=== PATIENT | female | born 2000 | race Caucasian/White ===

== ENCOUNTER → 2025-03-02 | Outpatient (CLI) | payer OTHER, SELFPAY ==
[2025-03-02 12:16] LABS: Absolute Lymphocyte Count 1.59 X10^3/uL (0.83-4.51); Basophil# 0.04 X10^3/uL; Basophil% 0.6 % (0-1); Eosinophil# 0.12 X10^3/uL; Eosinophils% 1.9 % (0-5); Hematocrit 36.2 % (37-47); Lymphocyte # 1.59 X10^3/ul (0.83-4.51); Lymphocyte % 25.6 % (19-41); Mean Corp Hgb Conc 33.1 g/dL (32-36); Mean Corpuscular Volume 90.5 fL (81-99); Monocyte# 0.44 X10^3/uL; Monocyte% 7.1 % (0-10); NRBC Flagged by Analyzer 0 % (0-5); Neutrophil % 64.3 % (47-70); Platelet Count 171 K/mm3 (150-450); RBC Distribution Width CV 13.2 % (11.6-14.6); RBC Distribution Width SD 43.7 fl (35.1-43.9); White Blood Count 6.2 K/mm3 (4.4-11.0)
[2025-03-02 13:20] LABS: HIV Nonreactive (Nonreactive); Hepatitis B Surface Antigen Nonreactive (Nonreactive); Hepatitis C Antibody Nonreactive (Nonreactive); Rubella IgG Nonreactive (Nonreactive); Syphilis Antibodies Nonreactive (Nonreactive); Thyroid Stim Hormone (TSH) 0.738 uIU/mL (0.300-4.200)
[2025-03-04 04:07] LABS: Chlamydia By Nucleic Acid AMP Negative (Negative); Gonococcus By Nucleic Acid AMP Negative (Negative)
== END | disposition home or self-care (01) ==
PROVIDERS: PCP Nurse Practitioner Family; Referring Provider Advanced Practice Midwife; Visit Provider Advanced Practice Midwife
DX: O09.90 Supervision of high risk pregnancy, unspecified, unspecified trimester (principal); Z3A.00 Weeks of gestation of pregnancy not specified
CPT/HCPCS: 36415; 84439; 84443; 85025; 86703; 86762; 86780; 86803; 86850; 86900; 86901; 87086; 87088; 87340; 87491; 87591

== ENCOUNTER → 2025-05-18 | Outpatient (CLI) | payer SELFPAY, OTHER ==
--- NOTE | 2025-05-18 15:43 | US_ITS ---
PROCEDURE: OB ANATOMY W/ TRANSVAGINAL 05/18/2025 REASON FOR EXAM: ANATOMY SCAN TECHNIQUE: OB ANATOMY W/ TRANSVAGINAL COMPARISON: None FINDINGS LMP: December 29, 2024 Number: 1 Position: Breech Placental Position: Posterior and not low-lying Placental Abnormalities: No evidence of previa. DIMENSIONS: Biparietal Diameter: 4.64 cm: 20 weeks and 0 days: 50 percentile/ Head Circumference: 16.94 cm: 19 weeks and 4 days: 23rd percentile/ Abdominal Circumference: 15.5 cm: 20 weeks and 5 days: 68 percentile/ Femur Length: 3.26 cm: 20 weeks and 1 day: 49 percentile/ ESTIMATED WEIGHT: 352 g plus/-52 g ESTIMATED WEIGHT PERCENTILE (24+ weeks): 69 percentile ESTIMATED GESTATIONAL AGE: Baseline: 20 weeks and 2 days By Ultrasound: 20 weeks and 0 days ESTIMATED DATE OF DELIVERY: Baseline: October 05, 2025 By Ultrasound: October 07, 2025 BIOPHYSICAL ASSESSMENT: Amniotic Fluid Volume: 3.6 cm Amniotic Fluid Index: Within normal limits (8-24 cm normal range) Cardiac Motion: 140 (average) Trunk and Limb Motion: Present. MATERNAL ANATOMY: Adnexa: Both maternal ovaries are visualized and unremarkable. Cervical Length (if measured): 3.6 cm ANATOMY: Spine: Unremarkable Cranium: Unremarkable Cerebellum: Unremarkable Cisterna Magna: Unremarkable Cavum Septum Pellucidi: Unremarkable Lateral Ventricles: Unremarkable Choroid Plexus: Unremarkable Midline Falx: Unremarkable Nuchal Fold: Unremarkable Upper Lip: Unremarkable Heart: Unremarkable Stomach: Unremarkable Kidneys: Unremarkable Bladder: Unremarkable Umbilical Cord: Normal insertion. Extremities: Unremarkable US/OB Anatomy w/ Transvaginal IMPRESSION: Single live intrauterine gestation with a mean gestational age of 20 weeks and 0 days. Reading Location: [facility]
== END | disposition home or self-care (01) ==
PROVIDERS: Referring Provider Obstetrics & Gynecology; Visit Provider Obstetrics & Gynecology
DX: O09.90 Supervision of high risk pregnancy, unspecified, unspecified trimester (principal); Z3A.00 Weeks of gestation of pregnancy not specified
CPT/HCPCS: 76805; 76817

== ENCOUNTER → 2025-07-10 | Outpatient (CLI) | payer OTHER, SELFPAY ==
[2025-07-10 10:10] LABS: Hematocrit 32.5 % (37-47); Hemoglobin 10.9 g/dL (12.0-15.0); Immature Granulocytes Count 0.110 X10^3/uL (0.0-0.0); Mean Corp Hgb Conc 33.5 g/dL (32-36); Mean Corpuscular Volume 92.6 fL (81-99); Mean Platelet Vol. 9.4 fl (6.2-12.0); NRBC Flagged by Analyzer 0 % (0-5); Platelet Count 168 K/mm3 (150-450); RBC Distribution Width CV 12.9 % (11.6-14.6); RBC Distribution Width SD 43.5 fl (35.1-43.9); Red Blood Count 3.51 M/mm3 (4.2-5.4); White Blood Count 8.8 K/mm3 (4.4-11.0)
[2025-07-10 11:28] LABS: Glucose Challenge Gest 1H 50g 68 mg/dL (70-140); HIV Nonreactive (Nonreactive); Syphilis Antibodies Nonreactive (Nonreactive)
== END | disposition home or self-care (01) ==
LOC: LAB 09:54
PROVIDERS: Referring Provider Obstetrics & Gynecology; Visit Provider Obstetrics & Gynecology
DX: O09.92 Supervision of high risk pregnancy, unspecified, second trimester (principal); Z3A.00 Weeks of gestation of pregnancy not specified
CPT/HCPCS: 36415; 82950; 85025; 86703; 86780

== ENCOUNTER → 2025-08-31 | Outpatient (CLI) | payer OTHER, SELFPAY ==
[2025-08-31 12:26] LABS: Hematocrit 30.5 % (37-47); Hemoglobin 10.1 g/dL (12.0-15.0); Mean Corp Hgb Conc 33.1 g/dL (32-36); Mean Corpuscular Volume 91.9 fL (81-99); Mean Platelet Vol. 10.6 fl (6.2-12.0); Platelet Count 150 K/mm3 (150-450); RBC Distribution Width CV 13.3 % (11.6-14.6); RBC Distribution Width SD 44.2 fl (35.1-43.9); Red Blood Count 3.32 M/mm3 (4.2-5.4); White Blood Count 9.1 K/mm3 (4.4-11.0)
--- OUTSIDE RECORDS SUMMARY | 2025-08-31 14:51 | XMS RPT_ITS | CCD ---
Author Organization [facility] Care Team Providers Care Nurse Infection Control Name Role Phone CINTIA REILLY, YOHANA Will Unavailable BERLIN Unavailable Unavailable CINTIA REILLY, IRASEMA Guerrier Unavailable GASTROENTEROLOGY, GENERAL Unavailable Emilee Yang RN, June Unavailable Unavailable ABHIJIT REILLY, SHREYAS Stark Unavailable CHERYL RN, KAYLEIGH Unavailable Unavailable KRISTA ANDRESP-CCHANDA Unavailable Tanesha HARDWICK MD Unavailable KARTHIK REILLY, YAHAIRA Brunson Unavailable [phone] Alex RN, Tamar Unavailable Unavaila arsalan Rdz RN, Kelli Unavailable Unavailable Unavailable Unavailable Ricardo MARTINSN, Snow Unavailable Unavailable KRISTA LEYVA-CCHANDA Unavailable Unav ailable MALCOLM YANG MD Referring Unavailable MALCOLM YANG MD Consulting Unavailable WILFREDO CHAMBERLAIN Attending Unavailable WILFREDO CHAMBERLAIN Primary Care Unavailable WILFREDO CHAMBERLAIN Admitting Unavailable PROVIDER, UNKNOWN Consulting Unavailable PROVIDER, UNKNOWN Consulting Unavailable SONA LEYVA-CYULIYA Unavailable Chanda Addison Primary Care Provider Dr. Sirena Padilla MD Attending Provider Dr. Sirena Padilla MD Referring Provider Chanda Addison Referring Provider Sophia Cho CNM Attending Provider Sophia Cho CNM Referring Provider [phone] Lora Lopez Attending Provider [phone] [place] Doctor, Out of Primary Care Provider Unavai lable Krista DANCE PROFESSOR-C, Chanda Primary Care Provider Krista DANCE PROFESSOR-C, Chanda Referring Provider Valerie REILLY, Dr. Pack Attending Provider [phone] Dr. Sirena Padilla MD Referring Provider [phone] Dr. Lizbeth Cruz DO Attending Provider Krista DANCE PROFESSOR-C, Chanda Primary Care Physician Krista DANCE PROFESSOR-C, Chanda Referring Provider Valerie REILLY, Dr. Pack Attending Physician Dennis DANCE PROFESSOR-C, Lora Attending Physician [phone] [facility] Doctor, Out of Primary Care Physician Unava ilable Dr. Lizbeth Cruz DO Attending Physician Care Physician, No Primary Primary Care Physicia n Unavailable Dr. Lizbeth Cruz DO Referring Provider [facility] Doctor, Out of Referring Provider Unavailab le Care Physician, No Primary Primary Care Unava ilable Dennis DANCE PROFESSOR, Lora Attending Unavailable [facility] Doctor, Out of Referring Unavailable Care Physician, No Primary Primary Care Unava ilable Krista DANCE PROFESSOR, Chanda Referring Unavailab le Sirena Padilla Attending Unavailable Krista DANCE PROFESSOR, Chanda Referring Unavailab le [facility] Doctor, Out of Primary Care Unavailable Lizbeth Cruz Attending Unavailabl e MarcanthSirena sanchez Referring Unavailable [facility] Doctor, Out of Primary Care Unavailable Sirena Padilla Attending Unavailable Lizbeth Cruz Attending Unavailabl e Care Physician, No Primary Primary Care Unava ilable Lizbeth Cruz Referring Unavailabl e Javier DANCE PROFESSOR, [place] Primary [facility] Unavailab Sophia Dhillon Referring Unavailable Sophia Cho Attending Unavailable Krista DANCE PROFESSOR, [place] [facility] Unavailab le MarcanthonySirena Referring Unavailable MarcanthSirena sanchez Attending Unavailable Losttsylvester DANCE PROFESSOR, [place] [facility] Unavailab le Marcanthony, Sirena Referring Unavailable MarcanthonySirena Attending Unavailable Krista DANCE PROFESSOR, Chanda Referring Unavailab vitor Collins DANCE PROFESSOR, Lora Attending Unavailable [facility] Doctor, Out of Primary Care Unavailable Krista DANCE PROFESSOR, Chanda Primary Care Unavailab le Krista DANCE PROFESSOR, Chanda Referring Unavailab vitor Collins DANCE PROFESSOR, Lora Attending Unavailable Krista DANCE PROFESSOR, Chanda Primary Care Unavailab le Krista DANCE PROFESSOR, Chanda Referring Unavailab Sirena Landin Attending Unavailable Krista DANCE PROFESSOR, Chanda Primary Care Unavailab le Krista DANCE PROFESSOR, Chanda Referring Unavailab Sophia Dhillon Attending Unavailable Krista DANCE PROFESSOR, Chanda Primary Care Unavailab le Krista DANCE PROFESSOR, Chanda Referring Unavailab Sirena Landin Attending Unavailable Care Physician, No Primary Primary Care Unava ilable [facility] Doctor, Out of Referring Unavailable Sophia Cho Attending Unavailable Allergies Allergy Classification Reported Allergen(s) Allergy Type Date of Onset Reaction(s) Facility (1 source) Lactose; Translations: [LACTOSE] Drug Allergy [facility] Repository Medications Current Medications Medication Drug Class(es) Dates Sig (Normalized) Sig (Original) Fish,Bora,Flax Oils-Om3,6,9no1 ([place] 3-6-9) 1,200 mg capsule (9 sources) Start: 02-16-2025 take 1 capsule by mouth once daily Fish,Bora,Flax Oils-Om3,6,9no1 ([place] 3-6-9) 1,200 mg capsule Active 0 PO DAILY February 16, 2025 12:00am 1 orally daily; Complies with drug therapy Start: 02-16-2025 take 1 capsule by mo [facility] once daily Fish,Bora,Flax Oils-Om3,6,9no1 ([place] 3-6-9) 1,200 mg capsule Active 0 PO DAILY February 16, 2025 12:00am 1 orally daily; Magnesium (9 sources) Start: 02-16-2025 take 1 tablet by clarice th once daily Magnesium 250 mg tablet Active 250 mg PO daily February 16, 2025 12:00am Complies with drug therapy Start: 02-16-2025 take 1 tablet by clarice th once daily Magnesium 250 mg tablet Active 250 mg PO daily February 16, 2025 12:00am Mv-Mins 49-Cpjq-Oeggf No.1-D christiansen (Pnv-[place]) 28-1-300 mg capsule (9 sources) Start: 02-16-2025 Mv-Mins 71-Iro n-Folic No.1-Dha (Pnv-[place]) 28-1-300 mg capsule Active NMA PO February 16, 2025 12:00am Complies with drug therapy Start: 02-16-2025 Mv-Mins 71-Iro n-Folic No.1-Dha (Pnv-[place]) 28-1-300 mg capsule Active NMA PO February 16, 2025 12:00am sertraline 25 mg oral tablet (20 sources) Serotonin Reuptake Inhibitor Start: 03-10-2024 take 1 tablet by mouth once daily Sertraline 25 mg tablet Active 25 mg PO DAILY March 10, 2024 12:00am Complies with drug therapy Start: 02-26-2024 Zoloft 25 mg t ablet ; 1 (one) Tablet daily for 90 days Quantity: 90 {Tablet} Refills: 2 Ordered: 26-Feb-2024 GUADALUPE VELASCO Start: 26-Feb-2024 Start: 10-09-2023 Zoloft 25 mg t ablet ; 1 (one) Tablet daily for 90 days Quantity: 90 {Tablet} Refills: 2 Ordered: 09-Oct-2023 GUADALUPE VELASCO Start: 09-Oct-2023 Completed/Discontinued Medications Medication Drug Class(es) Dates Sig (Normalized) Sig (Original) PARoxetine hydrochloride 10 mg oral tablet (11 sources) Serotonin Reuptake Inhibitor Start: 07-19-2014 End: 05-31-2021 take 0.5 tablet by mouth once daily PARoxetine HCl 10 MG Oral Tablet ; 1/2 (one half) Tablet daily for 60 days Quantity: 30 {Tablet} Refills: 2 Ordered: 31-May-2021 MESHA Johnson Start: 19-Jul-2014 End: 31-May-2021 Status: Inactive Comments: Flo Strong Comment on above: Fol Strong Problems Active Problems Problem Classification Problem Date Documented Da te Episodic/Chronic Administrative/social admission (20 sources) Patient encounter status; Translations: [Counseling, unspecified] 10-09-2023 Episodic Anxiety disorders (20 sources) Anxiety; Translations: [Anxiety disorder, unspecified] Onset: 5 10-09-2023 Chronic Comment on above: 12/21/24: PHQ9: 3; SUHAIL 7: 8 sertraline Cardiac dysrhythmias (15 sources) Palpitations; Translations: [Palpitations] Onset: 5 05-24-2025 Episodic Comment on above: after eating. No SOB , chest pain. Declines further evaluation Mood disorders (20 sources) Depressive disorder; Translations: [Depressive disorder, not elsewhere classified] 07-04-2014 Chronic Noninfectious gastroenteritis (11 sources) Other and unspecified noninfectious gastroenteritis and colitis 07-30-2010 Episodic Other complications of (20 sources) Varicose veins of lower extremity in , unspecified trimester; Translations: [Varicose veins during ] Onset: 5 02-16-2025 Episodic Comment on above: behind knees, inner thigh, vaginal behind knees, inner thigh, vaginal left leg. Enc stockings etc Other complications of (20 sources) H/O: miscarriage; Translations: [Supervision of with other poor reproductive or obstetric history, unspecified trimester] 02-07-2025 Episodic Other complications of (20 sources) High risk ; Translations: [Supervision of high risk , unspecified, unspecified trimester] 02-16-2025 Episodic Comment on above: , WILBER 10/05/25, PC Kady, Gopal PRR, , WILBER 10/05, PC Kady, Gopal Other complications of (19 sources) Varicella non-immune; Translations: [Supervision of other high risk pregnancies, unspecified trimester] 02-16-2025 Episodic Comment on above: recommend varicella vaccine post delivery Other complications of (3 sources) Rubella non-immune; Translations: [Supervision of other high risk pregnancies, unspecified trimester] 03-02-2025 Episodic Comment on above: offer MMR PP Other complications of (1 source) Supervision of other high risk pregnancies, unspecified trimester; Translations: [Supervision of other high risk pregnancies, unspecified trimester] Onset: 5 Episodic Other complications of (1 source) Supervision of with other poor reproductive or obstetric history, unspecified trimester; Translations: [Supervision of with other poor reproductive or obstetric history, unspecified trimester] Onset: 5 Episodic Other complications of (1 source) Supervision of high risk , unspecified, third trimester; Translations: [Supervision of high risk , unspecified, third trimester] Onset: 5 Episodic Other complications of (1 source) Supervision of high risk , unspecified, second trimester; Translations: [Supervision of high risk , unspecified, second trimester] Onset: 5 Episodic Other complications of (1 source) Supervision of high risk , unspecified, unspecified trimester; Translations: [Supervision of high risk , unspecified, unspecified trimester] Onset: 5 Episodic Other gastrointestinal disorders (20 sources) Irritable bowel syndrome with diarrhea; Translations: [Irritable bowel syndrome with diarrhea] 10-09-2023 Chronic Other gastrointestinal disorders (11 sources) Diarrhea 07-30-2010 Episodic Previous (20 sources) Maternal request for obstetric intervention; Translations: [Maternal care for unspecified type scar from previous delivery] Onset: 5 02-16-2025 Episodic Comment on above: chance of success is 77%. baby was breech. consent given. 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 Residual codes; unclassified (1 source) Family history of other specified conditions; Translations: [Family history of other specified conditions] Onset: 5 Episodic Residual codes; unclassified (1 source) History of uterine scar from previous surgery; Translations: [History of uterine scar from previous surgery] Onset: 5 Episodic Residual codes; unclassified (1 source) 31 weeks gestation of ; Translations: [31 weeks gestation of ] Onset: 5 Episodic Residual codes; unclassified (1 source) 27 weeks gestation of ; Translations: [27 weeks gestation of ] Onset: 5 Episodic Unclassified (11 sources) LAB DRAW - The labs drawn today include: other: HCG. The lab was drawn from the right antecubital vein. The lab was ordered by Chanda BUTCHER. 03-14-2022 Unclassified (1 source) Other underimmunization status; Translations: [Other underimmunization status] Onset: 5 Past or Other Problems Problem Classification Problem Date Documented Date Episodic/Chronic Hemorrhage during ; abruptio placenta; placenta previa (20 sources) Hemorrhage in early , unspecified; Translations: [Unspecified hemorrhage in early , antepartum condition or complication] Onset: 04-05-2025 10-09-2023 Episodic Comment on above: early IUP seen measu ring appropriately FHT seen visibly Mood disorders (20 sources) Mood disorders 03-04-2013 Other and delivery including normal (20 sources) Early stage of ; Translations: [Encounter for supervision of normal , unspecified, unspecified trimester] Onset: 04-05-2025 02-07-2025 Episodic Comment on above: declined NIPT, Geraldine er testing in past- neg. offer MMR PP Residual codes; unclassified (1 source) 13 weeks gestation of ; Translations: [13 weeks gestation of ] Onset: 04-05-2025 Episodic Residual codes; unclassified (1 source) 9 weeks gestation of ; Translations: [9 weeks gestation of ] Onset: 03-02-2025 Episodic Unclassified (11 sources) Anxiety Disorders - The last clinic visit was 13 month(s) ago. Note for Anxiety disorders: has not taken zoloft regularly but wants to take med, 10-09-2023 Unclassified (11 sources) Anxiety - Note for Anxiety: Pt feels good on current medication and dose. 08-20-2022 Unclassified (11 sources) !Patient notification of lab results - GUADALUPE Lucio. The test(s) that you had done were/was an ultrasound exam. The results of your testing were normal . You should call our office if you have any questions. Note for !Patient notification of lab results : Congratulations! Your ultrasound was normal! It looks like you are nearly 8 weeks . Continue the pelvic rest and schedule an OB appointment in about 4-6 weeks. Thanks! 03-24-2022 Unclassified (11 sources) !Patient notification of lab results - GUADALUPE Lucio. The test(s) that you had done were/was blood work. The results of your testing were normal . Note for !Patient notification of lab results : Your hormone levels look good, they went up from 36,000 to 60,000- so nearly doubling. You are definitely still ! Keep following the precautions I gave you as far as not lifting anything heavy and avoiding anything in the vagina. Let us know if you have any bleeding or cramping. We can order an ultrasound in the next few weeks to confirm. Thanks! 03-19-2022 Unclassified (11 sources) !Patient notification of lab results - GUADALUPE Lucio. The test(s) that you had done were/was blood work. Note for !Patient notification of lab results : Your blood type is O+. We'll let you know after your next set of hormones. Thanks! 03-13-2022 Unclassified (11 sources) Vaginal bleeding - Note for Vaginal bleeding: LMP 01/31/22. Pt had a positive test about 2 weeks ago. She has some light pink spotting for a short time earlier this week that did not last long. She was at a wedding yesterday and had more bright red bleeding that lasted into the night. This morning it is a brown color. Never had abd cramping, but did notice some back pain. Pt is unsure of her blood type. 03-12-2022 Unclassified (11 sources) Anxiety - Note for Anxiety: Pt states symptoms have lessened w/ medication. Sleeping well at night. 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 Feels nervous shakey. Can sleep at night. Had trouble with anxiety since childhood and had been taking Paxil at one time but went to natural med that is not working. 01-09-2022 Unclassified (11 sources) Diarrhea - The onset of the diarrhea has been acute and has been occurring in an intermittent pattern for 3 months. The symptoms have been associated with abdominal pain (with diarrhea) and anxiety ( April 2021), while the symptoms have not been associated with vomiting. Note for Diarrhea: Pt started with stomachache and diarrhea at times in March 2021. HX of anxiety. Got April 2021. symptoms continue at times. Has tried to decrease dairy in her diet without any change. Diarrhea and stomachache is not a daily thing. 05-31-2021 Unclassified (11 sources) Panic Attacks.. - Symptoms include panic attacks. Onset was 3 year(s) ago. 07-19-2014 Unclassified (6 sources) Fever - The fever has been occurring for 4 days. 07-30-2010 Unclassified (11 sources) [ADDITIONAL REASON] Abdominal pain - The pain has been occurring for 4 days. 07-30-2010 Unclassified (5 sources) [ADDITIONAL REASON] Fever - The fever has been occurring for 4 days. 07-30-2010 Unclassified (7 sources) Anxiety Disorders - The last clinic visit was 15 month(s) ago. Symptoms do not include chest discomfort, trouble breathing, trembling or paresthesias. Note for Anxiety disorders: Had a Miscarriage recently. Medication is helping. No thoughts of hurting self 12-21-2024 Results Test Name Value Interpretation Reference Range Facility Costumer Office Visit Reporton 08-14-2025 Costumer Office Visit Report [facility] [address], [address] [place] [address] OFFICE VISIT Date of Service: 08/14/25 MR#: [id number] Acct: [id number] Name: GAURAV FORTE Rep #: [id number] : 2000 Provider: NOELLE Fan ams Age/Sex: 25/F Location: [facility] [place] Status: Signed Intake Vital Signs 06/21/25 09:27 07/25/25 13:42 08/14/25 09:37 Height 5 ft 6 in 5 ft 6 in 5 ft 6 in Weight: 154 lb 9 oz BMI 24.9 BP 137/80 H Intake Visit Reasons: 33 wk ob *pt on vacation* Chief Complaint: 33wk OB Rehab Therapist Required: No Is patient in pain?: No Allergies No Known Allergies Allergy (Verified 08/14/25 09:36) Medications ???Medication ???Instructions ???Recorded ???Confirmed ???Type sertraline 25 mg tablet 25 mg PO DAILY 03/10/24 08/14/25 H istory fish, borage, flaxseed oils-omega See Rx Instructions PO DAILY 11/1208/14/25 History 3,6,9 comb no.1 1,200 mg capsule ([place] 3-6-9) magnesium 250 mg tablet 250 mg PO QDAY 02/16/25 08/14/25 H istory multivit-min no.71-iron fum 28 cap PO 02/16/25 08/14/25 History mg-folate no.1 1 mg-dha 300 mg capsule (PNV-[place]) Last Menstrual Period: 12/29/24 PFSH PFSH Surgical History Previous section Family History Aunt Cancer, Onset Age: 25 Paternal Brain tumor Social History adopted: No household members: spouse and children housing: house number of children: 1 current occupational status: unemployed current occupation: [employer] current occupational exposures/hazards: No pets and animals: Yes (outside) pets and animals: dog(s) and horse(s) history of recent travel: No sexually active: Yes Smoking Status: Never smoker second hand exposure: No alcohol intake: current alcohol intake frequency: holidays/special occasions only details: Not while substance use type: does not use diet: lactose free well-balanced diet: daily or most days caffeine: No eating out: rarely or never during the past year weight has: remained stable what type of physical activity do you participate in: none cindy/christianity: Yazidi seatbelt use: always do you feel safe at home: Yes additional social history: - [employer] work History 3 Elective abortions Hx Para 1 Spontaneous abortions 1 Hx # Term Pregnancies Ectopic pregnancies Hx # Pregnancies Multiple births # of living children 1 Past Pregnancies Del. Date Name GA/Weeks Outcome Route Bth Weight Infant Gen Labor Lgth Anesthesia Del Locatn Provider FOB Unknown Oct 2024 spontaneous 11/03/22 Kady 39 live - full term 7# Female spinal Pomeren e Gopal Delivery Date: 11/03/22 Last Updated by: Sirena Padilla MD breech HPI 33 wk ob *pt on vacation* Details: GAURAV FORTE is a 25 year old who presents for routine OB visit. OB Visit WILBER Calculator Estimated Delivery Date Method Current WG Current Estimate 10/05/25 LMP (Certain) 32w 4d Other Estimates 10/04/25 Ultrasound #1 32w 5d Expected Delivery Route/Plan TOLAC previous for breech- plan on not scheduling anything until end of , consider IOL at 40-41 if favorable. patient counseled regarding risks/benefits of trial of labor versus repeat . ACOG/uptodate education given to patient. 77% likelihood of success per calculator TOLAC consent form signed: 06/21/25 Specific Issue/Plans Covid status: [] Flu vaccine: declines Tdap vaccine: declines Rhogam: NA LARC form signed: yes Problem list reviewed and updated with the most current plan of care details and appropriate orders placed. Relevant counseling for the gestational age provided. Continue routine care and follow up unless otherwise noted in visit notes/problem list details Initial Weight: 133 lb Date -???-???-???-???-???- ???-???-???-???-???-? ??-???- EGA Weight BP Urine Prot -???-???-???-???-???- ???-???-???-???-???-? ??-???- Glucose FHR FuHt Pres Dilation -???-???-???-???-???- ???-???-???-???-???-? ??-???- Effaced St Visit Note 03/02/25 -???-???-???-???-???- ???-???-???-???-???-? ??-???- 9w 0d 133 lb 4 oz (+4 oz) 116/78 -???-???-???-???-???- ???-???-???-???-???-? ??-???- 182 -???-???-???-???-???- ???-???-???-???-???-? ??-???- KW- CRL cons with dates. declines NIPT 04/05/25 -???-???-???-???-???- ???-???-???-???-???-? ??-???- 13w 6d 134 lb 6 oz (+1 lb 6 oz) 116/76 Negative -???-???-???-???-???- ???-???-???-???-???-? ??-???- Negative 160 -???-???-???-???-???- ???-???-???-???-???-? ??-???- SM- no vb cr maping 04/25/25 -???-???-???-???-???- ???-???-???-???-?? (more content not included)... [facility] Costumer Office Visit Reporton 07-25-2025 Costumer Office Visit Report [facility] [address], [address] [place] [address] OFFICE VISIT Date of Service: 07/25/25 MR#: [id number] Acct: [id number] Name: GAURAV FORTE Rep #: [id number] : 2000 Provider: KRISTIE parnell Age/Sex: 24/F Location: [facility] [place] Status: Signed Intake Vital Signs 06/21/25 09:27 07/10/25 10:06 07/25/25 13:42 Height 5 ft 6 in 5 ft 6 in 5 ft 6 in Weight: 153 lb 7 oz BMI 24.7 BP 113/72 Intake Visit Reasons: 30 wk ob Chief Complaint: 30 Week OB Rehab Therapist Required: No Is patient in pain?: No Allergies No Known Allergies Allergy (Verified 07/25/25 13:42) Medications ???Medication ???Instructions ???Recorded ???Confirmed ???Type sertraline 25 mg tablet 25 mg PO DAILY 03/10/24 07/25/25 H istory fish, borage, flaxseed oils-omega See Rx Instructions PO DAILY 11/1207/25/25 History 3,6,9 comb no.1 1,200 mg capsule ([place] 3-6-9) magnesium 250 mg tablet 250 mg PO QDAY 02/16/25 07/25/25 H istory multivit-min no.71-iron fum 28 cap PO 02/16/25 07/25/25 History mg-folate no.1 1 mg-dha 300 mg capsule (PNV-[place]) Last Menstrual Period: 12/29/24 Zika: Zika virus screening: Negative : Yes PFSH PFSH Surgical History Previous section Family History Aunt Cancer, Onset Age: 25 Paternal Brain tumor Social History adopted: No household members: spouse and children housing: house number of children: 1 current occupational status: unemployed current occupation: [employer] current occupational exposures/hazards: No pets and animals: Yes (outside) pets and animals: dog(s) and horse(s) history of recent travel: No sexually active: Yes Smoking Status: Never smoker second hand exposure: No alcohol intake: current alcohol intake frequency: holidays/special occasions only details: Not while substance use type: does not use diet: lactose free well-balanced diet: daily or most days caffeine: No eating out: rarely or never during the past year weight has: remained stable what type of physical activity do you participate in: none cindy/christianity: Yazidi seatbelt use: always do you feel safe at home: Yes additional social history: - [employer] work History 3 Elective abortions Hx Para 1 Spontaneous abortions 1 Hx # Term Pregnancies Ectopic pregnancies Hx # Pregnancies Multiple births # of living children 1 Past Pregnancies Del. Date Name GA/Weeks Outcome Route Bth Weight Gen Labor Lgth Anesthesia Del Locatn Provider FOB Unknown Oct 2024 spontaneous 11/03/22 Kady 39 live - full term 7# Female spinal Chanel Herron Delivery Date: 11/03/22 Last Updated by: Sirena Padilla MD breech HPI 30 wk ob Details: GAURAV FORTE is a 24 year old who presents for routine OB visit. OB Visit WILBER Calculator Estimated Delivery Date Method Current WG Current Estimate 10/05/25 LMP (Certain) 29w 5d Other Estimates 10/04/25 Ultrasound #1 29w 6d Expected Delivery Route/Plan TOLAC previous for breech- plan on not scheduling anything until end of , consider IOL at 40-41 if favorable. patient counseled regarding risks/benefits of trial of labor versus repeat . ACOG/uptodate education given to patient. 77% likelihood of success per calculator TOLAC consent form signed: 06/21/25 Specific Issue/Plans Covid status: [] Flu vaccine: declines Tdap vaccine: declines Rhogam: NA LARC form signed: yes Problem list reviewed and updated with the most current plan of care details and appropriate orders placed. Relevant counseling for the gestational age provided. Continue routine care and follow up unless otherwise noted in visit notes/problem list details Initial Weight: 133 lb Date -???-???-???-???-???- ???-???-???-???-???-? ??-???- EGA Weight BP Urine Prot -???-???-???-???-???- ???-???-???-???-???-? ??-???- Glucose FHR FuHt Pres Dilation -???-???-???-???-???- ???-???-???-???-???-? ??-???- Effaced St Visit Note 03/02/25 -???-???-???-???-???- ???-???-???-???-???-? ??-???- 9w 0d 133 lb 4 oz (+4 oz) 116/78 -???-???-???-???-???- ???-???-???-???-???-? ??-???- 182 -???-???-???-???-???- ???-???-???-???-???-? ??-???- KW- CRL cons with dates. declines NIPT 04/05/25 -???-???-???-???-???- ???-???-???-???-???-? ??-???- 13w 6d 134 lb 6 oz (+1 lb 6 oz) 116/76 Negative -???-???-???-???-???- ???-???-???-???-???-? ??-???- Negative 160 -???-???-???-???-???- ???-???-???-???-???-? ??-???- SM- no vb cr maping (more content not included)... Normal [facility] Absolute lymphocyte countOrd ered By: Lizbeth Chrissy on 07-10-2025 Lymphocytes Auto (Unsp spec) [#/Vol] 1.51 10*3/uL 0.83-4.51 [facility] Absolute neutrophil countOrd ered By: Lizbeth Chrissy on 07-10-2025 Neutrophils (Bld) [#/Vol] 6.4 10*3/uL 2.0-7.7 [facility] Automated lymphocyte count a s percentage of total leukocytesOrdered By: Lizbeth Chrissy on 07-10-2025 Lymphocytes/100 WBC Auto (Unsp spec) 17.2 % Low 19-41 [facility] Basophil percentageOrdered B y: Lizbeth Chrissy on 07-10-2025 Basophils/100 WBC (Bld) 0.3 % 0-1 [facility] CBC W/Diff, Automatedon 09-2 2-2024 Absolute Lymph 1.51 X10 3/uL Normal 0.83-4.51 [facility] Comment on above: Performed By: #### L 100.0100, L501.0250, L509.8002, L3890.6006 #### [facility] [address] [place], [address] Absolute Neut 6.4 X10 3/uL Normal 2.0-7.7 [facility] Comment on above: Performed By: #### L 100.0100, L501.0250, L509.8002, L3890.6006 #### [facility] [address] [place], [address] Basophils/100 WBC (Bld) 0.3 % Normal 0-1 [facility] Comment on above: Performed By: #### L 100.0100, L501.0250, L509.8002, L3890.6006 #### [facility] [address] [place], [address] Eosinophils/100 WBC (Bld) 1.4 % Normal 0-5 [facility] Comment on above: Performed By: #### L 100.0100, L501.0250, L509.8002, L3890.6006 #### [facility] [address] [place], [address] Erythrocyte distribution width (RBC) [Ratio] 12.9 % Normal 11.6-14.6 [facility] Comment on above: Performed By: #### L 100.0100, L501.0250, L509.8002, L3890.6006 #### [facility] [address] [place], [address] Hematocrit (Bld) [Volume fraction] 32.5 % Low 37-47 [facility] Comment on above: Performed By: #### L 100.0100, L501.0250, L509.8002, L3890.6006 #### [facility] [address] [place], [address] Hemoglobin (Bld) [Mass/Vol] 10.9 g/dL Low 12.0-15.0 [facility] Comment on above: Performed By: #### L 100.0100, L501.0250, L509.8002, L3890.6006 #### [facility] [address] [place], [address] IG% 1.300 High 0.0-0.9 [facility] Comment on above: Result Comment: IG% - Immature Granulocytes (promyelocytes, myelocytes and metamyelocytes) > 1% indicates that a LEFT SHIFT is Present. Performed By: #### L 100.0100, L501.0250, L509.8002, L3890.6006 #### [facility] [address] [place], [address] Lymphocytes/100 WBC (Bld) 17.2 % Low 19-41 [facility] Comment on above: Performed By: #### L 100.0100, L501.0250, L509.8002, L3890.6006 #### [facility] [address] [place], [address] MCH (RBC) [Entitic mass] 31.1 pg Normal 27.0-32.0 [facility] Comment on above: Performed By: #### L 100.0100, L501.0250, L509.8002, L3890.6006 #### [facility] [address] [place], [address] MCHC (RBC) [Mass/Vol] 33.5 g/dL Normal 32-36 [facility] Comment on above: Performed By: #### L 100.0100, L501.0250, L509.8002, L3890.6006 #### [facility] [address] [place], [address] MCV (RBC) [Entitic vol] 92.6 fL Normal 81-99 [facility] Comment on above: Performed By: #### L 100.0100, L501.0250, L509.8002, L3890.6006 #### [facility] [address] [place], [address] Monocytes/100 WBC (Bld) 7.2 % Normal 0-10 [facility] Comment on above: Performed By: #### L 100.0100, L501.0250, L509.8002, L3890.6006 #### [facility] [address] [place], [address] Neutrophils/100 WBC (Bld) 72.6 % High 47-70 [facility] Comment on above: Performed By: #### L 100.0100, L501.0250, L509.8002, L3890.6006 #### [facility] [address] [place], [address] Nucleated RBC (Bld) [#/Vol] 0 10*3/uL Normal 0-5 [facility] Comment on above: Performed By: #### L 100.0100, L501.0250, L509.8002, L3890.6006 #### [facility] [address] [place], [address] Platelet mean volume (Bld) [Entitic vol] 9.4 fL Normal 6.2-12.0 [facility] Comment on above: Performed By: #### L 100.0100, L501.0250, L509.8002, L3890.6006 #### [facility] [address] [place], [address] Platelets (Bld) [#/Vol] 168 10*3/uL Normal 150-450 [facility] Comment on above: Performed By: #### L 100.0100, L501.0250, L509.8002, L3890.6006 #### [facility] [address] [place], [address] RBC (Bld) [#/Vol] 3.51 10*6/uL Low 4.2-5.4 [facility] Comment on above: Performed By: #### L 100.0100, L501.0250, L509.8002, L3890.6006 #### [facility] [address] [place], [address] RDW SD 43.5 fl Normal 35.1-43.9 [facility] Comment on above: Performed By: #### L 100.0100, L501.0250, L509.8002, L3890.6006 #### [facility] [address] [place], [address] WBC (Bld) [#/Vol] 8.8 10*3/uL Normal 4.4-11.0 [facility] Comment on above: Performed By: #### L 100.0100, L501.0250, L509.8002, L3890.6006 #### [facility] [address] [place], [address] Eosinophil percentageOrdered By: Lizbeth Lowe on 07-10-2025 Eosinophils/100 WBC (Bld) 1.4 % 0-5 [facility] Erythrocyte distribution wid th ratioOrdered By: Lizbeth Lowe on 07-10-2025 Erythrocyte distribution width (RBC) [Ratio] 12.9 % 11.6-14.6 [facility] Erythrocyte distribution wid th standard deviationOrdered By: Lizbeth Lowe on 07-10-2025 Erythrocyte distribution width (RBC) [Ratio] 43.5 fl 35.1-43.9 [facility] Glucose Challenge Gest 1H 50 samuel 07-10-2025 GLU GEST 50g 1H 68 mg/dL Low 70-140 [facility] Comment on above: Order Comment: PT WA S LATE FOR THEIR 1 HR GLUCOSE DRAW. PT DIDNT CHECK IN UNTIL 954 Performed By: #### L 100.0100, L501.0250, L509.8002, L3890.6006 #### [facility] [address] [place], [address] Glucose measurement at 2 peng rs post-dose gestational glucose tolerance testOrdered By: Lizbeth Lowe on 07-10-2025 Glucose [Mass/Vol] 68 mg/dL Low 70-140 [facility] HIVon 07-10-2025 HIV Non-Reactive Normal Nonreactive [facility] Comment on above: Order Comment: PT WA S LATE FOR THEIR 1 HR GLUCOSE DRAW. PT DIDNT CHECK IN UNTIL 954 Result Comment: Non- Reactive Reactive Repeatedly reactive samples must be confirmed according to CDC recommended confirmatory algorithms. The subresults for either HIVAG or AHIV can be used as an aid in the selection of the confirmation algorithm for reactive samples. Send out specimens with Reactive results to [facility] for confirmation. Order the HIV antibody detection and differentiation: lc#[id number] Performed By: #### L 100.0100, L501.0250, L509.8002, L3890.6006 #### [facility] [address] [place], [place], [address] Hematocrit Auto (Bld) [Volum e fraction]Ordered By: Lizbeth Lowe on 07-10-2025 Hematocrit (Bld) [Volume fraction] 32.5 % Low 37-47 [facility] Hemoglobin measurementOrdere d By: Lizbeth Lowe on 07-10-2025 Hemoglobin (Bld) [Mass/Vol] 10.9 g/dL Low 12.0-15.0 [facility] Immature granulocytes/100 WB C Auto (Bld)Ordered By: Lizbeth Lowe on 07-10-2025 Immature granulocytes/100 WBC (Bld) 1.300 % High 0.0-0.9 [facility] Comment on above: IG% - Immature Granu locytes (promyelocytes, myelocytes and metamyelocytes) > 1% indicates that a LEFT SHIFT is Present. Laboratory - Chemistry and C hemistry - challengeOrdered By: Sirena Padilla on 07-10-2025 Glucose Ql (U) Negative [facility] - UrinalysisOrder ed By: Sirena Padilla on 07-10-2025 Protein Ql (U) Negative [facility] MCV (mean corpuscular volume ) determinationOrdered By: Lizbeth Lowe on 07-10-2025 MCV (RBC) [Entitic vol] 92.6 fL 81-99 [facility] Mean corpuscular hemoglobin (MCH) determinationOrdered By: Lizbeth Lowe on 07-10-2025 MCH (RBC) [Entitic mass] 31.1 pg 27.0-32.0 [facility] Mean corpuscular hemoglobin concentration (MCHC) determinationOrdered By: Lizbeth Lowe on 07-10-2025 MCHC (RBC) [Mass/Vol] 33.5 g/dL 32-36 [facility] Mean platelet volume determi nationOrdered By: Lizbeth Lowe on 07-10-2025 Platelet mean volume (Bld) [Entitic vol] 9.4 fL 6.2-12.0 [facility] Monocyte percentageOrdered B y: Lizbeth Lowe on 07-10-2025 Monocytes/100 WBC (Bld) 7.2 % 0-10 [facility] Neutrophil percentageOrdered By: Lizbeth Lowe on 07-10-2025 Neutrophils/100 WBC (Bld) 72.6 % High 47-70 [facility] No Panel InformationOrdered By: Lizbeth Loew on 07-10-2025 HIV (1&2) Antibody Non-Reactive Nonreactive [facility] Comment on above: Non-ReactiveReactive Repeatedly reactive samples must be confirmed according to CDC recommended confirmatory algorithms. The subresults for either HIVAG or AHIV can be used as an aid in the selection of the confirmation algorithm for reactive samples.Send out specimens with Reactive results to [facility] for confirmation.Order the HIV antibody detection and differentiation: #[id number] Nucleated red blood cell per centageOrdered By: Lizbeth Lowe on 07-10-2025 Nucleated RBC/100 WBC (Bld) [Ratio] 0 % 0-5 [facility] Costumer Office Visit Reporton 07-10-2025 Costumer Office Visit Report [facility] [address] [place] [address], [address] [place] [address] OFFICE VISIT Date of Service: 07/10/25 MR#: [id number] Acct: [id number] Name: GAURAV FORTE Rep #: [id number] : 2000 Provider: Dr. Sirena jimenes MD Age/Sex: 24/F Location: [facility] [place] Status: Signed Intake Vital Signs 04/25/25 08:20 06/21/25 09:27 07/10/25 10:06 Height 5 ft 6 in 5 ft 6 in 5 ft 6 in Weight: 149 lb 7 oz BMI 24.1 BP 112/75 Intake Visit Reasons: 28 wk ob/glucose Rehab Therapist Required: No Is patient in pain?: No Allergies No Known Allergies Allergy (Verified 07/10/25 10:07) Medications ???Medication ???Instructions ???Recorded ???Confirmed ???Type sertraline 25 mg tablet 25 mg PO DAILY 03/10/24 07/10/25 H istory fish, borage, flaxseed oils-omega See Rx Instructions PO DAILY 11/1207/10/25 History 3,6,9 comb no.1 1,200 mg capsule ([place] 3-6-9) magnesium 250 mg tablet 250 mg PO QDAY 02/16/25 07/10/25 H istory multivit-min no.71-iron fum 28 cap PO 02/16/25 07/10/25 History mg-folate no.1 1 mg-dha 300 mg capsule (PNV-[place]) Last Menstrual Period: 12/29/24 Zika: Zika virus screening: Negative : No PFSH PFSH Surgical History Previous section Family History Aunt Cancer, Onset Age: 25 Paternal Brain tumor Social History adopted: No household members: spouse and children housing: house number of children: 1 current occupational status: unemployed current occupation: [employer] current occupational exposures/hazards: No pets and animals: Yes (outside) pets and animals: dog(s) and horse(s) history of recent travel: No sexually active: Yes Smoking Status: Never smoker second hand exposure: No alcohol intake: current alcohol intake frequency: holidays/special occasions only details: Not while substance use type: does not use diet: lactose free well-balanced diet: daily or most days caffeine: No eating out: rarely or never during the past year weight has: remained stable what type of physical activity do you participate in: none cindy/christianity: Yazidi seatbelt use: always do you feel safe at home: Yes additional social history: - [employer] work History 3 Elective abortions Hx Para 1 Spontaneous abortions 1 Hx # Term Pregnancies Ectopic pregnancies Hx # Pregnancies Multiple births # of living children 1 Past Pregnancies Del. Date Name GA/Weeks Outcome Route Bth Weight Gen Labor Lgth Anesthesia Del Locatn Provider FOB Unknown Oct 2024 spontaneous 11/03/22 Kady 39 live - full term 7# Female spinal Pomeren e [employer] Delivery Date: 11/03/22 Last Updated by: Sirena Padilla MD breech HPI 28 wk ob/glucose Details: GAURAV FORTE is a 24 year old who presents for routine OB visit. OB Visit [facility]ILBER Calculator Estimated Delivery Date Method Current WG Current Estimate 10/05/25 LMP (Certain) 27w 4d Other Estimates 10/04/25 Ultrasound #1 27w 5d Expected Delivery Route/Plan TOLAC previous for breech- plan on not scheduling anything until end of , consider IOL at 40-41 if favorable. patient counseled regarding risks/benefits of trial of labor versus repeat . ACOG/uptodate education given to patient. 77% likelihood of success per calculator TOLAC consent form signed: 06/21/25 Specific Issue/Plans Covid status: [] Flu vaccine: [] Tdap vaccine: [] Rhogam: [] LARC form signed: [] Problem list reviewed and updated with the most current plan of care details and appropriate orders placed. Relevant counseling for the gestational age provided. Continue routine care and follow up unless otherwise noted in visit notes/problem list details Initial Weight: 133 lb Date -???-???-???-???-???- ???-???-???-???-???-? ??-???- EGA Weight BP Urine Prot -???-???-???-???-???- ???-???-???-???-???-? ??-???- Glucose FHR FuHt Pres Dilation -???-???-???-???-???- ???-???-???-???-???-? ??-???- Effaced St Visit Note 03/02/25 -???-???-???-???-???- ???-???-???-???-???-? ??-???- 9w 0d 133 lb 4 oz (+4 oz) 116/78 -???-???-???-???-???- ???-???-???-???-???-? ??-???- 182 -???-???-???-???-???- ???-???-???-???-???-? ??-???- KW- CRL cons with dates. declines NIPT 04/05/25 -???-???-???-???-???- ???-???-???-???-???-? ??-???- 13w 6d 134 lb 6 oz (+1 lb 6 oz) 116/76 Negative -???-???-???-???-???- ???-???-???-???-???-? ??-???- Negative 160 -???-???-???-???-???- ???-???-???-???-???-? ??-???- SM- no vb cr maping 04/25/25 -???-???-???-???-???- ?? (more content not included)... Normal [facility] Platelet countOrdered By: Austin Lowe on 07-10-2025 Platelets (Bld) [#/Vol] 168 10*3/uL 150-450 [facility] RBC Auto (Bld) [#/Vol]Ordere d By: Lizbeth Lowe on 07-10-2025 RBC (Bld) [#/Vol] 3.51 10*6/uL Low 4.2-5.4 [facility] Syphilis Antibodieson 2024 Syphilis Abs Non-Reactive Normal Nonreactive [facility] Comment on above: Order Comment: PT WA S LATE FOR THEIR 1 HR GLUCOSE DRAW. PT DIDNT CHECK IN UNTIL 954 Performed By: #### L 100.0100, L501.0250, L509.8002, L3890.6006 #### [facility] [address] [place], [address] White blood cell (WBC) count Ordered By: Lizbeth Lowe on 07-10-2025 WBC (Bld) [#/Vol] 8.8 10*3/uL 4.4-11.0 [facility] - Chemistry and C hemistry - challengeOrdered By: Lizbeth Lowe on 06-21-2025 Glucose Ql (U) Negative [facility] - UrinalysisOrder ed By: Lizbeth Lowe on 06-21-2025 Protein Ql (U) Negative [facility] Costumer Office Visit Reporton 06-21-2025 Costumer Office Visit Report [facility], [address] [place] [address] OFFICE VISIT Date of Service: 06/21/25 MR#: [id number] Acct: [id number] Name: GAURAV FORTE Rep #: [id number] : 2000 Provider: Dr. Lizbeth Rangel DO Age/Sex: 24/F Location: [facility] [place] Status: Signed Intake Vital Signs 04/25/25 08:20 05/24/25 10:33 06/21/25 09:25 06/21/25 09:27 Height 5 ft 6 in 5 ft 6 in 5 ft 6 in 5 ft 6 in Weight: 145 lb 2 oz BMI 23.4 BP 111/76 Intake Visit Reasons: 25 wk ob Rehab Therapist Required: No Is patient in pain?: No Allergies No Known Allergies Allergy (Verified 06/21/25 09:25) Medications ???Medication ???Instructions ???Recorded ???Confirmed ???Type sertraline 25 mg tablet 25 mg PO DAILY 03/10/24 06/21/25 H istory fish, borage, flaxseed oils-omega See Rx Instructions PO DAILY 11/1206/21/25 History 3,6,9 comb no.1 1,200 mg capsule ([place] 3-6-9) magnesium 250 mg tablet 250 mg PO QDAY 02/16/25 06/21/25 H istory multivit-min no.71-iron fum 28 cap PO 02/16/25 06/21/25 History mg-folate no.1 1 mg-dha 300 mg capsule (PNV-[place]) Last Menstrual Period: 12/29/24 Zika: Zika virus screening: Negative : No PFSH PFSH Surgical History Previous section Family History Aunt Cancer, Onset Age: 25 Paternal Brain tumor Social History adopted: No household members: spouse and children housing: house number of children: 1 current occupational status: unemployed current occupation: [employer] current occupational exposures/hazards: No pets and animals: Yes (outside) pets and animals: dog(s) and horse(s) history of recent travel: No sexually active: Yes Smoking Status: Never smoker second hand exposure: No alcohol intake: current alcohol intake frequency: holidays/special occasions only details: Not while substance use type: does not use diet: lactose free well-balanced diet: daily or most days caffeine: No eating out: rarely or never during the past year weight has: remained stable what type of physical activity do you participate in: none cindy/christianity: Yazidi seatbelt use: always do you feel safe at home: Yes additional social history: - [employer] work History 3 Elective abortions Hx Para 1 Spontaneous abortions 1 Hx # Term Pregnancies Ectopic pregnancies Hx # Pregnancies Multiple births # of living children 1 Past Pregnancies Del. Date Name GA/Weeks Outcome Route Bth Weight Infant Gen Labor Lgth Anesthesia Del Locatn Provider FOB Unknown Oct 2024 spontaneous 11/03/22 Kady 39 live - full term 7# Female spinal Pomeren e [facility] Delivery Date: 11/03/22 Last Updated by: Sirena Padilla MD breech HPI 25 wk ob Details: GAURAV FORTE is a 24 year old who presents for routine OB visit. OB Visit [facility] Calculator Estimated Delivery Date Method Current WG Current Estimate 10/05/25 LMP (Certain) 24w 6d Other Estimates 10/04/25 Ultrasound #1 25w 0d Expected Delivery Route/Plan TOLAC previous for breech patient counseled regarding risks/benefits of trial of labor versus repeat . ACOG/uptodate education given to patient. 77% likelihood of success per calculator TOLAC consent form signed: 06/21/25 Specific Issue/Plans Covid status: [] Flu vaccine: [] Tdap vaccine: [] Rhogam: [] LARC form signed: [] Problem list reviewed and updated with the most current plan of care details and appropriate orders placed. Relevant counseling for the gestational age provided. Continue routine care and follow up unless otherwise noted in visit notes/problem list details Initial Weight: 133 lb Date -???-???-???-???-???- ???-???-???-???-???-? ??-???- EGA Weight BP Urine Prot -???-???-???-???-???- ???-???-???-???-???-? ??-???- Glucose FHR FuHt Pres Dilation -???-???-???-???-???- ???-???-???-???-???-? ??-???- Effaced St Visit Note 03/02/25 -???-???-???-???-???- ???-???-???-???-???-? ??-???- 9w 0d 133 lb 4 oz (+4 oz) 116/78 -???-???-???-???-???- ???-???-???-???-???-? ??-???- 182 -???-???-???-???-???- ???-???-???-???-???-? ??-???- KW- CRL cons with dates. declines NIPT 04/05/25 -???-???-???-???-???- ???-???-???-???-???-? ??-???- 13w 6d 134 lb 6 oz (+1 lb 6 oz) 116/76 Negative -???-???-???-???-???- ???-???-???-???-???-? ??-???- Negative 160 -???-???-???-???-???- ???-???-???-???-???-? ??-???- SM- no vb cr maping 04/25/25 -???-???-???-???-???- ???-???-???-???-???-? ??-???- 16w 5d 136 lb 4 oz (+3 lb 4 oz) 120/76 Negati (more content not included)... Normal [facility] - Chemistry and C hemistry - challengeOrdered By: Lora Collins on 05-24-2025 Glucose Ql (U) Negative [facility] - UrinalysisOrder ed By: Lora Collins on 05-24-2025 Protein Ql (U) Negative [facility] Costumer Office Visit Reporton 05-24-2025 Costumer Office Visit Report [facility] [address], [address] [place] [address] OFFICE VISIT Date of Service: 05/24/25 MR#: [id number] Acct: [id number] Name: GAURAV FORTE Rep #: [id number] : 2000 Provider: KRISTIE parnell Age/Sex: 24/F Location: [facility] [place] Status: Signed Intake Vital Signs 04/25/25 08:20 05/24/25 10:33 Height 5 ft 6 in 5 ft 6 in Weight: 139 lb 3 oz BMI 22.4 BP 106/68 Intake Visit Reasons: 21 wk ob Chief Complaint: 21 Week OB Rehab Therapist Required: No Is patient in pain?: No Allergies No Known Allergies Allergy (Unverified 05/24/25 10:34) Medications ???Medication ???Instructions ???Recorded ???Confirmed ???Type sertraline 25 mg tablet 25 mg PO DAILY 03/10/24 05/24/25 H istory fish, borage, flaxseed oils-omega See Rx Instructions PO DAILY 11/1205/24/25 History 3,6,9 comb no.1 1,200 mg capsule ([place] 3-6-9) magnesium 250 mg tablet 250 mg PO QDAY 02/16/25 05/24/25 H istory multivit-min no.71-iron fum 28 cap PO 02/16/25 05/24/25 History mg-folate no.1 1 mg-dha 300 mg capsule (PNV-[place]) Last Menstrual Period: 12/29/24 Zika: Zika virus screening: Negative : No PFSH PFSH Surgical History Previous section Family History Aunt Cancer, Onset Age: 25 Paternal Brain tumor Social History adopted: No household members: spouse and children housing: house number of children: 1 current occupational status: unemployed current occupation: [employer] current occupational exposures/hazards: No pets and animals: Yes (outside) pets and animals: dog(s) and horse(s) history of recent travel: No sexually active: Yes Smoking Status: Never smoker second hand exposure: No alcohol intake: current alcohol intake frequency: holidays/special occasions only details: Not while substance use type: does not use diet: lactose free well-balanced diet: daily or most days caffeine: No eating out: rarely or never during the past year weight has: remained stable what type of physical activity do you participate in: none cindy/christianity: Yazidi seatbelt use: always do you feel safe at home: Yes additional social history: - [employer] work History 3 Elective abortions Hx Para 1 Spontaneous abortions 1 Hx # Term Pregnancies Ectopic pregnancies Hx # Pregnancies Multiple births # of living children 1 Past Pregnancies Del. Date Name GA/Weeks Outcome Route Bth Weight Infant Gen Labor Lgth Anesthesia Del Locatn Provider FOB Unknown Oct 2024 spontaneous 11/03/22 Kady 39 live - full term 7# Female spinal Pomeren e [facility] Delivery Date: 11/03/22 Last Updated by: Sirena Padilla MD breech HPI 21 wk ob Details: GAURAV FORTE is a 24 year old who presents for routine OB visit. OB Visit WILBER Calculator Estimated Delivery Date Method Current WG Current Estimate 10/05/25 LMP (Certain) 20w 6d Other Estimates 10/04/25 Ultrasound #1 21w 0d Expected Delivery Route/Plan TOLAC previous for breech patient counseled regarding risks/benefits of trial of labor versus repeat . ACOG/uptodate education given to patient. [] % likelihood of success per calculator TOLAC consent form signed: [] Specific Issue/Plans Covid status: [] Flu vaccine: [] Tdap vaccine: [] Rhogam: [] LARC form signed: [] Problem list reviewed and updated with the most current plan of care details and appropriate orders placed. Relevant counseling for the gestational age provided. Continue routine care and follow up unless otherwise noted in visit notes/problem list details Initial Weight: 133 lb Date -???-???-???-???-???- ???-???-???-???-???-? ??-???- EGA Weight BP Urine Prot -???-???-???-???-???- ???-???-???-???-???-? ??-???- Glucose FHR FuHt Pres Dilation -???-???-???-???-???- ???-???-???-???-???-? ??-???- Effaced St Visit Note 03/02/25 -???-???-???-???-???- ???-???-???-???-???-? ??-???- 9w 0d 133 lb 4 oz (+4 oz) 116/78 -???-???-???-???-???- ???-???-???-???-???-? ??-???- 182 -???-???-???-???-???- ???-???-???-???-???-? ??-???- KW- CRL cons with dates. declines NIPT 04/05/25 -???-???-???-???-???- ???-???-???-???-???-? ??-???- 13w 6d 134 lb 6 oz (+1 lb 6 oz) 116/76 Negative -???-???-???-???-???- ???-???-???-???-???-? ??-???- Negative 160 -???-???-???-???-???- ???-???-???-???-???-? ??-???- SM- no vb cr maping 04/25/25 -???-???-???-???-???- ???-???-???-???-???-? ??-???- 16w 5d 136 lb 4 oz (+3 lb 4 oz) 120/76 Negative -???-???-???-???-???- ???-? (more content not included)... Normal [facility] OB Anatomy w/ Transvaginalon 05-18-2025 OB Anatomy w/ Transvaginal [facility] [address] [place], [place] [address] OB Anatomy w/ Transvaginal MR#: [id number] Acct: [id number] Name: GAURAV FORTE Rep #: [id number] : 2000 F 24 From: Antonio heaton MD PCP: OUT OF [facility] DOCTOR Status: [facility] CL Study: OB Anatomy w/ Transvaginal Date of Exam: 05/18 Exam# [id number] Ordering Dr: Sirena Padilla PROCEDURE: OB ANATOMY W/ TRANSVAGINAL 05/18/2025 REASON FOR EXAM: ANATOMY SCAN TECHNIQUE: OB ANATOMY W/ TRANSVAGINAL COMPARISON: None FINDINGS LMP: December 29, 2024 Number: 1 Position: Breech Placental Position: Posterior and not low-lying Placental Abnormalities: No evidence of previa. DIMENSIONS: Biparietal Diameter: 4.64 cm: 20 weeks and 0 days: 50 percentile/ Head Circumference: 16.94 cm: 19 weeks and 4 days: 23rd percentile/ Abdominal Circumference: 15.5 cm: 20 weeks and 5 days: 68 percentile/ Femur Length: 3.26 cm: 20 weeks and 1 day: 49 percentile/ ESTIMATED WEIGHT: 352 g plus/-52 g ESTIMATED WEIGHT PERCENTILE (24+ weeks): 69 percentile ESTIMATED GESTATIONAL AGE: Baseline: 20 weeks and 2 days By Ultrasound: 20 weeks and 0 days ESTIMATED DATE OF DELIVERY: Baseline: October 05, 2025 By Ultrasound: October 07, 2025 BIOPHYSICAL ASSESSMENT: Amniotic Fluid Volume: 3.6 cm Amniotic Fluid Index: Within normal limits (8-24 cm normal range) Cardiac Motion: 140 (average) Trunk and Limb Motion: Present. MATERNAL ANATOMY: Adnexa: Both maternal ovaries are visualized and unremarkable. Cervical Length (if measured): 3.6 cm ANATOMY: Spine: Unremarkable Cranium: Unremarkable Cerebellum: Unremarkable Cisterna Magna: Unremarkable Cavum Septum Pellucidi: Unremarkable Lateral Ventricles: Unremarkable Choroid Plexus: Unremarkable Midline Falx: Unremarkable Nuchal Fold: Unremarkable Upper Lip: Unremarkable Heart: Unremarkable Stomach: Unremarkable Kidneys: Unremarkable Bladder: Unremarkable Umbilical Cord: Normal insertion. Extremities: Unremarkable US/OB Anatomy w/ Transvaginal IMPRESSION: Single live intrauterine gestation with a mean gestational age of 20 weeks and 0 days. Reading Location: [facility] CC: Dr. 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 Normal [facility] - Chemistry and C hemistry - challengeOrdered By: Lora Collins on 04-25-2025 Glucose Ql (U) Negative [facility] - UrinalysisOrder ed By: Lora Collins on 04-25-2025 Protein Ql (U) Negative [facility] Costumer Office Visit Reporton 04-25-2025 Costumer Office Visit Report [facility]'s [address], [address] [place] [address] OFFICE VISIT Date of Service: 04/25/25 MR#: [id number] Acct: [id number] Name: GAURAV FORTE Rep #: [id number] : 2000 Provider: KRISTIE parnell Age/Sex: 24/F Location: [facility] Status: Signed Intake Vital Signs 03/02/25 09:11 04/05/25 14:41 04/25/25 08:20 Height 5 ft 6 in 5 ft 6 in 5 ft 6 in Weight: 136 lb 4 oz BMI 21.9 BP 120/76 Intake Visit Reasons: 17 wk ob Chief Complaint: 17 Week OB Rehab Therapist Required: No Is patient in pain?: No Allergies No Known Allergies Allergy (Unverified 04/25/25 08:20) Medications ???Medication ???Instructions ???Recorded ???Confirmed ???Type sertraline 25 mg tablet 25 mg PO DAILY 03/10/24 04/25/25 H istory fish, borage, flaxseed oils-omega See Rx Instructions PO DAILY 11/1204/25/25 History 3,6,9 comb no.1 1,200 mg capsule ([place] 3-6-9) magnesium 250 mg tablet 250 mg PO QDAY 02/16/25 04/25/25 H istory multivit-min no.71-iron fum 28 cap PO 02/16/25 04/25/25 History mg-folate no.1 1 mg-dha 300 mg capsule (PNV-[place]) Last Menstrual Period: 12/29/24 Zika: Zika virus screening: Negative : No PFSH PFSH Medical History Women's annual routine gynecological examination Surgical History Previous section Family History Aunt Cancer, Onset Age: 25 Paternal Brain tumor Social History adopted: No household members: spouse and children housing: house number of children: 1 current occupational status: unemployed current occupation: [employer] current occupational exposures/hazards: No pets and animals: Yes (outside) pets and animals: dog(s) and horse(s) history of recent travel: No sexually active: Yes Smoking Status: Never smoker second hand exposure: No alcohol intake: current alcohol intake frequency: holidays/special occasions only details: Not while substance use type: does not use diet: lactose free well-balanced diet: daily or most days caffeine: No eating out: rarely or never during the past year weight has: remained stable what type of physical activity do you participate in: none cindy/christianity: Yazidi seatbelt use: always do you feel safe at home: Yes additional social history: - [employer] [place] work History 3 Elective abortions Hx Para 1 Spontaneous abortions 1 Hx # Term Pregnancies Ectopic pregnancies Hx # Pregnancies Multiple births # of living children 1 Past Pregnancies Del. Date Name GA/Weeks Outcome Route Bth Weight Gen Labor Lgth Anesthesia Del Locatn Provider FOB Unknown Oct 2024 spontaneous 11/03/22 Kady 39 live - full term 7# Female spinal Chanel Herron Delivery Date: 11/03/22 Last Updated by: Sirena Padilla MD breech HPI 17 wk ob Details: GAURAV FORTE is a 24 year old who presents for routine OB visit. OB Visit WILBER Calculator Estimated Delivery Date Method Current WG Current Estimate 10/05/25 LMP (Certain) 16w 5d Other Estimates 10/04/25 Ultrasound #1 16w 6d Expected Delivery Route/Plan TOLAC previous for breech patient counseled regarding risks/benefits of trial of labor versus repeat . ACOG/uptodate education given to patient. [] % likelihood of success per calculator TOLAC consent form signed: [] Specific Issue/Plans Covid status: [] Flu vaccine: [] Tdap vaccine: [] Rhogam: [] LARC form signed: [] Problem list reviewed and updated with the most current plan of care details and appropriate orders placed. Relevant counseling for the gestational age provided. Continue routine care and follow up unless otherwise noted in visit notes/problem list details Initial Weight: 133 lb Date -???-???-???-???-???- ???-???-???-???-???-? ??-???- EGA Weight BP Urine Prot -???-???-???-???-???- ???-???-???-???-???-? ??-???- Glucose FHR FuHt Pres Dilation -???-???-???-???-???- ???-???-???-???-???-? ??-???- Effaced St Visit Note 03/02/25 -???-???-???-???-???- ???-???-???-???-???-? ??-???- 9w 0d 133 lb 4 oz (+4 oz) 116/78 -???-???-???-???-???- ???-???-???-???-???-? ??-???- 182 -???-???-???-???-???- ???-???-???-???-???-? ??-???- KW- CRL cons with dates. declines NIPT 04/05/25 -???-???-???-???-???- ???-???-???-???-???-? ??-???- 13w 6d 134 lb 6 oz (+1 lb 6 oz) 116/76 Negative -???-???-???-???-???- ???-???-???-???-???-? ??-???- Negative 160 -???-???-???-???-???- ???-???-???-???-???-? ??-???- SM- no vb cr map (more content not included)... Normal [facility] - Chemistry and C hemistry - challengeOrdered By: Sirena Padlila on 04-05-2025 Glucose Ql (U) Negative [facility] - UrinalysisOrder ed By: Sirena Padilla on 04-05-2025 Protein Ql (U) Negative [facility] Costumer Office Visit Reporton 04-05-2025 Costumer Office Visit Report [facility], [address] [place] [address] OFFICE VISIT Date of Service: 04/05/25 MR#: [id number] Acct: [id number] Name: GAURAV FORTE Rep #: [id number] : 2000 Provider: Dr. Sirena jimenes MD Age/Sex: 24/F Location: [facility] Status: Signed Intake Vital Signs 02/07/25 16:03 03/02/25 09:11 04/05/25 14:41 Height 5 ft 6 in 5 ft 6 in 5 ft 6 in Weight: 134 lb 6 oz BMI 21.7 BP 116/76 Intake Visit Reasons: 13wk OB Rehab Therapist Required: No Is patient in pain?: No Allergies No Known Allergies Allergy (Unverified 04/05/25 14:48) Medications ???Medication ???Instructions ???Recorded ???Confirmed ???Type sertraline 25 mg tablet 25 mg PO DAILY 03/10/24 04/05/25 H istory fish, borage, flaxseed oils-omega See Rx Instructions PO DAILY 11/1204/05/25 History 3,6,9 comb no.1 1,200 mg capsule ([place] 3-6-9) magnesium 250 mg tablet 250 mg PO QDAY 02/16/25 04/05/25 H istory multivit-min no.71-iron fum 28 cap PO 02/16/25 04/05/25 History mg-folate no.1 1 mg-dha 300 mg capsule (PNV-[place]) Last Menstrual Period: 12/29/24 Zika: Zika virus screening: Negative : No PFSH PFSH Medical History Women's annual routine gynecological examination Surgical History Previous section Family History Aunt Cancer, Onset Age: 25 Paternal Brain tumor Social History adopted: No household members: spouse and children housing: house number of children: 1 current occupational status: unemployed current occupation: [employer] current occupational exposures/hazards: No pets and animals: Yes (outside) pets and animals: dog(s) and horse(s) history of recent travel: No sexually active: Yes Smoking Status: Never smoker second hand exposure: No alcohol intake: current alcohol intake frequency: holidays/special occasions only details: Not while substance use type: does not use diet: lactose free well-balanced diet: daily or most days caffeine: No eating out: rarely or never during the past year weight has: remained stable what type of physical activity do you participate in: none cindy/christianity: Yazidi seatbelt use: always do you feel safe at home: Yes additional social history: - [employer] work History 3 Elective abortions Hx Para 1 Spontaneous abortions 1 Hx # Term Pregnancies Ectopic pregnancies Hx # Pregnancies Multiple births # of living children 1 Past Pregnancies Del. Date Name GA/Weeks Outcome Route Bth Weight Gen Labor Lgth Anesthesia Del Locatn Provider FOB Unknown Oct 2024 spontaneous 11/03/22 Kady 39 live - full term 7# Female spinal Pomeren e Gopal Delivery Date: 11/03/22 Last Updated by: Sirena Padilla MD breech HPI 13wk OB Details: GAURAV FORTE is a 24 year old who presents for routine OB visit. OB Visit WILBER Calculator Estimated Delivery Date Method Current WG Current Estimate 10/05/25 LMP (Certain) 13w 6d Other Estimates 10/04/25 Ultrasound #1 14w 0d Expected Delivery Route/Plan TOLAC previous for breech patient counseled regarding risks/benefits of trial of labor versus repeat . ACOG/uptodate education given to patient. [] % likelihood of success per calculator TOLAC consent form signed: [] Specific Issue/Plans Covid status: [] Flu vaccine: [] Tdap vaccine: [] Rhogam: [] LARC form signed: [] Problem list reviewed and updated with the most current plan of care details and appropriate orders placed. Relevant counseling for the gestational age provided. Continue routine care and follow up unless otherwise noted in visit notes/problem list details Initial Weight: 133 lb Date -???-???-???-???-???- ???-???-???-???-???-? ??-???- EGA Weight BP Urine Prot -???-???-???-???-???- ???-???-???-???-???-? ??-???- Glucose FHR FuHt Pres Dilation -???-???-???-???-???- ???-???-???-???-???-? ??-???- Effaced St Visit Note 03/02/25 -???-???-???-???-???- ???-???-???-???-???-? ??-???- 9w 0d 133 lb 4 oz (+4 oz) 116/78 -???-???-???-???-???- ???-???-???-???-???-? ??-???- 182 -???-???-???-???-???- ???-???-???-???-???-? ??-???- KW- CRL cons with dates. declines NIPT 04/05/25 -???-???-???-???-???- ???-???-???-???-???-? ??-???- 13w 6d 134 lb 6 oz (+1 lb 6 oz) 116/76 Negative -???-???-???-???-???- ???-???-???-???-???-? ??-???- Negative 160 -???-???-???-???-???- ???-???-???-???-???-? ??-???- SM- no vb cr maping ACOG First Trimester (more content not included)... Normal [facility] Chlamydia/GC JERRY aptimaon CHLAMY,NUC ACID Negative Normal Negative [facility] Comment on above: Performed By: #### L 7000.1800, M100.2200 #### [facility] [address] [place], [address] GC BY NUC ACID Negative Normal Negative [facility] Comment on above: Result Comment: Perf ormed at: =G - [facility] [address] [place] [id number] [employer]: Jennifer Mendez MD, Phone: [phone] Performed By: #### L 7000.1800, M100.2200 #### [facility] [address] [place], [place], [id number] Urine Cultureon 03-03-2025 URC #1, 2 Below infectio n level. GNR lactose phone banker [place] Count <1000 Mixed Gram Positive Organisms Mixed Gram Positive Organisms MIXC Mixed contaminants. Submit a new specimen if indicated. Normal [facility] Comment on above: Performed By: #### L 7000.1800, M100.2200 #### [facility] [address] [place], [place], [id number] Absolute lymphocyte countOrd ered By: Sophia Cho on 03-02-2025 Lymphocytes Auto (Unsp spec) [#/Vol] 1.59 10*3/uL 0.83-4.51 [facility] Absolute neutrophil countOrd ered By: Sophia Cho on 03-02-2025 Neutrophils (Bld) [#/Vol] 4.0 10*3/uL 2.0-7.7 [facility] Automated lymphocyte count a s percentage of total leukocytesOrdered By: Sophia Cho on 03-02-2025 Lymphocytes/100 WBC Auto (Unsp spec) 25.6 % 19-41 [facility] Basophil percentageOrdered B y: Sophia Cho on 03-02-2025 Basophils/100 WBC (Bld) 0.6 % 0-1 [facility] CBC W/Diff, Automatedon 02-16 Absolute Lymph 1.59 X10 3/uL Normal 0.83-4.51 [facility] Comment on above: Performed By: #### L 509.8002, L3890.6006, L3890.6102, L3890.6301, BTS, L100.0100, L501.9520, L506.0400, L509.4006 #### [facility] [address] [place], [address] Absolute Neut 4.0 X10 3/uL Normal 2.0-7.7 [facility] Comment on above: Performed By: #### L 509.8002, L3890.6006, L3890.6102, L3890.6301, BTS, L100.0100, L501.9520, L506.0400, L509.4006 #### [facility] [address] [place], [address] Basophils/100 WBC (Bld) 0.6 % Normal 0-1 [facility] Comment on above: Performed By: #### L 509.8002, L3890.6006, L3890.6102, L3890.6301, BTS, L100.0100, L501.9520, L506.0400, L509.4006 #### [facility] [address] [place], [address] Eosinophils/100 WBC (Bld) 1.9 % Normal 0-5 [facility] Comment on above: Performed By: #### L 509.8002, L3890.6006, L3890.6102, L3890.6301, BTS, L100.0100, L501.9520, L506.0400, L509.4006 #### [facility] [address] [place], [address] Erythrocyte distribution width (RBC) [Ratio] 13.2 % Normal 11.6-14.6 [facility] Comment on above: Performed By: #### L 509.8002, L3890.6006, L3890.6102, L3890.6301, BTS, L100.0100, L501.9520, L506.0400, L509.4006 #### [facility] [address] [place], [address] Hematocrit (Bld) [Volume fraction] 36.2 % Low 37-47 [facility] Comment on above: Performed By: #### L 509.8002, L3890.6006, L3890.6102, L3890.6301, BTS, L100.0100, L501.9520, L506.0400, L509.4006 #### [facility] [address] [place], [address] Hemoglobin (Bld) [Mass/Vol] 12.0 g/dL Normal 12.0-15.0 [facility] Comment on above: Performed By: #### L 509.8002, L3890.6006, L3890.6102, L3890.6301, BTS, L100.0100, L501.9520, L506.0400, L509.4006 #### [facility] [address] [place], [address] (947) IG% 0.500 Normal 0.0-0.9 [facility] Comment on above: Result Comment: IG% - Immature Granulocytes (promyelocytes, myelocytes and metamyelocytes) > 1% indicates that a LEFT SHIFT is Present. Performed By: #### L 509.8002, L3890.6006, L3890.6102, L3890.6301, BTS, L100.0100, L501.9520, L506.0400, L509.4006 #### [facility] [address] [place], [address] Lymphocytes/100 WBC (Bld) 25.6 % Normal 19-41 [facility] Comment on above: Performed By: #### L 509.8002, L3890.6006, L3890.6102, L3890.6301, BTS, L100.0100, L501.9520, L506.0400, L509.4006 #### [facility] [address] [place], [address] MCH (RBC) [Entitic mass] 30.0 pg Normal 27.0-32.0 [facility] Comment on above: Performed By: #### L 509.8002, L3890.6006, L3890.6102, L3890.6301, BTS, L100.0100, L501.9520, L506.0400, L509.4006 #### [facility] [address] [place], [address] MCHC (RBC) [Mass/Vol] 33.1 g/dL Normal 32-36 [facility] Comment on above: Performed By: #### L 509.8002, L3890.6006, L3890.6102, L3890.6301, BTS, L100.0100, L501.9520, L506.0400, L509.4006 #### [facility] [address] [place], [address] MCV (RBC) [Entitic vol] 90.5 fL Normal 81-99 [facility] Comment on above: Performed By: #### L 509.8002, L3890.6006, L3890.6102, L3890.6301, BTS, L100.0100, L501.9520, L506.0400, L509.4006 #### [facility] [address] [facility] [place], [address] Monocytes/100 WBC (Bld) 7.1 % Normal 0-10 [facility] Comment on above: Performed By: #### L 509.8002, L3890.6006, L3890.6102, L3890.6301, BTS, L100.0100, L501.9520, L506.0400, L509.4006 #### [facility] [address] [place], [address] Neutrophils/100 WBC (Bld) 64.3 % Normal 47-70 [facility] Comment on above: Performed By: #### L 509.8002, L3890.6006, L3890.6102, L3890.6301, BTS, L100.0100, L501.9520, L506.0400, L509.4006 #### [facility] [address] [place], [address] Nucleated RBC (Bld) [#/Vol] 0 10*3/uL Normal 0-5 [facility] Comment on above: Performed By: #### L 509.8002, L3890.6006, L3890.6102, L3890.6301, BTS, L100.0100, L501.9520, L506.0400, L509.4006 #### [facility] [address] [place], [address] Platelet mean volume (Bld) [Entitic vol] 11.0 fL Normal 6.2-12.0 [facility] Comment on above: Performed By: #### L 509.8002, L3890.6006, L3890.6102, L3890.6301, BTS, L100.0100, L501.9520, L506.0400, L509.4006 #### [facility] [address] [place], [address] Platelets (Bld) [#/Vol] 171 10*3/uL Normal 150-450 [facility] Comment on above: Performed By: #### L 509.8002, L3890.6006, L3890.6102, L3890.6301, BTS, L100.0100, L501.9520, L506.0400, L509.4006 #### [facility] [address] [place], [address] RBC (Bld) [#/Vol] 4.00 10*6/uL Low 4.2-5.4 [facility] Comment on above: Performed By: #### L 509.8002, L3890.6006, L3890.6102, L3890.6301, BTS, L100.0100, L501.9520, L506.0400, L509.4006 #### [facility] [address] [place], [address] RDW SD 43.7 fl Normal 35.1-43.9 [facility] Comment on above: Performed By: #### L 509.8002, L3890.6006, L3890.6102, L3890.6301, BTS, L100.0100, L501.9520, L506.0400, L509.4006 #### [facility] [address] [facility] [address] [place], [place], [id number] WBC (Bld) [#/Vol] 6.2 10*3/uL Normal 4.4-11.0 [facility] Comment on above: Performed By: #### L 509.8002, L3890.6006, L3890.6102, L3890.6301, BTS, L100.0100, L501.9520, L506.0400, L509.4006 #### [facility] [address] [facility] [place], [place], [id number] Chlamydia trachomatis rRNA d etection by probe and target amplification methodOrdered By: Sophia Cho on 03-02-2025 C. trachomatis rRNA JERRY+probe Ql (Unsp spec) Negative Negative [facility] Eosinophil percentageOrdered By: Sophia Cho on 03-02-2025 Eosinophils/100 WBC (Bld) 1.9 % 0-5 [facility] Erythrocyte distribution wid th ratioOrdered By: Sophia Cho on 03-02-2025 Erythrocyte distribution width (RBC) [Ratio] 13.2 % 11.6-14.6 [facility] Erythrocyte distribution wid th standard deviationOrdered By: Sophia Cho on 03-02-2025 Erythrocyte distribution width (RBC) [Ratio] 43.7 fl 35.1-43.9 [facility] HIVon 03-02-2025 HIV Non-Reactive Normal Nonreactive [facility] Comment on above: Result Comment: Non- Reactive Reactive Repeatedly reactive samples must be confirmed according to CDC recommended confirmatory algorithms. The subresults for either HIVAG or AHIV can be used as an aid in the selection of the confirmation algorithm for reactive samples. Send out specimens with Reactive results to [facility] for confirmation. Order the HIV antibody detection and differentiation: lc#[id number] Performed By: #### L 100.0100, L501.0250, L509.8002, L3890.6006 #### [facility] [address] [place], [place], [id number] Hematocrit Auto (Bld) [Volum e fraction]Ordered By: Sophia Cho on 03-02-2025 Hematocrit (Bld) [Volume fraction] 36.2 % Low 37-47 [facility] Hemoglobin measurementOrdere d By: Sophia Cho on 03-02-2025 Hemoglobin (Bld) [Mass/Vol] 12.0 g/dL 12.0-15.0 [facility] Hepatitis C Antibodyon 03-02 Hepatitis C Ab Non-Reactive Normal Nonreactive [facility] Comment on above: Result Comment: Reac tive: Presumptive evidence of antibodies to HCV. Follow CDC recommendations for supplemental testing. Non-Reactive: Antibodies to HCV were not detected; does not exclude the possibility of exposure to HCV Reactive Results are presumptive evidence of antibodies to HCV. Follow CDC recommendations for supplemental testing. Order confirmation testing: HCV Quant by PCR testing - HCVPCR #[id number] Non Reactive: < 0.8 Equivocal: >/= 0.8 to < 1.0 Reactive: >/= 1.0 The CDC requires that a reactive/equivocal HCV antibody result be sent out for confirmation. HCV Quant by PCR testing. Performed By: #### L 100.0100, L501.0250, L509.8002, L3890.6006 #### [facility] [address] [place], [place], [id number] Immature granulocytes/100 WB C Auto (Bld)Ordered By: Sophia Cho on 03-02-2025 Immature granulocytes/100 WBC (Bld) 0.500 % 0.0-0.9 [facility] Comment on above: IG% - Immature Granu locytes (promyelocytes, myelocytes and metamyelocytes) > 1% indicates that a LEFT SHIFT is Present. L3890.6102on 03-02-2025 HEP B Surf Ag Non-Reactive Normal Nonreactive [facility] Comment on above: Result Comment: Reac tive: Presumptive evidence of HBV. Repeatedly reactive samples must be confirmed using a neutralization test ([employer] HBsAg Confirmatory Test) Non-Reactive: HBsAg not detected; does not exclude the possibility of exposure to HBV Performed By: #### L 100.0100, L501.0250, L509.8002, L3890.6006 #### [facility] [address] [facility] [place], [place], [address] L509.4006on 03-02-2025 Rubella IgG Non-Reactive Normal Nonreactive [facility] Comment on above: Result Comment: Anti body Result: Interpretation Non-Reactive: Non-Immune Reactive: Immune The following results were obtained with the [employer] Rubella IgG assay. Results from assays of other manufacturers cannot be used interchangeably. Performed By: #### L 100.0100, L501.0250, L509.8002, L3890.6006 #### [facility] [address] [facility] [place], [place], [id number] Laboratory - Microbiology an d Antimicrobial susceptibilityOrdered By: Sophia Cho on 03-02-2025 HBV surface Ag Ql (S) Non-Reactive Nonreactive [facility] Comment on above: Reactive: Presumptiv e evidence of HBV. Repeatedly reactive samples must be confirmed using a neutralization test ([employer] HBsAg Confirmatory Test)Non-Reactive: HBsAg not detected; does not exclude the possibility of exposure to HBV MCV (mean corpuscular volume ) determinationOrdered By: Sophia Cho on 03-02-2025 MCV (RBC) [Entitic vol] 90.5 fL 81-99 [facility] Mean corpuscular hemoglobin (MCH) determinationOrdered By: Sophia Cho on 03-02-2025 MCH (RBC) [Entitic mass] 30.0 pg 27.0-32.0 [facility] Mean corpuscular hemoglobin concentration (MCHC) determinationOrdered By: Sophia Cho on 03-02-2025 MCHC (RBC) [Mass/Vol] 33.1 g/dL 32-36 [facility] Mean platelet volume determi nationOrdered By: Sophia Cho on 03-02-2025 Platelet mean volume (Bld) [Entitic vol] 11.0 fL 6.2-12.0 [facility] Monocyte percentageOrdered B y: Sophia Cho on 03-02-2025 Monocytes/100 WBC (Bld) 7.1 % 0-10 [facility] Neisseria gonorrhoeae nuclei c acid detection by amplified probe techniqueOrdered By: Sophia Cho on 03-02-2025 N. gonorrhoeae DNA JERRY+probe Ql (Unsp spec) Negative Negative [facility] Comment on above: Performed at: =[address] [id number] Director: Jennifer Mendez MD, Phone: [phone] Neutrophil percentageOrdered By: Sophia Cho on 03-02-2025 Neutrophils/100 WBC (Bld) 64.3 % 47-70 [facility] No Panel InformationOrdered By: Sophia Cho on 03-02-2025 HIV (1&2) Antibody Non-Reactive Nonreactive [facility] Comment on above: Non-ReactiveReactive Repeatedly reactive samples must be confirmed according to CDC recommended confirmatory algorithms. The subresults for either HIVAG or AHIV can be used as an aid in the selection of the confirmation algorithm for reactive samples.Send out specimens with Reactive results to [facility] for confirmation.Order the HIV antibody detection and differentiation: #[id number] Nucleated red blood cell per centageOrdered By: Sophia Cho on 03-02-2025 Nucleated RBC/100 WBC (Bld) [Ratio] 0 % 0-5 [facility] Costumer Office Visit Reporton 03-02-2025 Costumer Office Visit Report [facility] [address], [address] [place] [address] OFFICE VISIT Date of Service: 03/02/25 MR#: [id number] Acct: [id number] Name: GAURAV FORTE Rep #: [id number] : 2000 Provider: NOELLE Fan ams Age/Sex: 24/F Location: [facility] Status: Signed Intake Vital Signs 03/10/24 13:00 02/07/25 16:03 03/02/25 09:11 Height 5 ft 6 in 5 ft 6 in 5 ft 6 in Weight: 133 lb 4 oz BMI 21.4 BP 116/78 Intake Visit Reasons: NOB: LMP 12/29, WILBER 10/05 Chief Complaint: New OB Rehab Therapist Required: No Is patient in pain?: No Allergies No Known Allergies Allergy (Unverified 03/02/25 09:15) Medications ???Medication ???Instructions ???Recorded ???Confirmed ???Type sertraline 25 mg tablet 25 mg PO DAILY 03/10/24 03/02/25 H istory fish, borage, flaxseed oils-omega See Rx Instructions PO DAILY 11/1203/02/25 History 3,6,9 comb no.1 1,200 mg capsule ([place] 3-6-9) magnesium 250 mg tablet 250 mg PO QDAY 02/16/25 03/02/25 H istory multivit-min no.71-iron fum 28 cap PO 02/16/25 03/02/25 History mg-folate no.1 1 mg-dha 300 mg capsule (PNV-[place]) Last Menstrual Period: 12/29/24 [facility] Medical History Women's annual routine gynecological examination Surgical History Previous section Family History Aunt Cancer, Onset Age: 25 Paternal Brain tumor Social History adopted: No household members: spouse and children housing: house number of children: 1 current occupational status: unemployed current occupation: [employer] current occupational exposures/hazards: No pets and animals: Yes (outside) pets and animals: dog(s) and horse(s) history of recent travel: No sexually active: Yes Smoking Status: Never smoker second hand exposure: No alcohol intake: current alcohol intake frequency: holidays/special occasions only details: Not while substance use type: does not use diet: lactose free well-balanced diet: daily or most days caffeine: No eating out: rarely or never during the past year weight has: remained stable what type of physical activity do you participate in: none cindy/christianity: Yazidi seatbelt use: always do you feel safe at home: Yes additional social history: - [employer] [place] work History 3 Elective abortions Hx Para 1 Spontaneous abortions 1 Hx # Term Pregnancies Ectopic pregnancies Hx # Pregnancies Multiple births # of living children 1 Past Pregnancies Del. Date Name GA/Weeks Outcome Route Bth Weight Gen Labor Lgth Anesthesia Del Locatn Provider FOB Unknown Oct 2024 spontaneous 11/03/22 Kady 39 live - full term 7# Female spinal Pomeren e Gopal Delivery Date: 11/03/22 Last Updated by: Sirena Padilla MD breech HPI NOB: LMP 12/29, WILBER 10/05 Details: GAURAV FORTE is a 24 year old who presents for New OB visit. OB Visit WILBER Calculator Estimated Delivery Date Method Current WG Current Estimate 10/05/25 LMP (Certain) 9w 0d Other Estimates 10/04/25 Ultrasound #1 9w 1d Comments: HIV: Urine Culture: Sequential Screen: NIPT Screen: Estimated Due Date: 10/05/25 Expected Delivery Route/Plan patient counseled regarding risks/benefits of trial of labor versus repeat . ACOG/uptodate education given to patient. [] % likelihood of success per calculator TOLAC consent form signed: [] Specific Issue/Plans Covid status: [] Flu vaccine: [] Tdap vaccine: [] Rhogam: [] LARC form signed: [] Problem list reviewed and updated with the most current plan of care details and appropriate orders placed. Relevant counseling for the gestational age provided. Continue routine care and follow up unless otherwise noted in visit notes/problem list details Initial Weight: 133 lb Date -???-???-???-???-???- ???-???-???-???-???-? ??-???- EGA Weight BP Urine Prot -???-???-???-???-???- ???-???-???-???-???-? ??-???- Glucose FHR FuHt Pres Dilation -???-???-???-???-???- ???-???-???-???-???-? ??-???- Effaced St Visit Note 03/02/25 -???-???-???-???-???- ???-???-???-???-???-? ??-???- 9w 0d 133 lb 4 oz (+4 oz) 116/78 -???-???-???-???-???- ???-???-???-???-???-? ??-???- 182 -???-???-???-???-???- ???-???-???-???-???-? ??-???- KW- CRL cons with dates. declines NIPT Menstrual History Last Menstrual Period: 12/29/24 Reported LMP: definite Normal amount/duration: Yes Frequency in days: 28 On hormonal BC at conception: No hCG+: 01/24/25 Antepartum Record Genetic Screening: Congenital (more content not included)... Normal [facility] Platelet countOrdered By: Indra Cho on 03-02-2025 Platelets (Bld) [#/Vol] 171 10*3/uL 150-450 [facility] RBC Auto (Bld) [#/Vol]Ordere d By: Sophia Cho on 03-02-2025 RBC (Bld) [#/Vol] 4.00 10*6/uL Low 4.2-5.4 [facility] Syphilis Antibodieson 2024 Syphilis Abs Non-Reactive Normal Nonreactive [facility] Comment on above: Performed By: #### L 100.0100, L501.0250, L509.8002, L3890.6006 #### [facility] [address] [place], [address] T4 Free Directon 03-02-2025 T4 FREE DIRECT 1.10 ng/dL Normal 0.76-1.46 [facility] Comment on above: Performed By: #### L 100.0100, L501.0250, L509.8002, L3890.6006 #### [facility] [address] [place], [place], [id number] T4 freeOrdered By: Sophia longoria on 03-02-2025 Free T4 [Mass/Vol] 1.10 ng/dL 0.76-1.46 [facility] TSH DL <= 0.005 mIU/L QnOrde red By: Sophia Cho on 03-02-2025 TSH Qn 0.738 uIU/mL 0.300-4.200 [facility] Thyroid Stim Hormone (TSH)on 03-02-2025 TSH 0.738 uIU/mL Normal 0.300-4.200 [facility] Comment on above: Performed By: #### L 100.0100, L501.0250, L509.8002, L3890.6006 #### [facility] [address] [place], [address] Type AND Screenon 03-02-2025 Ab SCREEN GEL Negative Normal [facility] Comment on above: Order Comment: PT WA S LATE FOR THEIR 1 HR GLUCOSE DRAW. PT DIDNT CHECK IN UNTIL 954 Performed By: #### L 100.0100, L501.0250, L509.8002, L3890.6006 #### [facility] [address] [place], [place], [id number] Urine cultureOrdered By: David Cho on 03-02-2025 Bacteria identified Cx Nom (U) GNR lactose phone banker Abnormal [facility] Bacteria identified Cx Nom (U) Positive Abnormal [facility] White blood cell (WBC) count Ordered By: Sophia Cho on 03-02-2025 WBC (Bld) [#/Vol] 6.2 10*3/uL 4.4-11.0 [facility] Costumer Office Visit Reporton 02-07-2025 Costumer Office Visit Report [facility]'[address], [address] [place] [address] OFFICE VISIT Date of Service: 02/07/25 MR#: [id number] Acct: [id number] Name: GAURAV FORTE Rep #: [id number] : 2000 Provider: Dr. Sirena jimenes MD Age/Sex: 24/F Location: [facility] Status: Signed Intake Vital Signs 03/10/24 13:00 02/07/25 16:03 Height 5 ft 6 in 5 ft 6 in Weight: 127 lb BMI 20.5 BP 124/84 H Intake Visit Reasons: 5w5d spotting Rehab Therapist Required: No Is patient in pain?: No Allergies No Known Allergies Allergy (Unverified 02/07/25 16:06) Medications ???Medication ???Instructions ???Recorded ???Confirmed ???Type sertraline 25 mg tablet 25 mg PO DAILY 03/10/24 02/07/25 H istory Post menopausal: No Patient : Yes : No [facility] Medical History (Updated 02/07/25 @ 16:[address] Sirena Padilla MD) Women's annual routine gynecological examination Surgical History (Updated 02/07/25 @ 16:12 by Lora Stover) Previous section Social History (Updated 02/07/25 @ 16:09 by Lora Stover) household members: spouse and children housing: house number of children: 1 current occupational status: unemployed current occupational exposures/hazards: No pets and animals: Yes history of recent travel: No sexually active: Yes Smoking Status: Never smoker second hand exposure: No alcohol intake: never diet: lactose free well-balanced diet: daily or most days caffeine: No eating out: rarely or never during the past year weight has: remained stable what type of physical activity do you participate in: walking frequency: 3-4 times per week cindy/christianity: Yazidi seatbelt use: always do you feel safe at home: Yes additional social history: - [employer] HPI 5w5d spotting Details: GAURAV FORTE is a 24 year old who presents for early bleeding 5w5d. she had some spotting now more on the right than left, first positive test was 2 weeks ago. she has some cramping no clots. she co nausea. History 3 Elective abortions Hx Para 1 Spontaneous abortions 1 Hx # Term Pregnancies Ectopic pregnancies Hx # Pregnancies Multiple births # of living children 1 Past Pregnancies Del. Date Name GA/Weeks Outcome Route Bth Weight Gen Labor Lgth Anesthesia Del Locatn Provider FOB Unknown Oct 2024 spontaneous 11/03/22 Kady Delivery Date: 11/03/22 Last Updated by: Sirena Padilla MD breech ROS Const Constitutional: Denies fatigue, fever(s), headache(s), increased appetite, poor appetite, weight gain or weight loss Cardio Card: Denies chest pain Resp Resp: Denies cough or dyspnea GI GI: Reports as per HPI; Denies abdominal pain, constipation, nausea or vomiting : Reports as per HPI; Denies difficulty voiding, dysuria, nipple discharge, urinary frequency, urinary incontinence, urinary hesitancy, urinary urgency, vaginal discharge, vaginal dryness, vaginal odor or vaginal pruritus Skin Skin/Breast: Denies change in hair, breast mass, breast pain, breast skin changes or nipple discharge Exam Const General: cooperative, healthy appearing, comfortable, no acute distress and well developed Nutritional Appearance: average body habitus Orientation: alert HENCO Head: normal to inspection and normocephalic Neck Neck: normal visual inspection and trachea midline Thyroid: thyroid normal Resp Effort Inspection: normal respiratory effort GI Inspection: normal to inspection and non-distended Palpation: soft and no hepatosplenomegaly General: bladder normal to palpation External Female Exam: normal external appearance and normal appearance of the urethra Urethra: normal appearance of the urethra, normal palpation and no discharge Speculum Exam - Vagina: normal appearance of the vagina and normal vaginal discharge Speculum Exam - Cervix: normal appearance of the cervix and nontender Bimanual Exam- Vagina Uterus: normal bimanual exam, uterine size normal, bladder normal to palpation, uterine shape normal, No tender, uterine mobility normal, consistency normal, normal palpation and non-tender Bimanual Exam- Adnexa, other: normal adnexae, adnexae mobile, no masses and normal Pelvic Support: normal Skin General: no rashes or lesions noted Coding Level of Care Code Off vis,est,level 3 Diagnoses Vaginal bleeding during O46.90 Assessment and Plan Assessment and Plan (1) Vaginal bleeding during : Status: Acute Comment: early IUP seen measuring appropriately FHT seen visibly Plan fu for new ob visit 02/07/25 1388 Date Sirena Padilla MD (more content not included)... Normal [facility] No Panel Informationon 02-02 [facility] Serum human chorionic gonado tropin detection for pregnancyOrdered By: Sirena Padilla on 02-01-2025 HCG ( test) Ql 5046 mIU/mL High <9 [facility] Comment on above: Gestational Age0.2-1 Week: 5-50 mIU/mL1-2 Weeks: 50-500 mIU/mL2-3 Weeks: 100-5000 mIU/mL3-4 Weeks: 500-10,000 mIU/mL4-5 Weeks:1000-50,000 mIU/mL5-6 Weeks: 10,000-100,000 mIU/mL6-8 Weeks: 15,000-200,000 mIU/mL2-3 Months:10,000-100,000 mIU/mL hCG Titer Quant., Serumon HCG QUANT. 5046 mIU/mL High <9 non-preg [facility] Comment on above: Result Comment: Gest ational Age 0.2-1 Week: 5-50 mIU/mL 1-2 Weeks: 50-500 mIU/mL 2-3 Weeks: 100-5000 mIU/mL 3-4 Weeks: 500-10,000 mIU/mL 4-5 Weeks:1000-50,000 mIU/mL 5-6 Weeks: 10,000-100,000 mIU/mL 6-8 Weeks: 15,000-200,000 mIU/mL 2-3 Months:10,000-100,000 mIU/mL Performed By: #### L 700.8000 #### [facility] [address] [place], [address] No Panel Informationon 01-31 [facility]. PROGESTERONE 4317on 02-01-20 25 PROGESTERONE 26.8 ng/mL Normal . [facility] Comment on above: Order Comment: N Result Comment: Foll icular phase 0.1 - 0.9 Luteal phase 1.8 - 23.9 Ovulation phase 0.1 - 12.0 First trimester 11.0 - 44.3 Second trimester 25.4 - 83.3 Third trimester 58.7 - 214.0 Postmenopausal 0.0 - 0.1 Performed at: [facility] [id number] [employer]: Cody Bell PhD, Phone: [phone] Performed By: #### L 924.7864, L013.9499 #### [facility] [address] [place], [address] No Panel Informationon 01-30 [facility]. [facility] Serum human chorionic gonado tropin detection for pregnancyOrdered By: Sirena Padilla on 01-30-2025 HCG ( test) Ql 2103 mIU/mL High <9 [facility] Comment on above: Gestational Age0.2-1 Week: 5-50 mIU/mL1-2 Weeks: 50-500 mIU/mL2-3 Weeks: 100-5000 mIU/mL3-4 Weeks: 500-10,000 mIU/mL4-5 Weeks:1000-50,000 mIU/mL5-6 Weeks: 10,000-100,000 mIU/mL6-8 Weeks: 15,000-200,000 mIU/mL2-3 Months:10,000-100,000 mIU/mL hCG Titer Quant., Serumon HCG QUANT. 2103 mIU/mL High <9 non-preg [facility] Comment on above: Result Comment: Gest ational Age 0.2-1 Week: 5-50 mIU/mL 1-2 Weeks: 50-500 mIU/mL 2-3 Weeks: 100-5000 mIU/mL 3-4 Weeks: 500-10,000 mIU/mL 4-5 Weeks:1000-50,000 mIU/mL 5-6 Weeks: 10,000-100,000 mIU/mL 6-8 Weeks: 15,000-200,000 mIU/mL 2-3 Months:10,000-100,000 mIU/mL Performed By: #### L 700.8000, L801.2600 #### [facility] [address] [place], [address] No Panel Informationon 12-22 [facility]. [facility]. No Panel Informationon 12-21 [facility]. ED MED ADMINISTRATION DETAIL on 11-10-2024 ED MED ADMINISTRATION DETAIL Book Retailer Medication Administration Record [address] [place] [address] [id number] 10/30/2024 Patient: GAURAV FORTE Sex: Female : 2000 Age: 24y MEASUREMENTS: Wt: 56.7 kg ALLERGIES: No known drug allergies Medication Ordered Medication Administration Date/Time IV NS 0.9 % 1000 18:11 10/30 IV NS 0.9 % 1000 mL started in bag#1 1000 mL at Started mL at 250 mL/hr 250 mL/hr over 4 hour(s) via Site# 1. Allergies verified and 18:11 10/30/2024 (NOW x1) confirmed 5 rights. IV patency established. IV site checked: no pain, Bean Maulik, redness, or swelling. IV flushed thoroughly pre-medication E.M.T.-P. administration. Information reviewed with patient. Verbalizes Stopped understanding. Vitals: 18:11 10/30/2024 BP: 123/81 MAP: 93 19:42 10/30/2024 mmHg. HR: 103 bpm. Completed per protocol. - 18:13 Jody Zamorano, E.M.T.-P. Scanned 19:42 10/30 Medication Discontinued: bag #1 infused upon discharge. Total amount infused: 1000 mL. IV patency established. IV site checked: no pain, redness, or swelling. IV flushed thoroughly post-medication administration. - 20:27 Memo Cabrera R.N. 1 of 1 Normal [facility] ED NURSES CLINICAL NOTEon ED NURSES CLINICAL NOTE Nurse Narrative Nurse Clinical Narrative [facility] [address] [place] [address] [phone] 10/30/2024 Patient: GAURAV FORTE Sex: Female : 2000 Age: 24y Disposition: Discharge to Home Disposition Decision Time: 19:22 10/30/2024 Departure Time: 19:58 10/30/2024 TRIAGE Arrived by private vehicle. Historian: patient. Accompanied by family. Triage time: 15:52 10/30/2024. Acuity: LEVEL 3. SEPSIS SCREEN: NEGATIVE. SIRS criteria negative. No possible sources of infection. -- 15:55 10/30/24 NICOLE Antonio R.N. Chief Complaint: VAGINAL BLEED. 15:55 10/30/24. -- 15:55 10/30/24 NICOLE Antonio R.N. 15:55 10/30/24. BP: 144/88 MAP: 107. HR: 92. RR: 18. O2 saturation: 94% Temperature: 98.4 F. Pain level now 2/10. -- 15:55 10/30/24 NICOLE Antonio R.N. Measurements: 15:54 10/30/24 Wt: 56.7 kg -- 15:54 10/30/24 NICOLE Antonio R.N. Medications: sertraline 25 mg tablet -- 15:56 10/30/24 NICOLE Antonio R.N. Allergies: no known drug allergies -- 15:52 10/30/24 NICOLE Antonio R.N. 1 of 3 Nurse Narrative Problems: Anxiety disorder -- 15:52 10/30/24 NICOLE Antonio R.N. ADDITIONAL SURGERIES: -- 15:53 10/30/24 NICOLE Antonio R.N. History 15:52 10/30/24. SOCIAL HX: Never smoker. No alcohol use or drug use. The patient has not traveled outside the [place] Infectious disease exposure: No infectious disease exposure. SELF HARM ASSESSMENT: Self harm assessment was performed. The patient answered no to the question(s) Have you recently felt down, depressed, or hopeless? and Do you have thoughts of harming or killing yourself?. FALL RISK ASSESSMENT: Fall risk assessment completed. No risk factors identified. -- 15:55 10/30/24 NICOLE Antonio R.N. 15:55 10/30/24. ABUSE ASSESSMENT: The patient answered yes to the question(s) Do you feel safe in your home? and no to the question(s) Are you afraid to go home?. -- 15:55 10/30/24 NICOLE Antonio R.N. Interventions 15:52 10/30/24. Advanced care plan discussed with patient. Patient does not have advanced directive. -- 15:55 10/30/24 NICOLE Antonio R.N. PHYSICAL ASSESSMENT 17:20 10/30/24. GENERAL / NEURO / PSYCH: Alert. RESPIRATORY: Respirations not labored. Breath sounds within normal limits. GI / : Abdomen soft. Bowel sounds within normal limits. Vaginal bleeding present (spottin). -- 18:49 10/30/24 NICOLE Ramires R.N. 2 of 3 Nurse Narrative NURSING PROGRESS NOTES 17:17 10/30/24. Reassurance given (family at bedside). Patient identifiers checked. Call light placed in reach. Side rails up. Bed placed in lowest position. Brakes of bed on. -- 17:17 10/30/24 NICOLE Ramires R.N. 18:03 10/30/24. Site #1 started via IV in the right antecubital space with an 18g angiocath with aseptic technique and good blood return; 1 attempt. Blood drawn: rainbow set tube(s). Labeled in the presence of the patient and sent to the lab. Saline lock flushed with 5 mL saline. -- 18:08 10/30/24 NICOLE Willingham E.M.T.-P. 18:11 10/30/24. IV NS 0.9 % 1000 mL started in bag#1 1000 mL at 250 mL/hr over 4 hour(s) via Site# 1. Allergies verified and confirmed 5 rights. IV patency established. IV site checked: no pain, redness, or swelling. IV flushed thoroughly pre-medication administration. Information reviewed with patient. Verbalizes understanding. Vitals: 18:11 10/30/2024 BP: 123/81 MAP: 93 mmHg. HR: 103 bpm. Completed per protocol. -- 18:13 10/30/24 EST Bean Willingham E.M.T.-P. 18:52 10/30/24. Patient transported to [place] by stretcher. Patient identifiers checked. Call light placed in reach. Side rails up. Bed placed in lowest position. -- 18:52 10/30/24 NICOLE Ramires R.N. DISPOSITION / DISCHARGE 19:28 10/30/24. BP: 117/82 MAP: 91 mmHg. HR: 86 bpm. -- 20:26 10/30/24 NICOLE Cabrera R.N. 19:42 10/30/24. IV NS 0.9 %: Medication Discontinued. bag #1 infused upon discharge. Total amount infused: 1000 mL. IV patency established. IV site checked: no pain, redness, or swelling. IV flushed thoroughly post-medication administration. -- 20:27 10/30/24 NICOLE Cabrera R.N. 19:55 10/30/24. HR: 85 bpm. O2 saturation: 100%. -- 20:26 10/30/24 NICOLE Cabrera R.N. 19:58 10/30/24. Condition at departure: improved. Discharge instructions provided and reviewed. Verbalized understanding. Written instructions provided. The patient was discharged home and accompanied by spouse. The patient left ambulatory and via private vehicle. 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 -- 20:10/30/24 NICOLE Cabrera R.N. Departure time: 19:58 10/30/2024. -- 20:10/30/24 NICOLE Cabrera R.N. 19:58 10/30/24. BP: 116 HR: 80. RR: 16. O2 saturation: 100% Pain level now 0/10. -- 20:29 10/30/24 NICOLE Cabrera R.N. 19:58 10/30/24. Site #1 removed upon discha (more content not included)... Normal [facility] ED ORDER SHEET (CPOE ONLY)on 11-10-2024 ED ORDER SHEET (CPOE ONLY) Order Sheet Order Sheet [facility] [address] [place] [address] [id number] 10/30/2024 Patient: GAURAV FORTE Sex: Female : 2000 Age: 24y MEASUREMENTS: Wt: 56.7 kg ALLERGIES: No known drug allergies MEDICATION/IV/DRIP/FL UID ORDERS Order Description Priority Entered Acknowledged Completed IV NS 0.9 %1000 mL at 250 17:27 10/30/2024 17:47 18:13 mL/hr (NOW x1) Wilfredo Chamberlain M.D. 10/30/2024 10/30/2024 Jody Barroso E.M.T.-PTerence LAB ORDERS Order Description Priority Entered Acknowledged Collected Completed CBC w Diff Stat Stat 17:27 10/30/2024 17:47 10/30/2024 18:08 10/30/2024 Mehdi Huntley R.N. Bryan Parker, E.MTerenceT.-P. CMP Stat Stat 17:27 10/30/2024 17:47 10/30/2024 18:09 10/30/2024 Mehdi Huntley R.N. Bryan Parker, E.MTerenceT.-P. Urinalysis Stat Stat 17:27 10/30/2024 17:47 10/30/2024 20:27 10/30/2024 Mehdi Huntley R.N. Charles Wilbur, R.N. 1 of 2 Order Sheet Beta-HCG, Quant Stat 17:27 10/30/2024 17:46 10/30/2024 18:08 10/30/2024 Serum Stat Mehdi Huntley R.N. Bryan Parker, E.MTerenceT.-PTerence DIAGNOSTIC STUDY ORDERS Order Description Priority Entered Acknowledged Completed US Pelvic Stat Stat 18:26 10/30/2024 20:27 20:27 Wilfredo Chamberlain M.D. 10/30/2024 10/30/2024 Memo Ferraro R.N. R.N. Order Comments: 18:26 10/30/2024: Status: . Wilfredo Chamberlain M.D. Reason for Study: Abnormal Bleeding STAFF ORDERS Order Description Priority Entered Acknowledged Collected Completed [Electronically signed by Wilfredo Chamberlain M.D. (11/10/2024 07:02 EST)] 2 of 2 Normal [facility] ED PHYSICIAN CLINICAL REPORT on 11-10-2024 ED PHYSICIAN CLINICAL REPORT Narrative Physician Clinical Narrative [facility] [address] [facility] [place] [address] [phone] 10/30/2024 Patient: GAURAV FORTE Sex: Female : 2000 Age: 24y Disposition: Discharge to Home Disposition Decision Time: 19:22 10/30/2024 Departure Time: 19:58 10/30/2024 Measurements Wt: 56.7 kg Initial Vital Sign Measured Time BP MAP HR RR O2Sat ETCO2 Temp Pain GCS RTS 15:55 10/30/2024 144/88 107 92 18 94% 98.4 F 2 Time Seen: 17:14 10/30/2024. Historian- patient. Independent historian- family. HISTORY OF PRESENT ILLNESS Chief Complaint: VAGINAL BLEEDING. Gestational age is 5 weeks. This started today. The patient has had mild vaginal bleeding. Is still present. The patient complains of weak contractions. Similar symptoms previously. Patient has had similar symptoms once. REVIEW OF SYSTEMS RESPIRATORY: No cough. CONSTITUTIONAL: No fever. GI: No nausea, vomiting, diarrhea, black stools or bloody stools. All other systems reviewed and are negative. Status: . 1 of 11 Narrative PAST HISTORY See nurses notes. Anxiety disorder Surgeries: Medications: sertraline 25 mg tablet Allergies: no known drug allergies SOCIAL HISTORY Does not use tobacco. No alcohol use. ADDITIONAL NOTES The nursing notes have been reviewed. PHYSICAL EXAM Vital Signs: Have been reviewed. Appearance: Alert. Oriented X3. Patient in mild distress. HEENT: Normal external inspection. ENT: Pharynx normal. Neck: Neck supple. Respiratory: No respiratory distress. Breath sounds normal. Chest nontender. Abdomen: Soft. Mild tenderness in the right lower quadrant, suprapubic area, left lower quadrant and lower abdomen. No guarding or rebound tenderness. LABS, X-RAYS, AND EKG Laboratory Tests: 2 of 11 Narrative CBC + DIFF Final JOSE ALBERTO: 10/30/2024 18:03:00 EST MsgRcvd: 10/30/2024 18:35 EST Lab Test Result Reference Status Received Comments 10/30/2024 18:35 CBC-COMPLETE CBC + DIFF Final EST BLOOD COUNT 10/30/2024 18:35 WBC 7.3 x 10/UL 4.5 - 10.8 Final EST 10/30/2024 18:35 RBC 4.42 x 10/UL 4.10 - 5.30 Final EST 10/30/2024 18:35 HEMOGLOBIN 13.2 g/dl 12.0 - 16.0 Final EST 10/30/2024 18:35 HEMATOCRIT 39.4 % 34.0 - 46.0 Final EST 10/30/2024 18:35 MCV 89 fl 80 - 99 Final EST 10/30/2024 18:35 MCH 30 pg 27 - 33 Final EST 10/30/2024 18:35 MCHC 34 X10 3 32 - 36 Final EST 10/30/2024 18:35 RDW/CV 14.5 % 12.0 - 15.6 Final EST 149 x10/UL 10/30/2024 18:35 PLATELET 150 - 450 Final Below low normal EST 10/30/2024 18:35 AUTOMATED MPV 8.4 fl 6.6 - 10.5 Final EST DIFFERENTIAL 10/30/2024 18:35 NEUT % 75.3 % 46.0 - 76.0 Final EST 3 of 11 Narrative 18.1 % 10/30/2024 18:35 LYMPH % 20.0 - 45.0 Final Below low normal EST 10/30/2024 18:35 MONOS % 5.7 % 0.0 - 10.0 Final EST 10/30/2024 18:35 EO % 0.8 % 0.0 - 7.0 Final EST 10/30/2024 18:35 BASO % 0.2 % 0.0 - 2.0 Final EST 10/30/2024 18:35 Lymph # 1.32 x10/UL 0.80 - 2.80 Final EST 10/30/2024 18:35 Neut # 5.48 x10/UL 1.50 - 7.10 Final EST 10/30/2024 18:35 [place] # 0.41 x10/UL 0.20 - 1.00 Final EST 10/30/2024 18:35 EO # 0.06 x10/UL 0.00 - 0.50 Final EST 10/30/2024 18:35 Baso # 0.01 x10/UL 0.00 - 0.10 Final EST 10/30/2024 18:35 MANUAL DIFF N/A New Order EST 10/30/2024 18:35 MORPHOLOGY N/A New Order EST CMP with eGFR Final JOSE ALBERTO: 10/30/2024 18:03:00 EST MsgRcvd: 10/30/2024 18:54 EST Lab Test Result Reference Status Received Comments of Narrative COMPREHENSIVE 10/30/2024 CMP with eGFR Final METABOLIC 18:54 EST PANEL 10/30/2024 SODIUM 139 mmol/l 136 - 145 Final 18:54 EST 10/30/2024 POTASSIUM 3.8 mmol/L 3.5 - 5.1 Final 18:54 EST 10/30/2024 CHLORIDE 101 mmol/L 98 - 107 Final 18:54 EST 10/30/2024 CO2 27.2 mmol/L 21.0 - 32.0 Final 18:54 EST 10/30/2024 GLUCOSE 95 mg/dl 74 - 106 Final 18:54 EST 10/30/2024 BUN 9 mg/dl 7 - 18 Final 18:54 EST 10/30/2024 CREATININE 0.72 mg/dl 0.55 - 1.02 Final 18:54 EST 10/30/2024 AST/SGOT 14 U/L 13 - 39 Final 18:54 EST 10/30/2024 ALK PHOS 48 U/L 46 - 116 Final 18:54 EST 10/30/2024 CALCIUM 9.0 mg/dl 8.5 - 10.1 Final 18:54 EST TOTAL 10/30/2024 7.8 g/dl 6.4 - 8.2 Final PROTEIN 18:54 EST 10/30/2024 ALBUMIN 4.1 g/dL 3.4 - 5.0 Final 18:54 EST 5 of Narrative 10/30/2024 GLOBULIN 3.7 G/DL 1.5 - 3.8 Final 18:54 EST 10/30/2024 A/G RATIO 1.1 0.9 - 1.6 Final 18:54 EST 10/30/2024 TOTAL BILI 0.5 mg/dl 0.2 - 1.0 Final 18:54 EST 10/30/2024 B/C RATIO 13 ratio 0 - 30 Final 18:54 EST 10/30/2024 ALT/SGPT 26 U/L 16 - 63 Final 18:54 EST 10/30/2024 ANION GAP 15 mmol/L 10 - 20 (more content not included)... Normal [facility] ED SUPER BILLon 11-10-2024 ED SUPER BILL [facility] [address] [place] [address] [phone] 10/30/2024 Patient: GAURAV FORTE Sex: Female : 2000 Age: 24y Facility Professional Category Item Description Code Code Quantity Fee Total Nurse/E/M EMERGENCY 767945 1 $0.00 $0.00 DEPT VISIT HIGH SEVERITYFUNCJ (32821-82) Nurse/IV/IM/Infusions Hydration 961517 1 $0.00 $0.00 additional hour (15239) Nurse/IV/IM/Infusions Hydration initial 419472 1 $0.00 $0.00 (99151) Grand $0.00 Total Providers Wilfredo Chamberlain M.D. Chief Complaint VAGINAL BLEEDING. 1 of 2 Superbill Principal Diagnosis Moderate vaginal bleeding. Probable complete spontaneous (miscarriage).No complications. ICD-10 Codes N93.9: Abnormal uterine and vaginal bleeding, unspecified 2 of 2 Normal [facility] ED VISIT SUMMARYon ED VISIT SUMMARY Visit Overview Visit Overview [facility] [address] [place] [address] [phone] 10/30/2024 Patient: GAURAV FORTE Sex: Female : 2000 Age: 24y 11/10/2024 07:03 AM EST ED Arrival:15:43 10/30/2024 EST Status: Recent Travel:no Language:eng Adv Directive:No Isolation Status: Ethnicity:N Fall Risk:no risk Infectious Disease Exposure:no Measurements:125.0 lb / 56.7 kg Self-Harm Status:no risk Sepsis Screen:negative Chief Complaint:VAGINAL BLEED ALLERGIES No Known Drug Allergies HOME MEDICATIONS sertraline 25 mg tablet PAST MEDICAL HISTORY / PROBLEMS Anxiety disorder See nurses notes PAST SURGICAL HISTORY 1 of 3 Visit Overview SOCIAL HISTORY Smoking status: No Alcohol use: No Drug use: No ED COURSE MEDICATIONS GIVEN IN EMERGENCY DEPARTMENT 18:11 10/30/24 IV NS 0.9 % 1000 mL 250 mL/hr over 4 hour(s) IV SITE INFORMATION INTAKE OUTPUT REASSESMENT (most recent) 17:20 10/30/24. GENERAL / NEURO / PSYCH: Alert. RESPIRATORY: Respirations not labored. Breath sounds within normal limits. GI / : Abdomen soft. Bowel sounds within normal limits. Vaginal bleeding present (spottin). VITAL SIGNS First Vitals Last Vitals Temp 15:55 10/30/24 98.4 F Temp 19:58 10/30/24 BP 15:55 10/30/24 144/88 BP 19:58 10/30/24 116/ HR 15:55 10/30/24 92 HR 19:58 10/30/24 80 RR 15:55 10/30/24 18 RR 19:58 10/30/24 16 O2 Sat 15:55 10/30/24 94% O2 Sat 19:58 10/30/24 100% Pain 15:55 10/30/24 2 Pain 19:58 10/30/24 0 ETCO2 15:55 10/30/24 ETCO2 19:58 10/30/24 GCS 15:55 10/30/24 GCS 19:58 10/30/24 RTS 15:55 10/30/24 RTS 19:58 10/30/24 PROCEDURES NURSING INTERVENTIONS 2 of 3 Visit Overview LABS / STUDIES LABS / STUDIES ORDERED Beta-HCG, Quant Serum CBC w Diff CMP Urinalysis US Pelvic LABS / STUDIES PENDING IMPORT US OB ENDO VAGINAL US OB INITIAL< 14 WEEKS; 1st GESTATION US PELVIC CLINICAL IMPRESSION MODERATE VAGINAL BLEEDING PROBABLE COMPLETE SPONTANEOUS (MISCARRIAGE).NO COMPLICATIONS 3 of 3 Normal [facility] ED VITALS FLOW SHEETon 11-10 ED VITALS FLOW SHEET Vitals Vital Sign Flow Sheet [place] [address] [place] [address] [phone] 10/30/2024 Patient: GAURAV FORTE Sex: Female : 2000 Age: 24y Measurements Wt: 56.7 kg Measured Time BP MAP HR RR O2Sat ETCO2 Temp Pain GCS RTS 19:58 10/30/2024 116/ 80 16 100% 0 19:55 10/30/2024 85 100% 19:50 10/30/2024 83 100% 19:45 10/30/2024 90 100% 19:40 10/30/2024 86 100% 19:35 10/30/2024 88 100% 19:30 10/30/2024 84 100% 19:28 10/30/2024 117/82 91 86 19:25 10/30/2024 93 100% 19:20 10/30/2024 91 100% 19:15 10/30/2024 97 100% 19:10 10/30/2024 92 100% 19:05 10/30/2024 100 100% 19:00 10/30/2024 95 100% 18:58 10/30/2024 125/83 91 94 1 of 2 Vitals Measured Time BP MAP HR RR O2Sat ETCO2 Temp Pain GCS RTS 18:25 10/30/2024 118/69 86 84 18:25 10/30/2024 86 100% 18:20 10/30/2024 101 100% 18:15 10/30/2024 93 100% 18:11 10/30/2024 123/81 93 103 18:10 10/30/2024 105 100% 15:55 10/30/2024 144/88 107 92 18 94% 98.4 F 2 2 of 2 Normal [facility] No Panel Informationon 10-31 [facility], [facility].; [facility], [facility]. CBC + DIFFon 10-30-2024 Baso # 0.01 x10EE3/UL Normal 0.00 - 0.10 [facility] Comment on above: Performed By: #### 2 [id number] #### [facility],[address] [place] [address] Basophils/100 WBC (Bld) 0.2 % Normal 0.0 - 2.0 % [facility], [facility] [place] - [facility] [facility] [employer] Work Phone: Comment on above: Performed By: #### 2 01811 #### [facility],[address] [place] [address] CBC + DIFF Normal [facility] Comment on above: Result Comment: CBC- COMPLETE BLOOD COUNT Performed By: #### 2 16285 #### [facility],[address] [place], [place] [phone] EO # 0.06 x10EE3/UL Normal 0.00 - 0.50 [facility] Comment on above: Performed By: #### 2 96298 #### [facility],[address] [place], [place] [phone] Eosinophils/100 WBC (Bld) 0.8 % Normal 0.0 - 7.0 % [facility] [place] - [facility] [facility] [employer] Work Phone: Comment on above: Performed By: #### 2 71335 #### [facility],[address] [place], [place] [phone] Erythrocyte distribution width (RBC) [Ratio] 14.5 % Normal 12.0 - 15.6 % [facility] [place] [facility] [employer] [facility] Work Phone: Comment on above: Performed By: #### 2 45475 #### [facility],[address] [place], [place] [phone] Hematocrit (Bld) [Volume fraction] 39.4 % Normal 34.0 - 46.0 % [facility] [place] [facility] [employer] [facility] [employer] Work Phone: Comment on above: Performed By: #### 2 12571 #### [facility],[address] [place] [address] Hemoglobin (Bld) [Mass/Vol] 13.2 g/dL Normal 12.0 - 16.0 g/dL [facility], [employer]. Work Phone: Comment on above: Performed By: #### 2 64618 #### [facility],[address] [place] [address] Lymph # 1.32 x10EE3/UL Normal 0.80 - 2.80 [facility] Comment on above: Performed By: #### 2 48430 #### [address] [address] Lymphocytes/100 WBC (Bld) 18.1 % Abnormal 20.0 - 45.0 % [facility], [facility].; [facility], [employer] Work Phone: Comment on above: Performed By: #### 2 09862 #### [facility],[address] [place] [address] MANUAL DIFF N/A Normal [facility].; [facility], [facility] Work Phone: Comment on above: Performed By: #### 2 28910 #### [facility],[address] [place] [address] 40721 MCH (RBC) [Entitic mass] 30 pg Normal 27 - 33 pg [facility], [facility].; [facility], [employer] Work Phone: Comment on above: Performed By: #### 2 65105 #### [facility],[address] [place] [address]2770 MCHC 34 X10 3 Normal 32 - 36 [facility] Comment on above: Performed By: #### 2 99413 #### [facility],[address] [place] [address] 38111 MCV (RBC) [Entitic vol] 89 fL Normal 80 - 99 fL E [facility], [employer].; [facility], [facility]. Work Phone: Comment on above: Performed By: #### 2 93284 #### [facility],[address] [place] [address] [place] # 0.41 x10EE3/UL Normal 0.20 - 1.00 [facility] Comment on above: Performed By: #### 2 33639 #### [facility],[address] [place] [address] MONOS % 5.7 % Normal 0.0 - 10.0 [facility] Comment on above: Performed By: #### 2 79940 #### [facility],[address] [place] [address] Morphology Mehul (Bld) [Interp] N/A Normal [facility].; [facility], [employer]. Work Phone: Comment on above: Performed By: #### 2 47289 #### [facility],[address] [place] [address] Neut # 5.48 x10EE3/UL Normal 1.50 - 7.10 [facility] Comment on above: Performed By: #### 2 41434 #### [facility],[address] [place] [address] 92679 Neutrophils/100 WBC (Bld) 75.3 % Normal 46.0 - 76.0 % [facility].; [facility]. Work Phone: Comment on above: Performed By: #### 2 29418 #### [facility],[address] [place] [address]26 PLATELET 149 x10EE3/UL Low 150 - 450 [facility] Comment on above: Performed By: #### 2 79119 #### [facility],[address] [place] [address] 10461 Platelet mean volume (Bld) [Entitic vol] 8.4 fL Normal 6.6 - 10.5 fL [facility].; [facility], [facility]. Work Phone: Comment on above: Result Comment: AUTO MATED DIFFERENTIAL Performed By: #### 2 64717 #### [facility],[address] [place] [address]3854 RBC 4.42 x 10EE6/UL Normal 4.10 - 5.30 [facility] Comment on above: Performed By: #### 2 84083 #### [facility],[address] [place] [address] 27817 WBC 7.3 x 10EE3/UL Normal 4.5 - 10.8 [facility] Comment on above: Performed By: #### 2 31354 #### [facility],[address] [place], [place] [phone] CMP with eGFRon 10-30-2024 AGE 24 years Normal [facility] Comment on above: Performed By: #### 2 69017 ####[facility],[address] [place], [place] [phone] Albumin [Mass/Vol] 4.1 g/dL Normal 3.4 - 5.0 g/dL [facility].; [facility], [facility] Work Phone: Comment on above: Performed By: #### 2 59033 ####[address] [address] Albumin/Globulin [Mass ratio] 1.1 {ratio} Normal 0.9 - 1.6 [facility] Comment on above: Performed By: #### 2 33284 ####[facility],[address] [place] [address] 35716 ALK PHOS 48 U/L Normal 46 - 116 U/L [facility].; [facility], [facility] Work Phone: Comment on above: Performed By: #### 2 38785 ####[facility],[address] [place] [address] 98280 ALT [Catalytic activity/Vol] 26 U/L Normal 16 - 63 U/L [facility], [facility].; [facility], [facility] Work Phone: Comment on above: Performed By: #### 2 86864 ####[facility],[address] [place] [address] 36477 Anion gap [Moles/Vol] 15 mmol/L Normal 10 - 20 mmol/L [facility], [facility].; [place] - [facility], [facility] Work Phone: Comment on above: Performed By: #### 2 39929 ####[facility],[address] [place], [place] [phone] AST [Catalytic activity/Vol] 14 U/L Normal 13 - 39 U/L [facility], [facility].; [facility], [facility] Work Phone: Comment on above: Performed By: #### 2 06765 ####[facility],[address] [place] [address] B/C RATIO 13 ratio Normal 0 - 30 [facility] Comment on above: Performed By: #### 2 89866 ####[address] [address] Bilirubin [Mass/Vol] 0.5 mg/dL Normal 0.2 - 1 .0 mg/dL [facility], [facility].; [facility], [facility] Work Phone: Comment on above: Performed By: #### 2 13515 ####[facility],[address] [place] [address] 29227 Calcium [Mass/Vol] 9.0 mg/dL Normal 8.5 - 10. 1 mg/dL [facility], [facility].; [facility], [facility] Work Phone: Comment on above: Performed By: #### 2 39547 ####[place] [address],[place] [address] Chloride [Moles/Vol] 101 mmol/L Normal 98 - 10 7 mmol/L [facility].; [facility]. Work Phone: Comment on above: Performed By: #### 2 54018 ####[facility],[address] [place] [address]882 CMP with eGFR Normal [facility] Comment on above: Result Comment: COMP REHENSIVE METABOLIC PANEL Performed By: #### 2 75321 ####[address] [address] CO2 [Moles/Vol] 27.2 mmol/L Normal 21.0 - 32.0 mmol/L [facility].; [facility] [employer] [facility] [employer]. Work Phone: Comment on above: Performed By: #### 2 53390 ####[facility],[address] [place] [address] Creatinine [Mass/Vol] 0.72 mg/dL Normal 0.55 - 1.02 mg/dL [facility].; [facility], [employer]. Work Phone: Comment on above: Performed By: #### 2 59667 ####[address] [address] GFR/1.73 sq M.predicted among non-blacks MDRD (S/P/Bld) [Vol rate/Area] mL/min/{1.73_m2} Normal 60 - 999 [facility] Comment on above: Performed By: #### 2 20839 ####[facility],[address] [place] [address] Result Comment: ACCO RDING TO THE NATIONAL KIDNEY DISEASE EDUCATION PROGRAM(NKDE), A NORMAL eGFR IS A VALUE GREATER THAN OR EQUAL TO 60 ML/MIN/1.73 SQ METERS. CHRONIC KIDNEY DISEASE: <60mL/MIN/1.73 SQ METERS KIDNEY FAILURE: <15mL/MIN/1.73 SQ METERS THIS TEST SHOULD ONLY BE USED FOR PATIENTS 18 YEARS OF AGE AND OLDER. Globulin (S) [Mass/Vol] 3.7 g/dL Normal 1.5 - 3.8 g/ dL [facility].; [facility], [facility]. Work Phone: Comment on above: Performed By: #### 2 74607 ####[address] [address] Glucose [Mass/Vol] 95 mg/dL Normal 74 - 106 mg/dL [facility].; [facility], [facility]. Work Phone: Comment on above: Performed By: #### 2 48540 ####[address] [address] Potassium [Moles/Vol] 3.8 mmol/L Normal 3.5 - 5.1 mmol/L [facility].; [facility], Inc[facility] Work Phone: Comment on above: Performed By: #### 2 93869 ####[address] [address] Protein [Mass/Vol] 7.8 g/dL Normal 6.4 - 8.2 g/dL [facility].; [facility], [facility]. Work Phone: Comment on above: Performed By: #### 2 49404 ####[address] [address] Sodium [Moles/Vol] 139 mmol/L Normal 136 - 145 mmol/L [facility].; [facility], [facility] Work Phone: Comment on above: Performed By: #### 2 32558 ####[address] [address] Urea nitrogen [Mass/Vol] 9 mg/dL Normal 7 - 18 mg/d L [facility] [facility].; [employer] [facility], [employer]. Work Phone: Comment on above: Performed By: #### 2 74718 ####Gag[facility]ep [facility],[address] [place] [address] Laboratory - Chemistry and C hemistry - challengeon 10-30-2024 Albumin [Mass/Vol] 1.1 g/dL Normal 0.9 - 1.6 [facility].; [employer] [facility], [employer] Work Phone: Bilirubin [Mass/Vol] Negative Normal [facility] [facility] [employer]; [facility] [employer] [facility], [employer]. Work Phone: GFR/1.73 sq M.predicted among blacks MDRD (S/P/Bld) [Vol rate/Area] mL/min/{1.73_m2} Normal 60 - 999 {ML/MINUTE} [facility] [facility].; [place] [employer] [facility], [employer] Work Phone: GFR/1.73 sq M.predicted MDRD (S/P/Bld) [Vol rate/Area] mL/min/{1.73_m2} Normal 60 - 999 {ML/MINUTE} [facility] [facility], [employer].; [facility] [employer] [facility] [facility], [employer] Work Phone: Glucose [Mass/Vol] NORM Normal [facility] [employer] [facility].; [employer] [facility] [facility], [employer] Work Phone: HCG.beta subunit Qn 16 m[IU]/mL Abnormal 0 - 6 m[iU]/mL [facility] [employer] [facility].; [place] [employer] [facility], [employer] Work Phone: pH (Bld) 7 [pH] Normal [facility] [facility].; [employer] [facility], [employer] Work Phone: Protein [Mass/Vol] Negative Normal [facility]; [facility] Work Phone: Urea nitrogen/Creatinine [Mass ratio] 13 {ratio} Normal 0 - 30 {ratio} [facility]; [facility] Work Phone: Laboratory - Hematology and Cell countson 10-30-2024 Basophils (Bld) [#/Vol] 0.01 {x10EE3/UL} Normal 0.00 - 0.10 {x10EE3/UL} [facility]; [facility] Work Phone: Eosinophils (Bld) [#/Vol] 0.06 {x10EE3/UL} Normal 0.00 - 0.50 {x10EE3/UL} [facility].; [facility] Work Phone: Lymphocytes (Bld) [#/Vol] 1.32 {x10EE3/UL} Normal 0.80 - 2.80 {x10EE3/UL} [facility].; [facility], [facility]. Work Phone: MCHC (RBC) [Mass/Vol] 34 {X10_3} Normal 32 - 3 6 {X10_3} [facility].; [facility]. Work Phone: Monocytes (Bld) [#/Vol] 0.41 {x10EE3/UL} Normal 0.20 - 1.00 {x10EE3/UL} [facility].; [facility] Work Phone: Monocytes/100 WBC (Bld) 5.7 % Normal 0.0 - 10.0 % [facility]; [facility] Work Phone: Neutrophils (Bld) [#/Vol] 5.48 {x10EE3/UL} Normal 1.50 - 7.10 {x10EE3/UL} [facility].; [facility], [facility]. Work Phone: Platelets (Bld) [#/Vol] 149 {x10EE3/UL} Abnormal 1 50 - 450 {x10EE3/UL} [facility].; [facility], [facility]. Work Phone: RBC (Bld) [#/Vol] 4.42 {x_10EE6/UL} Normal 4.10 - 5.30 {x_10EE6/UL} [facility].; [facility], [facility]. Work Phone: WBC (Bld) [#/Vol] Negative Normal [facility]. Work Phone: WBC (Bld) [#/Vol] 7.3 {x_10EE3/UL} Normal 4.5 - 10.8 {x_10EE3/UL} [facility].; [facility], [facility]. Work Phone: Laboratory - Microbiology an d Antimicrobial susceptibilityon 10-30-2024 Bacteria identified Cx Nom (Unsp spec) 2+ Normal [facility]; [facility] Work Phone: Laboratory - Specimen inform ationon 10-30-2024 Specimen type Nom (Spec) R Normal [facility].; [facility]. Work Phone: Laboratory - Urinalysison Yeast LM Ql (Urine sed) NONE Normal [facility].; [facility], [facility] Work Phone: No Panel Informationon 10-30 AGE 24 {years} Normal [facility].; [facility] Work Phone: Blood 150 Abnormal [facility].; [employer] [facility] Work Phone: CBC + DIFF Normal [facility].; [employer] - [facility] [facility], [employer]. Work Phone: CMP with eGFR Normal [facility].; [employer] [facility] [facility], [employer]. Work Phone: Microscopic SEE BELOW Normal [facility] [employer] [facility].; [employer] [facility], [employer]. Work Phone: PREG SERUM QUANTon 5 HCG QUANTITATIVE 16 mIU/mL High 0 - 6 [facility] Comment on above: Result Comment: Refe rence Range: Male: <5 Female: Non: <5 1 - 7 days : 5 - 50 1 - 2 weeks: 50 - 500 2 - 3 weeks: 100 - 5000 3 - 4 weeks: 500 - 10,000 4 - 5 weeks: 1000 - 50,000 5 - 6 weeks: 10,000 - 100,000 6 - 8 weeks: 15,000 - 200,000 2 - 3 months: 10,000 - 100,000 2ND TRIMESTER 3000-50,000 3RD TRIMESTER 1000-50,000 Performed By: #### 2 [id number] ####[facility],[address] [place] [address] URINALYSISon 10-30-2024 Amorphous 3+ Normal [facility] [facility].; [employer] [facility], [employer]. Work Phone: Comment on above: Performed By: #### 2 [id number] #### [facility],[address] [place] [address] Bacteria 2+ Normal [facility] Comment on above: Performed By: #### 2 [id number] #### [facility],[address] [place] [address] Bilirubin Ql (U) Negative Normal NORMAL: NEGATIVE [facility] Comment on above: Performed By: #### 2 [id number] #### [facility],[address] [place] [address] Casts NONE Normal [facility] [employer] [facility] [facility] [employer] [facility] Work Phone: Comment on above: Performed By: #### 2 [id number] #### [facility],[address] [place] [address] Clarity (U) very cloudy Normal [facility] [employer] [facility] [employer] [facility] [employer] [facility] [employer] Work Phone: Comment on above: Performed By: #### 2 [id number] #### [facility],[address] [place] [address] Color (U) yellow Normal [facility] [employer] [facility] [employer] [facility] [employer] [facility] [employer] Work Phone: Comment on above: Performed By: #### 2 [id number] #### [facility],[address] [place] [address] Crystals LM Nom (Urine sed) NONE Normal [facility] [employer] [facility] - [facility] [employer] [facility] [employer] Work Phone: Comment on above: Performed By: #### 2 [id number] #### [facility],[address] [place] [address] Epi Cells FEW Normal [facility] [employer] [facility] [employer] [facility] [employer] [facility] [employer] Work Phone: Comment on above: Performed By: #### 2 [id number] #### [facility],[address] [place], [place] [id number] Glucose Ql (U) NORM Normal NORMAL: NORMAL [facility] Comment on above: Performed By: #### 2 [id number] #### [facility],[address] [place], [place] [id number] Hemoglobin Ql (U) 150 Abnormal NORMAL: NEGATIVE [facility] Comment on above: Performed By: #### 2 [id number] #### [facility],[address] [place] [address] Ketone 15 Abnormal [facility] Work Phone: Comment on above: Performed By: #### 2 [id number] #### [facility],[address] [place] [address] Leukocytes Negative Normal NORMAL: NEGATIVE [facility] Comment on above: Performed By: #### 2 [id number] #### [facility],[address] [place] [address] Mucous NONE Normal [facility].; [facility], [facility] Work Phone: Comment on above: Performed By: #### 2 [id number] #### [facility],[address] [place] [address] Nitrite Ql (U) Negative Normal [facility].; [facility], [facility] Work Phone: Comment on above: Performed By: #### 2 [id number] #### [facility],[address] [place] [address]39 pH (U) 7 [pH] Normal NORMAL: 5.0-8.0 [facility] Comment on above: Performed By: #### 2 [id number] #### [facility],[address] [place] [address] Protein Ql (U) Negative Normal NORMAL: NEGATIVE [facility] Comment on above: Performed By: #### 2 [id number] #### [facility],[address] [place] [address]95 Rbc 5-10 Normal 0 - 3 [facility].; [facility], [facility] Work Phone: Comment on above: Performed By: #### 2 23926 #### [facility],[address] [place] [address] Sp [place] 1.015 Normal [facility].; [facility], [employer]. Work Phone: Comment on above: Performed By: #### 2 [id number] #### [facility],[address] [place] [address] Specimen Type R Normal [facility] Comment on above: Performed By: #### 2 [id number] #### [facility],[address] [place] [address]12 Urinalysis dipstick W Reflex Microscopic panel (U) SEE BELOW Normal [facility] Comment on above: Result Comment: MICR OSCOPIC Performed By: #### 2 [id number] #### [facility],[address] [place] [address]40 Urobilinog NORM Normal [facility], [facility]. Work Phone: Comment on above: Performed By: #### 2 [id number] #### [facility],[address] [place] [address]26 Wbc NONE Normal 0 - 5 [facility].; [facility], [facility]. Work Phone: Comment on above: Performed By: #### 2 17102 #### [facility],[address] [place] [address]85 Yeast NONE Normal [facility] Comment on above: Performed By: #### 2 45677 #### [facility],[address] [place], [place] [id number] OB ENDO VAGINALon 025 OB ENDO VAGINAL [place] [address] Patient: GAURAV FORTE Phone#: : [phone] Age: 24 Gender: F Pt. Type: ER Account: [id number] Location: [facility] Ordering: WILFREDO CHAMBERLAIN Exam Date: 10/30/2024/18:27 Family Phys: MALCOLM YANG Charge Code: 999793 Physician: [place] Order #: [id number] Dose#: PROCEDURE: OB INITIAL <14 WEEKS ULTRASOUND, TRANSABDOMINAL ENDOVAGINAL COMPARISON: [facility], OB INITIAL <14 WEEKS, 03/21/2022, 14:49. INDICATIONS: Vaginal bleeding. TECHNIQUE: Transabdominal and endovaginal pelvic ultrasound examinations were performed. FINDINGS: GESTATIONAL SAC: Not present POLE: Not present YOLK SAC: Not present CARDIAC ACTIVITY: Not present UTERUS: Normal. The uterus is 7.8 x 4.2 x 5.1 centimeters. The endometrium is 7.4 millimeters in thickness. ADNEXAE/OVARIES: Normal. CUL-DE-SAC: Small amount of free fluid is present in the cul-de-sac. CERVICAL LENGTH: Not applicable CLINICAL AGE: 4 weeks 6 days SONOGRAPHIC AGE: Not applicable PLACENTA: Unable to visualize due to age. AMNIOTIC FLUID VOLUME: Not applicable OTHER: Negative. CONCLUSION: 1. There is no evidence of intrauterine gestation. Possibility of very early gestation is raised versus missed . Follow-up evaluation with beta HCG levels and/or ultrasound. Dictated by: Sydni Michael MD on 10/31/2024 at 8:44 Approved by: Sydni Michael MD on 10/31/2024 at 8:52 Normal [facility] US OB INITIAL< 14 WEEKS; 1st GESTATIONon 10-30-2024 US OB INITIAL< 14 WEEKS; 1st GESTATION [place] [id number] Patient: GAURAV FORTE Phone#: : [phone] Age: 24 Gender: F Pt. Type: ER Account: [id number] Location: 052 Ordering: WILFREDO CHAMBERLAIN Exam Date: 10/30/2024/18:27 Family Phys: MALCOLM YANG Charge Code: [id number] Physician: [place] Order #: [id number] Dose#: PROCEDURE: OB INITIAL <14 WEEKS ULTRASOUND, TRANSABDOMINAL ENDOVAGINAL COMPARISON: [facility], OB INITIAL <14 WEEKS, 03/21/2022, 14:49. INDICATIONS: Vaginal bleeding. TECHNIQUE: Transabdominal and endovaginal pelvic ultrasound examinations were performed. FINDINGS: GESTATIONAL SAC: Not present POLE: Not present YOLK SAC: Not present CARDIAC ACTIVITY: Not present UTERUS: Normal. The uterus is 7.8 x 4.2 x 5.1 centimeters. The endometrium is 7.4 millimeters in thickness. ADNEXAE/OVARIES: Normal. CUL-DE-SAC: Small amount of free fluid is present in the cul-de-sac. CERVICAL LENGTH: Not applicable CLINICAL AGE: 4 weeks 6 days SONOGRAPHIC AGE: Not applicable PLACENTA: Unable to visualize due to age. AMNIOTIC FLUID VOLUME: Not applicable OTHER: Negative. CONCLUSION: 1. There is no evidence of intrauterine gestation. Possibility of very early gestation is raised versus missed . Follow-up evaluation with beta HCG levels and/or ultrasound. Dictated by: Sydni Michael MD on 10/31/2024 at 8:44 Approved by: Sydni Michael MD on 10/31/2024 at 8:52 [facility] No Panel Informationon 08-11 [employer], [employer]. No Panel Informationon 03-10 ADEQ Comment [facility].; [employer] Work Phone: COMM . Normal [employer] Work Phone: COMMENT Comment [facility].; [employer] Work Phone: DIAG Comment [employer] Work Phone: GS See Note Normal [employer] Work Phone: HPV RFLX Comment [employer] Work Phone: PAPSMR Comment [facility].; [employer] Work Phone: PERFORM Comment Normal [facility].; [facility]. Work Phone: VAC See Note Normal [facility].; [facility], [facility]. Work Phone: No Panel Informationon 02-25 [facility].; [facility], [facility]. No Panel Informationon 10-21 [facility].; [facility], [facility]. Laboratory - Hematology and Cell countson 11-04-2022 Basophils (Bld) [#/Vol] 0.10 {x10EE3/UL} Normal 0.00 - 0.10 {x10EE3/UL} [facility].; [facility], [facility] Work Phone: Basophils/100 WBC (Bld) 0.4 % Normal 0.0 - 2.0 % [facility].; [facility]. Work Phone: Eosinophils (Bld) [#/Vol] 0.00 {x10EE3/UL} Normal 0.00 - 0.50 {x10EE3/UL} [facility].; [facility], [facility] Work Phone: Eosinophils/100 WBC (Bld) 0.3 % Normal 0.0 - 7.0 % [facility].; [facility]. Work Phone: Erythrocyte distribution width (RBC) [Ratio] 13.8 % Normal 12.0 - 15.6 % [facility].; [facility] Work Phone: Hematocrit (Bld) [Volume fraction] 32.4 % Abnormal 34.0 - 46.0 % [facility].; [facility], [facility] Work Phone: Hemoglobin (Bld) [Mass/Vol] 10.8 g/dL Abnormal 12.0 - 16.0 g/dL [facility]; [facility]. Work Phone: Lymphocytes (Bld) [#/Vol] 1.80 {x10EE3/UL} Normal 0.80 - 2.80 {x10EE3/UL} [facility].; [facility], [facility]. Work Phone: Lymphocytes/100 WBC (Bld) 13.1 % Abnormal 20.0 - 45.0 % [facility]; [facility]. Work Phone: MCH (RBC) [Entitic mass] 31 pg Normal 27 - 33 pg [facility]; [facility], [facility] Work Phone: MCHC (RBC) [Mass/Vol] 33 {X10_3} Normal 32 - 3 6 {X10_3} [facility].; [facility], [facility]. Work Phone: MCV (RBC) [Entitic vol] 92 fL Normal 80 - 99 fL [facility]; [facility], [facility]. Work Phone: Monocytes (Bld) [#/Vol] 1.00 {x10EE3/UL} Normal 0.20 - 1.00 {x10EE3/UL} [facility]; [facility]. Work Phone: Monocytes/100 WBC (Bld) 7.4 % Normal 0.0 - 10.0 % [facility]; [facility]. Work Phone: Morphology Mehul (Bld) [Interp] N/A Normal [facility]; [facility]. Work Phone: Neutrophils (Bld) [#/Vol] 10.90 {x10EE3/UL} Abnormal 1.50 - 7.10 {x10EE3/UL} [facility].; [facility]. Work Phone: Neutrophils/100 WBC (Bld) 78.8 % Abnormal 46.0 - 76.0 % [facility].; [facility]. Work Phone: Platelet mean volume (Bld) [Entitic vol] 8.7 fL Normal 6.6 - 10.5 fL [facility].; [facility]. Work Phone: Platelets (Bld) [#/Vol] 200 {x10EE3/UL} Normal 1 50 - 450 {x10EE3/UL} [facility].; [facility], [facility]. Work Phone: RBC (Bld) [#/Vol] 3.53 {x_10EE6/UL} Abnormal 4.10 - 5.30 {x_10EE6/UL} [facility].; [facility], [facility]. Work Phone: WBC (Bld) [#/Vol] 13.9 {x_10EE3/UL} Abnormal 4.5 - 10.8 {x_10EE3/UL} [facility].; [facility]. Work Phone: No Panel Informationon 11-04 CBC + DIFF Normal [facility].; [facility]. Work Phone: MANUAL DIFF N/A Normal [facility].; [facility], [facility]. Work Phone: Laboratory - Blood bankon ABO group Nom (Bld) O Normal [facility].; [facility], [facility]. Work Phone: Blood group antibody screen Ql Negative Normal [facility]; [facility] Work Phone: Rh Nom (Bld) Positive Normal [facility]; [facility] Work Phone: Laboratory - Coagulationon 0 11-03-2022 aPTT Coag (Bld) [Time] 23.3 s Abnormal 25.4 - 38.4 {sec} [facility].; [facility]. Work Phone: INR Coag (PPP) [Relative time] 0.9 {INR} Normal 0.8 - 1.2 [facility]; [facility]. Work Phone: PT Coag (Bld) [Time] 10.4 s Normal 9.3 - 1 4.1 {sec} [facility].; [facility]. Work Phone: Laboratory - Hematology and Cell countson 11-03-2022 Basophils (Bld) [#/Vol] 0.00 {x10EE3/UL} Normal 0.00 - 0.10 {x10EE3/UL} [facility].; [facility]. Work Phone: Basophils/100 WBC (Bld) 0.5 % Normal 0.0 - 2.0 % [facility]; [facility]. Work Phone: Eosinophils (Bld) [#/Vol] 0.10 {x10EE3/UL} Normal 0.00 - 0.50 {x10EE3/UL} [facility].; [facility]. Work Phone: Eosinophils/100 WBC (Bld) 1.3 % Normal 0.0 - 7.0 % [facility]; [facility]. Work Phone: Erythrocyte distribution width (RBC) [Ratio] 13.6 % Normal 12.0 - 15.6 % [facility]; [facility] Work Phone: Hematocrit (Bld) [Volume fraction] 34.6 % Normal 34.0 - 46.0 % [facility]; [facility] Work Phone: Hemoglobin (Bld) [Mass/Vol] 11.7 g/dL Abnormal 12.0 - 16.0 g/dL [facility]; [facility]. Work Phone: Lymphocytes (Bld) [#/Vol] 1.20 {x10EE3/UL} Normal 0.80 - 2.80 {x10EE3/UL} [facility]; [facility]. Work Phone: Lymphocytes/100 WBC (Bld) 14.2 % Abnormal 20.0 - 45.0 % [facility]; [facility]. Work Phone: MCH (RBC) [Entitic mass] 31 pg Normal 27 - 33 pg [facility]; [facility]. Work Phone: MCHC (RBC) [Mass/Vol] 34 {X10_3} Normal 32 - 3 6 {X10_3} [facility]; [facility]. Work Phone: MCV (RBC) [Entitic vol] 92 fL Normal 80 - 99 fL [facility]; [facility], [facility] Work Phone: Monocytes (Bld) [#/Vol] 0.60 {x10EE3/UL} Normal 0.20 - 1.00 {x10EE3/UL} [facility]; [facility]. Work Phone: Monocytes/100 WBC (Bld) 6.9 % Normal 0.0 - 10.0 % [facility].; [facility]. Work Phone: Morphology Mehul (Bld) [Interp] N/A Normal [facility].; [facility]. Work Phone: Neutrophils (Bld) [#/Vol] 6.70 {x10EE3/UL} Normal 1.50 - 7.10 {x10EE3/UL} [facility].; [facility]. Work Phone: Neutrophils/100 WBC (Bld) 77.1 % Abnormal 46.0 - 76.0 % [facility].; [facility]. Work Phone: Platelet mean volume (Bld) [Entitic vol] 8.9 fL Normal 6.6 - 10.5 fL [facility].; [facility]. Work Phone: Platelets (Bld) [#/Vol] 206 {x10EE3/UL} Normal 1 50 - 450 {x10EE3/UL} [facility].; [facility]. Work Phone: RBC (Bld) [#/Vol] 3.77 {x_10EE6/UL} Abnormal 4.10 - 5.30 {x_10EE6/UL} [facility].; [facility], [facility]. Work Phone: WBC (Bld) [#/Vol] 8.7 {x_10EE3/UL} Normal 4.5 - 10.8 {x_10EE3/UL} [facility].; [facility], [employer]. Work Phone: No Panel Informationon 11-03 BB TYPE Normal [facility]; [facility] Work Phone: CBC + DIFF Normal [facility]; [facility] Work Phone: MANUAL DIFF N/A Normal [facility]; [facility] Work Phone: PROTHROMBIN TIME AND INR Normal [facility]; [facility]. Work Phone: Laboratory - Chemistry and C hemistry - challengeon 08-25-2022 Glucose [Mass/Vol] 81 mg/dL Normal 70 - 140 mg/dL [facility]; [facility] Work Phone: Laboratory - Hematology and Cell countson 08-25-2022 Basophils (Bld) [#/Vol] 0.00 {x10EE3/UL} Normal 0.00 - 0.10 {x10EE3/UL} [facility]; [facility], [facility] Work Phone: Basophils/100 WBC (Bld) 0.4 % Normal 0.0 - 2.0 % [facility]; [facility] Work Phone: Eosinophils (Bld) [#/Vol] 0.20 {x10EE3/UL} Normal 0.00 - 0.50 {x10EE3/UL} [facility].; [facility]. Work Phone: Eosinophils/100 WBC (Bld) 1.9 % Normal 0.0 - 7.0 % [facility]; [facility], [facility] Work Phone: Erythrocyte distribution width (RBC) [Ratio] 13.5 % Normal 12.0 - 15.6 % [facility]; [facility] Work Phone: Hematocrit (Bld) [Volume fraction] 32.2 % Abnormal 34.0 - 46.0 % [facility]; [facility] Work Phone: Hemoglobin (Bld) [Mass/Vol] 10.8 g/dL Abnormal 12.0 - 16.0 g/dL [facility]; [facility]. Work Phone: Lymphocytes (Bld) [#/Vol] 1.60 {x10EE3/UL} Normal 0.80 - 2.80 {x10EE3/UL} [facility]; [facility], [facility] Work Phone: Lymphocytes/100 WBC (Bld) 17.0 % Abnormal 20.0 - 45.0 % [facility]; [facility]. Work Phone: MCH (RBC) [Entitic mass] 32 pg Normal 27 - 33 pg [facility]; [facility] Work Phone: MCHC (RBC) [Mass/Vol] 34 {X10_3} Normal 32 - 3 6 {X10_3} [facility]; [facility]. Work Phone: MCV (RBC) [Entitic vol] 94 fL Normal 80 - 99 fL [facility]; [facility], [facility] Work Phone: Monocytes (Bld) [#/Vol] 0.60 {x10EE3/UL} Normal 0.20 - 1.00 {x10EE3/UL} [facility]; [facility]. Work Phone: Monocytes/100 WBC (Bld) 6.0 % Normal 0.0 - 10.0 % [facility]; [facility]. Work Phone: Morphology Mehul (Bld) [Interp] N/A Normal [facility]; [facility]. Work Phone: Neutrophils (Bld) [#/Vol] 6.80 {x10EE3/UL} Normal 1.50 - 7.10 {x10EE3/UL} [facility].; [facility]. Work Phone: Neutrophils/100 WBC (Bld) 74.7 % Normal 46.0 - 76.0 % [facility]; [facility]. Work Phone: Platelet mean volume (Bld) [Entitic vol] 8.7 fL Normal 6.6 - 10.5 f[address] [facility]; [facility]. Work Phone: Platelets (Bld) [#/Vol] 263 {x10EE3/UL} Normal 1 50 - 450 {x10EE3/UL} [facility].; [facility]. Work Phone: RBC (Bld) [#/Vol] 3.43 {x_10EE6/UL} Abnormal 4.10 - 5.30 {x_10EE6/UL} [facility].; [facility]. Work Phone: WBC (Bld) [#/Vol] 9.1 {x_10EE3/UL} Normal 4.5 - 10.8 {x_10EE3/UL} [facility].; [facility]. Work Phone: No Panel Informationon 08-25 CBC + DIFF Normal [facility]; [facility] [employer] [facility] [employer]. Work Phone: GLUCOSE CHALLENGE 50GM 1 HOUR Normal [facility].; [facility]. Work Phone: MANUAL DIFF N/A Normal [facility].; [facility] Work Phone: Laboratory - Chemistry and C hemistry - challengeon 03-14-2022 [place] [address].8 m[IU]/mL Normal [facility].; [facility]. No Panel Informationon 03-14 Date of LMP Normal [facility].; [facility]. Laboratory - Blood bankon ABO and Rh group Nom (Bld) Blood group O Rh(D) positive Abnormal [facility].; [facility] Laboratory - Chemistry and C hemistry - challengeon 03-12-2022 [place] [address].2 m[IU]/mL Normal [facility].; [facility]. No Panel Informationon 03-12 Date of LMP unknown Normal [facility].; [facility]. Laboratory - Chemistry and C hemistry - challengeon 07-30-2010 Bilirubin Ql (U) Negative Normal [facility].; [facility], [facility]. pH (U) 5.0 [pH] Normal [facility].; [facility], [facility]. Specific gravity (U) [Rel density] 1.030 Abnormal [facility].; [facility], [facility]. Laboratory - Hematology and Cell countson 07-30-2010 Hemoglobin Ql (U) Negative Normal [facility]. Laboratory - Specimen inform ationon 07-30-2010 Appearance (U) CLEAR Normal [facility].; [facility], [facility]. Color (U) YELLOW Normal [facility].; [facility], [facility]. Laboratory - Urinalysison Glucose Test strip (U) [Mass/Vol] Negative Normal [facility].; [facility]. Leukocyte esterase Test strip Ql (U) Negative Normal [facility].; [facility]. Nitrite Ql (U) Negative Normal [facility].; [facility] [employer] Protein Ql (U) TRACE Normal [facility].; [facility], [facility]. No Panel Informationon 07-30 UA - ODOR Negative Normal [facility].; [facility]. UA - UROBILIGEN 0.2 Normal [facility].; [facility]. Vital Signs Date Time Vital Sign Value Performing Clinician Faci lity 07-25-2025 13:42-0400 Body height 167.64 cm Chanda [employer] DANCE PROFESSOR[employer]C Work Phone: [place] [facility] 07-25-2025 13:42-0400 Body mass index (BMI) [Ratio] 24.7 kg/m2 [employer] DANCE PROFESSOR-C Work Phone: [facility] 07-25-2025 13:42-0400 Body weight 69.59 kg Chanda [employer] DANCE PROFESSOR-C Work Phone: [facility] 07-25-2025 13:42-0400 Diastolic blood pressure 72 mm[Hg] Chanda [employer] DANCE PROFESSOR-C Work Phone: [facility] 07-25-2025 13:42-0400 Systolic blood pressure 113 mm[Hg] Chanda [employer] DANCE PROFESSOR-C Work Phone: [facility] 07-10-2025 10:06-0400 Body height 167.64 cm Chanda [employer] DANCE PROFESSOR-C Work Phone: [facility] 07-10-2025 10:06-0400 Body mass index (BMI) [Ratio] 24.1 kg/m2 [employer] DANCE PROFESSOR-C Work Phone: [facility] 07-10-2025 10:06-0400 Body weight 67.78 kg Chanda Huizartetter DANCE PROFESSOR-C Work Phone: [facility] 07-10-2025 10:06-0400 Diastolic blood pressure 75 mm[Hg] Chanda Hofstetter DANCE PROFESSOR-C Work Phone: [facility] 07-10-2025 10:06-0400 Systolic blood pressure 112 mm[Hg] Chanda Hofstetter DANCE PROFESSOR-C Work Phone: [facility] 06-21-2025 09:27-0400 Body height 167.64 cm Chanda Garciafstetter DANCE PROFESSOR-C Work Phone: [facility] 06-21-2025 09:25-0400 Body mass index (BMI) [Ratio] 23.4 kg/m2 Chanda Josefstetter DANCE PROFESSOR-C Work Phone: [facility] 06-21-2025 09:25-0400 Body weight 65.82 kg Chanda Garciafstetter DANCE PROFESSOR-C Work Phone: [facility] 06-21-2025 09:25-0400 Diastolic blood pressure 76 mm[Hg] Chanda Hofstetter DANCE PROFESSOR-C Work Phone: [facility] 06-21-2025 09:25-0400 Systolic blood pressure 111 mm[Hg] Chanda Garciafstetter DANCE PROFESSOR-C Work Phone: [facility] 05-24-2025 10:33-0400 Body height 167.64 cm Chanda Madisontter DANCE PROFESSOR-C Work Phone: [facility] 05-24-2025 10:33-0400 Body mass index (BMI) [Ratio] 22.4 kg/m2 Chanda Hofstetter DANCE PROFESSOR-C Work Phone: [facility] 05-24-2025 10:33-0400 Body weight 63.13 kg Chanda Garciafstetter DANCE PROFESSOR-C Work Phone: [facility] 05-24-2025 10:33-0400 Diastolic blood pressure 68 mm[Hg] Chanda Hofstetter DANCE PROFESSOR-C Work Phone: [facility] 05-24-2025 10:33-0400 Systolic blood pressure 106 mm[Hg] Chanda Hofstetter DANCE PROFESSOR-C Work Phone: [facility] 04-25-2025 08:20-0400 Body height 167.64 cm Chanda Hofstetter DANCE PROFESSOR-C Work Phone: [facility] 04-25-2025 08:20-0400 Body mass index (BMI) [Ratio] 21.9 kg/m2 Chanda Hofstetter DANCE PROFESSOR-C Work Phone: [facility] 04-25-2025 08:20-0400 Body weight 61.8 kg Chanda Hofstetter DANCE PROFESSOR-C Work Phone: [facility] 04-25-2025 08:20-0400 Diastolic blood pressure 76 mm[Hg] Chanda Hofstetter DANCE PROFESSOR-C Work Phone: [facility] 04-25-2025 08:20-0400 Systolic blood pressure 120 mm[Hg] Chanda Hofstetter DANCE PROFESSOR-C Work Phone: [facility] 04-05-2025 14:41-0400 Body height 167.64 cm Chanda Josefstetter DANCE PROFESSOR-C Work Phone: [facility] 04-05-2025 14:41-0400 Body mass index (BMI) [Ratio] 21.7 kg/m2 Chanda Hofstetter DANCE PROFESSOR-C Work Phone: [facility] 04-05-2025 14:41-0400 Body weight 60.95 kg Chanda Hofstetter DANCE PROFESSOR-C Work Phone: [facility] 04-05-2025 14:41-0400 Diastolic blood pressure 76 mm[Hg] Chanda Hofstetter DANCE PROFESSOR-C Work Phone: [facility] 04-05-2025 14:41-0400 Systolic blood pressure 116 mm[Hg] Chanda Hofstetter DANCE PROFESSOR-C Work Phone: [facility] 03-02-2025 09:11-0400 Body height 167.64 cm Chanda Hofstetter DANCE PROFESSOR-C Work Phone: [facility] 03-02-2025 09:11-0400 Body mass index (BMI) [Ratio] 21.4 kg/m2 Chanda Hofstetter DANCE PROFESSOR-C Work Phone: [facility] 03-02-2025 09:11-0400 Body weight 60.44 kg Chanda Hofstetter DANCE PROFESSOR-C Work Phone: [facility] 03-02-2025 09:11-0400 Diastolic blood pressure 78 mm[Hg] Chanda Hofstetter DANCE PROFESSOR-C Work Phone: [facility] 03-02-2025 09:11-0400 Systolic blood pressure 116 mm[Hg] Chanda Hofstetter DANCE PROFESSOR-C Work Phone: [facility] 02-07-2025 16:03-0400 Body mass index (BMI) [Ratio] 20.5 kg/m2 Chanda Hofstetter DANCE PROFESSOR-C Work Phone: [facility] 02-07-2025 16:03-0400 Body weight 57.6 kg Chanda Josefstetter DANCE PROFESSOR-C Work Phone: [facility] 02-07-2025 16:03-0400 Diastolic blood pressure 84 mm[Hg] Chanda Hofstetter DANCE PROFESSOR-C Work Phone: [facility] 02-07-2025 16:03-0400 Systolic blood pressure 124 mm[Hg] Chanda Hofstetter DANCE PROFESSOR-C Work Phone: [facility] 12-21-2024 11:06-0500 Body height 165.1 cm June Yang RN [facility]; [facility] 12-21-2024 11:06-0500 Body mass index (BMI) [Ratio] 20.38 kg/m2 June Yang RN [facility], [facility] 12-21-2024 11:06-0500 Body surface area Derived from formula 1.61 m2 June Yang RN [facility] 12-21-2024 11:06-0500 Body temperature 98.4 [degF] June Yang RN [facility], [facility] [employer] [facility] Comment on above: Method: Oral 12-21-2024 11:06-0500 Body weight 55.57 kg June Yang RN [facility], [facility].; [employer] [facility] 12-21-2024 11:06-0500 Diastolic blood pressure 78 mm[Hg] June Yang RN [facility] [employer] [facility] [employer] [facility] [employer] [facility] Comment on above: Patient Position: Sitting; Cuff Location : Left Arm; Cuff Size: Standard 12-21-2024 11:06-0500 Heart rate 96 /min June Yang RN [facility], [employer] [facility] [employer] [facility], [employer] Comment on above: Pattern: Regular 12-21-2024 11:06-0500 Inhaled oxygen concentration 21 % June Yang RN [facility] [employer] [facility], [facility] [employer] [facility] Comment on above: Room air 12-21-2024 11:06-0500 SaO2% (BldA) [Mass fraction] 98 % June Yang RN [facility] [employer] [facility], [facility] [employer] [facility] 12-21-2024 11:06-0500 Systolic blood pressure 122 mm[Hg] June Yang RN [facility] [employer] [facility] [employer] [facility] [employer] [facility], [employer] Comment on above: Patient Position: Sitting; Cuff Location : Left Arm; Cuff Size: Standard 10-09-2023 13:46-0500 Body height 165.1 cm Tamar Johnson RN [facility], [facility] 10-09-2023 13:46-0500 Body mass index (BMI) [Ratio] 21.13 kg/m2 Tamar Johnson RN [facility] 10-09-2023 13:46-0500 Body surface area Derived from formula 1.63 m2 Tamar Johnson RN [facility], [facility] 10-09-2023 13:46-0500 Body weight 57.61 kg Tamar Johnson RN [facility], [facility] 10-09-2023 13:46-0500 Diastolic blood pressure 83 mm[Hg] Tamar Johnson RN [facility], [facility] [employer] [facility] Comment on above: Patient Position: Sitting; Cuff Location : Left Arm; Cuff Size: Large 10-09-2023 13:46-0500 Heart rate 109 /min Tamar Johnson RN [facility], [facility] [employer] [facility] Comment on above: Pattern: Regular 10-09-2023 13:46-0500 Systolic blood pressure 118 mm[Hg] Tamar Johnson RN [facility], [employer].; [facility] Comment on above: Patient Position: Sitting; Cuff Location : Left Arm; Cuff Size: Large 08-20-2022 10:37-0400 Body height 165.1 cm Kelli Rdz RN [facility], [facility].; [facility] 08-20-2022 10:37-0400 Body mass index (BMI) [Ratio] 24.38 kg/m2 Kelli Rdz RN [facility], [facility] 08-20-2022 10:37-0400 Body surface area Derived from formula 1.73 m2 Kelli Rdz RN [facility], [facility] 08-20-2022 10:37-0400 Body weight 66.45 kg Kelli Rdz RN [facility], [employer].; [employer] [facility] [employer] [facility] 08-20-2022 10:37-0400 Diastolic blood pressure 77 mm[Hg] [facility] [employer] [facility] [employer] [facility], [employer] Comment on above: Patient Position: Sitting; Cuff Location : Left Arm; Cuff Size: Large 08-20-2022 10:37-0400 Heart rate 94 /min Kelli Rdz RN [facility] [employer] [facility] [employer]. Comment on above: Pattern: Regular 08-20-2022 10:37-0400 Systolic blood pressure 115 mm[Hg] [facility] [employer] [facility] [employer] [facility], [employer] Comment on above: Patient Position: Sitting; Cuff Location : Left Arm; Cuff Size: Large 03-12-2022 10:44-0400 Body height 165.1 cm Kelli Rdz RN [facility], [employer].; [facility] 03-12-2022 10:44-0400 Body mass index (BMI) [Ratio] 20.67 kg/m2 Kelli Rdz RN [facility], [facility].; [facility] 03-12-2022 10:44-0400 Body surface area Derived from formula 1.62 m2 Kelli Rdz RN [facility], [facility].; [employer] [facility] [employer] [facility] [employer] 03-12-2022 10:44-0400 Body temperature 97.8 [degF] Kelli Rdz RN [facility], [employer].; [employer] [facility] [employer] [facility], [employer] Comment on above: Method: Oral 03-12-2022 10:44-0400 Body weight 56.34 kg Kelli Rdz RN [facility], [employer].; [employer] [facility] [employer] [facility] [employer] 03-12-2022 10:44-0400 Diastolic blood pressure 79 mm[Hg] Kelli Rdz RN [facility] [employer] [facility] Comment on above: Patient Position: Sitting; Cuff Location : Left Arm; Cuff Size: Large 03-12-2022 10:44-0400 Heart rate 116 /min Kelli Rdz RN [facility], [employer]. Comment on above: Pattern: Regular 03-12-2022 10:44-0400 Inhaled oxygen concentration 21 % Kelli Rdz RN [facility], [facility] Comment on above: Room air 03-12-2022 10:44-0400 SaO2% (BldA) [Mass fraction] 100 % Kelli Rdz RN [facility], [facility] 03-12-2022 10:44-0400 Systolic blood pressure 122 mm[Hg] Kelli Rdz RN [facility], [employer].; [facility], [employer] Comment on above: Patient Position: Sitting; Cuff Location : Left Arm; Cuff Size: Large 02-12-2022 09:52-0400 Body height 165.1 cm KAYLEIGH LUNA RN [facility], [facility] 02-12-2022 09:52-0400 Body mass index (BMI) [Ratio] 20.67 kg/m2 KAYLEIGH LUNA RN [facility], [facility] 02-12-2022 09:52-0400 Body surface area Derived from formula 1.62 m2 KAYLEIGH LUNA RN [facility], [facility] [employer] [facility] 02-12-2022 09:52-0400 Body weight 56.34 kg KAYLEIGH GRATE MESHA [facility] [employer] [facility] [employer] [facility] [employer] 02-12-2022 09:52-0400 Diastolic blood pressure 89 mm[Hg] KAYLEIGH GRATE MESHA [facility] [employer] [facility] [employer] [facility] [employer] Comment on above: Patient Position: Sitting; Cuff Location : Left Arm; Cuff Size: Standard 02-12-2022 09:52-0400 Heart rate 108 /min KAYLEIGH LUNA RN [facility], [facility] [employer] [facility] [employer] [facility] [employer] Comment on above: Pattern: Regular 02-12-2022 09:52-0400 Systolic blood pressure 133 mm[Hg] KAYLEIGH LUNA RN [facility], [facility] Comment on above: Patient Position: Sitting; Cuff Location : Left Arm; Cuff Size: Standard 01-09-2022 14:47-0400 Body height 165.1 cm Tamar Johnson RN [facility], [facility] 01-09-2022 14:47-0400 Body mass index (BMI) [Ratio] 20.8 kg/m2 Tamar Johnson RN [facility], [facility] 01-09-2022 14:47-0400 Body surface area Derived from formula 1.62 m2 Tamar Johnson RN [facility], [facility].; [facility] 01-09-2022 14:47-0400 Body weight 56.7 kg Tamar Johnson RN [facility] 01-09-2022 14:47-0400 Diastolic blood pressure 91 mm[Hg] Tamar Johnson RN [facility] Comment on above: Patient Position: Sitting; Cuff Location : Left Arm; Cuff Size: Large 01-09-2022 14:47-0400 Heart rate 125 /min Tamar Johnson RN [facility], [facility] [employer] [facility] Comment on above: Pattern: Regular 01-09-2022 14:47-0400 Systolic blood pressure 150 mm[Hg] Tamar Johnson RN [facility], [facility] Comment on above: Patient Position: Sitting; Cuff Location : Left Arm; Cuff Size: Large 05-31-2021 10:16-0400 Body height 165.1 cm Tamar Johnson RN [facility], [facility] 05-31-2021 10:16-0400 Body mass index (BMI) [Ratio] 20.34 kg/m2 Tamar Johnson RN [facility], [facility], [facility]. 05-31-2021 10:16-0400 Body surface area Derived from formula 1.6 m2 Tamar Johnson RN [facility], [facility].; [facility] 05-31-2021 10:16-0400 Body weight 55.45 kg Tamar Johnson RN [facility], [facility] 05-31-2021 10:16-0400 Diastolic blood pressure 80 mm[Hg] Tamar Johnson RN [facility] Comment on above: Patient Position: Sitting; Cuff Location : Left Arm; Cuff Size: Large 05-31-2021 10:16-0400 Heart rate 102 /min Tamar Johnson RN [facility], [employer] [facility] [employer] [facility], [employer]. Comment on above: Pattern: Regular 05-31-2021 10:16-0400 Systolic blood pressure 130 mm[Hg] Tamar Johnson RN [facility], [facility].; [facility], [employer]. Comment on above: Patient Position: Sitting; Cuff Location : Left Arm; Cuff Size: Large 07-19-2014 14:29-0400 Body height 165.1 cm Tamar Johnson RN [facility], [facility].; [facility] 07-19-2014 14:29-0400 Body mass index (BMI) [Percentile] Per age and sex 58 % Tamar Johnson RN [facility], [facility].; [facility], [employer] 07-19-2014 14:29-0400 Body mass index (BMI) [Ratio] 19.89 kg/m2 Tamar Johnson RN [facility], [employer].; [facility] 07-19-2014 14:29-0400 Body surface area Derived from formula 1.59 m2 Tamar Johnson RN [facility], [facility] 07-19-2014 14:29-0400 Body weight 54.21 kg Tamar Johnson RN [facility] [employer] [facility].; [employer] [facility]. 07-19-2014 14:29-0400 Diastolic blood pressure 60 mm[Hg] Tamar Johnson RN [facility] [employer] [facility].; [employer] [facility] [employer], [employer]. Comment on above: Patient Position: Sitting; Cuff Location : Left Arm; Cuff Size: Large 07-19-2014 14:29-0400 Heart rate 85 /min [facility].; [employer], [employer]. Comment on above: Pattern: Regular 07-19-2014 14:29-0400 Systolic blood pressure 97 mm[Hg] Tamar [facility].; [facility] [place] [facility]. Comment on above: Patient Position: Sitting; Cuff Location : Left Arm; Cuff Size: Large 03-04-2013 16:26-0400 Body height 153.67 cm Kelli Rdz RN [facility] [employer] [facility].; [employer] [facility] [employer] [facility] [employer] 03-04-2013 16:26-0400 Body mass index (BMI) [Percentile] Per age and sex 65 % Kelli Rdz RN [facility] [employer] [facility].; [employer] [facility] [employer] [facility] [employer] 03-04-2013 16:26-0400 Body mass index (BMI) [Ratio] 19.59 kg/m2 Kelli Rdz RN [facility] [employer] [facility], [facility] [employer] [facility] [employer]. 03-04-2013 16:26-0400 Body surface area Derived from formula 1.41 m2 Kelli Rdz RN [facility] [employer] [facility], [employer].; [employer] [facility] [employer] [facility] [employer] 03-04-2013 16:26-0400 Body weight 46.27 kg Kelli Rdz RN [facility] [employer] [facility], [employer].; [employer] [facility] [employer], [employer] 03-04-2013 16:26-0400 Diastolic blood pressure 71 mm[Hg] Kelli Rdz RN [facility] [employer] [facility], [facility] [employer], [employer]. Comment on above: Patient Position: Sitting; Cuff Location : Left Arm; Cuff Size: Large 03-04-2013 16:26-0400 Heart rate 82 /min Kelli Rdz RN [facility] [employer] [facility], [employer].; [facility] [employer] [facility] [employer] Comment on above: Pattern: Regular 03-04-2013 16:26-0400 Systolic blood pressure 106 mm[Hg] Kelli Rdz RN [facility] [employer] [facility], [facility] [employer] [facility] [employer] Comment on above: Patient Position: Sitting; Cuff Location : Left Arm; Cuff Size: Large 12-26-2011 15:17-0500 Body height 146.05 cm June Yang RN [facility] [employer] [facility], [employer].; [employer] [facility] [employer] [facility] [employer] 12-26-2011 15:17-0500 Body mass index (BMI) [Percentile] Per age and sex 32 % June Yang RN [facility], [facility] [employer] [facility] [employer] 12-26-2011 15:17-0500 Body mass index (BMI) [Ratio] 16.59 kg/m2 June Yang RN [facility] [employer] [facility], [facility] [employer] [facility] [employer] [facility] [employer] 12-26-2011 15:17-0500 Body surface area Derived from formula 1.21 m2 June Yang RN [facility] [employer] [facility], [facility] [employer] [facility] [employer] [facility] [employer] 12-26-2011 15:17-0500 Body temperature 98 [degF] June Yang RN [facility] [employer] [facility], [facility] [employer] [facility] [employer] [facility] [employer] Comment on above: Method: Oral 12-26-2011 15:17-0500 Body weight 35.38 kg June Yang RN [facility] [employer] [facility], [facility] [employer] [facility] [employer] [facility] [employer] 12-26-2011 15:17-0500 Diastolic blood pressure 74 mm[Hg] uJne Yang RN [facility] [employer] [facility], [facility] [employer] [facility] [employer] [facility] Comment on above: Patient Position: Sitting; Cuff Location : Left Arm; Cuff Size: Standard 12-26-2011 15:17-0500 Heart rate 91 /min June Yang RN [facility] [employer] [facility], [facility] [employer] [facility] [employer] [facility], [employer]. Comment on above: Pattern: Regular 12-26-2011 15:17-0500 Systolic blood pressure 110 mm[Hg] June [facility]. Comment on above: Patient Position: Sitting; Cuff Location : Left Arm; Cuff Size: Standard 07-30-2010 13:0400 Body temperature 98.9 [degF] [facility] Comment on above: Method: Oral 07-30-2010 13:040 Body weight 30.39 kg [facility]ar [facility]. Encounters Encounter Date Encounter Type Care Provider Facility Start: 08-14-2025 End: 08-14-2025 ambulatory No Primary Care Physician Facility[facility] Start: 07-25-2025 End: 07-25-2025 Patient encounter procedure Lora FLOWERS -[facility] Work Phone: Start: 07-25-2025 End: 07-25-2025 ambulatory Chanda Velasco DANCE PROFESSOR-C Work Phone: [facility] Start: 07-10-2025 End: 07-10-2025 ambulatory Chanda Velasco DANCE PROFESSOR-C Work Phone: -[facility] Start: 07-10-2025 End: 07-10-[address] Sirena Padilla MD -[facility] Work Phone: Start: 07-10-2025 End: 07-10-2025 ambulatory Lizbeth Cruz Facility:[facility] Start: 06-21-2025 End: 06-21-[address] Lizbeth Cruz DO -[facility] Work Phone: Start: 06-21-2025 End: 06-21-2025 ambulatory Chanda Velasco DANCE PROFESSOR-C Work Phone: -[facility] Start: 05-24-2025 End: 05-24-2025 Patient encounter procedure Lora FLOWERS -[facility] Work Phone: Start: 05-24-2025 End: 05-24-2025 ambulatory Chanda Velasco DANCE PROFESSOR-C Work Phone: -[facility] Start: 05-18-2025 End: 05-18-2025 ambulatory Chanda Bhupendratetter DANCE PROFESSOR-C Work Phone: -[facility] Start: 05-18-2025 End: 05-18-[address] Sirena Padilla MD -[facility] Work Phone: Start: 05-18-2025 End: 05-18-2025 ambulatory Sirena Padilla Facility:[facility] Start: 04-25-2025 End: 04-25-2025 Patient encounter procedure Lora Collins NP-C -[facility] Work Phone: Start: 04-25-2025 End: 04-25-2025 ambulatory Chanda Velasco DANCE PROFESSOR-C Work Phone: -[facility] Start: 04-05-2025 End: 04-05-[address] Sirena Padilla MD -[facility] Work Phone: Start: 04-05-2025 End: 04-05-2025 ambulatory Chanda Velasco DANCE PROFESSOR-C Work Phone: [facility] Work Phone: Start: 03-02-2025 End: 03-02-2025 Patient encounter procedure Sophia Cho CNM -[facility] Work Phone: Start: 03-02-2025 End: 03-02-2025 ambulatory Chanda Velasco DANCE PROFESSOR-C Work Phone: [facility] Work Phone: Start: 03-02-2025 End: 03-02-2025 ambulatory Chanda Velasco DANCE PROFESSOR Facility:[facility] Start: 02-07-2025 End: 02-07-[address] Sirena Padilla MD -[facility] Work Phone: Start: 02-07-2025 End: 02-07-2025 ambulatory Chanda Velasco DANCE PROFESSOR Facility:[facility] Start: 02-01-2025 End: 02-01-[address] Sirena Padilla MD -Lab [facility] Start: 02-01-2025 End: 02-01-2025 ambulatory Chanda Velasco DANCE PROFESSOR Facility:[facility] Start: 01-30-2025 End: 01-30-[address] Sirena Padilla MD -Lab [facility] Start: 01-30-2025 End: 01-30-2025 ambulatory Chanda Velasco DANCE PROFESSOR Facility:[facility] Start: 12-21-2024 End: 12-21-2024 Office outpatient visit 10 minutes YOHANA CHAMBERLAIN MD Work Phone: [employer] Start: 10-30-2024 End: 10-30-2024 Emergency department patient visit MALCOLM REILLY [facility] Start: 2024 End: 08-11-2024 Medication Refill/Order YOHANA CHAMBERLAIN MD Work Phone: [employer] Start: 03-10-2024 Patient encounter procedure Chanda Velasco DANCE PROFESSOR-C Work Phone: [facility] Start: 10-09-2023 End: 10-09-2023 Office outpatient visit 10 minutes YOHANA CHAMBERLAIN MD Work Phone: [employer] Start: 11-05-2022 End: 11-05-2022 Medication Refill/Order YOHANA CHAMBERLAIN MD Work Phone: [employer] Start: 08-20-2022 End: 08-20-2022 Office outpatient visit 10 minutes YOHANA CHAMBERLAIN MD Work Phone: [employer] Start: 03-24-2022 End: 03-24-2022 Patient encounter procedure YOHANA CHAMBERLAIN MD Work Phone: [facility] Start: 03-19-2022 End: 03-19-2022 Procedure Order YOHANA CHAMBERLAIN MD Work Phone: [facility] Start: 03-19-2022 End: 03-19-2022 Results Review YOHANA CHAMBERLAIN MD Work Phone: [facility] Start: 03-14-2022 End: 03-14-2022 Lab Only YOHANA CHAMBERLAIN MD Work Phone: [facility] Start: 03-13-2022 End: 03-13-2022 Results Review YOHANA CHAMBERLAIN MD Work Phone: [facility] Start: 03-12-2022 End: 03-12-2022 Office outpatient visit 10 minutes YOHANA CHAMBERLAIN MD Work Phone: [facility] Start: 02-12-2022 End: 02-12-2022 Patient encounter procedure YOHANA CHAMBERLAIN MD Work Phone: [facility] Start: 01-09-2022 End: 01-09-2022 Office outpatient visit 10 minutes YOHANA CHAMBERLAIN MD Work Phone: [facility] Start: 05-31-2021 End: 05-31-2021 Office outpatient visit 15 minutes YOHANA CHAMBERLAIN MD Work Phone: [facility] [employer] Start: 07-19-2014 End: 07-19-2014 Office outpatient visit 15 minutes YOHANA CHAMBERLAIN MD Work Phone: [facility] [employer] Start: 07-04-2014 End: 07-04-2014 Medication Refill/Order YOHANA CHAMBERLAIN MD Work Phone: [facility] Start: 03-04-2013 End: 03-04-2013 Patient encounter procedure YOHANA CHAMBERLAIN MD Work Phone: [facility] Start: 12-26-2011 End: 12-26-2011 Patient encounter procedure YOHANA CHAMBERLAIN MD Work Phone: [facility] Start: 12-26-2011 End: 12-26-2011 Historical Summary YOHANA CHAMBERLAIN MD Work Phone: [facility] Start: 07-30-2010 End: 07-30-2010 Patient encounter procedure YOHANA CHAMBERLAIN MD Work Phone: [employer] [facility] Procedures Date Procedure Procedure Detail Performing Clinician Start: 07-10-2025 Serologic test for syphilis Chanda Velasco DANCE PROFESSOR-C Work Phone: Start: 05-18-2025 Ultrasonography in f irst trimester Chanda Velasco DANCE PROFESSOR-C Work Phone: Start: 03-02-2025 Urine culture Chanda Pretty azeb DANCE PROFESSOR-C Work Phone: Start: 03-02-2025 Hepatitis C antibody [facility] Work Phone: Comment on above: Reactive: Presumptiv e evidence of antibodies to HCV. Follow CDC recommendations for supplemental testing.Non-Reactive: Antibodies to HCV were not detected; does not exclude the possibility of exposure to HCVReactive Results are presumptive evidence of antibodies to HCV. Follow CDC recommendations for supplemental testing.Order confirmation testing: HCV Quant by PCR testing - HCVPCR #[id number] Non Reactive: < 0.8 Equivocal: >/= 0.8 to < 1.0 Reactive: >/= 1.0The CDC requires that a reactive/equivocal HCV antibody result be sent out for confirmation. HCV Quant by PCR testing. Start: 03-02-2025 Rubella IgG measurement Chanda Velasco DANCE PROFESSOR-C Work Phone: Comment on above: Antibody Result: Int erpretationNon-Reactive: Non- ImmuneReactive: ImmuneThe following results were obtained with the [employer] Rubella IgG assay. Results from assays of other manufacturers cannot be used interchangeably. Start: 03-02-2025 Serologic test for syphilis Chanda Velasco DANCE PROFESSOR-C Work Phone: Start: 01-30-2025 Serum progesterone measurement Chanda Velasco DANCE PROFESSOR-C Work Phone: Comment on above: Follicular phase 0.1 - 0.9 Luteal phase 1.8 - 23.9 Ovulation phase 0.1 - 12.0 First trimester 11.0 - 44.3 Second trimester 25.4 - 83.3 Third trimester 58.7 - 214.0 Postmenopausal 0.0 - 0.1Performed at: [address] [id number] Director: Cody Bell PhD, Phone: [phone] Start: 12-21-2024 End: 12-21-2024 Dischrg meds reconciled w/current med list YULIYA MAGALLANES PRE FABRICATOR-C Work Phone: Start: 10-30-2024 End: 10-30-2024 Urinalysis YOHANA CHAMBERLAIN MD Work Phone: Comment on above: Result Comment: URIN ALYSIS Performed By: #### 2 [id number] #### [facility],[address] [place] [id number] Start: 08-20-2022 End: 08-20-2022 Dischrg meds reconciled w/current med list CHANDA VELASCO PRE FABRICATOR-C Work Phone: Start: 03-12-2022 End: 03-12-2022 Dischrg meds reconciled w/current med list CHANDA VELASCO PRE FABRICATOR-C Work Phone: Start: 05-31-2021 End: 05-31-2021 Urinary Incontinence CHANDA Addison PRE FABRICATOR-C Work Phone: Comment on above: Negative. H/O: section Previous c esarean section Chanda Velasco DANCE PROFESSOR-C Work Phone: Comment on above: breech H/O: section Previous c esarean section Sophia Cho CNM H/O: section Previous c esarean section Dr. Sirena Padilla MD H/O: section Previous c esarean section Lora Collins DANCE PROFESSOR-C H/O: section Previous c esarean section Lora Collins DANCE PROFESSOR-C H/O: section Previous c esarean section Dr. Lizbeth Cruz DO H/O: section Previous c esarean section Dr. Sirena Padilla MD H/O: section Previous c esarean section Lora Collins DANCE PROFESSOR-C TDAP - Adacel/Boostrix Kristal Yang RN Comment on above: Discussed. 12/21/2024 Plan of Treatment Date Care Activity Detail Author Start: 03-02-2025 CBC W Auto Differential panel - Blood [facility] Start: 03-02-2025 Hepatitis C antibody measurement [facility] Start: 03-02-2025 Rubella IgG measurement [facility] Start: 03-02-2025 Serologic test for syphilis [facility] Start: 03-02-2025 T4 free measurement [facility] Start: 03-02-2025 Thyroid stimulating hormone measurement [facility] Start: 03-02-2025 [facility] Start: 09-23-2024 [facility] visit, [facility]; ESTABLISHED PATIENT ROUTINE VISIT - [facility] [employer] Start: 23-Sep-2024 14:00-05:00 MD MALCOLM YANG Appointment Request [facility] [employer] [facility] Start: 03-19-2022 Us uterus 14 wk transabdl 10/19 gestat OB US < 14 WKS, SINGLE FETUS ([id number]) Start: 19-Mar-2022 [facility]; [facility] [employer] [facility] [employer] Start: 05-31-2021 Patient Education IRRITABLE BOWEL Indication: Irritable bowel syndrome with diarrhea Start: 31-May-2021 Instruction Type: Patient Education [facility] Work Phone: CBC W Auto Different ial panel - Blood [facility] Chlamydia deoxyribon ucleic acid detection [facility] Erythrocyte mean corpuscular volume determination [facility] Hematocrit [Volume Fraction] of Blood [facility] Hemoglobin [Mass/vol ume] in Blood [facility] Hepatitis B virus sen rface Ag [Presence] in Serum [facility] Leukocytes [#/volume ] in Blood [facility] Mean corpuscular hem oglobin concentration determination [facility] Mean corpuscular hem oglobin determination [facility] Measurement of gluco se 2 hours after glucose challenge for glucose tolerance test [facility] Neutrophil count [facility] Neutrophil percent differential count [facility] Platelets [#/volume] in Blood [facility] Procedure [facility] Red blood cell count [facility] Red cell distributio n width determination [facility] Serologic test for syphilis [facility] Ultrasonography in f irst trimester [facility] Immunizations Immunization Date Immunization Notes Care Provider Fa [facility] influenza virus vaccine, unspecified formulation YOHANA CHAMBERLAIN MD Work Phone: [facility] Comment on above: Refused. 08/20/2022 influenza virus vaccine, unspecified formulation YOHANA CHAMBERLAIN MD Work Phone: [facility] Comment on above: Refused. 12/21/2024 Payers Date Payer Category Payer Unknown [id number] 2025 Self-pay 0 2025 Self-pay 2025 Unknown [id number] a 2000 Unknown [id number] Unknown [id number] Unknown [facility] Unknown [id number] Unknown [id number] Unknown [id number] Unknown [id number] [id number] Unknown [id number] [id number] Unknown [id number] [id number] Unknown [id number] [id number] Unknown [id number] [id number] Unknown [id number] [id number] Unknown [id number] [id number] Unknown [id number] [id number] Unknown [id number] [id number] Unknown [id number] [id number] Unknown [id number] [id number] Social History Date Type Detail Facility Alcohol Use: Alcohol Use: ; N o Alcohol Use. [facility] [employer] [facility] Tobacco use: Tobacco use: ; N ever smoker. [facility] [employer] [facility]. Start: 2000 [facility] Start: 02-16-2025 Never smoked tobacco [facility] Current Work/Study Status Current Work/Study Status [facility].; [facility] Sex Female [facility] Clinical Notes 11-10-2024 to 07-10-2025 Note Date & Type Note Facility 07-10-2025 Progress note [facility] 06-21-2025 Progress note [facility] 05-19-2025 Radiology Diagnostic study note [facility] Imaging Services [address] [address] OB Anatomy w/ Transvaginal MR#: [id number] Acct: [id number] Name: GAURAV FORTE Rep #: [id number] : 2000 F 24 From: Alexy Reagan MD PCP: OUT OF TOWN DOCTOR Status: REG CLI Study:OB Anatomy w/ Transvaginal Date of Exam : 05/18/25 Exam# [id number] Ordering Dr: Sirnea Rudolph MD PROCEDURE: OB ANATOMY W/ TRANSVAGINAL 05/18/2025 REASON FOR EXAM: ANATOMY SCAN TECHNIQUE: OB ANATOMY W/ TRANSVAGINAL COMPARISON: None FINDINGS LMP: December 29, 2024 Number: 1 Position: Breech Placental Position: Posterior and not low-lying Placental Abnormalities: No evidence of previa. DIMENSIONS: Biparietal Diameter: 4.64 cm: 20 weeks and 0 days: 50 percentile/ Head Circumference: 16.94 cm: 19 weeks and 4 days: 23rd percentile/ Abdominal Circumference: 15.5 cm: 20 weeks and 5 days: 68 percentile/ Femur Length: 3.26 cm: 20 weeks and 1 day: 49 percentile/ ESTIMATED WEIGHT: 352 g plus/-52 g ESTIMATED WEIGHT PERCENTILE (24+ weeks): 69 percentile ESTIMATED GESTATIONAL AGE: Baseline: 20 weeks and 2 days By Ultrasound: 20 weeks and 0 days ESTIMATED DATE OF DELIVERY: Baseline: October 05, 2025 By Ultrasound: October 07, 2025 BIOPHYSICAL ASSESSMENT: Amniotic Fluid Volume: 3.6 cm Amniotic Fluid Index: Within normal limits (8-24 cm normal range) Cardiac Motion: 140 (average) Trunk and Limb Motion: Present. MATERNAL ANATOMY: Adnexa: Both maternal ovaries are visualized and unremarkable. Cervical Length (if measured): 3.6 cm ANATOMY: Spine: Unremarkable Cranium: Unremarkable Cerebellum: Unremarkable Cisterna Magna: Unremarkable Cavum Septum Pellucidi: Unremarkable Lateral Ventricles: Unremarkable Choroid Plexus: Unremarkable Midline Falx: Unremarkable Nuchal Fold: Unremarkable Upper Lip: Unremarkable Heart: Unremarkable Stomach: Unremarkable Kidneys: Unremarkable Bladder: Unremarkable Umbilical Cord: Normal insertion. Extremities: Unremarkable US/OB Anatomy w/ Transvaginal IMPRESSION: Single live intrauterine gestation with a mean gestational age of 20 weeks and 0days. Reading Location: [id number] CC: Dr. Sirena Padilla MD ~ Asphalt Spreader: Signed [facility] 04-05-2025 Evaluation note Diagnosis Onset Date Resolution Anxiety acute April 05 2:28pm Desires (vaginal after ) trial acute April 05, 2025 2:28pm FH: genetic disorder acute April 05, 2025 2:28pm History of miscarriage, currently acute April 05 2:28pm acute April 05 2:28pm Previous section acute April 05, 2025 2:28pm Rubella non-immune status, antepartum acute April 05 2:28pm Supervision of high-risk acute April 05, 2:28pm Varicose veins during acute April 05, 2025 2:28pm Vaginal bleeding during resolved April 05, 2025 2:28pm Maternal varicella, non-immune deleted April 05, 2025 2:28pm at early stage deleted April 05, 2025 2:28pm Anxiety acute April 25, 2025 8:17am Desires (vaginal after ) trial acute April 25, 2025 8 :17am FH: genetic disorder acute April 25, 2025 8:17am History of miscarriage, currently acute April 25 8:17am acute April 25, 2025 8:17am Previous section acute April 25, 2025 8 :17am Rubella non-immune status, antepartum acute April 25 8:17am Supervision of high-risk acute April 25 8:17am Varicose veins during acute April 25, 2025 8 :17am Anxiety acute May 24 10:28am Desires (vaginal after ) trial acute May 24, 2025 10:28am FH: genetic disorder acute Aug2024 10:28am History of miscarriage, currently acute May 24 10:28am Palpitation acute May 24 10:28am acute May 24 10:28am Previous section acute May 24, 2025 10:28am Rubella non-immune status, antepartum acute May 24 10:28am Supervision of high-risk acute May 24, 2025 10:28am Varicose veins during acute May 24, 2025 10:28am Anxiety acute June 21, 2025 9:24am Desires (vaginal after ) trial acute June 21 9:24am FH: genetic disorder acute Jun 9:24am History of miscarriage, currently acute June 9:24am Palpitation acute June 9:24am acute June 21, 2025 9:24am Previous section acute June 21 9:24am Rubella non-immune status, antepartum acute June 9:24am Supervision of high-risk acute June 9:24am Varicose veins during acute June 21 9:24am Anxiety acute June 10:00am Desires (vaginal after ) trial acute July 10, 2025 10:00am FH: genetic disorder acute Jun 10:00am History of miscarriage, currently acute June 10:00am Palpitation acute June 10:00am acute June 10:00am Previous section acute July 10, 2025 10:00am Rubella non-immune status, antepartum acute June 10:00am Supervision of high-risk acute July 102024 10:00am Varicose veins during acute July 10, 2025 10:00am [facility] Work Phone: 1(956) 700-952906-18-2025 Evaluation note* Diagnosis Onset Date Resolution Status Admit Date Anxiety acute April 05 2:28pm Desires (vaginal after ) trial acute April 05, 2025 2:28pm FH: genetic disorder acute April 05, 2025 2:28pm History of miscarriage, currently acute April 05 2:28pm acute April 05 2:28pm Previous section acute April 05, 2025 2:28pm Rubella non-immune status, antepartum acute April 05, 2025 2:28pm Supervision of high-risk acute April 05, 2025 2:28pm Varicose veins during acute April 05, 2025 2:28pm Vaginal bleeding during resolved April 05, 2025 2:28pm Maternal varicella, non-immune deleted April 05, 2025 2:28pm at early stage deleted April 05, 2025 2:28pm Anxiety acute April 25, 2025 8:17am Desires (vaginal after ) trial acute April 25, 2025 8:17am FH: genetic disorder acute April 25, 2025 8:17am History of miscarriage, currently acute April 25 8:17am acute April 25, 2025 8:17am Previous section acute April 25, 2025 8:17am Rubella non-immune status, antepartum acute April 25, 2025 8 :17am Supervision of high-risk acute April 25, 2025 8 :17am Varicose veins during acute April 25, 2025 8 :17am Anxiety acute May 24 10:28am Desires (vaginal after ) trial acute May 10:28am FH: genetic disorder acute 2024 10:28am History of miscarriage, currently acute May 24, 10:28am Palpitation acute May 24 10:28am acute May 24 10:28am Previous section acute May 24, 2025 10:28am Rubella non-immune status, antepartum acute May 24, 2025 10:28am Supervision of high-risk acute May 24, 2025 10:28am Varicose veins during acute May 24, 2025 10:28am Anxiety acute June 21, 2025 9:24am Desires (vaginal after ) trial acute June 21, 2025 9:24am FH: genetic disorder acute Jun 9:24am History of miscarriage, currently acute June 9:24am Palpitation acute June 9:24am acute June 21, 2025 9:24am Previous section acute June 21, 2025 9:24am Rubella non-immune status, antepartum acute June 21 9:24am Supervision of high-risk acute June 21 9:24am Varicose veins during acute June 21 9:24am Anxiety acute June 10:00am Desires (vaginal after ) trial acute July 10, 2025 10:00am FH: genetic disorder acute Jun 10:00am History of miscarriage, currently acute June 10:00am Palpitation acute June 10:00am acute June 10:00am Previous section acute July 10, 2025 10:00am Rubella non-immune status, antepartum acute July 10, 2025 10:00am Supervision of high-risk acute July 10, 2025 10:00am Varicose veins during acute July 10, 2025 10:00am Anxiety acute July 25 1:40pm Desires (vaginal after ) trial acute July 1:40pm FH: genetic disorder acute 2024 1:40pm History of miscarriage, currently acute July 25, 2025 1:40pm Palpitation acute July 25, 2025 1:40pm acute July 25 1:40pm Previous section acute July 25, 2025 1:40pm Rubella non-immune status, antepartum acute July 25 1:40pm Supervision of high-risk acute July 25 1:40pm Varicose veins during acute July 25 1:40pm [facility] Work Phone: 1(872) 606-191006-18-2025 [facility] [address] [place] [address], [address] [place], [place] [id number] OFFICE VISIT Date of Service: 04/05/25 MR#: [id number] Acct: [id number] Name: GAURAV FORTE Rep #: [id number] : 2000 Provider: Dr. Ammon Padilla MD Age/Sex: 24/F Location: [facility] Status: Signed Intake Vital Signs 02/07/25 16:03 03/02/25 09:11 04/05/25 14:41 Height 5 ft 6 in 5 ft 6 in 5 ft 6 in Weight: 134 lb 6 oz BMI 21.7 BP 116/76 Intake Visit Reasons: 13wk OB Rehab Therapist Required: No Is patient in pain?: No Allergies No Known Allergies Allergy (Unverified 04/05/25 14:48) Medications ?Medication ?Instructions ?Recorded ?Confirmed ?Type sertraline 25 mg tablet 25 mg PO DAILY 03/10/2403/19 History fish, borage, flaxseed oils-omega See Rx Instructions PO DAILY 02/16/25 04/05/25 History 3,6,9 comb no.1 1,200 mg capsule ([place] 3-6-9) magnesium 250 mg tablet 250 mg PO QDAY 02/16/2503/19 History multivit-min no.71-iron fum 28 cap PO 02/16/25 5 History mg-folate no.1 1 mg-dha 300 mg capsule (PNV-[place]) Last Menstrual Period: 12/29/24 Zika: Zika virus screening: Negative : No PFSH PFSH Medical History Women's annual routine gynecological examination Surgical History Previous section Family History Aunt Cancer, Onset Age: 25 Paternal Brain tumor Social History adopted: No household members: spouse and children housing: house number of children: 1 current occupational status: unemployed current occupation: [employer] current occupational exposures/hazards: No pets and animals: Yes (outside) pets and animals: dog(s) and horse(s) history of recent travel: No sexually active: Yes Smoking Status: Never smoker second hand exposure: No alcohol intake: current alcohol intake frequency: holidays/special occasions only details: Not while substance use type: does not use diet: lactose free well-balanced diet: daily or most days caffeine: No eating out: rarely or never during the past year weight has: remained stable what type of physical activity do you participate in: none cindy/christianity: Yazidi seatbelt use: always do you feel safe at home: Yes additional social history: - [employer] [place] work History 3 Elective abortions Hx Para 1 Spontaneous abortions 1 Hx # Term Pregnancies Ectopic pregnancies Hx # Pregnancies Multiple births # of living children 1 Past Pregnancies Del. Date Name GA/Weeks Outcome Route Bth Weight Gen Labor Lgth Anesthesia Del Locatn Provider FOB Unknown Oct 2024 spontaneous 11/03/22 Kady 39 live - full term 7# Female spinal Pomerene [employer] Delivery Date: 11/03/22 Last Updated by: Sirena Padilla MD breech HPI 13wk OB Details: GAURAV FORTE is a 24 year old who presents for routine OB visit. OB Visit WILBER Calculator Estimated Delivery Date Method Current WG Current Estimate 10/05/25 LMP (Certain) 13w 6d Other Estimates 10/04/25 Ultrasound #1 14w 0d Expected Delivery Route/Plan TOLAC previous for breech patient counseled regarding risks/benefits of trial of labor versus repeat . ACOG/uptodate education given to patient. [] % likelihood of success per calculator TOLAC consent form signed: [] Specific Issue/Plans Covid status: [] Flu vaccine: [] Tdap vaccine: [] Rhogam: [] LARC form signed: [] Problem list reviewed and updated with the most current plan of care details and appropriate ordersplaced. Relevant counseling for the gestational age provided. Continue routine care and follow up unless otherwise noted in visit notes/problem list details Initial Weight: 133 lb Date -?--?-?-?-?-?-?-?-?-?-?-?- EGA Weight BP Urine Prot -?-?-?-?-?-?-?-?-?-?-?-?- Glucose FHR FuHt Pres Dilation -?-?-?-?-?-?-?-?-?-?-?-?- Effaced St Visit Note 03/02/25 -?-?-?-?-?-?-?-?-?-?-?-?- 9w 0d 133 lb 4 oz (+4 oz) 116/78 -?-?-?-?-?-?-?-?-?-?-?-?- 182 -?-?-?-?-?-?-?-?-?-?-?-?- KW- CRL cons wit h dates. declines NIPT 04/05/25 -?-?-?-?-?-?-?-?-?-?-?-?- 13w 6d 134 lb 6 oz (+1 lb 6 oz) 116/76 Negative -?-?-?-?-?-?-?-?-?-?-?-?- Negative 160 -?-?-?-?-?-?-?-?-?-?-?-?- SM- no vb crmapi ng ACOG First Trimester First Trimester: Desire for , Alcohol, Tobacco Cessation, Illicit/Recreational Drug/Substance Use, Intimate Partner Violence, Barriers to care, Unstable Housing, Communication Barriers, Environmental/Work Hazards, Anticipated Course of Care, Toxoplasmosis Precations, Use of Any med ications, Sexual activity, Exercise, Dental Care, Sauna/Hot tub use, Seat Belt use, Childbirth classes/Hospital facilities, Travel, Indications for Ultrasound and Screening for Aneuploidy; Discussed Second Trimester Second Trimester: Signs and Symptoms of Labor, Selecting a care provider, Reproductive Life Planning & Contreception, Care Planning, Depression/Anxiety and Intimate Partner Violence; Discussed Tobacco Cessation Third Trimester Third Trimester: Pain Management Plans, Labor support person(s), Immediate Larc, Signs and Symptoms of Preeclampsia, Infant Feeding No , Education and Family Medical Leave or Disability Forms Results POC Urinalysis 2 Dip (Clinic) Office Urine Glucose Negative Last Edit by Lora Stover on 04/05/25 14:50 Office Urine Protein Negative Last Edit by Lora Stover on 04/05/25 14:50 Coding Level of Care Code OB Routine Diagnoses Rubella non-immune status, antepartum O09.899; Z28.39 Supervision of high-risk O09.90 13 weeks gestation of Z3A.13 Weeks of gestation: 13 weeks Maternal varicella, non-immune O09.899; Z28.39 FH: genetic disorder Z84.89 Desires (vaginal after ) trial O34.219 Previous section Z98.891 Varicose veins during O22.00 Anxiety F41.9 Vaginal bleeding during O46.90 History of miscarriage, currently O09.299 at early stage Z34.90 Assessment and Plan Assessment and Plan (1) Rubella non-immune status, antepartum: Status: Acute Comment: offer MMR PP (2) Supervision of high-risk : Status: Acute Comment: PRR, , WILBER 10/05/25, PC Kady, Gopal (3) : Status: Acute Qualifiers: Weeks of gestation: 13 weeks Qualified Code(s): Z3A.13 - 13 weeks gestation of Comment: declined NIPT, Carrier testing in past- neg. (4) Maternal varicella, non-immune: Status: Acute Comment: recommend varicella vaccine post delivery (5) FH: genetic disorder: Status: Acute Comment: Robison's dystonia, nephrocerebellar syndrome, Carrier testing done-Pt is not a carrier of this syndrom (6) Desires (vaginal after ) trial: Status: Acute (7) Previous section: Status: Acute Comment: breech (8) Varicose veins during : Status: Acute Comment: behind knees, inner thigh, vaginal (9) Anxiety: Status: Acute Comment: sertraline (10) Vaginal bleeding during : Status: Acute Comment: early IUP seen measuring appropriately FHT seen visibly (11) History of miscarriage, currently : Status: Acute (12) at early stage: Status: Acute Orders: Orders POC Urinalysis 2 Dip (Clinic) Today OB Anatomy w/ Transvaginal 05/18/25 O09.90 - Supervision of high risk , unspecified, unspecified trimester 04/05/25 1521 shlomo REILLY> Date _ Sirena Padilla MD Cosign Signature: Date (if applicable) CC: ~ [facility]06-18-2025 Progress note Author Sirena Padilla [facility] Services Note Date/Time April 05, 2025 3:21 pm [facility] ealt System [facility] [address], [address] [place] [address] OFFICE VISIT Date of Service: 04/05/25 MR#: [id number] Acct: [id number] Name: GAURAV FORTE Rep #: [id number] : 2000 Provider: Dr. Ammon Padilla MD Age/Sex: 24/F Location: [facility] [place] Status: Signed Intake Vital Signs 02/07/25 16:03 03/02/25 09:11 04/05/25 14:41 Height 5 ft 6 in 5 ft 6 in 5 ft 6 in Weight: 134 lb 6 oz BMI 21.7 BP 116/76 Intake Visit Reasons: 13wk OB Rehab Therapist Required: No Is patient in pain?: No Allergies No Known Allergies Allergy (Unverified 04/05/25 14:48) Medications ?Medication ?Instructions ?Recorded ?Confirmed ?Type sertraline 25 mg tablet 25 mg PO DAILY 03/10/2403/19 History fish, borage, flaxseed oils-omega See Rx Instructions PO DAILY 02/16/25 04/05/25 History 3,6,9 comb no.1 1,200 mg capsule ([place] 3-6-9) magnesium 250 mg tablet 250 mg PO QDAY 02/16/2503/19 History multivit-min no.71-iron fum 28 cap PO 02/16/25 5 History mg-folate no.1 1 mg-dha 300 mg capsule (PNV-[place]) Last Menstrual Period: 12/29/24 Zika: Zika virus screening: Negative : No PFSH PFSH Medical History Women's annual routine gynecological examination Surgical History Previous section Family History Aunt Cancer, Onset Age: 25 Paternal Brain tumor Social History adopted: No household members: spouse and children housing: house number of children: 1 current occupational status: unemployed current occupation: [employer] current occupational exposures/hazards: No pets and animals: Yes (outside) pets and animals: dog(s) and horse(s) history of recent travel: No sexually active: Yes Smoking Status: Never smoker second hand exposure: No alcohol intake: current alcohol intake frequency: holidays/special occasions only details: Not while substance use type: does not use diet: lactose free well-balanced diet: daily or most days caffeine: No eating out: rarely or never during the past year weight has: remained stable what type of physical activity do you participate in: none cindy/christianity: Yazidi seatbelt use: always do you feel safe at home: Yes additional social history: - [employer]- [place] work History 3 Elective abortions Hx Para 1 Spontaneous abortions 1 Hx # Term Pregnancies Ectopic pregnancies Hx # Pregnancies Multiple births # of living children 1 Past Pregnancies Del. Date Name GA/Weeks Outcome Route Bth Weight Infant Gen Labor Lgth Anesthesia Del Locatn Provider FOB Unknown Oct 2024 spontaneous 11/03/22 Kady 39 live - full term 7# Female spinal Pomerene Gopal Delivery Date: 11/03/22 Last Updated by: Sirena Padilla MD breech HPI 13wk OB Details: GAURAV FORTE is a 24 year old who presents for routine OB visit. OB Visit WILBER Calculator Estimated Delivery Date Method Current WG Current Estimate 10/05/25 LMP (Certain) 13w 6d Other Estimates 10/04/25 Ultrasound #1 14w 0d Expected Delivery Route/Plan TOLAC previous for breech patient counseled regarding risks/benefits of trial of labor versus repeat . ACOG/uptodate education given to patient. [] % likelihood of success per calculator TOLAC consent form signed: [] Specific Issue/Plans Covid status: [] Flu vaccine: [] Tdap vaccine: [] Rhogam: [] LARC form signed: [] Problem list reviewed and updated with the most current plan of care details and appropriate orders placed. Relevant counseling for the gestational age provided. Continue routine care and follow up unless otherwise noted in visit notes/problem list details Initial Weight: 133 lb Date -?--?-?-?-?-?-?-?-?-?-?-?- EGA Weight BP Urine Prot -?-?-?-?-?-?-?-?-?-?-?-?- Glucose FHR FuHt Pres Dilation -?-?-?-?-?-?-?-?-?-?-?-?- Effaced St Visit Note 03/02/25 -?-?-?-?-?-?-?-?-?-?-?-?- 9w 0d 133 lb 4 oz (+4 oz) 116/78 -?-?-?-?-?-?-?-?-?-?-?-?- 182 -?-?-?-?-?-?-?-?-?-?-?-?- KW- CRL cons wit h dates. declines NIPT 04/05/25 -?-?-?-?-?-?-?-?-?-?-?-?- 13w 6d 134 lb 6 oz (+1 lb 6 oz) 116/76 Negative -?-?-?-?-?-?-?-?-?-?-?-?- Negative 160 -?-?-?-?-?-?-?-?-?-?-?-?- SM- no vb crmapi ng ACOG First Trimester First Trimester: Desire for , Alcohol, Tobacco Cessation, Illicit/Recreational Drug/Substance Use, Intimate Partner Violence, Barriers to care, Unstable Housing, Communication Barriers, Environmental/Work Hazards, Anticipated Course of Care, Toxoplasmosis Precations, Use of Any medications, Sexual activity, Exercise, Dental Care, Sauna/Hot tub use, Seat Belt use, Childbirth classes/Hospital facilities, Travel, Indications for Ultrasound and Screening for Aneuploidy; Discussed Second Trimester Second Trimester: Signs and Symptoms of Labor, Selecting a care provider, Reproductive Life Planning & Contreception, Care Planning, Depression/Anxiety and Intimate Partner Violence; Discussed Tobacco Cessation Third Trimester Third Trimester: Pain Management Plans, Labor support person(s), Immediate Larc, Signs and Symptoms of Preeclampsia, Infant Feeding No , [place] Education and Family Medical Leave or Disability Forms Results POC Urinalysis 2 Dip (Clinic) Office Urine Glucose Negative Last Edit by Lora Stover on 04/05/25 14:50 Office Urine Protein Negative Last Edit by Lora Stover on 04/05/25 14:50 Coding Level of Care Code OB Routine Diagnoses Rubella non-immune status, antepartum O09.899; Z28.39 Supervision of high-risk O09.90 13 weeks gestation of Z3A.13 Weeks of gestation: 13 weeks Maternal varicella, non-immune O09.899; Z28.39 FH: genetic disorder Z84.89 Desires (vaginal after ) trial O34.219 Previous section Z98.891 Varicose veins during O22.00 Anxiety F41.9 Vaginal bleeding during O46.90 History of miscarriage, currently O09.299 at early stage Z34.90 Assessment and Plan Assessment and Plan (1) Rubella non-immune status, antepartum: Status: Acute Comment: offer MMR PP (2) Supervision of high-risk : Status: Acute Comment: PRR, , WILBER 10/05/25, DIVYA Hillman, Gopal (3) : Status: Acute Qualifiers: Weeks of gestation: 13 weeks Qualified Code(s): Z3A.13 - 13 weeks gestation of Comment: declined NIPT, Carrier testing in past- neg. (4) Maternal varicella, non-immune: Status: Acute Comment: recommend varicella vaccine post delivery (5) FH: genetic disorder: Status: Acute Comment: Robison's dystonia, nephrocerebellar syndrome, Carrier testing done-Pt is not a carrier of this syndrom (6) Desires (vaginal after ) trial: Status: Acute (7) Previous section: Status: Acute Comment: breech (8) Varicose veins during : Status: Acute Comment: behind knees, inner thigh, vaginal (9) Anxiety: Status: Acute Comment: sertraline (10) Vaginal bleeding during : Status: Acute Comment: early IUP seen measuring appropriately FHT seen visibly (11) History of miscarriage, currently : Status: Acute (12) at early stage: Status: Acute Orders: Orders POC Urinalysis 2 Dip (Clinic) Today OB Anatomy w/ Transvaginal 05/18/25 O09.90 - Supervision of high risk , unspecified, unspecified trimester 04/05/25 1521 <Electronically signed by Sirena keenan MD> Date _ Sirena Padilla MD Cosigner Signature: Date (if applicable) CC: ~ [facility] Work Phone: 1(872) 517-787705-15-2025 Evaluation note* Diagnosis Onset Date Resolution Status Admit Date Anxiety acute March 02, 2025 9:08am Desires (vaginal after ) trial acute March 02, 2025 9:08am FH: genetic disorder acute March 02, 2025 9:08am History of miscarriage, currently acute March 02 9:08am acute March 02, 2025 9:08am Previous section acute March 02, 2025 9:08am Supervision of high-risk acute March 02, 2025 9 :08am Varicose veins during acute March 02, 2025 9 :08am Vaginal bleeding during resolved March 02, 2025 9 :08am Maternal varicella, non-immune deleted March 02, 2025 9 :08am at early stage deleted March 02, 2025 9:08am Anxiety acute April 05 2:28pm Desires (vaginal after ) trial acute April 05, 2025 2:28pm FH: genetic disorder acute April 05, 2025 2:28pm History of miscarriage, currently acute April 05 2:28pm acute April 05 2:28pm Previous section acute April 05, 2025 2:28pm Rubella non-immune status, antepartum acute April 05, 2025 2:28pm Supervision of high-risk acute April 05, 2025 2:28pm Varicose veins during acute April 05, 2025 2:28pm Vaginal bleeding during resolved April 05, 2025 2:28pm Maternal varicella, non-immune deleted April 05, 2025 2:28pm at early stage deleted April 05, 2025 2:28pm Anxiety acute April 25, 2025 8:17am Desires (vaginal after ) trial acute April 25, 2025 8:17am FH: genetic disorder acute April 25, 2025 8:17am History of miscarriage, currently acute April 25 8:17am acute April 25, 2025 8:17am Previous section acute April 25, 2025 8:17am Rubella non-immune status, antepartum acute April 25, 2025 8 :17am Supervision of high-risk acute April 25, 2025 8 :17am Varicose veins during acute April 25, 2025 8 :17am Anxiety acute May 24 10:28am Desires (vaginal after ) trial acute May 10:28am FH: genetic disorder acute 2024 10:28am History of miscarriage, currently acute May 24 10:28am Palpitation acute May 24 10:28am acute May 24 10:28am Previous section acute May 24, 2025 10:28am Rubella non-immune status, antepartum acute May 24, 2025 10:28am Supervision of high-risk acute May 24, 2025 10:28am Varicose veins during acute May 24, 2025 10:28am Anxiety acute June 21, 2025 9:24am Desires (vaginal after ) trial acute June 21, 2025 9:24am FH: genetic disorder acute Jun 9:24am History of miscarriage, currently acute June 9:24am Palpitation acute June 9:24am acute June 21, 2025 9:24am Previous section acute June 21, 2025 9:24am Rubella non-immune status, antepartum acute June 21 025 9:24am Supervision of high-risk acute June 21 9:24am Varicose veins during acute June 21 9:24am [facility] Work Phone: 1(532) 481-716305-15-2025 [facility] [address], [address] [place] [address] OFFICE VISIT Date of Service: 03/02/25 MR#: [id number] Acct: [id number] Name: GAURAV FORTE Rep #: [id number] : 2000 Provider: NOELLE Cho Age/Sex: 24/F Location: [facility] [place] Status: Signed Intake Vital Signs 03/10/24 13:00 02/07/25 16:03 03/02/25 09:11 Height 5 ft 6 in 5 ft 6 in 5 ft 6 in Weight: 133 lb 4 oz BMI 21.4 BP 116/78 Intake Visit Reasons: NOB: LMP 12/29, WILBER 10/05 Chief Complaint: New OB Rehab Therapist Required: No Is patient in pain?: No Allergies No Known Allergies Allergy (Unverified 03/02/25 09:15) Medications ?Medication ?Instructions ?Recorded ?Confirmed ?Type sertraline 25 mg tablet 25 mg PO DAILY 03/10/2402/16 History fish, borage, flaxseed oils-omega See Rx Instructions PO DAILY 02/16/25 03/02/25 History 3,6,9 comb no.1 1,200 mg capsule ([place] 3-6-9) magnesium 250 mg tablet 250 mg PO QDAY 02/16/2502/16 History multivit-min no.71-iron fum 28 cap PO 02/16/25 5 History mg-folate no.1 1 mg-dha 300 mg capsule (PNV-[place]) Last Menstrual Period: 12/29/24 PFSH PFSH Medical History Women's annual routine gynecological examination Surgical History Previous section Family History Aunt Cancer, Onset Age: 25 Paternal Brain tumor Social History adopted: No household members: spouse and children housing: house number of children: 1 current occupational status: unemployed current occupation: [employer] current occupational exposures/hazards: No pets and animals: Yes (outside) pets and animals: dog(s) and horse(s) history of recent travel: No sexually active: Yes Smoking Status: Never smoker second hand exposure: No alcohol intake: current alcohol intake frequency: holidays/special occasions only details: Not while substance use type: does not use diet: lactose free well-balanced diet: daily or most days caffeine: No eating out: rarely or never during the past year weight has: remained stable what type of physical activity do you participate in: none cindy/christianity: Yazidi seatbelt use: always do you feel safe at home: Yes additional social history: - [employer] [place] work History 3 Elective abortions Hx Para 1 Spontaneous abortions 1 Hx # Term Pregnancies Ectopic pregnancies Hx # Pregnancies Multiple births # of living children 1 Past Pregnancies Del. Date Name GA/Weeks Outcome Route Bth Weight Gen Labor Lgth Anesthesia Del Locatn Provider FOB Unknown Oct 2024 spontaneous 11/03/22 Kady 39 live - full term 7# Female spinal Pomerene Gopal Delivery Date: 11/03/22 Last Updated by: Sirena Padilla MD breech HPI NOB: LMP 12/29, WILBER 10/05 Details: GAURAV FORTE is a 24 year old who presents for New OB visit. OB Visit WILBER Calculator Estimated Delivery Date Method Current WG Current Estimate 10/05/25 LMP (Certain) 9w 0d Other Estimates 10/04/25 Ultrasound #1 9w 1d Comments: HIV: Urine Culture: Sequential Screen: NIPT Screen: Estimated Due Date: 10/05/25 Expected Delivery Route/Plan patient counseled regarding risks/benefits of trial of labor versus repeat . ACOG/uptodate education given to patient. [] % likelihood of success per calculator TOLAC consent form signed: [] Specific Issue/Plans Covid status: [] Flu vaccine: [] Tdap vaccine: [] Rhogam: [] LARC form signed: [] Problem list reviewed and updated with the most current plan of care details and appropriate ordersplaced. Relevant counseling for the gestational age provided. Continue routine care and follow up unless otherwise noted in visit notes/problem list details Initial Weight: 133 lb Date -?-?-?-?-?-?-?-?-?-?-?-?- EGA Weight BP Urine Prot -?-?-?-?-?-?-?-?-?-?-?-?- Glucose FHR FuHt Pres Dilation -?-?-?-?-?-?-?-?-?-?-?-?- Effaced St Visit Note 03/02/25 -?-?-?-?-?-?-?-?-?-?-?-?- 9w 0d 133 lb 4 oz (+4 oz) 116/78 -?-?-?-?-?-?-?-?-?-?-?-?- 182 -?-?-?-?-?-?-?-?-?-?-?-?- KW- CRL cons wit h dates. declines NIPT Menstrual History Last Menstrual Period: 12/29/24 Reported LMP: definite Normal amount/duration: Yes Frequency in days: 28 On hormonal BC at conception: No hCG+: 01/24/25 Antepartum Record Genetic Screening: Congenital Heart Defect: Other, Neural Tube Defect: Other, Hemoglobinopathy Or Carrier: Other, Cystic Fibrosis: Other, Chromosome Abnormality: Other, Radu-Sachs: Other, Hemophilia: Other, Intellectual Disability/Autism: Other, Recurrent Loss/Stillbirth: Partner (Jblvdx-guwsqxyznm-fonrucuu brain), Other Structural Defect: Other, Other Genetic Disease: Patient (Sister-Robison's dystonia, nephro cerebellar syndrome) and Maternal Metabolic Disorder: Other Infection History: Live with someone with TB or Exposed to TB: No, Patient or Partner has history of Genital Herpes: No, Rash or Viral illness since last mentrual period: No, Prior GBS-Infected child: No, History of STD: No, HIV Infection: No, History of Hepatitis: No, Recent travel outside of [place]: No, Concern for hepatitis exposure: No, Varicella immune: Yes (non-immune) and Covid Vaccinated: No Medical History Medical History: Positive: Psychiatric (anxiety- sertraline), Varicosities/phlebitis (varicose- behind the knee, inner thigh vaginal -denies DVT's), [employer] surgery (c sectionx1) and Relevant family history (Paternal Aunt Brain tumor 25yo) and Negative: Diabetes, Hypertension, Heart disease, Auto-immune disorder, Kidney disease/UTI, Neurologic/epilepsy, Depression/ depression, Hepatitis/liver disease, Thyroid dysfunction (underactive per buildings and grounds supervisor not dx as hypo), Trauma/domestic violence, History of blood transfusions, D (Rh) Sensitized, Pulmonary (e.g.,TB,Asthma), Seasonal allergies, Drug/latex allergies/reactions, Breast, Operations/hospitalizations, Anesthetic complications, History of abnormal pap (last pap 02/2024 nl), Uterine anomaly/luciano, Infertility, Anti-retroviral treatment and Other ACOG First Trimester First Trimester: Nurtrition and weight gain Second Trimester Second Trimester: Signs and Symptoms of Labor, Selecting a care provider, Reproductive Life Planning & Contreception, Care Planning, Depression/Anxiety and Intimate Partner Violence; Discussed Tobacco Cessation Third Trimester Third Trimester: Pain Management Plans, Labor support person(s), Immediate Larc, Signs and Symptoms of Preeclampsia, Infant Feeding, [place] Education and Family Medical Leave or Disability Forms ROS Const Reports system reviewed and no additional complaints, except as documented, Denies fatigue, Denies headache(s) and Denies lethargy ENT Denies headache(s) Card Reports system reviewed and no additional complaints, except as documented Resp Reports system reviewed and no additional complaints, except as documented GI Reports system reviewed and no additional complaints, except as documented, Denies abdominal pain, Denies constipation, Denies cramping, Denies diarrhea and Denies dyspepsia Reports system reviewed and no additional complaints, except as documented, Denies abnormal vaginalbleeding, Denies difficulty voiding, Denies dyspareunia and Denies dysuria Musc Reports system reviewed and no additional complaints, except as documented Skin/Breast Reports system reviewed and no additional complaints, except as documented Neuro Yes system reviewed and no additional complaints, except as documented and No headache(s) Psych Reports system reviewed and no additional complaints, except as documented, Denies anhedonia and Denies anxiety Endo Reports system reviewed and no additional complaints, except as documented and Denies fatigue Exam Const General: cooperative, healthy appearing and comfortable Neck Neck: normal visual inspection and full ROM Chest Chest palpation & inspection: normal inspection of the chest Breast inspection: normal inspection of the breasts and normal inspection of the axillae Breast palpation: normal palpation of the breasts and normal palpation of the axillae Resp Effort & Inspection: normal respiratory effort and able to speak in complete sentences GI Inspection: normal to inspection Palpation: soft External Female Exam: normal external appearance and normal appearance of the urethra Urethra: normal appearance of the urethra Skin General: no rashes or lesions noted Neuro General: patient alert, patient awake and patient oriented x3 Extrem General: normal to inspection and full ROM Psych Appearance: grossly normal and well kempt Mental Status: mental status grossly normal Mood: congruent mood Affect: normal affect Speech and Movement: speech and movement normal Thought Process: normal Thought Content: normal Coding Level of Care Code OB Routine Diagnoses Supervision of high-risk O09.90 9 weeks gestation of Z3A.09 Weeks of gestation: 9 weeks Maternal varicella, non-immune O09.899; Z28.39 FH: genetic disorder Z84.89 Desires (vaginal after ) trial O34.219 Varicose veins during O22.00 Previous section Z98.891 Anxiety F41.9 Vaginal bleeding during O46.90 History of miscarriage, currently O09.299 at early stage Z34.90 Assessment and Plan Assessment and Plan (1) Supervision of high-risk : Status: Acute Comment: , WILBER 10/05/25, DIVYA Hillman, Gopal (2) : Status: Acute Qualifiers: Weeks of gestation: 9 weeks Qualified Code(s): Z3A.09 - 9 weeks gestation of Comment: declined NIPT, Carrier testing in past- neg. (3) Maternal varicella, non-immune: Status: Acute Comment: recommend varicella vaccine post delivery (4) FH: genetic disorder: Status: Acute Comment: Robison's dystonia, nephrocerebellar syndrome, Carrier testing done-Pt is not a carrier of this syndrom (5) Desires (vaginal after ) trial: Status: Acute (6) Varicose veins during : Status: Acute Comment: behind knees, inner thigh, vaginal (7) Previous section: Status: Acute Comment: breech (8) Anxiety: Status: Acute Comment: sertraline (9) Vaginal bleeding during : Status: Acute Comment: early IUP seen measuring appropriately FHT seen visibly (10) History of miscarriage, currently : Status: Acute (11) at early stage: Status: Acute Orders: Orders CBC W/Diff, Automated 02/16/25 O - Supervision of high risk , unspecified, unspecified trimester Type & Screen 02/16/25 - Supervision of high risk , unspecified, unspecified trimester Rubella IgG 02/16/25 - Supervision of high risk , unspecified, unspecified trimester Hepatitis C Antibody 02/16/25 O - Supervision of high risk , unspecified, unspecifiedtrimester Hepatitis B Surface Antigen 02/16/25 - Supervision of high risk , unspecified, unspecified trimester Culture, Urine 02/16/25 - Supervision of high risk , unspecified, unspecified trimester Syphilis Antibodies 02/16/25 - Supervision of high risk , unspecified, unspecified trimester Chlamydia/GC JERRY aptima 02/16/25 - Supervision of high risk , unspecified, unspecified trimester HIV 02/16/25 - Supervision of high risk , unspecified, unspecified trimester Thyroid Stim Hormone (TSH) 02/16/25 - Supervision of high risk , unspecified, unspecified trimester T4 Free Direct 02/16/25 - Supervision of high risk , unspecified, unspecified trimester [facility] Misc. 02/16/25 - Supervision of high risk , unspecified, unspecified trimester Comments Comments: Patient oriented to practice and discussed care expectations and screenings. ACOG book offered to patient. Discussed routine and specially indicated labs if needed- patient consents to testing. See problem list details for plan information. Optional screening including maternal carrier screenings, neural tube defect screening, genetic screening options including quad screen, nuchal translucency, sequential screening, and NIPT screening offered to patient and patient chose: declines 03/02/25 0939 elizabeth DRAKE> Date _ Sophia Cho CNM Cosigner Signature: Date (if applicable) CC: ~ [facility]04-22-2025 Evaluation note* Diagnosis Onset Date Resolution Status Admit Date Vaginal bleeding during acute February 07, 2025 3:59pm Anxiety acute March 02, 2025 9:08am Desires (vaginal after ) trial acute March 02, 2025 9:08am FH: genetic disorder acute March 02, 2025 9:08am History of miscarriage, currently acute March 02 9:08am Maternal varicella, non-immune acute March 02, 2025 9:08am acute March 02, 2025 9:08am at early stage acute March 02, 2025 9:08am Previous section acute March 02, 2025 9:08am Supervision of high-risk acute March 02, 2025 9 :08am Vaginal bleeding during acute March 02, 2025 9 :08am Varicose veins during acut e March 02, 2025 9:08am [facility] Work Phone: 1(331) 233-813704-22-2025 Evaluation note* Diagnosis Onset Date Resolution Status Admit Date Vaginal bleeding during acute February 07, 2025 3:59pm Anxiety acute March 02, 2025 9:08am Desires (vaginal after ) trial acute March 02, 2025 9:08am FH: genetic disorder acute March 02, 2025 9:08am History of miscarriage, currently acute March 02 9:08am Maternal varicella, non-immune acute March 02, 2025 9:08am acute March 02, 2025 9:08am at early stage acute March 02, 2025 9:08am Previous section acute March 02, 2025 9:08am Supervision of high-risk acute March 02, 2025 9 :08am Vaginal bleeding during acute March 02, 2025 9 :08am Varicose veins during acut e March 02, 2025 9:08am Anxiety acute April 05 2:28pm Desires (vaginal after ) trial acute April 05, 2025 2:28pm FH: genetic disorder acute April 05, 2025 2:28pm History of miscarriage, currently acute April 05 2:28pm Maternal varicella, non-immune acute April 05, 2025 2:28pm acute April 05 2:28pm at early stage acute April 05, 2025 2:28pm Previous section acute April 05, 2025 2:28pm Rubella non-immune status, antepartum acute April 05, 2025 2:28pm Supervision of high-risk acute April 05, 2025 2:28pm Vaginal bleeding during acute April 05, 2025 2:28pm Varicose veins during acut e April 05, 2025 2:28pm [facility] [employer] [facility] Work Phone: 1(912) 731-977204-22-2025 Evaluation note* Diagnosis Onset Date Resolution Status Admit Date Vaginal bleeding during acute February 07, 2025 3:59pm Anxiety acute March 02, 2025 9:08am Desires (vaginal after ) trial acute March 02, 2025 9:08am FH: genetic disorder acute March 02, 2025 9:08am History of miscarriage, currently acute March 02 9:08am Maternal varicella, non-immune acute March 02, 2025 9:08am acute March 02, 2025 9:08am Previous section acute March 02, 2025 9:08am Supervision of high-risk acute March 02, 2025 9 :08am Vaginal bleeding during acute March 02, 2025 9 :08am Varicose veins during acut e March 02, 2025 9:08am at early stage deleted March 02, 2025 9:08am Anxiety acute April 05 2:28pm Desires (vaginal after ) trial acute April 05, 2025 2:28pm FH: genetic disorder acute April 05, 2025 2:28pm History of miscarriage, currently acute April 05 2:28pm Maternal varicella, non-immune acute April 05, 2025 2:28pm acute April 05 2:28pm Previous section acute April 05, 2025 2:28pm Rubella non-immune status, antepartum acute April 05, 2025 2:28pm Supervision of high-risk acute April 05, 2025 2:28pm Vaginal bleeding during acute April 05, 2025 2:28pm Varicose veins during acut e April 05, 2025 2:28pm at early stage deleted April 05, 2025 2:28pm Anxiety acute April 25, 2025 8:17am Desires (vaginal after ) trial acute April 25, 2025 8:17am FH: genetic disorder acute April 25, 2025 8:17am History of miscarriage, currently acute April 25 8:17am Maternal varicella, non-immune acute April 25, 2025 8:17am acute April 25, 2025 8:17am Previous section acute April 25, 2025 8:17am Rubella non-immune status, antepartum acute April 25, 2025 8 :17am Supervision of high-risk acute April 25, 2025 8 :17am Vaginal bleeding during acute April 25, 2025 8 :17am Varicose veins during acut e April 25, 2025 8:17am [facility] [employer] [facility] Work Phone: 1(910) 276-143504-22-2025 Evaluation note* Diagnosis Onset Date Resolution Status Admit Date Vaginal bleeding during resolved February 07, 2025 3:59pm Anxiety acute March 02, 2025 9:08am Desires (vaginal after ) trial acute March 02, 2025 9:08am FH: genetic disorder acute March 02, 2025 9:08am History of miscarriage, currently acute March 02 9:08am acute March 02, 2025 9:08am Previous section acute March 02, 2025 9:08am Supervision of high-risk acute March 02, 2025 9 :08am Varicose veins during acute March 02, 2025 9 :08am Vaginal bleeding during resolved March 02, 2025 9 :08am Maternal varicella, non-immune delet ed March 02, 2025 9:08am at early stage deleted March 02, 2025 9:08am Anxiety acute April 05 2:28pm Desires (vaginal after ) trial acute April 05, 2025 2:28pm FH: genetic disorder acute April 05, 2025 2:28pm History of miscarriage, currently acute April 05 2:28pm acute April 05 2:28pm Previous section acute April 05, 2025 2:28pm Rubella non-immune status, antepartum acute April 05, 2025 2:28pm Supervision of high-risk acute April 05, 2025 2:28pm Varicose veins during acute April 05, 2025 2:28pm Vaginal bleeding during resolved April 05, 2025 2:28pm Maternal varicella, non-immune delet ed April 05, 2025 2:28pm at early stage deleted April 05, 2025 2:28pm Anxiety acute April 25, 2025 8:17am Desires (vaginal after ) trial acute April 25, 2025 8:17am FH: genetic disorder acute April 25, 2025 8:17am History of miscarriage, currently acute April 25 8:17am acute April 25, 2025 8:17am Previous section acute April 25, 2025 8:17am Rubella non-immune status, antepartum acute April 25, 2025 8 :17am Supervision of high-risk acute April 25, 2025 8 :17am Varicose veins during acute April 25, 2025 8 :17am Anxiety acute May 24 10:28am Desires (vaginal after ) trial acute May 10:28am FH: genetic disorder acute 2024 10:28am History of miscarriage, currently acute May 24, 2 025 10:28am acute May 24 10:28am Previous section acute May 24, 2025 10:28am Rubella non-immune status, antepartum acute May 24, 2025 10:28am Supervision of high-risk acute May 24, 2025 10:28am Varicose veins during acute May 24, 2025 10:28am [facility] Work Phone: 1(446) 801-127604-22-2025 Evaluation note* Diagnosis Onset Date Resolution Status Admit Date Vaginal bleeding during resolved February 07, 2025 3:59pm Anxiety acute March 02, 2025 9:08am Desires (vaginal after ) trial acute March 02, 2025 9:08am FH: genetic disorder acute March 02, 2025 9:08am History of miscarriage, currently acute March 02 9:08am acute March 02, 2025 9:08am Previous section acute March 02, 2025 9:08am Supervision of high-risk acute March 02, 2025 9 :08am Varicose veins during acute March 02, 2025 9 :08am Vaginal bleeding during resolved March 02, 2025 9 :08am Maternal varicella, non-immune delet ed March 02, 2025 9:08am at early stage deleted March 02, 2025 9:08am Anxiety acute April 05 2:28pm Desires (vaginal after ) trial acute April 05, 2025 2:28pm FH: genetic disorder acute April 05, 2025 2:28pm History of miscarriage, currently acute April 05 2:28pm acute April 05 2:28pm Previous section acute April 05, 2025 2:28pm Rubella non-immune status, antepartum acute April 05, 2025 2:28pm Supervision of high-risk acute April 05, 2025 2:28pm Varicose veins during acute April 05, 2025 2:28pm Vaginal bleeding during resolved April 05, 2025 2:28pm Maternal varicella, non-immune delet ed April 05, 2025 2:28pm at early stage deleted April 05, 2025 2:28pm Anxiety acute April 25, 2025 8:17am Desires (vaginal after ) trial acute April 25, 2025 8:17am FH: genetic disorder acute April 25, 2025 8:17am History of miscarriage, currently acute April 25 8:17am acute April 25, 2025 8:17am Previous section acute April 25, 2025 8:17am Rubella non-immune status, antepartum acute April 25, 2025 8 :17am Supervision of high-risk acute April 25, 2025 8 :17am Varicose veins during acute April 25, 2025 8 :17am Anxiety acute May 24 10:28am Desires (vaginal after ) trial acute May 10:28am FH: genetic disorder acute Augu 2024 10:28am History of miscarriage, currently acute May 24 10:28am Palpitation acute May 24 10:28am acute May 24 10:28am Previous section acute May 24, 2025 10:28am Rubella non-immune status, antepartum acute May 24, 2025 10:28am Supervision of high-risk acute May 24, 2025 10:28am Varicose veins during acute May 24, 2025 10:28am [facility] Work Phone: 1(928) 911-861701-23-2025 NoteDischarge Instructions Discharge Summary [address] [address] [id number] 10/30/2024 Patient: GAURAV FORTE Sex: Female : 2000 Age: 24y Thank you for visiting [facility]. You have been evaluated today by Wilfredo Chamberlain M.D. for the following condition(s): Principal Diagnosis Moderate vaginal bleeding. Probable complete spontaneous (miscarriage).No complications. INSTRUCTIONS Drink plenty of fluids. OTC Medications: Take ibuprofen (such as Advil, Motrin or Nuprin) according to label instructions. Available over the counter. Follow-up: Follow up with your healthcare provider in two days if not better. 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 You have been evaluated today by Wilfredo Chamberlain M.D. for the following condition(s): Principal Diagnosis Moderate vaginal bleeding. Probable complete spontaneous (miscarriage).No complications. INSTRUCTIONS Drink plenty of fluids. OTC Medications: Take ibuprofen (such as Advil, Motrin or Nuprin) according to label instructions. Available over the counter. Follow-up: Follow up with your healthcare provider in two days if not better. 2 of oeAdventHealth Altamonte SpringsProgress note Author Sophia Cho [facility] Note Date/Time March 02, 2025 9:39a m [facility] [address] [place] [address], [address] [place] [id number] OFFICE VISIT Date of Service: 03/02/25 MR#: [id number] Acct: [id number] Name: GAURAV FORTE Rep #: [id number] : 2000 Provider: NOELLE Cho Age/Sex: 24/F Location: [facility] Status: Signed Intake Vital Signs 03/10/24 13:00 02/07/25 16:03 03/02/25 09:11 Height 5 ft 6 in 5 ft 6 in 5 ft 6 in Weight: 133 lb 4 oz BMI 21.4 BP 116/78 Intake Visit Reasons: NOB: LMP 12/29, WILBER 10/05 Chief Complaint: New OB Rehab Therapist Required: No Is patient in pain?: No Allergies No Known Allergies Allergy (Unverified 03/02/25 09:15) Medications ?Medication ?Instructions ?Recorded ?Confirmed ?Type sertraline 25 mg tablet 25 mg PO DAILY 03/10/2402/16 History fish, borage, flaxseed oils-omega See Rx Instructions PO DAILY 02/16/25 03/02/25 History 3,6,9 comb no.1 1,200 mg capsule ([place] 3-6-9) magnesium 250 mg tablet 250 mg PO QDAY 02/16/2502/16 History multivit-min no.71-iron fum 28 cap PO 02/16/25 5 History mg-folate no.1 1 mg-dha 300 mg capsule (PNV-[place]) Last Menstrual Period: 12/29/24 PFSH PFSH Medical History Women's annual routine gynecological examination Surgical History Previous section Family History Aunt Cancer, Onset Age: 25 Paternal Brain tumor Social History adopted: No household members: spouse and children housing: house number of children: 1 current occupational status: unemployed current occupation: [employer] current occupational exposures/hazards: No pets and animals: Yes (outside) pets and animals: dog(s) and horse(s) history of recent travel: No sexually active: Yes Smoking Status: Never smoker second hand exposure: No alcohol intake: current alcohol intake frequency: holidays/special occasions only details: Not while substance use type: does not use diet: lactose free well-balanced diet: daily or most days caffeine: No eating out: rarely or never during the past year weight has: remained stable what type of physical activity do you participate in: none cindy/christianity: Yazidi seatbelt use: always do you feel safe at home: Yes additional social history: - [employer] work History 3 Elective abortions Hx Para 1 Spontaneous abortions 1 Hx # Term Pregnancies Ectopic pregnancies Hx # Pregnancies Multiple births # of living children 1 Past Pregnancies Del. Date Name GA/Weeks Outcome Route Bth Weight Gen Labor Lgth Anesthesia Del Locatn Provider FOB Unknown Oct 2024 spontaneous 11/03/22 Kady 39 live - full term 7# Female spinal Pomerene Gopal Delivery Date: 11/03/22 Last Updated by: Sirena Padilla MD breech HPI NOB: LMP 12/29, WILBER 10/05 Details: GAURAV FORTE is a 24 year old who presents for New OB visit. OB Visit WILBER Calculator Estimated Delivery Date Method Current WG Current Estimate 10/05/25 LMP (Certain) 9w 0d Other Estimates 10/04/25 Ultrasound #1 9w 1d Comments: HIV: Urine Culture: Sequential Screen: NIPT Screen: Estimated Due Date: 10/05/25 Expected Delivery Route/Plan patient counseled regarding risks/benefits of trial of labor versus repeat . ACOG/uptodate education given to patient. [] % likelihood of success per calculator TOLAC consent form signed: [] Specific Issue/Plans Covid status: [] Flu vaccine: [] Tdap vaccine: [] Rhogam: [] LARC form signed: [] Problem list reviewed and updated with the most current plan of care details and appropriate orders placed. Relevant counseling for the gestational age provided. Continue routine care and follow up unless otherwise noted in visit notes/problem list details Initial Weight: 133 lb Date -?-?-?-?-?-?-?-?-?-?-?-?- EGA Weight BP Urine Prot -?-?-?-?-?-?-?-?-?-?-?-?- Glucose FHR FuHt Pres Dilation -?-?-?-?-?-?-?-?-?-?-?-?- Effaced St Visit Note 03/02/25 -?-?-?-?-?-?-?-?-?-?-?-?- 9w 0d 133 lb 4 oz (+4 oz) 116/78 -?-?-?-?-?-?-?-?-?-?-?-?- 182 -?-?-?-?-?-?-?-?-?-?-?-?- KW- CRL cons wit h dates. declines NIPT Menstrual History Last Menstrual Period: 12/29/24 Reported LMP: definite Normal amount/duration: Yes Frequency in days: 28 On hormonal BC at conception: No hCG+: 01/24/25 Antepartum Record Genetic Screening: Congenital Heart Defect: Other, Neural Tube Defect: Other, Hemoglobinopathy Or Carrier: Other, Cystic Fibrosis: Other, Chromosome Abnormality: Other, Radu-Sachs: Other, Hemophilia: Other, Intellectual Disability/Autism: Other, Recurrent Loss/Stillbirth: Partner (Vvgrqa-uzmcmwoatb-wrrianvq brain), Other Structural Defect: Other, Other Genetic Disease: Patient (Sister- Robison's dystonia, nephro cerebellar syndrome) and Maternal Metabolic Disorder: Other Infection History: Live with someone with TB or Exposed to TB: No, Patient or Partner has history of Genital Herpes: No, Rash or Viral illness since last mentrual period: No, Prior GBS-Infected child: No, History of STD: No, HIV Infection: No, History of Hepatitis: No, Recent travel outside of [place]: No, Concern for hepatitis exposure: No, Varicella immune: Yes (non-immune) and Covid Vaccinated: No Medical History Medical History: Positive: Psychiatric (anxiety- sertraline), Varicosities/phlebitis (varicose- behind the knee, inner thigh vaginal -denies DVT's), [id number] surgery (c sectionx1) and Relevant family history (Paternal Aunt Brain tumor 25yo) and Negative: Diabetes, Hypertension, Heart disease, Auto-immune disorder, Kidney disease/UTI, Neurologic/epilepsy, Depression/ depression, Hepatitis/liver disease, Thyroid dysfunction (underactive per buildings and grounds supervisor not dx as hypo), Trauma/domestic violence, History of blood transfusions, D (Rh) Sensitized, Pulmonary (e.g.,TB,Asthma), Seasonal allergies, Drug/latex allergies/reactions, Breast, Operations/hospitalizations, Anesthetic complications, History of abnormal pap (last pap 02/2024 nl), Uterine anomaly/luciano, Infertility, Anti-retroviral treatment and Other ACOG First Trimester First Trimester: Nurtrition and weight gain Second Trimester Second Trimester: Signs and Symptoms of Labor, Selecting a care provider, Reproductive Life Planning & Contreception, Care Planning, Depression/Anxiety and Intimate Partner Violence; Discussed Tobacco Cessation Third Trimester Third Trimester: Pain Management Plans, Labor support person(s), Immediate Larc, Signs and Symptoms of Preeclampsia, Infant Feeding, [place] Education and Family Medical Leave or Disability Forms ROS Const Reports system reviewed and no additional complaints, except as documented, Denies fatigue, Denies headache(s) and Denies lethargy ENT Denies headache(s) Card Reports system reviewed and no additional complaints, except as documented Resp Reports system reviewed and no additional complaints, except as documented GI Reports system reviewed and no additional complaints, except as documented, Denies abdominal pain, Denies constipation, Denies cramping, Denies diarrhea and Denies dyspepsia Reports system reviewed and no additional complaints, except as documented, Denies abnormal vaginal bleeding, Denies difficulty voiding, Denies dyspareunia and Denies dysuria Musc Reports system reviewed and no additional complaints, except as documented Skin/Breast Reports system reviewed and no additional complaints, except as documented Neuro Yes system reviewed and no additional complaints, except as documented and No headache(s) Psych Reports system reviewed and no additional complaints, except as documented, Denies anhedonia and Denies anxiety Endo Reports system reviewed and no additional complaints, except as documented and Denies fatigue Exam Const General: cooperative, healthy appearing and comfortable Neck Neck: normal visual inspection and full ROM Chest Chest palpation & inspection: normal inspection of the chest Breast inspection: normal inspection of the breasts and normal inspection of the axillae Breast palpation: normal palpation of the breasts and normal palpation of the axillae Resp Effort & Inspection: normal respiratory effort and able to speak in complete sentences GI Inspection: normal to inspection Palpation: soft External Female Exam: normal external appearance and normal appearance of the urethra Urethra: normal appearance of the urethra Skin General: no rashes or lesions noted Neuro General: patient alert, patient awake and patient oriented x3 Extrem General: normal to inspection and full ROM Psych Appearance: grossly normal and well kempt Mental Status: mental status grossly normal Mood: congruent mood Affect: normal affect Speech and Movement: speech and movement normal Thought Process: normal Thought Content: normal Coding Level of Care Code OB Routine Diagnoses Supervision of high-risk O09.90 9 weeks gestation of Z3A.09 Weeks of gestation: 9 weeks Maternal varicella, non-immune O09.899; Z28.39 FH: genetic disorder Z84.89 Desires (vaginal after ) trial O34.219 Varicose veins during O22.00 Previous section Z98.891 Anxiety F41.9 Vaginal bleeding during O46.90 History of miscarriage, currently O09.299 at early stage Z34.90 Assessment and Plan Assessment and Plan (1) Supervision of high-risk : Status: Acute Comment: , WILBER 10/05/25, DIVYA Hillman, Gopal (2) : Status: Acute Qualifiers: Weeks of gestation: 9 weeks Qualified Code(s): Z3A.09 - 9 weeks gestation of Comment: declined NIPT, Carrier testing in past- neg. (3) Maternal varicella, non-immune: Status: Acute Comment: recommend varicella vaccine post delivery (4) FH: genetic disorder: Status: Acute Comment: Robison's dystonia, nephrocerebellar syndrome, Carrier testing done-Pt is not a carrier of this syndrom (5) Desires (vaginal after ) trial: Status: Acute (6) Varicose veins during : Status: Acute Comment: behind knees, inner thigh, vaginal (7) Previous section: Status: Acute Comment: breech (8) Anxiety: Status: Acute Comment: sertraline (9) Vaginal bleeding during : Status: Acute Comment: early IUP seen measuring appropriately FHT seen visibly (10) History of miscarriage, currently : Status: Acute (11) at early stage: Status: Acute Orders: Orders CBC W/Diff, Automated 02/16/25 O - Supervision of high risk , unspecified, unspecified trimester Type & Screen 02/16/25 - Supervision of high risk , unspecified, unspecified trimester Rubella IgG 02/16/25 - Supervision of high risk , unspecified, unspecified trimester Hepatitis C Antibody 02/16/25 O - Supervision of high risk , unspecified, unspecified trimester Hepatitis B Surface Antigen 02/16/25 - Supervision of high risk , unspecified, unspecified trimester Culture, Urine 02/16/25 - Supervision of high risk , unspecified, unspecified trimester Syphilis Antibodies 02/16/25 - Supervision of high risk , unspecified, unspecified trimester Chlamydia/GC JERRY aptima 02/16/25 - Supervision of high risk , unspecified, unspecified trimester HIV 02/16/25 O - Supervision of high risk , unspecified, unspecified trimester Thyroid Stim Hormone (TSH) 02/16/25 - Supervision of high risk , unspecified, unspecified trimester T4 Free Direct 02/16/25 - Supervision of high risk , unspecified, unspecified trimester [facility] Misc. 02/16/25 O - Supervision of high risk , unspecified, unspecified trimester Comments Comments: Patient oriented to practice and discussed care expectations and screenings. ACOG book offered to patient. Discussed routine and specially indicated labs if needed- patient consents to testing. See problem list details for plan information. Optional screening including maternal carrier screenings, neural tube defect screening, genetic screening options including quad screen, nuchal translucency, sequential screening, and NIPT screening offered to patient and patient chose: declines 03/02/25 0939 <Electronically signed by Sophia johnson CNM> Date _ Sophia Cho CNM Cosigner Signature: Date (if applicable) CC: ~ [facility] Work Phone: Progress note Author Lizbeth Lowe [facility] Note Date/Time June 21, 2025 9:55am [facility] [address] [place] [address], [address] [place] [address] OFFICE VISIT Date of Service: 06/21/25 MR#: [id number] Acct: [id number] Name: GAURAV FORTE Rep #: [id number] : 2000 Provider: Dr. Larisa Cruz DO Age/Sex: 24/F Location: [facility] Status: Signed Intake Vital Signs 04/25/25 08:20 05/24/25 10:33 06/21/25 09:25 06/21/25 09:27 Height 5 ft 6 in 5 ft 6 in 5 ft 6 in 5 ft 6 in Weight: 145 lb 2 oz BMI 23.4 BP 111/76 Intake Visit Reasons: 25 wk ob Rehab Therapist Required: No Is patient in pain?: No Allergies No Known Allergies Allergy (Verified 06/21/25 09:25) Medications ?Medication ?Instructions ?Recorded ?Confirmed ?Type sertraline 25 mg tablet 25 mg PO DAILY 03/10/2401/10 History fish, borage, flaxseed oils-omega See Rx Instructions PO DAILY 02/16/25 06/21/25 History 3,6,9 comb no.1 1,200 mg capsule ([place] 3-6-9) magnesium 250 mg tablet 250 mg PO QDAY 02/16/2501/10 History multivit-min no.71-iron fum 28 cap PO 02/16/25 5 History mg-folate no.1 1 mg-dha 300 mg capsule (PNV-[place]) Last Menstrual Period: 12/29/24 Zika: Zika virus screening: Negative : No PFSH PFSH Surgical History Previous section Family History Aunt Cancer, Onset Age: 25 Paternal Brain tumor Social History adopted: No household members: spouse and children housing: house number of children: 1 current occupational status: unemployed current occupation: [employer] current occupational exposures/hazards: No pets and animals: Yes (outside) pets and animals: dog(s) and horse(s) history of recent travel: No sexually active: Yes Smoking Status: Never smoker second hand exposure: No alcohol intake: current alcohol intake frequency: holidays/special occasions only details: Not while substance use type: does not use diet: lactose free well-balanced diet: daily or most days caffeine: No eating out: rarely or never during the past year weight has: remained stable what type of physical activity do you participate in: none cindy/christianity: Yazidi seatbelt use: always do you feel safe at home: Yes additional social history: - [employer] [place] work History 3 Elective abortions Hx Para 1 Spontaneous abortions 1 Hx # Term Pregnancies Ectopic pregnancies Hx # Pregnancies Multiple births # of living children 1 Past Pregnancies Del. Date Name GA/Weeks Outcome Route Bth Weight Gen Labor Lgth Anesthesia Del Locatn Provider FOB Unknown Oct 2024 spontaneous 11/03/22 Kady 39 live - full term 7# Female spinal Pomerene Gopal Delivery Date: 11/03/22 Last Updated by: Sirena Padilla MD breech HPI 25 wk ob Details: GAURAV FORTE is a 24 year old who presents for routine OB visit. OB Visit WILBER Calculator Estimated Delivery Date Method Current WG Current Estimate 10/05/25 LMP (Certain) 24w 6d Other Estimates 10/04/25 Ultrasound #1 25w 0d Expected Delivery Route/Plan TOLAC previous for breech patient counseled regarding risks/benefits of trial of labor versus repeat . ACOG/uptodate education given to patient. 77% likelihood of success per calculator TOLAC consent form signed: 06/21/25 Specific Issue/Plans Covid status: [] Flu vaccine: [] Tdap vaccine: [] Rhogam: [] LARC form signed: [] Problem list reviewed and updated with the most current plan of care details and appropriate orders placed. Relevant counseling for the gestational age provided. Continue routine care and follow up unless otherwise noted in visit notes/problem list details Initial Weight: 133 lb Date -?-?-?-?-?-?-?-?-?-?-?-?- EGA Weight BP Urine Prot -?-?-?-?-?-?-?-?-?-?-?-?- Glucose FHR FuHt Pres Dilation -?-?-?-?-?-?-?-?-?-?-?-?- Effaced St Visit Note 03/02/25 -?-?-?-?-?-?-?-?-?-?-?-?- 9w 0d 133 lb 4 oz (+4 oz) 116/78 -?-?-?-?-?-?-?-?-?-?-?-?- 182 -?-?-?-?-?-?-?-?-?-?-?-?- KW- CRL cons wit h dates. declines NIPT 04/05/25 -?-?-?-?-?-?-?-?-?-?-?-?- 13w 6d 134 lb 6 oz (+1 lb 6 oz) 116/76 Negative -?-?-?-?-?-?-?-?-?-?-?-?- Negative 160 -?-?-?-?-?-?-?-?-?-?-?-?- SM- no vb crmapi ng 04/25/25 -?-?-?-?-?-?-?-?-?-?-?-?- 16w 5d 136 lb 4 oz (+3 lb 4 oz) 120/76 Negative -?-?-?-?-?-?-?-?-?-?-?-?- Negative 154 -?-?-?-?-?-?-?-?-?-?-?-?- MH-No VB. Nausea resolved. Varicose veins left leg. 05/24/25 -?-?-?-?-?-?-?-?-?-?-?-?- 20w 6d 139 lb 3 oz (+6 lb 3 oz) 106/68 Negative -?-?-?-?-?-?-?-?-?-?-?-?- Negative 160 -?-?-?-?-?-?-?-?-?-?-?-?- MH-No VB. Ken maier fluttwilliam. Has noticed a couple times palpitations after eating. Offered EKG, further work up and declines 06/21/25 -?-?-?-?-?-?-?-?-?-?-?-?- 24w 6d 145 lb 2 oz (+12 lb 2 oz) 111/76 Negative -?-?-?-?-?-?-?-?-?-?-?-?- Negative 155 -?-?-?-?-?-?-?-?-?-?-?-?- JV- no lof, vagi nal bleeding, or dec fm. no complaints. long discussion about tolac today ACOG First Trimester First Trimester: Desire for , Alcohol, Tobacco Cessation, Illicit/Recreational Drug/Substance Use, Intimate Partner Violence, Barriers to care, Unstable Housing, Communication Barriers, Environmental/Work Hazards, Anticipated Course of Care, Toxoplasmosis Precations, Use of Any medications, Sexual activity, Exercise, Dental Care, Sauna/Hot tub use, Seat Belt use, Childbirth classes/Hospital facilities, Travel, Indications for Ultrasound and Screening for Aneuploidy; Discussed Second Trimester Second Trimester: Signs and Symptoms of Labor, Selecting a care provider, Reproductive Life Planning & Contreception, Care Planning, Depression/Anxiety and Intimate Partner Violence; Discussed Tobacco Cessation Third Trimester Third Trimester: Pain Management Plans, Labor support person(s), Immediate Larc, Signs and Symptoms of Preeclampsia, Infant Feeding No , Education and Family Medical Leave or Disability Forms Results POC Urinalysis 2 Dip (Clinic) Office Urine Glucose Negative Last Edit by Shayy Silva on 06/21/25 09: 41 Office Urine Protein Negative Last Edit by Shayy Silva on 06/21/25 09: 41 Coding Level of Care Code OB Routine Diagnoses Palpitation R00.2 Rubella non-immune status, antepartum O09.899; Z28.39 Supervision of high risk in second trimester O09.92 Trimester: second trimester 24 weeks gestation of Z3A.24 Weeks of gestation: 24 weeks FH: genetic disorder Z84.89 Desires (vaginal after ) trial O34.219 Previous section Z98.891 Varicose veins during O22.00 Anxiety F41.9 History of miscarriage, currently O09.299 Assessment and Plan Assessment and Plan (1) Palpitation: Status: Acute Comment: after eating. No SOB, chest pain. Declines further evaluation (2) Rubella non-immune status, antepartum: Status: Acute Comment: offer MMR PP (3) Supervision of high-risk : Status: Acute Qualifiers: Trimester: second trimester Qualified Code(s): O09.92 - Supervision of high risk , unspecified, second trimester Comment: PRR, , WILBER 10/05/25, PC Kady, Gopal (4) : Status: Acute Qualifiers: Weeks of gestation: 24 weeks Qualified Code(s): Z3A.24 - 24 weeks gestation of Comment: declined NIPT, Carrier testing in past- neg. (5) FH: genetic disorder: Status: Acute Comment: Robison's dystonia, nephrocerebellar syndrome, Carrier testing done-Pt is not a carrier of this syndrome (6) Desires (vaginal after ) trial: Status: Acute Comment: chance of success is 77%. baby was breech. consent given. (7) Previous section: Status: Acute Comment: breech (8) Varicose veins during : Status: Acute Comment: behind knees, inner thigh, vaginal left leg. Enc stockings etc (9) Anxiety: Status: Acute Comment: sertraline (10) History of miscarriage, currently : Status: Acute Orders: Orders POC Urinalysis 2 Dip (Clinic) Today CBC W/Diff, Automated Today O09.92 - Supervision of high risk , unspecified, second trimester Glucose Challenge Gest 1H 50g Today O09.92 - Supervision of high risk , unspecified, second trimester, Z13.1 - Encounter for screening for diabetes mellitus HIV Today O09.92 - Supervision of high risk , unspecified, second trimester Syphilis Antibodies Today O09.92 - Supervision of high risk , unspecified, second trimester 06/21/25 0956 <Electronically signed by Lizbeth Vasquez DO> Date _ Lizbeth Cardenas Chrissy Friedman Signature: Date (if applicable) CC: ~ [facility] Work Phone: Progress note Author Sirena Padilla [facility] Note Date/Time July 10, 2025 10:34am [facility] [address] [place] [address], [address] [place] [address] OFFICE VISIT Date of Service: 07/10/25 MR#: [id number] Acct: [id number] Name: GAUARV FORTE Rep #: [id number] : 2000 Provider: Dr. Ammon Padilla MD Age/Sex: 24/F Location: [facility] [place] Status: Signed Intake Vital Signs 04/25/25 08:20 06/21/25 09:27 07/10/25 10:06 Height 5 ft 6 in 5 ft 6 in 5 ft 6 in Weight: 149 lb 7 oz BMI 24.1 BP 112/75 Intake Visit Reasons: 28 wk ob/glucose Rehab Therapist Required: No Is patient in pain?: No Allergies No Known Allergies Allergy (Verified 07/10/25 10:07) Medications ?Medication ?Instructions ?Recorded ?Confirmed ?Type sertraline 25 mg tablet 25 mg PO DAILY 03/10/2406/20 History fish, borage, flaxseed oils-omega See Rx Instructions PO DAILY 02/16/25 07/10/25 History 3,6,9 comb no.1 1,200 mg capsule ([place] 3-6-9) magnesium 250 mg tablet 250 mg PO QDAY 02/16/2506/20 History multivit-min no.71-iron fum 28 cap PO 02/16/25 5 History mg-folate no.1 1 mg-dha 300 mg capsule (PNV-[place]) Last Menstrual Period: 12/29/24 Zika: Zika virus screening: Negative : No PFSH PFSH Surgical History Previous section Family History Aunt Cancer, Onset Age: 25 Paternal Brain tumor Social History adopted: No household members: spouse and children housing: house number of children: 1 current occupational status: unemployed current occupation: [employer] current occupational exposures/hazards: No pets and animals: Yes (outside) pets and animals: dog(s) and horse(s) history of recent travel: No sexually active: Yes Smoking Status: Never smoker second hand exposure: No alcohol intake: current alcohol intake frequency: holidays/special occasions only details: Not while substance use type: does not use diet: lactose free well-balanced diet: daily or most days caffeine: No eating out: rarely or never during the past year weight has: remained stable what type of physical activity do you participate in: none cindy/christianity: Yazidi seatbelt use: always do you feel safe at home: Yes additional social history: - Gopal- [place] work History 3 Elective abortions Hx Para 1 Spontaneous abortions 1 Hx # Term Pregnancies Ectopic pregnancies Hx # Pregnancies Multiple births # of living children 1 Past Pregnancies Del. Date Name GA/Weeks Outcome Route Bth Weight Gen Labor Lgth Anesthesia Del Locatn Provider FOB Unknown Oct 2024 spontaneous 11/03/22 Kady 39 live - full term 7# Female spinal Pomerene Gopal Delivery Date: 11/03/22 Last Updated by: Sirena Padilla MD breech HPI 28 wk ob/glucose Details: GAURAV FORTE is a 24 year old who presents for routine OB visit. OB Visit WILBER Calculator Estimated Delivery Date Method Current WG Current Estimate 10/05/25 LMP (Certain) 27w 4d Other Estimates 10/04/25 Ultrasound #1 27w 5d Expected Delivery Route/Plan TOLAC previous for breech- plan on not scheduling anything until end of , consider IOL at 40-41 if favorable. patient counseled regarding risks/benefits of trial of labor versus repeat . ACOG/uptodate education given to patient. 77% likelihood of success per calculator TOLAC consent form signed: 06/21/25 Specific Issue/Plans Covid status: [] Flu vaccine: [] Tdap vaccine: [] Rhogam: [] LARC form signed: [] Problem list reviewed and updated with the most current plan of care details and appropriate orders placed. Relevant counseling for the gestational age provided. Continue routine care and follow up unless otherwise noted in visit notes/problem list details Initial Weight: 133 lb Date -?-?-?-?-?-?-?-?-?-?-?-?- EGA Weight BP Urine Prot -?-?-?-?-?-?-?-?-?-?-?-?- Glucose FHR FuHt Pres Dilation -?-?-?-?-?-?-?-?-?-?-?-?- Effaced St Visit Note 03/02/25 -?-?-?-?-?-?-?-?-?-?-?-?- 9w 0d 133 lb 4 oz (+4 oz) 116/78 -?-?-?-?-?-?-?-?-?-?-?-?- 182 -?-?-?-?-?-?-?-?-?-?-?-?- KW- CRL cons wit h dates. declines NIPT 04/05/25 -?-?-?-?-?-?-?-?-?-?-?-?- 13w 6d 134 lb 6 oz (+1 lb 6 oz) 116/76 Negative -?-?-?-?-?-?-?-?-?-?-?-?- Negative 160 -?-?-?-?-?-?-?-?-?-?-?-?- SM- no vb crmapi ng 04/25/25 -?-?-?-?-?-?-?-?-?-?-?-?- 16w 5d 136 lb 4 oz (+3 lb 4 oz) 120/76 Negative -?-?-?-?-?-?-?-?-?-?-?-?- Negative 154 -?-?-?-?-?-?-?-?--?-?-?-?- MH-No VB. Nausea resolved. Varicose veins left leg. 05/24/25 -?-?-?-?-?-?-?-?-?-?-?-?- 20w 6d 139 lb 3 oz (+6 lb 3 oz) 106/68 Negative -?-?-?-?-?-?-?-?-?-?-?-?- Negative 160 -?-?-?-?-?-?-?-?-?-?-?-?- MH-No VB. Ken maier flutters. Has noticed a couple times palpitations after eating. Offered EKG, further work up and declines 06/21/25 -?-?-?-?-?-?-?-?-?-?-?-?- 24w 6d 145 lb 2 oz (+12 lb 2 oz) 111/76 Negative -?-?-?-?-?-?-?-?-?-?-?-?- Negative 155 -?-?-?-?-?-?-?-?-?-?-?-?- JV- no lof, vagi nal bleeding, or dec fm. no complaints. long discussion about tolac today 07/10/25 -?-?-?-?-?-?-?-?-?-?-?-?- 27w 4d 149 lb 7 oz (+16 lb 7 oz) 112/75 Negative -?-?-?-?-?-?-?-?-?-?-?-?- Negative 160 28 -?-?-?-?-?-?-?-?-?-?-?-?- SM- no vb lof go od fm no reuglar ctx cbc gct ACOG First Trimester First Trimester: Desire for , Alcohol, Tobacco Cessation, Illicit/Recreational Drug/Substance Use, Intimate Partner Violence, Barriers to care, Unstable Housing, Communication Barriers, Environmental/Work Hazards, Anticipated Course of Care, Toxoplasmosis Precations, Use of Any medications, Sexual activity, Exercise, Dental Care, Sauna/Hot tub use, Seat Belt use, Childbirth classes/Hospital facilities, Travel, Indications for Ultrasound and Screening for Aneuploidy; Discussed Second Trimester Second Trimester: Signs and Symptoms of Labor, Selecting a care provider, Reproductive Life Planning & Contreception, Care Planning, Depression/Anxiety and Intimate Partner Violence; Discussed Tobacco Cessation Third Trimester Third Trimester: Pain Management Plans, Labor support person(s), Immediate Larc, Signs and Symptoms of Preeclampsia, Feeding No , [place] Education and Family Medical Leave or Disability Forms Results POC Urinalysis 2 Dip (Clinic) Office Urine Glucose Negative Last Edit by Lora Stover on 07/10/25 10:10 Office Urine Protein Negative Last Edit by Lora Stover on 07/10/25 10:10 Coding Level of Care Code OB Routine Diagnoses Palpitation R00.2 Rubella non-immune status, antepartum O09.899; Z28.39 Supervision of high risk in second trimester O09.92 Trimester: second trimester 27 weeks gestation of Z3A.27 Weeks of gestation: 27 weeks FH: genetic disorder Z84.89 Desires (vaginal after ) trial O34.219 Previous section Z98.891 Varicose veins during O22.00 Anxiety F41.9 History of miscarriage, currently O09.299 Assessment and Plan Assessment and Plan (1) Palpitation: Status: Acute Comment: after eating. No SOB, chest pain. Declines further evaluation (2) Rubella non-immune status, antepartum: Status: Acute Comment: offer MMR PP (3) Supervision of high-risk : Status: Acute Qualifiers: Trimester: second trimester Qualified Code(s): O09.92 - Supervision of high risk , unspecified, second trimester Comment: PRR, , WILBER 10/05/25, DIVYA Hillman, Gopal (4) : Status: Acute Qualifiers: Weeks of gestation: 27 weeks Qualified Code(s): Z3A.27 - 27 weeks gestation of Comment: declined NIPT, Carrier testing in past- neg. (5) FH: genetic disorder: Status: Acute Comment: Robison's dystonia, nephrocerebellar syndrome, Carrier testing done-Pt is not a carrier of this syndrome (6) Desires (vaginal after ) trial: Status: Acute Comment: chance of success is 77%. baby was breech. consent given. (7) Previous section: Status: Acute Comment: breech (8) Varicose veins during : Status: Acute Comment: behind knees, inner thigh, vaginal left leg. Enc stockings etc (9) Anxiety: Status: Acute Comment: sertraline (10) History of miscarriage, currently : Status: Acute Orders: Orders POC Urinalysis 2 Dip (Clinic) Today 07/10/25 1034 <Electronically signed by Sirena keenan MD> Date _ Sirnea Padilla MD Cosigner Signature: Date (if applicable) CC: ~ [facility] Work Phone: Reason for referral (narrative)No reason for referral information availableWh[facility] Work Phone: Summary Purpose Family History No Family History Records Found Relationship Condition Age at Onset Recorded Date/T mary aunt Malignant neoplasm 25 Advance Directives No Advanced Directives Records FoundNo Advanced Directives Records Found Chief Complaint and Reason for Visit Chief Complaint Admit Date 5w5d spotting February 07, 2025 3:5 9pm NOB: LMP 12/29, WILBER 10/05March 02, 2025 9:08am Reason for Visit Admit Date Vaginal bleeding during February 07, 2025 3:59pm Anxiety March 02, 2025 9:08a m Desires (vaginal after troy an) trial March 02, 2025 9:08am FH: genetic disorder March 02, 2025 9:08 am History of miscarriage, currently pregna nt March 02, 2025 9:08am Maternal varicella, non-immune March 02, 2025 9:08am March 02, 2025 9:08a m at early stage March 02, 2025 9:08am Previous section March 02, 2025 9:08am Supervision of high-risk February 162024 9:08am Vaginal bleeding during March 022024 9:08am Varicose veins during February 9:08am Chief Complaint Admit Date 5w5d spotting February 07, 2025 3:5 9pm NOB: LMP 12/29, WILBER 10/05March 02, 2025 9:08am 13wk OB April 05, 2025 2:28 pm Reason for Visit Admit Date Vaginal bleeding during February 07, 2025 3:59pm Anxiety March 02, 2025 9:08a m Desires (vaginal after troy an) trial March 02, 2025 9:08am FH: genetic disorder March 02, 2025 9:08 am History of miscarriage, currently pregna nt March 02, 2025 9:08am Maternal varicella, non-immune March 02, 2025 9:08am March 02, 2025 9:08a m at early stage March 02, 2025 9:08am Previous section March 02, 2025 9:08am Supervision of high-risk February 162024 9:08am Vaginal bleeding during March 022024 9:08am Varicose veins during February 9:08am Anxiety April 05, 2025 2:28 pm Desires (vaginal after troy an) trial April 05, 2025 2:28pm FH: genetic disorder April 05, 2025 2:2 8pm History of miscarriage, currently pregna nt April 05, 2025 2:28pm Maternal varicella, non-immune March 2:28pm April 05, 2025 2:28 pm at early stage April 05, 2025 2:28pm Previous section April 05 2:28pm Rubella non-immune status, antepartum Ju 2024 2:28pm Supervision of high-risk April 05, 2025 2:28pm Vaginal bleeding during March 192024 2:28pm Varicose veins during March 2:28pm Chief Complaint Admit Date 5w5d spotting February 07, 2025 3:5 9pm NOB: LMP 12/29, WILEBR 10/05March 02, 2025 9:08am 13wk OB April 05, 2025 2:28 pm 17 wk ob April 25, 2025 8:17a m Reason for Visit Admit Date Vaginal bleeding during February 07, 2025 3:59pm Anxiety March 02, 2025 9:08a m Desires (vaginal after troy an) trial March 02, 2025 9:08am FH: genetic disorder March 02, 2025 9:08 am History of miscarriage, currently pregna nt March 02, 2025 9:08am Maternal varicella, non-immune March 02, 2025 9:08am March 02, 2025 9:08a m Previous section March 02, 2025 9:08am Supervision of high-risk February 162024 9:08am Vaginal bleeding during March 022024 9:08am Varicose veins during February 9:08am at early stage March 02, 2025 9:08am Anxiety April 05, 2025 2:28 pm Desires (vaginal after troy an) trial April 05, 2025 2:28pm FH: genetic disorder April 05, 2025 2:2 8pm History of miscarriage, currently pregna nt April 05, 2025 2:28pm Maternal varicella, non-immune March 2:28pm April 05, 2025 2:28 pm Previous section April 05 2:28pm Rubella non-immune status, antepartum Ju 2024 2:28pm Supervision of high-risk April 05, 2025 2:28pm Vaginal bleeding during March 192024 2:28pm Varicose veins during March 2:28pm at early stage April 05, 2025 2:28pm Anxiety April 25, 2025 8:17a m Desires (vaginal after troy an) trial April 25, 2025 8:17am FH: genetic disorder April 25, 2025 8:17 am History of miscarriage, currently pregna nt April 25, 2025 8:17am Maternal varicella, non-immune April 25, 2025 8:17am April 25, 2025 8:17a m Previous section April 25, 2025 8:17am Rubella non-immune status, antepartum Ju ly 2024 8:17am Supervision of high-risk April 25, 2025 8:17am Vaginal bleeding during April 252024 8:17am Varicose veins during April 8:17am Chief Complaint Admit Date 5w5d spotting February 07, 2025 3:5 9pm NOB: LMP 12/29, WILBER 10/05March 02, 2025 9:08am 13wk OB April 05, 2025 2:28 pm 17 wk ob April 25, 2025 8:17a m ANATOMY SCAN May 18, 2025 3:33 pm 21 wk ob May 24, 2025 10: 28am Reason for Visit Admit Date Vaginal bleeding during February 07, 2025 3:59pm Anxiety March 02, 2025 9:08a m Desires (vaginal after troy an) trial March 02, 2025 9:08am FH: genetic disorder March 02, 2025 9:08 am History of miscarriage, currently pregna nt March 02, 2025 9:08am March 02, 2025 9:08a m Previous section March 02, 2025 9:08am Supervision of high-risk February 162024 9:08am Varicose veins during February 9:08am Vaginal bleeding during March 022024 9:08am Maternal varicella, non-immune March 02, 2025 9:08am at early stage March 02, 2025 9:08am Anxiety April 05, 2025 2:28 pm Desires (vaginal after troy an) trial April 05, 2025 2:28pm FH: genetic disorder April 05, 2025 2:2 8pm History of miscarriage, currently pregna nt April 05, 2025 2:28pm April 05, 2025 2:28 pm Previous section April 05 2:28pm Rubella non-immune status, antepartum Ju ne 2024 2:28pm Supervision of high-risk April 05, 2025 2:28pm Varicose veins during March 2:28pm Vaginal bleeding during March 192024 2:28pm Maternal varicella, non-immune March 2:28pm at early stage April 05, 2025 2:28pm Anxiety April 25, 2025 8:17a m Desires (vaginal after troy an) trial April 25, 2025 8:17am FH: genetic disorder April 25, 2025 8:17 am History of miscarriage, currently pregna nt April 25, 2025 8:17am April 25, 2025 8:17a m Previous section April 25, 2025 8:17am Rubella non-immune status, antepartum Ju 2024 8:17am Supervision of high-risk April 25, 2025 8:17am Varicose veins during April 8:17am Anxiety May 24, 2025 10: 28am Desires (vaginal after troy an) trial May 24, 2025 10:28am FH: genetic disorder May 24, 2025 10 :28am History of miscarriage, currently pregna nt May 24, 2025 10:28am May 24, 2025 10: 28am Previous section May 24 10:28am Rubella non-immune status, antepartum Au 2024 10:28am Supervision of high-risk Augus t 2024 10:28am Varicose veins during May 242024 10:28am Reason for Visit Admit Date Vaginal bleeding during February 07, 2025 3:59pm Anxiety March 02, 2025 9:08a m Desires (vaginal after troy an) trial March 02, 2025 9:08am FH: genetic disorder March 02, 2025 9:08 am History of miscarriage, currently pregna nt March 02, 2025 9:08am March 02, 2025 9:08a m Previous section March 02, 2025 9:08am Supervision of high-risk February 162024 9:08am Varicose veins during February 9:08am Vaginal bleeding during March 022024 9:08am Maternal varicella, non-immune March 02, 2025 9:08am at early stage March 02, 2025 9:08am Anxiety April 05, 2025 2:28 pm Desires (vaginal after troy an) trial April 05, 2025 2:28pm FH: genetic disorder April 05, 2025 2:2 8pm History of miscarriage, currently pregna nt April 05, 2025 2:28pm April 05, 2025 2:28 pm Previous section April 05 2:28pm Rubella non-immune status, antepartum Ju ne 2024 2:28pm Supervision of high-risk April 05, 2025 2:28pm Varicose veins during March 2:28pm Vaginal bleeding during March 192024 2:28pm Maternal varicella, non-immune March 2:28pm at early stage April 05, 2025 2:28pm Anxiety April 25, 2025 8:17a m Desires (vaginal after troy an) trial April 25, 2025 8:17am FH: genetic disorder April 25, 2025 8:17 am History of miscarriage, currently pregna nt April 25, 2025 8:17am April 25, 2025 8:17a m Previous section April 25, 2025 8:17am Rubella non-immune status, antepartum Ju 2024 8:17am Supervision of high-risk April 25, 2025 8:17am Varicose veins during April 8:17am Anxiety May 24, 2025 10: 28am Desires (vaginal after troy an) trial May 24, 2025 10:28am FH: genetic disorder May 24, 2025 10 :28am History of miscarriage, currently pregna nt May 24, 2025 10:28am Palpitation May 24, 2025 10: 28am May 24, 2025 10: 28am Previous section May 24 10:28am Rubella non-immune status, antepartum Au 2024 10:28am Supervision of high-risk Augus 2024 10:28am Varicose veins during May 242024 10:28am Chief Complaint Admit Date NOB: LMP 3, WILBER 10/05March 02, 2025 9:08am 13wk OB April 05, 2025 2:28 pm 17 wk ob April 25, 2025 8:17a m ANATOMY SCAN May 18, 2025 3:33 pm 21 wk ob May 24, 2025 10: 28am 25 wk ob June 21, 2025 9:24am Reason for Visit Admit Date Anxiety March 02, 2025 9:08a m Desires (vaginal after troy an) trial March 02, 2025 9:08am FH: genetic disorder March 02, 2025 9:08 am History of miscarriage, currently pregna nt March 02, 2025 9:08am March 02, 2025 9:08a m Previous section March 02, 2025 9:08am Supervision of high-risk February 162024 9:08am Varicose veins during February 9:08am Vaginal bleeding during March 022024 9:08am Maternal varicella, non-immune March 02, 2025 9:08am at early stage March 02, 2025 9:08am Anxiety April 05, 2025 2:28 pm Desires (vaginal after troy an) trial April 05, 2025 2:28pm FH: genetic disorder April 05, 2025 2:2 8pm History of miscarriage, currently pregna nt April 05, 2025 2:28pm April 05, 2025 2:28 pm Previous section April 05 2:28pm Rubella non-immune status, antepartum Ju ne 2024 2:28pm Supervision of high-risk April 05, 2025 2:28pm Varicose veins during March 2:28pm Vaginal bleeding during March 192024 2:28pm Maternal varicella, non-immune March 2:28pm at early stage April 05, 2025 2:28pm Anxiety April 25, 2025 8:17a m Desires (vaginal after troy an) trial April 25, 2025 8:17am FH: genetic disorder April 25, 2025 8:17 am History of miscarriage, currently pregna nt April 25, 2025 8:17am April 25, 2025 8:17a m Previous section April 25, 2025 8:17am Rubella non-immune status, antepartum Ju 2024 8:17am Supervision of high-risk April 25, 2025 8:17am Varicose veins during April 8:17am Anxiety May 24, 2025 10: 28am Desires (vaginal after troy an) trial May 24, 2025 10:28am FH: genetic disorder May 24, 2025 10 :28am History of miscarriage, currently pregna nt May 24, 2025 10:28am Palpitation May 24, 2025 10: 28am May 24, 2025 10: 28am Previous section May 24 10:28am Rubella non-immune status, antepartum Au 2024 10:28am Supervision of high-risk Augus 2024 10:28am Varicose veins during May 242024 10:28am Anxiety June 21, 2025 9:24am Desires (vaginal after troy an) trial June 21, 2025 9:24am FH: genetic disorder June 21, 2025 9:24am History of miscarriage, currently pregna nt June 21, 2025 9:24am Palpitation June 21, 2025 9:24am June 21, 2025 9:24am Previous section June 21, 2025 9:24am Rubella non-immune status, antepartum Se pt2024 9:24am [facility] Varicose veins during Septembe r 2024 9:24am Chief Complaint Admit Date 13wk OB April 05, 2025 2:28 pm 17 wk ob April 25, 2025 8:17a m ANATOMY SCAN May 18, 2025 3:33 pm 21 wk ob May 24, 2025 10: 28am 25 wk ob June 21, 2025 9:24am ONE HOUR DRAW 9:50AM July 10 9:52am 28 wk ob/glucose July 10, 2025 10:00am Reason for Visit Admit Date Anxiety April 05, 2025 2:28 pm Desires (vaginal after troy an) trial April 05, 2025 2:28pm FH: genetic disorder April 05, 2025 2:2 8pm History of miscarriage, currently pregna nt April 05, 2025 2:28pm April 05, 2025 2:28 pm Previous section April 05 2:28pm Rubella non-immune status, antepartum Ju 2024 2:28pm Supervision of high-risk April 05, 2025 2:28pm Varicose veins during March 2:28pm Vaginal bleeding during March 192024 2:28pm Maternal varicella, non-immune March 2:28pm at early stage April 05, 2025 2:28pm Anxiety April 25, 2025 8:17a m Desires (vaginal after troy an) trial April 25, 2025 8:17am FH: genetic disorder April 25, 2025 8:17 am History of miscarriage, currently pregna nt April 25, 2025 8:17am April 25, 2025 8:17a m Previous section April 25, 2025 8:17am Rubella non-immune status, antepartum Ju 2024 8:17am Supervision of high-risk April 25, 2025 8:17am Varicose veins during April 8:17am Anxiety May 24, 2025 10: 28am Desires (vaginal after troy an) trial May 24, 2025 10:28am FH: genetic disorder May 24, 2025 10 :28am History of miscarriage, currently pregna nt May 24, 2025 10:28am Palpitation May 24, 2025 10: 28am May 24, 2025 10: 28am Previous section May 24 10:28am Rubella non-immune status, antepartum Au 2024 10:28am Supervision of high-risk Augus 2024 10:28am Varicose veins during May [id number] 10:28am Anxiety June 21, 2025 9:24am Desires (vaginal after troy an) trial June 21, 2025 9:24am FH: genetic disorder June 21, 2025 9:24am History of miscarriage, currently pregna nt June 21, 2025 9:24am Palpitation June 21, 2025 9:24am June 21, 2025 9:24am Previous section June 21, 2025 9:24am Rubella non-immune status, antepartum Se ptember 2024 9:24am [facility] 9:24am Varicose veins during Septgonzaloe r 2024 9:24am Anxiety July 10, 2025 10:00am Desires (vaginal after troy an) trial July 10, 2025 10:00am FH: genetic disorder July 10 10:00am History of miscarriage, currently pregna nt July 10, 2025 10:00am Palpitation July 10, 2025 10:00am July 10, 2025 10:00am Previous section June 10:00am Rubella non-immune status, antepartum Se ptember 2024 10:00am [facility] 2024 10:00am Varicose veins during Faye r 2024 10:00am Chief Complaint Admit Date 13wk OB April 05, 2025 2:28 pm 17 wk ob April 25, 2025 8:17a m ANATOMY SCAN May 18, 2025 3:33 pm 21 wk ob May 24, 2025 10: 28am 25 wk ob June 21, 2025 9:24am ONE HOUR DRAW 9:50AM July 10 9:52am 28 wk ob/glucose July 10, 2025 10:00am 30 wk ob July 25, 2025 1: 40pm Reason for Visit Admit Date Anxiety April 05, 2025 2:28 pm Desires (vaginal after troy an) trial April 05, 2025 2:28pm FH: genetic disorder April 05, 2025 2:2 8pm History of miscarriage, currently pregna nt April 05, 2025 2:28pm April 05, 2025 2:28 pm Previous section April 05 2:28pm Rubella non-immune status, antepartum Ju 2024 2:28pm Supervision of high-risk April 05, 2025 2:28pm Varicose veins during March 2:28pm Vaginal bleeding during March 192024 2:28pm Maternal varicella, non-immune March 2:28pm at early stage April 05, 2025 2:28pm Anxiety April 25, 2025 8:17a m Desires (vaginal after troy an) trial April 25, 2025 8:17am FH: genetic disorder April 25, 2025 8:17 am History of miscarriage, currently pregna nt April 25, 2025 8:17am April 25, 2025 8:17a m Previous section April 25, 2025 8:17am Rubella non-immune status, antepartum Ju 2024 8:17am Supervision of high-risk April 25, 2025 8:17am Varicose veins during April 8:17am Anxiety May 24, 2025 10: 28am Desires (vaginal after troy an) trial May 24, 2025 10:28am FH: genetic disorder May 24, 2025 10 :28am History of miscarriage, currently pregna nt May 24, 2025 10:28am Palpitation May 24, 2025 10: 28am May 24, 2025 10: 28am Previous section May 24 10:28am Rubella non-immune status, antepartum Au 2024 10:28am Supervision of high-risk Augus 2024 10:28am Varicose veins during May [id number] 10:28am Anxiety June 21, 2025 9:24am Desires (vaginal after troy an) trial June 21, 2025 9:24am FH: genetic disorder June 21, 2025 9:24am History of miscarriage, currently pregna nt June 21, 2025 9:24am Palpitation June 21, 2025 9:24am June 21, 2025 9:24am Previous section June 21, 2025 9:24am Rubella non-immune status, antepartum Se pt2024 9:24am Supervision of high-risk Septe mb2024 9:24am Varicose veins during Septembe r 2024 9:24am Anxiety July 10, 2025 10:00am Desires (vaginal after troy an) trial July 10, 2025 10:00am FH: genetic disorder July 10 10:00am History of miscarriage, currently pregna nt July 10, 2025 10:00am Palpitation July 10, 2025 10:00am July 10, 2025 10:00am Previous section June 10:00am Rubella non-immune status, antepartum Se ptember 2024 10:00am Supervision of high-risk Septe mber 2024 10:00am Varicose veins during Septembe r 2024 10:00am Anxiety July 25, 2025 1: 40pm Desires (vaginal after troy an) trial July 25, 2025 1:40pm FH: genetic disorder July 25, 2025 1 :40pm History of miscarriage, currently pregna nt July 25, 2025 1:40pm Palpitation July 25, 2025 1: 40pm July 25, 2025 1: 40pm Previous section July 25, 1:40pm Rubella non-immune status, antepartum Oc tob2024 1:40pm Supervision of high-risk Octob 2024 1:40pm Varicose veins during July 25, 2025 1:40pm Additional Source Comments INFORMATION SOURCE (unrecogn ized section and content) DATE CREATED AUTHOR 11/11/2024 [facility] DATE CREATED AUTHOR AUTHOR'S DRISS ATION 08/15/2025 [facility] Care Teams (unrecognized sec tion and content) Team Status: Active Member Role Status Dates KRISTIE Lucio NP Primary Care Provider Acti ve Team Status: Inactive Member Role Status Dates KRISTIE Lucio NP Primary Care Provider Acti ve Start: January 30, 2025 End: January 30, 2025 Dr. Sirena Padilla MD Attending Provider Active Start: January 30, 2025 End: January 30, 2025 Dr. Sirena Padilla MD Referring Provider Active Start: January 30, 2025 End: January 30, 2025 Team Status: Inactive Member Role Status Dates KRISTIE Lucio NP Primary Care Provider Acti ve Start: February 01, 2025 End: February 01, 2025 Dr. Sirena Padilla MD Attending Provider Active Start: February 01, 2025 End: February 01, 2025 Dr. Sirena Padilla MD Referring Provider Active Start: February 01, 2025 End: February 01, 2025 Team Status: Inactive Member Role Status Dates Chanda Velasco DANCE PROFESSOR, DANCE PROFESSOR-C Primary Care Provider Acti ve Start: February 07, 2025 End: February 07, 2025 Chanda Velasco DANCE PROFESSOR, DANCE PROFESSOR-C Referring Provider Active Start: February 07, 2025 End: February 07, 2025 Dr. Sirena Padilla MD Attending Provider Active Start: February 07, 2025 End: February 07, 2025 Team Status: Inactive Member Role Status Dates Chanda Velasco DANCE PROFESSOR, DANCE PROFESSOR-C Primary Care Provider Acti ve Start: March 02, 2025 End: March 02, 2025 Chanda Velasco DANCE PROFESSOR, DANCE PROFESSOR-C Referring Provider Active Start: March 02, 2025 End: March 02, 2025 Sophia Cho CNM Attending Provider Active S tart: March 02, 2025 End: March 02, 2025 Team Status: Active Member Role Status Dates Chanda Velasco DANCE PROFESSOR, DANCE PROFESSOR-C Primary Care Provider Acti ve Start: March 02, 2025 Sophia Cho CNM Attending Provider Active S tart: March 02, 2025 Sophia Cho CNM Referring Provider Active S tart: March 02, 2025 Team Status: Inactive Member Role Status Dates Chanda Velasco DANCE PROFESSOR, DANCE PROFESSOR-C Primary Care Provider Acti ve Start: March 02, 2025 End: March 02, 2025 Sophia Cho CNM Attending Provider Active S tart: March 02, 2025 End: March 02, 2025 Sophia Cho CNM Referring Provider Active S tart: March 02, 2025 End: March 02, 2025 Team Status: Inactive Member Role Status Dates Chanda Velasco DANCE PROFESSOR, DANCE PROFESSOR-C Primary Care Provider Acti ve Start: April 05, 2025 End: April 05, 2025 Chanda Velasco DANCE PROFESSOR, DANCE PROFESSOR-C Referring Provider Active Start: April 05, 2025 End: April 05, 2025 Dr. Sirena Padilla MD Attending Provider Active Start: April 05, 2025 End: April 05, 2025 Team Status: Active Member Role/Relationship Status Dates Chanda Velasco DANCE PROFESSOR, DANCE PROFESSOR-C Primary Care Provider Acti ve Team Status: Inactive Member Role/Relationship Status Dates Chanda Velasco DANCE PROFESSOR, DANCE PROFESSOR-C Primary Care Provider Acti ve Start: January 30, 2025 End: January 30, 2025 Dr. Sirena Padilla MD Attending Provider Active Start: January 30, 2025 End: January 30, 2025 Dr. Sirena Padilla MD Referring Provider Active Start: January 30, 2025 End: January 30, 2025 Team Status: Inactive Member Role/Relationship Status Dates Chanda Velasco DANCE PROFESSOR, DANCE PROFESSOR-C Primary Care Provider Acti ve Start: February 01, 2025 End: February 01, 2025 Dr. Sirena Padilla MD Attending Provider Active Start: February 01, 2025 End: February 01, 2025 Dr. Sirena Padilla MD Referring Provider Active Start: February 01, 2025 End: February 01, 2025 Team Status: Inactive Member Role/Relationship Status Dates Chanda Velasco DANCE PROFESSOR, DANCE PROFESSOR-C Primary Care Provider Acti ve Start: February 07, 2025 End: February 07, 2025 Chanda Velasco DANCE PROFESSOR, DANCE PROFESSOR-C Referring Provider Active Start: February 07, 2025 End: February 07, 2025 Dr. Sirena Padilla MD Attending Provider Active Start: February 07, 2025 End: February 07, 2025 Team Status: Inactive Member Role/Relationship Status Dates Chanda Velasco DANCE PROFESSOR, DANCE PROFESSOR-C Primary Care Provider Acti ve Start: March 02, 2025 End: March 02, 2025 Chanda Velasco DANCE PROFESSOR, DANCE PROFESSOR-C Referring Provider Active Start: March 02, 2025 End: March 02, 2025 Sophia Cho CNM Attending Provider Active S tart: March 02, 2025 End: March 02, 2025 Team Status: Inactive Member Role/Relationship Status Dates Chanda Velasco DANCE PROFESSOR, DANCE PROFESSOR-C Primary Care Provider Acti ve Start: March 02, 2025 End: March 02, 2025 Sophia Cho CNM Attending Provider Active S tart: March 02, 2025 End: March 02, 2025 Sophia Cho CNM Referring Provider Active S tart: March 02, 2025 End: March 02, 2025 Team Status: Inactive Member Role/Relationship Status Dates Chanda Velasco DANCE PROFESSOR, DANCE PROFESSOR-C Primary Care Provider Acti ve Start: April 05, 2025 End: April 05, 2025 Chanda Velasco DANCE PROFESSOR, DANCE PROFESSOR-C Referring Provider Active Start: April 05, 2025 End: April 05, 2025 Dr. Sirena Padilla MD Attending Provider Active Start: April 05, 2025 End: April 05, 2025 Team Status: Inactive Member Role/Relationship Status Dates Chanda Velasco DANCE PROFESSOR, DANCE PROFESSOR-C Primary Care Provider Acti ve Start: April 25, 2025 End: April 25, 2025 Chanda Velasco DANCE PROFESSOR, DANCE PROFESSOR-C Referring Provider Active Start: April 25, 2025 End: April 25, 2025 Lora Collins DANCE PROFESSOR, DANCE PROFESSOR-C Attending Provider Active Start: April 25, 2025 End: April 25, 2025 Team Status: Active Member Role/Relationship Status Dates Out [facility] Primary Care Provider Active Team Status: Active Member Role/Relationship Status Dates Dr. Sirena Padilla MD Attending Provider Active Start: May 18, 2025 Dr. Sirena Padilla MD Referring Provider Active Start: May 18, 2025 Out of [facility] Primary Care Provider Active Start: May 18, 2025 Team Status: Inactive Member Role/Relationship Status Dates Chanda Velasco DANCE PROFESSOR, DANCE PROFESSOR-C Referring Provider Active Start: May 24, 2025 End: May 24, 2025 Lora Collins DANCE PROFESSOR, DANCE PROFESSOR-C Attending Provider Active Start: May 24, 2025 End: May 24, 2025 Out of [facility] Primary Care Provider Active Start: May 24, 2025 End: May 24, 2025 Team Status: Inactive Member Role/Relationship Status Dates Dr. Sirena Padilla MD Attending Provider Active Start: May 18, 2025 End: May 18, 2025 Dr. Sirena Padilla MD Referring Provider Active Start: May 18, 2025 End: May 18, 2025 Out [facility] Primary Care Provider Active Start: May 18, 2025 End: May 18, 2025 Team Status: Inactive Member Role/Relationship Status Dates Chanda Velasco DANCE PROFESSOR, DANCE PROFESSOR-C Primary Care Provider Acti ve Start: March 02, 2025 End: March 02, 2025 Chanda Velasco NP, DANCE PROFESSOR-C Referring Provider Active Start: March 02, 2025 End: March 02, 2025 Sophia Cho CNM Attending Provider Active S tart: March 02, 2025 End: March 02, 2025 Team Status: Inactive Member Role/Relationship Status Dates Chanda Velasco NP, DANCE PROFESSOR-C Primary Care Provider Acti ve Start: March 02, 2025 End: March 02, 2025 Sophia Cho CNM Attending Provider Active S tart: March 02, 2025 End: March 02, 2025 Sophia Cho CNM Referring Provider Active S tart: March 02, 2025 End: March 02, 2025 Team Status: Inactive Member Role/Relationship Status Dates Chanda Velasco DANCE PROFESSOR, DANCE PROFESSOR-C Primary Care Provider Acti ve Start: April 05, 2025 End: April 05, 2025 Chanda Velasco DANCE PROFESSOR, DANCE PROFESSOR-C Referring Provider Active Start: April 05, 2025 End: April 05, 2025 Dr. Sirena Padilla MD Attending Provider Active Start: April 05, 2025 End: April 05, 2025 Team Status: Inactive Member Role/Relationship Status Dates Chanda Velasco DANCE PROFESSOR, DANCE PROFESSOR-C Primary Care Provider Acti ve Start: April 25, 2025 End: April 25, 2025 Chanda Velasco DANCE PROFESSOR, DANCE PROFESSOR-C Referring Provider Active Start: April 25, 2025 End: April 25, 2025 Lora Collins DANCE PROFESSOR, DANCE PROFESSOR-C Attending Provider Active Start: April 25, 2025 End: April 25, 2025 Team Status: Inactive Member Role/Relationship Status Dates Dr. Sirena Padilla MD Attending Provider Active Start: May 18, 2025 End: May 18, 2025 Dr. Sirena Padilla MD Referring Provider Active Start: May 18, 2025 End: May 18, 2025 [facility] Primary Care Provider Active Start: May 18, 2025 End: May 18, 2025 Team Status: Inactive Member Role/Relationship Status Dates Chanda Velasco NP, DANCE PROFESSOR-C Referring Provider Active Start: May 24, 2025 End: May 24, 2025 Lora Collins NP, DANCE PROFESSOR-C Attending Provider Active Start: May 24, 2025 End: May 24, 2025 Out of [facility] Doctor Primary Care Provider Active Start: May 24, 2025 End: May 24, 2025 Team Status: Inactive Member Role/Relationship Status Dates Chanda Velasco DANCE PROFESSOR, DANCE PROFESSOR-C Referring Provider Active Start: June 21, 2025 End: June 21, 2025 Dr. Lizbeth Cruz DO Attending Provider Activ e Start: June 21, 2025 End: June 21, 2025 Out of [facility] Doctor Primary Care Provider Active Start: June 21, 2025 End: June 21, 2025 Team Status: Active Member Role/Relationship Status Dates No Primary Care Physician Primary care physician Activ e Team Status: Inactive Member Role/Relationship Status Dates Chanda Velasco DANCE PROFESSOR, DANCE PROFESSOR-C Primary care physician Act jarod Start: April 05, 2025 End: April 05, 2025 Chanda Velasco DANCE PROFESSOR, DANCE PROFESSOR-C Referring Provider Active Start: April 05, 2025 End: April 05, 2025 Dr. Sirena Padilla MD Attending physician Active Start: April 05, 2025 End: April 05, 2025 Team Status: Inactive Member Role/Relationship Status Dates Chanda Velasco DANCE PROFESSOR, DANCE PROFESSOR-C Primary care physician Act jarod Start: April 25, 2025 End: April 25, 2025 Chanda Velasco NP, DANCE PROFESSOR-C Referring Provider Active Start: April 25, 2025 End: April 25, 2025 Lora Collins DANCE PROFESSOR, DANCE PROFESSOR-C Attending physician Active Start: April 25, 2025 End: April 25, 2025 Team Status: Inactive Member Role/Relationship Status Dates Dr. Sirena Padilla MD Attending physician Active Start: May 18, 2025 End: May 18, 2025 Dr. Sirena Padilla MD Referring Provider Active Start: May 18, 2025 End: May 18, 2025 Out [facility] Doctor Primary care physician Active Start: May 18, 2025 End: May 18, 2025 Team Status: Inactive Member Role/Relationship Status Dates Chanda Velasco NP, DANCE PROFESSOR-C Referring Provider Active Start: May 24, 2025 End: May 24, 2025 Lora Collins NP, DANCE PROFESSOR-C Attending physician Active Start: May 24, 2025 End: May 24, 2025 Out of [facility] Doctor Primary care physician Active Start: May 24, 2025 End: May 24, 2025 Team Status: Inactive Member Role/Relationship Status Dates Chanda Velasco NP, DANCE PROFESSOR-C Referring Provider Active Start: June 21, 2025 End: June 21, 2025 Dr. Lizbeth Cruz DO Attending physician Active Start: June End: June 21, 2025 Out of Town Doctor Primary care physician Active Start: June 21, 2025 End: June 21, 2025 Team Status: Active Member Role/Relationship Status Dates No Primary Care Physician Primary care physician Activ e Start: July 10, 2025 Dr. Lizbeth Cruz DO Attending physician Active Start: June Dr. Lizbeth Cruz DO Referring Provider Active Start: June Team Status: Inactive Member Role/Relationship Status Dates Chanda Velasco NP DANCE PROFESSOR-C Referring Provider Active Start: July 10, 2025 End: July 10, 2025 Dr. Sirena Padilla MD Attending physician Active Start: July 10, 2025 End: July 10, 2025 No Primary Care Physician Primary care physician Activ e Start: July 10, 2025 End: July 10, 2025 Team Status: Inactive Member Role/Relationship Status Dates Out of [facility] Doctor Referring Provider Active Sta rt: July 25, 2025 End: July 25, 2025 Lora Collins NP, DANCE PROFESSOR-C Attending physician Active Start: July 25, 2025 End: July 25, 2025 No Primary Care Physician Primary care physician Activ e Start: July 25, 2025 End: July 25, 2025 Goals (unrecognized section and content) Type Care Experience TOLAC previous for b reech- plan on not scheduling anything until end of , consider IOL at 40-41 if favorable. patient counseled regarding risks/benefits of trial of labor versus repeat . ACOG/uptodate education given to patient. 77% likelihood of success per calculatorTOLAC consent form signed: 06/21/25 FOR RECORDS PERTAINING TO PATIENTS WHO ARE OR HAVE BEEN ENROLLED IN A CHEMICAL DEPENDENCY/SUBSTANCEABUSE PROGRAM, SOME INFORMATION MAY BE OMITTED. This clinical summary was aggregated from multiple sources. Caution should be exercised in using it in the provision of clinical care. This summary normalizes information from multiple sources, and as a consequence, information in this document may materially change the coding, format and clinical context of patient data. In addition, data may be omitted in some cases. CLINICAL DECISIONS SHOULD BE BASED ON THE PRIMARY CLINICAL RECORDS. [employer] [facility]. provides no warranty or guarantee of the accuracy or completeness of information in this document.
== END | disposition home or self-care (01) ==
PROVIDERS: Visit Provider Obstetrics & Gynecology
DX: D64.9 Anemia, unspecified (principal)
CPT/HCPCS: 36415; 85027

== ENCOUNTER → 2025-09-15 | Outpatient (CLI) | payer OTHER, SELFPAY ==
--- OUTSIDE RECORDS SUMMARY | 2025-09-15 07:56 | XMS RPT_ITS | CCD ---
Author Organization [facility] Care Team Providers Care Greenhouse Florist Name Role Phone CINTIA REILLY, YOHANA Will Unavailable BERLIN Unavailable Unavailable CINTIA REILLY, IRASEMA Guerrier Unavailable GASTROENTEROLOGY, GENERAL Unavailable Emilee Yang RN, June Unavailable Unavailable ABHIJIT REILLY, SHREYAS Stark Unavailable CHERYL RN, KAYLEIGH Unavailable Unavailable KRISTA ANDRESP-CCHANDA Unavailable [phone] Tanesha HARDWICK MD Unavailable KARTHIK REILLY, YAHAIRA Brunson Unavailable Alex RN, Tamar Unavailable Unavaila arsalan Rdz RN, Kelli Unavailable Unavailable Unavailable Unavailable Ricardo MARTINSN, Snow Unavailable Unavailable KRISTA LEYVA-CCHANDA Unavailable Unav ailable MALCOLM YANG MD Referring Unavailable MALCOLM YANG MD Consulting Unavailable WILFREDO CHAMBERLAIN Attending Unavailable WILFREDO CHAMBERLAIN Primary Care Unavailable WILFREDO CHAMBERLAIN Admitting Unavailable PROVIDER, UNKNOWN Consulting Unavailable PROVIDER, UNKNOWN Consulting Unavailable SONA LEYVA-CYULIYA Unavailable [phone] Chanda Addison Primary Care Provider Dr. Sirena Padilla MD Attending Provider Dr. Sirena Padilla MD Referring Provider [phone] Chanda Addison Referring Provider Sophia Cho CNM Attending Provider Sophia Cho CNM Referring Provider [phone] Lora Lopez Attending Provider [phone] [facility], Out of Primary Care Provider Unavai lable Krista ADVISORY SOFTWARE ENGINEER-C, Chanda Primary Care Provider Krista ADVISORY SOFTWARE ENGINEER-C, Chanda Referring Provider Valerie REILLY, Dr. Pack Attending Provider Dr. Sirena Padilla MD Referring Provider Dr. Lizbeth Cruz DO Attending Provider Krista ADVISORY SOFTWARE ENGINEER-C, Chanda Primary Care Physician Krista ADVISORY SOFTWARE ENGINEER-C, Chanda Referring Provider Valerie REILLY, Dr. Pack Attending Physician Dennis ADVISORY SOFTWARE ENGINEER-C, Lora Attending Physician [phone] [facility] Doctor, Out of Primary Care Physician Unava ilable Dr. Lizbeth Cruz DO Attending Physician Care Physician, No Primary Primary Care Physicia n Unavailable Dr. Lizbeth Cruz DO Referring Provider [facility] Doctor, Out of Referring Provider Unavailab le Care Physician, No Primary Primary Care Unava ilable Dennis ADVISORY SOFTWARE ENGINEER, Lora Attending Unavailable [facility] Doctor, Out of Referring Unavailable Care Physician, No Primary Primary Care Unava ilable Krista ADVISORY SOFTWARE ENGINEER, Chanda Referring Unavailab le Sirena Padilla Attending Unavailable Krista ADVISORY SOFTWARE ENGINEER, Chanda Referring Unavailab le [facility] Doctor, Out of Primary Care Unavailable Lizbeth Cruz Attending Unavailabl e MarcanthSirena sanchez Referring Unavailable [facility] Doctor, Out of Primary Care Unavailable Sirena Padilla Attending Unavailable Lizbeth Cruz Attending Unavailabl e Care Physician, No Primary Primary Care Unava ilable Lizbeth Cruz Referring Unavailabl e Javier ADVISORY SOFTWARE ENGINEER, [place] Primary Care Unavailab Sophia Dhillon Referring Unavailable Sophia Cho Attending Unavailable Krista ADVISORY SOFTWARE ENGINEER, [place] Primary Care Unavailab le MarcanthonySirena Referring Unavailable MarcanthSirena sanchez Attending Unavailable Losttsylvester ADVISORY SOFTWARE ENGINEER, [place] Primary Care Unavailab le Marcanthony, Sirena Referring Unavailable MarcanthonySirena Attending Unavailable Krista ADVISORY SOFTWARE ENGINEER, Chanda Referring Unavailab vitor Collins ADVISORY SOFTWARE ENGINEER, Lora Attending Unavailable [facility] Doctor, Out of Primary Care Unavailable Krista ADVISORY SOFTWARE ENGINEER, Chanda Primary Care Unavailab le Krista ADVISORY SOFTWARE ENGINEER, Chanda Referring Unavailab vitor Collins ADVISORY SOFTWARE ENGINEER, Lora Attending Unavailable Krista ADVISORY SOFTWARE ENGINEER, Chanda Primary Care Unavailab le Krista ADVISORY SOFTWARE ENGINEER, Chanda Referring Unavailab Sirena Landin Attending Unavailable Krista ADVISORY SOFTWARE ENGINEER, Chanda Primary Care Unavailab le Krista ADVISORY SOFTWARE ENGINEER, Chanda Referring Unavailab Sophia Dhillon Attending Unavailable Krista ADVISORY SOFTWARE ENGINEER, Chanda Primary Care Unavailab le Krista ADVISORY SOFTWARE ENGINEER, Chanda Referring Unavailab Sirena Landin Attending Unavailable Care Physician, No Primary Primary Care Unava ilable [facility] Doctor, Out of Referring Unavailable Sophia Cho Attending Unavailable Allergies Allergy Classification Reported Allergen(s) Allergy Type Date of Onset Reaction(s) Facility (1 source) Lactose; Translations: [LACTOSE] Drug Allergy [facility] Repository Medications Current Medications Medication Drug Class(es) Dates Sig (Normalized) Sig (Original) Fish,Bora,Flax Oils-Om3,6,9no1 ([place] 3-6-9) 1,200 mg capsule (9 sources) Start: 02-16-2025 take 1 capsule by mouth once daily Fish,Bora,Flax Oils-Om3,6,9no1 ([place] 3-6-9) 1,200 mg capsule Active 0 PO DAILY February 16, 2025 12:00am 1 orally daily; Complies with drug therapy Start: 02-16-2025 take 1 capsule by mo [facility] once daily Fish,Bora,Flax Oils-Om3,6,9no1 ([place] 3-6-9) 1,200 mg capsule Active 0 PO [...] PO daily February 16, 2025 12:00am Mv-Mins 25-Pxur-Eaujs No.1-D christiansen (Pnv-[place]) 28-1-300 mg capsule (9 sources) Start: 02-16-2025 Mv-Mins 71-Iro n-Folic No.1-Dha (Pnv-[place]) 28-1-300 mg capsule Active NMA PO February 16, 2025 12:00am Complies with drug therapy Start: 02-16-2025 Mv-Mins 71-Iro n-Folic No.1-Dha ([place]) 28-1-300 mg capsule Active NMA PO February [...] Inactive Comments: Flo Strong Comment on above: Flo Strong Problems Active Problems Problem Classification Problem [...] Test Name Value Interpretation Reference Range Facility [employer] Office Visit Reporton 08-14-2025 [employer]dn[employer] Art[employer]er [employer]per Office Visit Report [facility] [address], [address] [place] [address] OFFICE VISIT Date of Service: 08/14/25 MR#: [id number] Acct: [id number] Name: GAURAV FORTE Rep #: [id number] : 2000 Provider: NOELLE Fan ams Age/Sex: 25/F [place] [facility] [place]: Signed Intake Vital Signs 06/21/25 09:27 07/25/25 13:42 08/14/25 09:37 Height 5 ft 6 in 5 ft 6 in 5 ft 6 in Weight: 154 lb 9 oz BMI 24.9 BP 137/80 H Intake Visit Reasons: 33 wk ob *pt on vacation* Chief Complaint: 33wk OB Tour Guide Required: No Is patient in pain?: No Allergies No Known Allergies Allergy (Verified 08/14/25 09:36) Medications ???Medication ???Instructions ???Recorded ???Confirmed ???Type sertraline 25 mg tablet 25 mg PO DAILY 03/10/24 08/14/25 H istory fish, borage, flaxseed oils-omega See Rx Instructions PO DAILY 11/1208/14/25 History 3,6,9 comb no.1 1,200 mg capsule ([place] 3-6-9) magnesium 250 mg tablet 250 mg PO QDAY 02/16/25 08/14/25 H istory multivit-min no.71-iron fum 28 cap PO 02/16/25 08/14/25 History mg-folate no.1 1 mg-dha 300 mg capsule (PNV-[place]) Last Menstrual Period: 12/29/24 PFSH PFSH Surgical History Previous section Family History Aunt Cancer, Onset Age: 25 Paternal Brain tumor Social History adopted: No household members: spouse and children housing: house number of children: 1 current occupational status: unemployed current occupation: [employer] current occupational exposures/hazards: No pets and [...] physical activity do you participate in: none cindy/mormon: Episcopalian seatbelt use: always do you feel safe at home: Yes additional social history: - [employer] work History 3 Elective abortions Hx Para [...] -???-???-???-???-???- ???-???-???-???-?? (more content not included)... Normal [facility] [employer]per Office Visit Reporton 07-25-2025 Ordnance Artificer Helper Office Visit Report [facility]'s [address], [address] [place] [address] OFFICE VISIT Date of Service: 07/25/25 MR#: [id number] Acct: [id number] Name: GAURAV FORTE Rep #: [id number] : 2000 Provider: KRISTIE parnell Age/Sex: 24/F Location[place] [facility] [place] Status: Signed Intake Vital Signs 06/21/25 09:27 07/10/25 10:06 07/25/25 13:42 Height 5 ft 6 in 5 ft 6 in 5 ft 6 in Weight: 153 lb 7 oz BMI 24.7 BP 113/72 Intake Visit Reasons: 30 wk ob Chief Complaint: 30 Week OB Tour Guide Required: No Is patient in pain?: No Allergies No Known Allergies Allergy (Verified 07/25/25 13:42) Medications ???Medication ???Instructions ???Recorded ???Confirmed ???Type sertraline 25 mg tablet 25 mg PO DAILY 03/10/24 07/25/25 H istory fish, borage, flaxseed oils-omega See Rx Instructions PO DAILY 11/1207/25/25 History 3,6,9 comb no.1 1,200 mg capsule ([place] 3-6-9) magnesium 250 mg tablet 250 mg PO QDAY 02/16/25 07/25/25 H istory multivit-min no.71-iron fum 28 cap PO 02/16/25 07/25/25 History mg-folate no.1 1 mg-dha 300 mg capsule (PNV-[place]) Last Menstrual Period: 12/29/24 Zika: Zika virus screening: Negative : Yes PFSH PFSH Surgical History Previous section Family History Aunt Cancer, Onset Age: 25 Paternal Brain tumor Social History adopted: No household members: spouse and children housing: house number of children: 1 current occupational status: unemployed current occupation: [employer] current occupational exposures/hazards: No pets and [...] physical activity do you participate in: none cindy/mormon: Episcopalian seatbelt use: always do you feel safe at home: Yes additional social history: - [employer] work History 3 Elective abortions Hx Para [...] cr maping (more content not included)... Normal [facility] Absolute lymphocyte countOrd ered By: Lizbeth Chrissy on 07-10-2025 Lymphocytes Auto (Unsp spec) [#/Vol] 1.51 10*3/uL 0.83-4.51 [facility] Absolute neutrophil countOrd ered By: Lizbeth Chrissy on 07-10-2025 Neutrophils (Bld) [#/Vol] 6.4 10*3/uL 2.0-7.7 [facility] Automated lymphocyte count a s percentage of total leukocytesOrdered By: Lizbeth Chrissy on 07-10-2025 Lymphocytes/100 WBC Auto (Unsp spec) 17.2 % Low 19-41 [facility] Basophil percentageOrdered B y: Lizbeth Chrissy on 07-10-2025 Basophils/100 WBC (Bld) 0.3 % 0-1 [facility] CBC W/Diff, Automatedon 09-2 2-2024 Absolute Lymph 1.51 X10 3/uL Normal 0.83-4.51 [facility] Comment on above: Performed By: #### L 100.0100, L501.0250, L509.8002, L3890.6006 #### [facility] [address] [place], [address] Absolute Neut 6.4 X10 3/uL Normal 2.0-7.7 [facility] Comment on above: Performed By: #### L 100.0100, L501.0250, L509.8002, L3890.6006 #### [facility] [address] [place], [address] Basophils/100 WBC (Bld) 0.3 % Normal 0-1 [facility] Comment on above: Performed By: #### L 100.0100, L501.0250, L509.8002, L3890.6006 #### [facility] [address] [place], [address] Eosinophils/100 WBC (Bld) 1.4 % Normal 0-5 [facility] Comment on above: Performed By: #### L 100.0100, L501.0250, L509.8002, L3890.6006 #### [facility] [address] [place], [address] Erythrocyte distribution width (RBC) [Ratio] 12.9 % Normal 11.6-14.6 [facility] Comment on above: Performed By: #### L 100.0100, L501.0250, L509.8002, L3890.6006 #### [facility] [address] [place], [address] Hematocrit (Bld) [Volume fraction] 32.5 % Low 37-47 [facility] Comment on above: Performed By: #### L 100.0100, L501.0250, L509.8002, L3890.6006 #### [facility] [address] [place], [address] Hemoglobin (Bld) [Mass/Vol] 10.9 g/dL Low 12.0-15.0 [facility] Comment on above: Performed By: #### L 100.0100, L501.0250, L509.8002, L3890.6006 #### [facility] [address] [place], [address] IG% 1.300 High 0.0-0.9 [facility] Comment on above: Result Comment: IG% - Immature Granulocytes (promyelocytes, myelocytes and metamyelocytes) > 1% indicates that a LEFT SHIFT is Present. Performed By: #### L 100.0100, L501.0250, L509.8002, L3890.6006 #### [facility] [address] [place], [address] Lymphocytes/100 WBC (Bld) 17.2 % Low 19-41 [facility] Comment on above: Performed By: #### L 100.0100, L501.0250, L509.8002, L3890.6006 #### [facility] [address] [place], [address] MCH (RBC) [Entitic mass] 31.1 pg Normal 27.0-32.0 [facility] Comment on above: Performed By: #### L 100.0100, L501.0250, L509.8002, L3890.6006 #### [facility] [address] [place], [address] MCHC (RBC) [Mass/Vol] 33.5 g/dL Normal 32-36 [facility] Comment on above: Performed By: #### L 100.0100, L501.0250, L509.8002, L3890.6006 #### [facility] [address] [place], [address] MCV (RBC) [Entitic vol] 92.6 fL Normal 81-99 [facility] Comment on above: Performed By: #### L 100.0100, L501.0250, L509.8002, L3890.6006 #### [facility] [address] [place], [address] Monocytes/100 WBC (Bld) 7.2 % Normal 0-10 [facility] Comment on above: Performed By: #### L 100.0100, L501.0250, L509.8002, L3890.6006 #### [facility] [address] [place], [address] Neutrophils/100 WBC (Bld) 72.6 % High 47-70 [facility] Comment on above: Performed By: #### L 100.0100, L501.0250, L509.8002, L3890.6006 #### [facility] [address] [place], [address] Nucleated RBC (Bld) [#/Vol] 0 10*3/uL Normal 0-5 [facility] Comment on above: Performed By: #### L 100.0100, L501.0250, L509.8002, L3890.6006 #### [facility] [address] [place], [address] Platelet mean volume (Bld) [Entitic vol] 9.4 fL Normal 6.2-12.0 [facility] Comment on above: Performed By: #### L 100.0100, L501.0250, L509.8002, L3890.6006 #### [facility] [address] [place], [address] Platelets (Bld) [#/Vol] 168 10*3/uL Normal 150-450 [facility] Comment on above: Performed By: #### L 100.0100, L501.0250, L509.8002, L3890.6006 #### [facility] [address] [place], [address] RBC (Bld) [#/Vol] 3.51 10*6/uL Low 4.2-5.4 [facility] Comment on above: Performed By: #### L 100.0100, L501.0250, L509.8002, L3890.6006 #### [facility] [address] [place], [address] RDW SD 43.5 fl Normal 35.1-43.9 [facility] Comment on above: Performed By: #### L 100.0100, L501.0250, L509.8002, L3890.6006 #### [facility] [address] [place], [address] WBC (Bld) [#/Vol] 8.8 10*3/uL Normal 4.4-11.0 [facility] Comment on above: Performed By: #### L 100.0100, L501.0250, L509.8002, L3890.6006 #### [facility] [address] [place], [address] Eosinophil percentageOrdered By: Lizbeth Lowe on 07-10-2025 Eosinophils/100 WBC (Bld) 1.4 % 0-5 [facility] Erythrocyte distribution wid th ratioOrdered By: Lizbeth Lowe on 07-10-2025 Erythrocyte distribution width (RBC) [Ratio] 12.9 % 11.6-14.6 [facility] Erythrocyte distribution wid th standard deviationOrdered By: Lizbeth Lowe on 07-10-2025 Erythrocyte distribution width (RBC) [Ratio] 43.5 fl 35.1-43.9 [facility] Glucose Challenge Gest 1H 50 samuel 07-10-2025 GLU GEST 50g 1H 68 mg/dL Low 70-140 [facility] Comment on above: Order Comment: PT WA S LATE FOR THEIR 1 HR GLUCOSE DRAW. PT DIDNT CHECK IN UNTIL 954 Performed By: #### L 100.0100, L501.0250, L509.8002, L3890.6006 #### [facility] [address] [place], [address] Glucose measurement at 2 peng rs post-dose gestational glucose tolerance testOrdered By: Lizbeth Lowe on 07-10-2025 Glucose [Mass/Vol] 68 mg/dL Low 70-140 [facility] HIVon 07-10-2025 HIV Non-Reactive Normal Nonreactive [facility] Comment on above: Order Comment: PT [...] Order the HIV antibody detection and differentiation: lc#[id number] Performed By: #### L 100.0100, L501.0250, L509.8002, L3890.6006 #### [facility] [address] [place], [place], [address] Hematocrit Auto (Bld) [Volum e fraction]Ordered By: Lizbeth Lowe on 07-10-2025 Hematocrit (Bld) [Volume fraction] 32.5 % Low 37-47 [facility] Hemoglobin measurementOrdere d By: Lizbeth Lowe on 07-10-2025 Hemoglobin (Bld) [Mass/Vol] 10.9 g/dL Low 12.0-15.0 [facility] Immature granulocytes/100 WB C Auto (Bld)Ordered By: Lizbeth Lowe on 07-10-2025 Immature granulocytes/100 WBC (Bld) 1.300 % High 0.0-0.9 [facility] Comment on above: IG% - Immature Granu locytes (promyelocytes, myelocytes and metamyelocytes) > 1% indicates that a LEFT SHIFT is Present. Laboratory - Chemistry and C hemistry - challengeOrdered By: Sirena Padilla on 07-10-2025 Glucose Ql (U) Negative [facility] - UrinalysisOrder ed By: Sirena Padilla on 07-10-2025 Protein Ql (U) Negative [facility] MCV (mean corpuscular volume ) determinationOrdered By: Lizbeth Lowe on 07-10-2025 MCV (RBC) [Entitic vol] 92.6 fL 81-99 [facility] Mean corpuscular hemoglobin (MCH) determinationOrdered By: Lizbeth Lowe on 07-10-2025 MCH (RBC) [Entitic mass] 31.1 pg 27.0-32.0 [facility] Mean corpuscular hemoglobin concentration (MCHC) determinationOrdered By: Lizbeth Lowe on 07-10-2025 MCHC (RBC) [Mass/Vol] 33.5 g/dL 32-36 [facility] Mean platelet volume determi nationOrdered By: Lizbeth Lowe on 07-10-2025 Platelet mean volume (Bld) [Entitic vol] 9.4 fL 6.2-12.0 [facility] Monocyte percentageOrdered B y: Lizbeth Lowe on 07-10-2025 Monocytes/100 WBC (Bld) 7.2 % 0-10 [facility] Neutrophil percentageOrdered By: Lizbeth Lowe on 07-10-2025 Neutrophils/100 WBC (Bld) 72.6 % High 47-70 [facility] No Panel InformationOrdered By: Lizbeth Lowe on 07-10-2025 HIV (1&2) Antibody Non-Reactive Nonreactive [facility] Comment on above: Non-ReactiveReactive Repeatedly reactive samples must be confirmed according to CDC recommended confirmatory algorithms. The subresults for either HIVAG or AHIV can be used as an aid in the selection of the confirmation algorithm for reactive samples.Send out specimens with Reactive results to [facility] for confirmation.Order the HIV antibody detection and differentiation: #[id number] Nucleated red blood cell per centageOrdered By: Lizbeth Lowe on 07-10-2025 Nucleated RBC/100 WBC (Bld) [Ratio] 0 % 0-5 [facility] [employer] Office Visit Reporton 07-10-2025 Ordnance Artificer Helper Office Visit Report [facility] Care [address] [place] [address], [address] [place] [address] OFFICE VISIT Date of Service: 07/10/25 MR#: [id number] Acct: [id number] Name: GAURAV FORTE Rep #: [id number] : 2000 Provider: Dr. Sirena jimenes MD Age/Sex: 24/F Location[place] [facility] [place] Status: Signed Intake Vital Signs 04/25/25 08:20 06/21/25 09:27 07/10/25 10:06 Height 5 ft 6 in 5 ft 6 in 5 ft 6 in Weight: 149 lb 7 oz BMI 24.1 BP 112/75 Intake Visit Reasons: 28 wk ob/glucose Tour Guide Required: No Is patient in pain?: No Allergies No Known Allergies Allergy (Verified 07/10/25 10:07) Medications ???Medication ???Instructions ???Recorded ???Confirmed ???Type sertraline 25 mg tablet 25 mg PO DAILY 03/10/24 07/10/25 H istory fish, borage, flaxseed oils-omega See Rx Instructions PO DAILY 11/1207/10/25 History 3,6,9 comb no.1 1,200 mg capsule ([place] 3-6-9) magnesium 250 mg tablet 250 mg PO QDAY 02/16/25 07/10/25 H istory multivit-min no.71-iron fum 28 cap PO 02/16/25 07/10/25 History mg-folate no.1 1 mg-dha 300 mg capsule (PNV-[place]) Last Menstrual Period: 12/29/24 Zika: Zika virus [...] physical activity do you participate in: none cindy/mormon: Episcopalian seatbelt use: always do you feel safe at home: Yes additional social history: - [employer] work History 3 Elective abortions Hx Para [...] -???-???-???-???-???- ?? (more content not included)... Normal [facility] Platelet countOrdered By: Austin Lowe on 07-10-2025 Platelets (Bld) [#/Vol] 168 10*3/uL 150-450 [facility] RBC Auto (Bld) [#/Vol]Ordere d By: Lizbeth Lowe on 07-10-2025 RBC (Bld) [#/Vol] 3.51 10*6/uL Low 4.2-5.4 [facility] Syphilis Antibodieson 2024 Syphilis Abs Non-Reactive Normal Nonreactive [facility] Comment on above: Order Comment: PT WA S LATE FOR THEIR 1 HR GLUCOSE DRAW. PT DIDNT CHECK IN UNTIL 954 Performed By: #### L 100.0100, L501.0250, L509.8002, L3890.6006 #### [facility] [address] [facility] [place], [address] White blood cell (WBC) count Ordered By: Lizbeth Lowe on 07-10-2025 WBC (Bld) [#/Vol] 8.8 10*3/uL 4.4-11.0 [facility] Laboratory - Chemistry and C hemistry - challengeOrdered By: Lizbeth Lowe on 06-21-2025 Glucose Ql (U) Negative [facility] - UrinalysisOrder ed By: Lizbeth Lowe on 06-21-2025 Protein Ql (U) Negative [facility] [employer] Office Visit Reporton 06-21-2025 Ordnance Artificer Helper Office Visit Report [facility], [address] [place] [address] OFFICE VISIT Date of Service: 06/21/25 MR#: [id number] Acct: [id number] Name: GAURAV FORTE Rep #: [id number] : 2000 Provider: Dr. Lizbeth Rangel DO Age/Sex: 24/F Location[place] [facility] [place] Status: Signed Intake Vital Signs 04/25/25 08:20 05/24/25 10:33 06/21/25 09:25 06/21/25 09:27 Height 5 ft 6 in 5 ft 6 in 5 ft 6 in 5 ft 6 in Weight: 145 lb 2 oz BMI 23.4 BP 111/76 Intake Visit Reasons: 25 wk ob Tour Guide Required: No Is patient in pain?: No Allergies No Known Allergies Allergy (Verified 06/21/25 09:25) Medications ???Medication ???Instructions ???Recorded ???Confirmed ???Type sertraline 25 mg tablet 25 mg PO DAILY 03/10/24 06/21/25 H istory fish, borage, flaxseed oils-omega See Rx Instructions PO DAILY 11/1206/21/25 History 3,6,9 comb no.1 1,200 mg capsule ([place] 3-6-9) magnesium 250 mg tablet 250 mg PO QDAY 02/16/25 06/21/25 H istory multivit-min no.71-iron fum 28 cap PO 02/16/25 06/21/25 History mg-folate no.1 1 mg-dha 300 mg capsule (PNV-[place]) Last Menstrual Period: 12/29/24 Zika: Zika virus screening: Negative : No PFSH PFSH Surgical History Previous section Family History Aunt Cancer, Onset Age: 25 Paternal Brain tumor Social History adopted: No household members: spouse and children housing: house number of children: 1 current occupational status: unemployed current occupation: [employer] current occupational exposures/hazards: No pets and [...] physical activity do you participate in: none cindy/mormon: Episcopalian seatbelt use: always do you feel safe at home: Yes additional social history: - [employer] work History 3 Elective abortions Hx Para [...] 120/76 Negati (more content not included)... Normal [facility] - Chemistry and C hemistry - challengeOrdered By: Lora Collins on 05-24-2025 Glucose Ql (U) Negative [facility] - UrinalysisOrder ed By: Lora Collins on 05-24-2025 Protein Ql (U) Negative [facility] [employer] Office Visit Reporton 05-24-2025 Ordnance Artificer Helper Office Visit Report [facility]'s [address], [address] [place] [address] OFFICE VISIT Date of Service: 05/24/25 MR#: [id number] Acct: [id number] Name: GAURAV FORTE Rep #: [id number] : 2000 Provider: KRISTIE parnell Age/Sex: 24/F Location: [facility] [place] Status: Signed Intake Vital Signs 04/25/25 08:20 05/24/25 10:33 Height 5 ft 6 in 5 ft 6 in Weight: 139 lb 3 oz BMI 22.4 BP 106/68 Intake Visit Reasons: 21 wk ob Chief Complaint: 21 Week OB Tour Guide Required: No Is patient in pain?: No Allergies No Known Allergies Allergy (Unverified 05/24/25 10:34) Medications ???Medication ???Instructions ???Recorded ???Confirmed ???Type sertraline 25 mg tablet 25 mg PO DAILY 03/10/24 05/24/25 H istory fish, borage, flaxseed oils-omega See Rx Instructions PO DAILY 11/1205/24/25 History 3,6,9 comb no.1 1,200 mg capsule ([place] 3-6-9) magnesium 250 mg tablet 250 mg PO QDAY 02/16/25 05/24/25 H istory multivit-min no.71-iron fum 28 cap PO 02/16/25 05/24/25 History mg-folate no.1 1 mg-dha 300 mg capsule ([place]) Last Menstrual Period: 12/29/24 Zika: Zika virus screening: Negative : No PFSH PFSH Surgical History Previous section Family History Aunt Cancer, Onset Age: 25 Paternal Brain tumor Social History adopted: No household members: spouse and children housing: house number of children: 1 current occupational status: unemployed current occupation: [employer] current occupational exposures/hazards: No pets and [...] physical activity do you participate in: none cindy/mormon: Episcopalian seatbelt use: always do you feel safe at home: Yes additional social history: - [employer] work History 3 Elective abortions Hx Para [...] -???-???-???-???-???- ???-? (more content not included)... Normal [facility] OB Anatomy w/ Transvaginalon 05-18-2025 OB Anatomy w/ Transvaginal [facility] Imaging Services [address] [place], [place] [address] OB Anatomy w/ Transvaginal MR#: [id number] Acct: [id number] Name: GAURAV FORTE Rep #: [id number] : 2000 F 24 From: Antonio heaton MD PCP: OUT OF [facility] DOCTOR Status: [facility] Study: OB Anatomy w/ Transvaginal Date of Exam: 05/18 Exam# [id number] Ordering Dr: Sirena Padilla PROCEDURE: OB ANATOMY [...] 20 weeks and 0 days. Reading Location: [facility] CC: Dr. 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 Normal [facility] - Chemistry and C hemistry - challengeOrdered By: Lora Collins on 04-25-2025 Glucose Ql (U) Negative [facility] - UrinalysisOrder ed By: Lora Collins on 04-25-2025 Protein Ql (U) Negative [facility] [employer] Office Visit Reporton 04-25-2025 [employer] Office Visit Report [facility]'s [address], [address] [place] [address] OFFICE VISIT Date of Service: 04/25/25 MR#: [id number] Acct: [id number] Name: GAURAV FORTE Rep #: [id number] : 2000 Provider: KRISTIE parnell Age/Sex: 24/F [place] [facility] [place]: Signed Intake Vital Signs 03/02/25 09:11 04/05/25 14:41 04/25/25 08:20 Height 5 ft 6 in 5 ft 6 in 5 ft 6 in Weight: 136 lb 4 oz BMI 21.9 BP 120/76 Intake Visit Reasons: 17 wk ob Chief Complaint: 17 Week OB Tour Guide Required: No Is patient in pain?: No Allergies No Known Allergies Allergy (Unverified 04/25/25 08:20) Medications ???Medication ???Instructions ???Recorded ???Confirmed ???Type sertraline 25 mg tablet 25 mg PO DAILY 03/10/24 04/25/25 H istory fish, borage, flaxseed oils-omega See Rx Instructions PO DAILY 11/1204/25/25 History 3,6,9 comb no.1 1,200 mg capsule ([place] 3-6-9) magnesium 250 mg tablet 250 mg PO QDAY 02/16/25 04/25/25 H istory multivit-min no.71-iron fum 28 cap PO 02/16/25 04/25/25 History mg-folate no.1 1 mg-dha 300 mg capsule ([place]) Last Menstrual Period: 12/29/24 Zika: Zika virus screening: Negative : No PFSH PFSH Medical History Women's annual routine gynecological examination Surgical History Previous section Family History Aunt Cancer, Onset Age: 25 Paternal Brain tumor Social History adopted: No household members: spouse and children housing: house number of children: 1 current occupational status: unemployed current occupation: [employer] current occupational exposures/hazards: No pets and [...] physical activity do you participate in: none cindy/mormon: Episcopalian seatbelt use: always do you feel safe at home: Yes additional social history: - [employer] work History 3 Elective abortions Hx Para [...] cr map (more content not included)... Normal [facility] - Chemistry and C hemistry - challengeOrdered By: Sirena Padilla on 04-05-2025 Glucose Ql (U) Negative [facility] - UrinalysisOrder ed By: Sirena Padilla on 04-05-2025 Protein Ql (U) Negative [facility] [employer] Office Visit Reporton 04-05-2025 Ordnance Artificer Helper Office Visit Report [facility]'[address], [address] [place] [address] OFFICE VISIT Date of Service: 04/05/25 MR#: [id number] Acct: [id number] Name: GAURAV FORTE Rep #: [id number] : 2000 Provider: Dr. Sirena jimenes MD Age/Sex: 24/F Location[place] [facility] [place] Status: Signed Intake Vital Signs 02/07/25 16:03 03/02/25 09:11 04/05/25 14:41 Height 5 ft 6 in 5 ft 6 in 5 ft 6 in Weight: 134 lb 6 oz BMI 21.7 BP 116/76 Intake Visit Reasons: 13wk OB Tour Guide Required: No Is patient in pain?: No Allergies No Known Allergies Allergy (Unverified 04/05/25 14:48) Medications ???Medication ???Instructions ???Recorded ???Confirmed ???Type sertraline 25 mg tablet 25 mg PO DAILY 03/10/24 04/05/25 H istory fish, borage, flaxseed oils-omega See Rx Instructions PO DAILY 11/1204/05/25 History 3,6,9 comb no.1 1,200 mg capsule ([place] 3-6-9) magnesium 250 mg tablet 250 mg PO QDAY 02/16/25 04/05/25 H istory multivit-min no.71-iron fum 28 cap PO 02/16/25 04/05/25 History mg-folate no.1 1 mg-dha 300 mg capsule ([facility]) Last Menstrual Period: 12/29/24 Zika: Zika virus screening: Negative : No PFSH PFSH Medical History Women's annual routine gynecological examination Surgical History Previous section Family History Aunt Cancer, Onset Age: 25 Paternal Brain tumor Social History adopted: No household members: spouse and children housing: house number of children: 1 current occupational status: unemployed current occupation: [employer] current occupational exposures/hazards: No pets and [...] physical activity do you participate in: none cindy/mormon: Episcopalian seatbelt use: always do you feel safe at home: Yes additional social history: - [employer] work History 3 Elective abortions Hx Para [...] First Trimester (more content not included)... Normal [facility] Chlamydia/GC JERRY aptimaon CHLAMY,NUC ACID Negative Normal Negative [facility] Comment on above: Performed By: #### L 7000.1800, M100.2200 #### [facility] [address] [place], [address] GC BY NUC ACID Negative Normal Negative [facility] Comment on above: Result Comment: Perf ormed at: =G - [facility] [address] [place] [id number] Teacher Public Health: Jennifer Mendez MD, Phone: [phone] Performed By: #### L 7000.1800, M100.2200 #### [facility] [address] [place], [place], [id number] Urine Cultureon 03-03-2025 URC #1, 2 Below infectio n level. 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 Submit a new specimen if indicated. Normal [facility] Comment on above: Performed By: #### L 7000.1800, M100.2200 #### [facility] [address] [place], [place], [id number] Absolute lymphocyte countOrd ered By: Sophia Cho on 03-02-2025 Lymphocytes Auto (Unsp spec) [#/Vol] 1.59 10*3/uL 0.83-4.51 [facility] Absolute neutrophil countOrd ered By: Sophia Cho on 03-02-2025 Neutrophils (Bld) [#/Vol] 4.0 10*3/uL 2.0-7.7 [facility] Automated lymphocyte count a s percentage of total leukocytesOrdered By: Sophia Cho on 03-02-2025 Lymphocytes/100 WBC Auto (Unsp spec) 25.6 % 19-41 [facility] Basophil percentageOrdered B y: Sophia Cho on 03-02-2025 Basophils/100 WBC (Bld) 0.6 % 0-1 [facility] CBC W/Diff, Automatedon 02-16 Absolute Lymph 1.59 X10 3/uL Normal 0.83-4.51 [facility] Comment on above: Performed By: #### L 509.8002, L3890.6006, L3890.6102, L3890.6301, BTS, L100.0100, L501.9520, L506.0400, L509.4006 #### [facility] [address] [place], [address] Absolute Neut 4.0 X10 3/uL Normal 2.0-7.7 [facility] Comment on above: Performed By: #### L 509.8002, L3890.6006, L3890.6102, L3890.6301, BTS, L100.0100, L501.9520, L506.0400, L509.4006 #### [facility] [address] [place], [address] Basophils/100 WBC (Bld) 0.6 % Normal 0-1 [facility] Comment on above: Performed By: #### L 509.8002, L3890.6006, L3890.6102, L3890.6301, BTS, L100.0100, L501.9520, L506.0400, L509.4006 #### [facility] [address] [place], [address] Eosinophils/100 WBC (Bld) 1.9 % Normal 0-5 [facility] Comment on above: Performed By: #### L 509.8002, L3890.6006, L3890.6102, L3890.6301, BTS, L100.0100, L501.9520, L506.0400, L509.4006 #### [facility] [address] [place], [address] Erythrocyte distribution width (RBC) [Ratio] 13.2 % Normal 11.6-14.6 [facility] Comment on above: Performed By: #### L 509.8002, L3890.6006, L3890.6102, L3890.6301, BTS, L100.0100, L501.9520, L506.0400, L509.4006 #### [facility] [address] [place], [address] Hematocrit (Bld) [Volume fraction] 36.2 % Low 37-47 [facility] Comment on above: Performed By: #### L 509.8002, L3890.6006, L3890.6102, L3890.6301, BTS, L100.0100, L501.9520, L506.0400, L509.4006 #### [facility] [address] [place], [address] Hemoglobin (Bld) [Mass/Vol] 12.0 g/dL Normal 12.0-15.0 [facility] Comment on above: Performed By: #### L 509.8002, L3890.6006, L3890.6102, L3890.6301, BTS, L100.0100, L501.9520, L506.0400, L509.4006 #### [facility] [address] [place], [address] (504) IG% 0.500 Normal 0.0-0.9 [facility] Comment on above: Result Comment: IG% - Immature Granulocytes (promyelocytes, myelocytes and metamyelocytes) > 1% indicates that a LEFT SHIFT is Present. Performed By: #### L 509.8002, L3890.6006, L3890.6102, L3890.6301, BTS, L100.0100, L501.9520, L506.0400, L509.4006 #### [facility] [address] [place], [address] Lymphocytes/100 WBC (Bld) 25.6 % Normal 19-41 [facility] Comment on above: Performed By: #### L 509.8002, L3890.6006, L3890.6102, L3890.6301, BTS, L100.0100, L501.9520, L506.0400, L509.4006 #### [facility] [address] [place], [address] MCH (RBC) [Entitic mass] 30.0 pg Normal 27.0-32.0 [facility] Comment on above: Performed By: #### L 509.8002, L3890.6006, L3890.6102, L3890.6301, BTS, L100.0100, L501.9520, L506.0400, L509.4006 #### [facility] [address] [place], [address] MCHC (RBC) [Mass/Vol] 33.1 g/dL Normal 32-36 [facility] Comment on above: Performed By: #### L 509.8002, L3890.6006, L3890.6102, L3890.6301, BTS, L100.0100, L501.9520, L506.0400, L509.4006 #### [facility] [address] [place], [address] MCV (RBC) [Entitic vol] 90.5 fL Normal 81-[address] [facility] Comment on above: Performed By: #### L 509.8002, L3890.6006, L3890.6102, L3890.6301, BTS, L100.0100, L501.9520, L506.0400, L509.4006 #### [facility] [address] [facility] [place], [address] Monocytes/100 WBC (Bld) 7.1 % Normal 0-[address] [facility] Comment on above: Performed By: #### L 509.8002, L3890.6006, L3890.6102, L3890.6301, BTS, L100.0100, L501.9520, L506.0400, L509.4006 #### [facility] [address] [place], [address] Neutrophils/100 WBC (Bld) 64.3 % Normal 47-70 [facility] Comment on above: Performed By: #### L 509.8002, L3890.6006, L3890.6102, L3890.6301, BTS, L100.0100, L501.9520, L506.0400, L509.4006 #### [facility] [address] [place], [address] Nucleated RBC (Bld) [#/Vol] 0 10*3/uL Normal 0-5 [facility] Comment on above: Performed By: #### L 509.8002, L3890.6006, L3890.6102, L3890.6301, BTS, L100.0100, L501.9520, L506.0400, L509.4006 #### [facility] [address] [place], [address] Platelet mean volume (Bld) [Entitic vol] 11.0 fL Normal 6.2-12.0 [facility] Comment on above: Performed By: #### L 509.8002, L3890.6006, L3890.6102, L3890.6301, BTS, L100.0100, L501.9520, L506.0400, L509.4006 #### [facility] [address] [place], [address] Platelets (Bld) [#/Vol] 171 10*3/uL Normal 150-450 [facility] Comment on above: Performed By: #### L 509.8002, L3890.6006, L3890.6102, L3890.6301, BTS, L100.0100, L501.9520, L506.0400, L509.4006 #### [facility] [address] [place], [address] RBC (Bld) [#/Vol] 4.00 10*6/uL Low 4.2-5.4 [facility] Comment on above: Performed By: #### L 509.8002, L3890.6006, L3890.6102, L3890.6301, BTS, L100.0100, L501.9520, L506.0400, L509.4006 #### [facility] [address] [place], [address] RDW SD 43.7 fl Normal 35.1-43.9 [facility] Comment on above: Performed By: #### L 509.8002, L3890.6006, L3890.6102, L3890.6301, BTS, L100.0100, L501.9520, L506.0400, L509.4006 #### [facility] [address] [facility] [address] [place], [place], [id number] WBC (Bld) [#/Vol] 6.2 10*3/uL Normal 4.4-11.0 [facility] Comment on above: Performed By: #### L 509.8002, L3890.6006, L3890.6102, L3890.6301, BTS, L100.0100, L501.9520, L506.0400, L509.4006 #### [facility] [address] [facility] [place], [place], [address] Chlamydia trachomatis rRNA d etection by probe and target amplification methodOrdered By: Sophia Cho on 03-02-2025 C. trachomatis rRNA JERRY+probe Ql (Unsp spec) Negative Negative [facility] Eosinophil percentageOrdered By: Sophia Cho on 03-02-2025 Eosinophils/100 WBC (Bld) 1.9 % 0-5 [facility] Erythrocyte distribution wid th ratioOrdered By: Sophia Cho on 03-02-2025 Erythrocyte distribution width (RBC) [Ratio] 13.2 % 11.6-14.6 [facility] Erythrocyte distribution wid th standard deviationOrdered By: Sophia Cho on 03-02-2025 Erythrocyte distribution width (RBC) [Ratio] 43.7 fl 35.1-43.9 [facility] HIVon 03-02-2025 HIV Non-Reactive Normal Nonreactive [facility] Comment on above: Result Comment: Non- Reactive Reactive Repeatedly reactive samples must be confirmed according to CDC recommended confirmatory algorithms. The subresults for either HIVAG or AHIV can be used as an aid in the selection of the confirmation algorithm for reactive samples. Send out specimens with Reactive results to [facility] for confirmation. Order the HIV antibody detection and differentiation: lc#[id number] Performed By: #### L 100.0100, L501.0250, L509.8002, L3890.6006 #### [facility] [address] [place], [place], [id number] Hematocrit Auto (Bld) [Volum e fraction]Ordered By: Sophia Cho on 03-02-2025 Hematocrit (Bld) [Volume fraction] 36.2 % Low 37-47 [facility] Hemoglobin measurementOrdere d By: Sophia Cho on 03-02-2025 Hemoglobin (Bld) [Mass/Vol] 12.0 g/dL 12.0-15.0 [facility] Hepatitis C Antibodyon 03-02 Hepatitis C Ab Non-Reactive Normal Nonreactive [facility] Comment on above: Result Comment: Reac tive: Presumptive evidence of antibodies to HCV. Follow CDC recommendations for supplemental testing. Non-Reactive: Antibodies to HCV were not detected; does not exclude the possibility of exposure to HCV Reactive Results are presumptive evidence of antibodies to HCV. Follow CDC recommendations for supplemental testing. Order confirmation testing: HCV Quant by PCR testing - HCVPCR #[id number] Non Reactive: < 0.8 Equivocal: >/= 0.8 to < 1.0 Reactive: >/= 1.0 The CDC requires that a reactive/equivocal HCV antibody result be sent out for confirmation. HCV Quant by PCR testing. Performed By: #### L 100.0100, L501.0250, L509.8002, L3890.6006 #### [facility] [address] [place], [place], [id number] Immature granulocytes/100 WB C Auto (Bld)Ordered By: Sophia Cho on 03-02-2025 Immature granulocytes/100 WBC (Bld) 0.500 % 0.0-0.9 [facility] Comment on above: IG% - Immature Granu locytes (promyelocytes, myelocytes and metamyelocytes) > 1% indicates that a LEFT SHIFT is Present. L3890.6102on 03-02-2025 HEP B Surf Ag Non-Reactive Normal Nonreactive [facility] Comment on above: Result Comment: Reac tive: Presumptive evidence of HBV. Repeatedly reactive samples must be confirmed using a neutralization test ([employer] HBsAg Confirmatory Test) Non-Reactive: HBsAg not detected; does not exclude the possibility of exposure to HBV Performed By: #### L 100.0100, L501.0250, L509.8002, L3890.6006 #### [facility] [address] [facility]. [place], [place], [address] L509.4006on 03-02-2025 Rubella IgG Non-Reactive Normal Nonreactive [facility] Comment on above: Result Comment: Anti body Result: Interpretation Non-Reactive: Non-Immune Reactive: Immune The following results were obtained with the [employer] Rubella IgG assay. Results from assays of other manufacturers cannot be used interchangeably. Performed By: #### L 100.0100, L501.0250, L509.8002, L3890.6006 #### [facility] [address] [facility]. [place], [place], [id number] Laboratory - Microbiology an d Antimicrobial susceptibilityOrdered By: Sophia Cho on 03-02-2025 HBV surface Ag Ql (S) Non-Reactive Nonreactive [facility] Comment on above: Reactive: Presumptiv e evidence of HBV. Repeatedly reactive samples must be confirmed using a neutralization test ([employer] HBsAg Confirmatory Test)Non-Reactive: HBsAg not detected; does not exclude the possibility of exposure to HBV MCV (mean corpuscular volume ) determinationOrdered By: Sophia Cho on 03-02-2025 MCV (RBC) [Entitic vol] 90.5 fL 81-99 [facility] Mean corpuscular hemoglobin (MCH) determinationOrdered By: Sophia Cho on 03-02-2025 MCH (RBC) [Entitic mass] 30.0 pg 27.0-32.0 [facility] Mean corpuscular hemoglobin concentration (MCHC) determinationOrdered By: Sophia Cho on 03-02-2025 MCHC (RBC) [Mass/Vol] 33.1 g/dL 32-36 [facility] Mean platelet volume determi nationOrdered By: Sophia Cho on 03-02-2025 Platelet mean volume (Bld) [Entitic vol] 11.0 fL 6.2-12.0 [facility] Monocyte percentageOrdered B y: Sophia Cho on 03-02-2025 Monocytes/100 WBC (Bld) 7.1 % 0-10 [facility] Neisseria gonorrhoeae nuclei c acid detection by amplified probe techniqueOrdered By: Sophia Cho on 03-02-2025 N. gonorrhoeae DNA JERRY+probe Ql (Unsp spec) Negative Negative [facility] Comment on above: Performed at: =[address] [id number] Director: Jennifer Mendez MD, Phone: [phone] Neutrophil percentageOrdered By: Sophia Cho on 03-02-2025 Neutrophils/100 WBC (Bld) 64.3 % 47-70 [facility] No Panel InformationOrdered By: Sophia Cho on 03-02-2025 HIV (1&2) Antibody Non-Reactive Nonreactive [facility] Comment on above: Non-ReactiveReactive Repeatedly reactive samples must be confirmed according to CDC recommended confirmatory algorithms. The subresults for either HIVAG or AHIV can be used as an aid in the selection of the confirmation algorithm for reactive samples.Send out specimens with Reactive results to [facility] for confirmation.Order the HIV antibody detection and differentiation: #[id number] Nucleated red blood cell per centageOrdered By: Sophia Cho on 03-02-2025 Nucleated RBC/100 WBC (Bld) [Ratio] 0 % 0-5 [facility] [employer] Office Visit Reporton 03-02-2025 [employer]dnance Artific[employer]per Office Visit Report [facility] [address], [address] [place] [address] OFFICE VISIT Date of Service: 03/02/25 MR#: [id number] Acct: [id number] Name: GAURAV FORTE Rep #: [id number] : 2000 Provider: NOELLE Fan ams Age/Sex: 24/F [place] [facility] [place] Status: Signed Intake Vital Signs 03/10/24 13:00 02/07/25 16:03 03/02/25 09:11 Height 5 ft 6 in 5 ft 6 in 5 ft 6 in Weight: 133 lb 4 oz BMI 21.4 BP 116/78 Intake Visit Reasons: NOB: LMP 12/29, WILBER 10/05 Chief Complaint: New OB Tour Guide Required: No Is patient in pain?: No Allergies No Known Allergies Allergy (Unverified 03/02/25 09:15) Medications ???Medication ???Instructions ???Recorded ???Confirmed ???Type sertraline 25 mg tablet 25 mg PO DAILY 03/10/24 03/02/25 H istory fish, borage, flaxseed oils-omega See Rx Instructions PO DAILY 11/1203/02/25 History 3,6,9 comb no.1 1,200 mg capsule ([place] 3-6-9) magnesium 250 mg tablet 250 mg PO QDAY 02/16/25 03/02/25 H istory multivit-min no.71-iron fum 28 cap PO 02/16/25 03/02/25 History mg-folate no.1 1 mg-dha 300 mg capsule (PN[place]) Last Menstrual Period: 12/29/24 [facility] Medical History Women's annual routine gynecological examination Surgical History Previous section Family History Aunt Cancer, Onset Age: 25 Paternal Brain tumor Social History adopted: No household members: spouse and children housing: house number of children: 1 current occupational status: unemployed current occupation: [employer] current occupational exposures/hazards: No pets and [...] physical activity do you participate in: none cindy/mormon: Episcopalian seatbelt use: always do you feel safe at home: Yes additional social history: - [employer] work History 3 Elective abortions Hx Para [...] Screening: Congenital (more content not included)... Normal [facility] Platelet countOrdered By: Indra Cho on 03-02-2025 Platelets (Bld) [#/Vol] 171 10*3/uL 150-450 [facility] RBC Auto (Bld) [#/Vol]Ordere d By: Sophia Cho on 03-02-2025 RBC (Bld) [#/Vol] 4.00 10*6/uL Low 4.2-5.4 [facility] Syphilis Antibodieson 2024 Syphilis Abs Non-Reactive Normal Nonreactive [facility] Comment on above: Performed By: #### L 100.0100, L501.0250, L509.8002, L3890.6006 #### [facility] [address] [place], [address] T4 Free Directon 03-02-2025 T4 FREE DIRECT 1.10 ng/dL Normal 0.76-1.46 [facility] Comment on above: Performed By: #### L 100.0100, L501.0250, L509.8002, L3890.6006 #### [facility] [address] [place], [place], [id number] T4 freeOrdered By: Sophia longoria on 03-02-2025 Free T4 [Mass/Vol] 1.10 ng/dL 0.76-1.46 [facility] TSH DL <= 0.005 mIU/L QnOrde red By: Sophia Cho on 03-02-2025 TSH Qn 0.738 uIU/mL 0.300-4.200 [facility] Thyroid Stim Hormone (TSH)on 03-02-2025 TSH 0.738 uIU/mL Normal 0.300-4.200 [facility] Comment on above: Performed By: #### L 100.0100, L501.0250, L509.8002, L3890.6006 #### [facility] [address] [place], [address] Type AND Screenon 03-02-2025 Ab SCREEN GEL Negative Normal [facility] Comment on above: Order Comment: PT WA S LATE FOR THEIR 1 HR GLUCOSE DRAW. PT DIDNT CHECK IN UNTIL 954 Performed By: #### L 100.0100, L501.0250, L509.8002, L3890.6006 #### [facility] [address] 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 Sirena jimenes MD Age/Sex: 24/F Location[place] [facility] [place]: Signed Intake Vital Signs 03/10/24 13:00 02/07/25 16:03 Height 5 ft 6 in 5 ft 6 in Weight: 127 lb BMI 20.5 BP 124/84 H Intake Visit Reasons: 5w5d spotting Tour Guide Required: No Is patient in pain?: No Allergies No Known Allergies Allergy (Unverified 02/07/25 16:06) Medications ???Medication ???Instructions ???Recorded ???Confirmed ???Type sertraline 25 mg tablet 25 mg PO DAILY 03/10/24 02/07/25 H istory Post menopausal: No Patient : Yes : No [facility] Medical History (Updated 02/07/25 @ 16:37 by [...] in: walking frequency: 3-4 times per week cindy/mormon: Episcopalian seatbelt use: always do you feel safe [...] Nutritional Appearance: average body habitus Orientation: alert HENNE Head: normal to inspection and normocephalic Neck [...] Plan fu for new ob visit 02/07/25 2728 Date Sirena Padilla MD (more content not included)... Normal [facility] No Panel Informationon 02-02 [facility].; [facility]. Serum human chorionic gonado tropin detection for pregnancyOrdered By: Sirena Padilla on 02-01-2025 HCG ( test) Ql 5046 mIU/mL High <9 [facility] Comment on above: Gestational Age0.2-1 Week: 5-50 mIU/mL1-2 Weeks: 50-500 mIU/mL2-3 Weeks: 100-5000 mIU/mL3-4 Weeks: 500-10,000 mIU/mL4-5 Weeks:1000-50,000 mIU/mL5-6 Weeks: 10,000-100,000 mIU/mL6-8 Weeks: 15,000-200,000 mIU/mL2-3 Months:10,000-100,000 mIU/mL hCG Titer Quant., Serumon HCG QUANT. 5046 mIU/mL High <9 non-preg [facility] Comment on above: Result Comment: Gest ational Age 0.2-1 Week: 5-50 mIU/mL 1-2 Weeks: 50-500 mIU/mL 2-3 Weeks: 100-5000 mIU/mL 3-4 Weeks: 500-10,000 mIU/mL 4-5 Weeks:1000-50,000 mIU/mL 5-6 Weeks: 10,000-100,000 mIU/mL 6-8 Weeks: 15,000-200,000 mIU/mL 2-3 Months:10,000-100,000 mIU/mL Performed By: #### L 700.8000 #### [facility] [address] [place], [address] No Panel Informationon 01-31 [facility].; [facility]. PROGESTERONE 4317on 02-01-20 25 PROGESTERONE 26.8 ng/mL Normal . [facility] Comment on above: Order Comment: N Result Comment: Foll icular phase 0.1 - 0.9 Luteal phase 1.8 - 23.9 Ovulation phase 0.1 - 12.0 First trimester 11.0 - 44.3 Second trimester 25.4 - 83.3 Third trimester 58.7 - 214.0 Postmenopausal 0.0 - 0.1 Performed at: [facility] [id number] Teacher Public Health: Cody Bell PhD, Phone: [phone] Performed By: #### L 811.1554, L334.1311 #### [facility] [address] [place], [address] No Panel Informationon 01-30 [facility].; [facility]. [facility].; [facility] Serum human chorionic gonado tropin detection for pregnancyOrdered By: Sirena Padilla on 01-30-2025 HCG ( test) Ql 2103 mIU/mL High <9 [facility] Comment on above: Gestational Age0.2-1 Week: 5-50 mIU/mL1-2 Weeks: 50-500 mIU/mL2-3 Weeks: 100-5000 mIU/mL3-4 Weeks: 500-10,000 mIU/mL4-5 Weeks:1000-50,000 mIU/mL5-6 Weeks: 10,000-100,000 mIU/mL6-8 Weeks: 15,000-200,000 mIU/mL2-3 Months:10,000-100,000 mIU/mL hCG Titer Quant., Serumon HCG QUANT. 2103 mIU/mL High <9 non-preg [facility] Comment on above: Result Comment: Gest ational Age 0.2-1 Week: 5-50 mIU/mL 1-2 Weeks: 50-500 mIU/mL 2-3 Weeks: 100-5000 mIU/mL 3-4 Weeks: 500-10,000 mIU/mL 4-5 Weeks:1000-50,000 mIU/mL 5-6 Weeks: 10,000-100,000 mIU/mL 6-8 Weeks: 15,000-200,000 mIU/mL 2-3 Months:10,000-100,000 mIU/mL Performed By: #### L 700.8000, L801.2600 #### [facility] [address] [place], [address] No Panel Informationon 12-22 [facility].; [facility]. [facility].; [facility]. No Panel Informationon 12-21 [facility].; [facility]. ED MED ADMINISTRATION DETAIL on 11-10-2024 ED MED ADMINISTRATION DETAIL [employer] Medication Administration Record [address] [place] [address] [id number] 10/30/2024 Patient: GAURAV FORTE Sex: Female : [...] Memo Cabrera R.N. 1 of 1 Normal [facility] ED NURSES CLINICAL NOTEon ED NURSES CLINICAL NOTE Nurse Narrative Nurse Clinical Narrative [facility] [address] [place] [address] [phone] 10/30/2024 Patient: GAURAV FORTE Sex: Female : [...] Willingham E.M.T.-P. 18:52 10/30/24. Patient transported to [place] by stretcher. Patient identifiers checked. Call light [...] left ambulatory and via private vehicle. 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 -- 20:10/30/24 NICOLE Cabrera R.N. Departure time: 19:58 10/30/2024. -- 20:10/30/24 NICOLE Cabrera R.N. 19:58 10/30/24. BP: 116 HR: 80. RR: 16. O2 saturation: 100% Pain level now 0/10. -- 20:29 10/30/24 NICOLE Cabrera R.N. 19:58 10/30/24. Site #1 removed upon discha (more content not included)... Normal [facility] ED ORDER SHEET (CPOE ONLY)on 11-10-2024 ED ORDER SHEET (CPOE ONLY) Order Sheet Order Sheet [facility] [address] [place] [address] [id number] 10/30/2024 Patient: GAURAV FORTE Sex: Female : [...] (11/10/2024 07:02 EST)] 2 of 2 Normal [facility] ED PHYSICIAN CLINICAL REPORT on 11-10-2024 ED PHYSICIAN CLINICAL REPORT Narrative Physician Clinical Narrative [facility] [address] [place] [address] [id number] 10/30/2024 Patient: GAURAV FORTE Sex: Female : [...] 1.50 - 7.10 Final EST 10/30/2024 18:35 Prentiss # 0.41 x10/UL 0.20 - 1.00 Final [...] - 20 (more content not included)... Normal [facility] ED SUPER BILLon 11-10-2024 ED SUPER BILL [place] [address] [facility] [place] [address] [id number] 10/30/2024 Patient: GAURAV FORTE Sex: Female : 2000 Age: 24y Facility Professional Category Item Description Code Code Quantity Fee Total Nurse/E/M EMERGENCY 708376 1 $0.00 $0.00 DEPT VISIT HIGH SEVERITYFUNCJ (84570-53) Nurse/IV/IM/Infusions Hydration 234467 1 $0.00 $0.00 additional hour (54664) Nurse/IV/IM/Infusions Hydration initial 692217 1 $0.00 $0.00 (69948) Grand $0.00 Total Providers Wilfredo Chamberlain M.D. Chief Complaint VAGINAL BLEEDING. 1 of 2 Superbill Principal Diagnosis Moderate vaginal bleeding. Probable complete spontaneous (miscarriage).No complications. ICD-10 Codes N93.9: Abnormal uterine and vaginal bleeding, unspecified 2 of 2 Normal [facility] ED VISIT SUMMARYon ED VISIT SUMMARY Visit Overview Visit Overview [facility] [address] [facility] [place] [place] [address] [phone] 10/30/2024 Patient: GAURAV FORTE Sex: Female : [...] SPONTANEOUS (MISCARRIAGE).NO COMPLICATIONS 3 of 3 Normal [facility] ED VITALS FLOW SHEETon 11-10 ED VITALS FLOW SHEET Vitals Vital Sign Flow Sheet [place] [address] [place] [address] [phone] 10/30/2024 Patient: GAURAV FORTE Sex: Female : [...] 98.4 F 2 2 of 2 Normal [facility] No Panel Informationon 10-31 [facility], [facility].; [facility], [facility]. CBC + DIFFon 10-30-2024 Baso # 0.01 x10EE3/UL Normal 0.00 - 0.10 [facility] Comment on above: Performed By: #### 2 61930 #### [facility],[address] [place] [address] Basophils/100 WBC (Bld) 0.2 % Normal 0.0 - 2.0 % [facility], [facility] [place] - [facility] [employer] [facility] Work Phone: Comment on above: Performed By: #### 2 98429 #### [facility],[address] [place] [address] CBC + DIFF Normal [facility] Comment on above: Result Comment: CBC- COMPLETE BLOOD COUNT Performed By: #### 2 67462 #### [facility],[address] [place], [place] [id number] EO # 0.06 x10EE3/UL Normal 0.00 - 0.50 [facility] Comment on above: Performed By: #### 2 50080 #### [facility],[address] [place], [place] [id number] Eosinophils/100 WBC (Bld) 0.8 % Normal 0.0 - 7.0 % [facility], [facility].; [place] - [facility] Work Phone: Comment on above: Performed By: #### 2 75784 #### [facility],[address] [place], [place] [id number] Erythrocyte distribution width (RBC) [Ratio] 14.5 % Normal 12.0 - 15.6 % [facility], [facility].; [place] [facility] Work Phone: Comment on above: Performed By: #### 2 79760 #### [facility],[address] [place], [place] [address] Hematocrit (Bld) [Volume fraction] 39.4 % Normal 34.0 - 46.0 % [facility] [place] [facility] Work Phone: Comment on above: Performed By: #### 2 11494 #### [facility],[address] [place] [address] Hemoglobin (Bld) [Mass/Vol] 13.2 g/dL Normal 12.0 - 16.0 g/dL [facility].; [facility], [employer]. Work Phone: Comment on above: Performed By: #### 2 73151 #### [facility],[address] [place] [address] Lymph # 1.32 x10EE3/UL Normal 0.80 - 2.80 [facility] Comment on above: Performed By: #### 2 18167 #### [address] [address] Lymphocytes/100 WBC (Bld) 18.1 % Abnormal 20.0 - 45.0 % [facility], [facility].; [facility], Inc[facility] Work Phone: Comment on above: Performed By: #### 2 92427 #### [facility],[address] [place] [address] MANUAL DIFF N/A Normal [facility].; [facility], Inc[facility] Work Phone: Comment on above: Performed By: #### 2 43052 #### [facility],[address] [place] [address]5924 MCH (RBC) [Entitic mass] 30 pg Normal 27 - 33 pg [facility], [facility].; [facility], Inc[facility] Work Phone: Comment on above: Performed By: #### 2 32410 #### [facility],[address] [place] [address] MCHC 34 X10 3 Normal 32 - 36 [facility] Comment on above: Performed By: #### 2 00272 #### [facility],[address] [place] [address] MCV (RBC) [Entitic vol] 89 fL Normal 80 - 99 fL E [facility], [employer].; [facility], [facility]. Work Phone: Comment on above: Performed By: #### 2 08309 #### [facility],[address] [place] [address] Prentiss # 0.41 x10EE3/UL Normal 0.20 - 1.00 [facility] Comment on above: Performed By: #### 2 99477 #### [facility],[address] [place] [address] 826[address] MONOS % 5.7 % Normal 0.0 - 10.0 [facility] Comment on above: Performed By: #### 2 06800 #### [facility],[address] [place] [address] 38715 Morphology Mehul (Bld) [Interp] N/A Normal [facility].; [facility], [employer]. Work Phone: Comment on above: Performed By: #### 2 88894 #### [facility],[address] [place] [address] Neut # 5.48 x10EE3/UL Normal 1.50 - 7.10 [facility] Comment on above: Performed By: #### 2 99451 #### [facility],[address] [place] [address]65[address] Neutrophils/100 WBC (Bld) 75.3 % Normal 46.0 - 76.0 % [facility].; [facility]. Work Phone: Comment on above: Performed By: #### 2 64493 #### [facility],[address] [place] [address] 77815 PLATELET 149 x10EE3/UL Low 150 - 450 [facility] Comment on above: Performed By: #### 2 87329 #### [facility],[address] [place] [address] 81476 Platelet mean volume (Bld) [Entitic vol] 8.4 fL Normal 6.6 - 10.5 fL [facility].; [facility], [facility]. Work Phone: Comment on above: Result Comment: AUTO MATED DIFFERENTIAL Performed By: #### 2 01358 #### [facility],[address] [place] [address] 55584 RBC 4.42 x 10EE6/UL Normal 4.10 - 5.30 [facility] Comment on above: Performed By: #### 2 70275 #### [facility],[address] [place] [address] 80800 WBC 7.3 x 10EE3/UL Normal 4.5 - 10.8 [facility] Comment on above: Performed By: #### 2 52099 #### [facility],[address] [place], [place] [id number] CMP with eGFRon 10-30-2024 AGE 24 years Normal [facility] Comment on above: Performed By: #### 2 55331 ####[facility],[address] [place], [place] [address] Albumin [Mass/Vol] 4.1 g/dL Normal 3.4 - 5.0 g/dL [facility].; [facility], [facility] Work Phone: Comment on above: Performed By: #### 2 37384 ####[address] [address] Albumin/Globulin [Mass ratio] 1.1 {ratio} Normal 0.9 - 1.6 [facility] Comment on above: Performed By: #### 2 19923 ####[facility],[address] [place] [address] 03852 ALK PHOS 48 U/L Normal 46 - 116 U/L [facility].; [facility], [facility] Work Phone: Comment on above: Performed By: #### 2 93081 ####[facility],[address] [place] [address]326 ALT [Catalytic activity/Vol] 26 U/L Normal 16 - 63 U/L [facility], [facility].; [facility], Inc[facility] Work Phone: Comment on above: Performed By: #### 2 06263 ####[facility],[address] [place] [address] 97967 Anion gap [Moles/Vol] 15 mmol/L Normal 10 - 20 mmol/L [facility], [facility].; [place] - [facility] Work Phone: Comment on above: Performed By: #### 2 99742 ####[facility],[address] [place], [place] [id number] AST [Catalytic activity/Vol] 14 U/L Normal 13 - 39 U/L [facility], [facility].; [facility], Inc[facility] Work Phone: Comment on above: Performed By: #### 2 26417 ####[facility],[address] [place] [address] 04042 B/C RATIO 13 ratio Normal 0 - 30 [facility] Comment on above: Performed By: #### 2 08761 ####[address] [address] Bilirubin [Mass/Vol] 0.5 mg/dL Normal 0.2 - 1 .0 mg/dL [facility], [facility].; [facility], Inc[facility] Work Phone: Comment on above: Performed By: #### 2 31016 ####[facility],[address] [place] [address] 84498 Calcium [Mass/Vol] 9.0 mg/dL Normal 8.5 - 10. 1 mg/dL [facility], [facility].; [facility], Inc[facility] Work Phone: Comment on above: Performed By: #### 2 25042 ####[place] [address],[place] [address] Chloride [Moles/Vol] 101 mmol/L Normal 98 - 10 7 mmol/L [facility].; [facility]. Work Phone: Comment on above: Performed By: #### 2 86479 ####[facility],[address] [place] [address] 6500[address] CMP with eGFR Normal [facility] Comment on above: Result Comment: COMP REHENSIVE METABOLIC PANEL Performed By: #### 2 30594 ####[address] [address] CO2 [Moles/Vol] 27.2 mmol/L Normal 21.0 - 32.0 mmol/L [facility].; [facility]. Work Phone: Comment on above: Performed By: #### 2 62470 ####[facility],[address] [place] [address] Creatinine [Mass/Vol] 0.72 mg/dL Normal 0.55 - 1.02 mg/dL [facility].; [facility], [employer]. Work Phone: Comment on above: Performed By: #### 2 90662 ####[address] [address] GFR/1.73 sq M.predicted among non-blacks MDRD (S/P/Bld) [Vol rate/Area] mL/min/{1.73_m2} Normal 60 - 999 [facility] Comment on above: Performed By: #### 2 74209 ####[facility],[address] [place] [address] Result Comment: ACCO RDING TO THE NATIONAL KIDNEY DISEASE EDUCATION PROGRAM(NKDE), A NORMAL eGFR IS A VALUE GREATER THAN OR EQUAL TO 60 ML/MIN/1.73 SQ METERS. CHRONIC KIDNEY DISEASE: <60mL/MIN/1.73 SQ METERS KIDNEY FAILURE: <15mL/MIN/1.73 SQ METERS THIS TEST SHOULD ONLY BE USED FOR PATIENTS 18 YEARS OF AGE AND OLDER. Globulin (S) [Mass/Vol] 3.7 g/dL Normal 1.5 - 3.8 g/ dL [facility].; [facility], [facility]. Work Phone: Comment on above: Performed By: #### 2 77272 ####[address] [address] Glucose [Mass/Vol] 95 mg/dL Normal 74 - 106 mg/dL [facility].; [facility], [facility]. Work Phone: Comment on above: Performed By: #### 2 70091 ####[address] [address] Potassium [Moles/Vol] 3.8 mmol/L Normal 3.5 - 5.1 mmol/L [facility].; [facility], Inc[facility] Work Phone: Comment on above: Performed By: #### 2 78527 ####[address] [address] Protein [Mass/Vol] 7.8 g/dL Normal 6.4 - 8.2 g/dL [facility].; [facility], [facility]. Work Phone: Comment on above: Performed By: #### 2 17480 ####[address] [address] Sodium [Moles/Vol] 139 mmol/L Normal 136 - 145 mmol/L [facility].; [facility], [facility] Work Phone: Comment on above: Performed By: #### 2 60992 ####[address] [address] Urea nitrogen [Mass/Vol] 9 mg/dL Normal 7 - 18 mg/d L [facility].; [employer] [facility], [employer]. Work Phone: Comment on above: Performed By: #### 2 41691 ####[facility],[address] [place] [address] Laboratory - Chemistry and C hemistry - challengeon 10-30-2024 Albumin [Mass/Vol] 1.1 g/dL Normal 0.9 - 1.6 [facility].; [employer] [facility] Work Phone: Bilirubin [Mass/Vol] Negative Normal [facility] Center[facility]; [facility], [employer]. Work Phone: GFR/1.73 sq M.predicted among blacks MDRD (S/P/Bld) [Vol rate/Area] mL/min/{1.73_m2} Normal 60 - 999 {ML/MINUTE} [facility].; [employer] [facility] Work Phone: GFR/1.73 sq M.predicted MDRD (S/P/Bld) [Vol rate/Area] mL/min/{1.73_m2} Normal 60 - 999 {ML/MINUTE} [facility], [employer].; [employer] [facility] Work Phone: Glucose [Mass/Vol] NORM Normal [facility].; [employer] [facility], [facility] Work Phone: HCG.beta subunit Qn 16 m[IU]/mL Abnormal 0 - 6 m[iU]/mL [facility].; [employer] [facility] Work Phone: pH (Bld) 7 [pH] Normal [facility].; [employer] [facility], [facility] Work Phone: Protein [Mass/Vol] Negative Normal [facility]; [facility] Work Phone: Urea nitrogen/Creatinine [Mass ratio] 13 {ratio} Normal 0 - 30 {ratio} [facility]; [facility] Work Phone: Laboratory - Hematology and Cell countson 10-30-2024 Basophils (Bld) [#/Vol] 0.01 {x10EE3/UL} Normal 0.00 - 0.10 {x10EE3/UL} [facility]; [facility] Work Phone: Eosinophils (Bld) [#/Vol] 0.06 {x10EE3/UL} Normal 0.00 - 0.50 {x10EE3/UL} [facility].; [facility] Work Phone: Lymphocytes (Bld) [#/Vol] 1.32 {x10EE3/UL} Normal 0.80 - 2.80 {x10EE3/UL} [facility].; [facility], [facility]. Work Phone: MCHC (RBC) [Mass/Vol] 34 {X10_3} Normal 32 - 3 6 {X10_3} [facility].; [facility]. Work Phone: Monocytes (Bld) [#/Vol] 0.41 {x10EE3/UL} Normal 0.20 - 1.00 {x10EE3/UL} [facility].; [facility] Work Phone: Monocytes/100 WBC (Bld) 5.7 % Normal 0.0 - 10.0 % [facility]; [facility] Work Phone: Neutrophils (Bld) [#/Vol] 5.48 {x10EE3/UL} Normal 1.50 - 7.10 {x10EE3/UL} [facility].; [facility], [facility]. Work Phone: Platelets (Bld) [#/Vol] 149 {x10EE3/UL} Abnormal 1 50 - 450 {x10EE3/UL} [facility].; [facility], [facility]. Work Phone: RBC (Bld) [#/Vol] 4.42 {x_10EE6/UL} Normal 4.10 - 5.30 {x_10EE6/UL} [facility].; [facility], [facility]. Work Phone: WBC (Bld) [#/Vol] Negative Normal [facility].; [facility]. Work Phone: WBC (Bld) [#/Vol] 7.3 {x_10EE3/UL} Normal 4.5 - 10.8 {x_10EE3/UL} [facility].; [facility], [facility]. Work Phone: Laboratory - Microbiology an d Antimicrobial susceptibilityon 10-30-2024 Bacteria identified Cx Nom (Unsp spec) 2+ Normal [facility]; [facility] Work Phone: Laboratory - Specimen inform ationon 10-30-2024 Specimen type Nom (Spec) R Normal [facility].; [facility]. Work Phone: Laboratory - Urinalysison Yeast LM Ql (Urine sed) NONE Normal E [facility].; [facility], [facility] Work Phone: No Panel Informationon 10-30 AGE 24 {years} Normal [facility].; [facility] Work Phone: Blood 150 Abnormal [facility].; [employer] [facility], Inc[facility] Work Phone: CBC + DIFF Normal [facility].; [employer] - [facility], [employer]. Work Phone: CMP with eGFR Normal [facility].; [employer] [facility], [employer]. Work Phone: Microscopic SEE BELOW Normal [facility].; [employer] [facility], [employer]. Work Phone: PREG SERUM QUANTon 5 HCG QUANTITATIVE 16 mIU/mL High 0 - 6 [facility] Comment on above: Result Comment: Refe rence [...] 3RD TRIMESTER 1000-50,000 Performed By: #### 2 [id number] ####[facility],[address] [place] [address] URINALYSISon 10-30-2024 Amorphous 3+ Normal [facility].; [employer] [facility], [employer]. Work Phone: Comment on above: Performed By: #### 2 [id number] #### [facility],[address] [place] [address]52 Bacteria 2+ Normal [facility] Comment on above: Performed By: #### 2 91347 #### [facility],[address] [place] [address] Bilirubin Ql (U) Negative Normal NORMAL: NEGATIVE [facility] Comment on above: Performed By: #### 2 [id number] #### [facility],[address] [place] [address] 45715 Casts NONE Normal [facility], Inc.; [employer] [facility], [facility] Work Phone: Comment on above: Performed By: #### 2 [id number] #### [facility],[address] [place] [address] Clarity (U) very cloudy Normal [facility], Inc.; [employer] [facility], Inc[facility] Work Phone: Comment on above: Performed By: #### 2 [id number] #### [facility],[address] [place] [address] Color (U) yellow Normal [facility], Inc.; [employer] [facility], [facility] Work Phone: Comment on above: Performed By: #### 2 [id number] #### [facility],[address] [place] [address] Crystals LM Nom (Urine sed) NONE Normal [facility], Inc.; [employer] - [facility], Inc. Work Phone: Comment on above: Performed By: #### 2 [id number] #### [facility],[address] [place] [address] Epi Cells FEW Normal [facility], Inc.; [employer] [facility], Inc[facility] Work Phone: Comment on above: Performed By: #### 2 [id number] #### [facility],[address] [place], [place] [id number] Glucose Ql (U) NORM Normal NORMAL: NORMAL [facility] Comment on above: Performed By: #### 2 71850 #### [facility],[address] [place], [place] [id number] Hemoglobin Ql (U) 150 Abnormal NORMAL: NEGATIVE [facility] Comment on above: Performed By: #### 2 [id number] #### [facility],[address] [place] [address] Ketone 15 Abnormal [facility].; [facility], Inc[facility] Work Phone: Comment on above: Performed By: #### 2 78769 #### [facility],[address] [place] [address] Leukocytes Negative Normal NORMAL: NEGATIVE [facility] Comment on above: Performed By: #### 2 06074 #### [facility],[address] [place] [address] Mucous NONE Normal [facility].; [facility], Inc[facility] Work Phone: Comment on above: Performed By: #### 2 [id number] #### [facility],[address] [place] [address] Nitrite Ql (U) Negative Normal [facility].; [facility], Inc[facility] Work Phone: Comment on above: Performed By: #### 2 50758 #### [facility],[address] [place] [address]8631 pH (U) 7 [pH] Normal NORMAL: 5.0-8.0 [facility] Comment on above: Performed By: #### 2 67547 #### [facility],[address] [place] [address]1939 Protein Ql (U) Negative Normal NORMAL: NEGATIVE [facility] Comment on above: Performed By: #### 2 18212 #### [facility],[address] [place] [address] 01726 Rbc 5-10 Normal 0 - 3 [facility].; [facility], Inc[facility] Work Phone: Comment on above: Performed By: #### 2 58679 #### [facility],[address] [place] [address] 23235 Sp Seymour 1.015 Normal [facility].; [facility], [employer]. Work Phone: Comment on above: Performed By: #### 2 79613 #### [facility],[address] [place] [address] 25943 Specimen Type R Normal [facility] Comment on above: Performed By: #### 2 59275 #### [facility],[address] [place] [address] 92536 Urinalysis dipstick W Reflex Microscopic panel (U) SEE BELOW Normal [facility] Comment on above: Result Comment: MICR OSCOPIC Performed By: #### 2 02565 #### [facility],[address] [place] [address] 11646 Urobilinog NORM Normal [facility].; [facility], [facility]. Work Phone: Comment on above: Performed By: #### 2 23663 #### [facility],[address] [place] [address] 38873 Wbc NONE Normal 0 - 5 [facility].; [facility], [facility]. Work Phone: Comment on above: Performed By: #### 2 18137 #### [facility],[address] [place] [address] 08285 Yeast NONE Normal [facility] Comment on above: Performed By: #### 2 10142 #### [facility],[address] [place], [place] [address] OB ENDO VAGINALon 025 OB ENDO VAGINAL [place] [address] Patient: GAURAV FORTE Phone#: : [phone] Age: 24 Gender: F Pt. Type: ER Account: [id number] Location: [facility] Ordering: WILFREDO CHAMBERLAIN Exam Date: 10/30/2024/18:27 Family Phys: MALCOLM YANG Charge Code: [id number] Physician: [facility] Order #: [id number] Dose#: PROCEDURE: OB INITIAL <14 WEEKS ULTRASOUND, TRANSABDOMINAL ENDOVAGINAL COMPARISON: [facility], OB INITIAL <14 WEEKS, 03/21/2022, 14:49. [...] Michael MD on 10/31/2024 at 8:52 Normal [facility] US OB INITIAL< 14 WEEKS; 1st GESTATIONon 10-30-2024 US OB INITIAL< 14 WEEKS; 1st GESTATION [place] [id number] Patient: GAURAV FORTE Phone#: : [phone] Age: 24 Gender: F Pt. Type: ER Account: [id number] Location: 052 Ordering: WILFREDO CHAMBERLAIN Exam Date: 10/30/2024/18:27 Family Phys: MALCOLM YANG Charge Code: [id number] Physician: [facility] Order #: [id number] Dose#: PROCEDURE: OB INITIAL <14 WEEKS ULTRASOUND, TRANSABDOMINAL ENDOVAGINAL COMPARISON: [facility], OB INITIAL <14 WEEKS, 03/21/2022, 14:49. [...] Sydni Michael MD on 10/31/2024 at 8:52 [facility] No Panel Informationon 08-11 [employer], [employer]. No Panel Informationon 03-10 ADEQ Comment [employer] Work Phone: COMM . Normal [employer] Work Phone: COMMENT Comment [employer] Work Phone: DIAG Comment [employer].; [employer] Work Phone: GS See Note Normal [employer] Work Phone: HPV RFLX Comment [employer].; [employer] Work Phone: PAPSMR Comment [employer] Work Phone: PERFORM Comment Normal [facility].; [facility], [facility]. Work Phone: VAC See Note Normal [facility].; [facility], [facility]. Work Phone: No Panel Informationon 02-25 [facility].; [facility], [facility]. No Panel Informationon 10-21 [facility].; [facility], [facility]. Laboratory - Hematology and Cell countson 11-04-2022 Basophils (Bld) [#/Vol] 0.10 {x10EE3/UL} Normal 0.00 - 0.10 {x10EE3/UL} [facility].; [facility], Inc[facility] Work Phone: Basophils/100 WBC (Bld) 0.4 % Normal 0.0 - 2.0 % [facility].; [facility], [facility]. Work Phone: Eosinophils (Bld) [#/Vol] 0.00 {x10EE3/UL} Normal 0.00 - 0.50 {x10EE3/UL} [facility].; [facility], Inc[facility] Work Phone: Eosinophils/100 WBC (Bld) 0.3 % Normal 0.0 - 7.0 % [facility].; [facility], [facility]. Work Phone: Erythrocyte distribution width (RBC) [Ratio] 13.8 % Normal 12.0 - 15.6 % [facility].; [facility], Inc[facility] Work Phone: Hematocrit (Bld) [Volume fraction] 32.4 % Abnormal 34.0 - 46.0 % [facility].; [facility], Inc[facility] Work Phone: Hemoglobin (Bld) [Mass/Vol] 10.8 g/dL Abnormal 12.0 - 16.0 g/dL [facility]; [facility], [facility]. Work Phone: Lymphocytes (Bld) [#/Vol] 1.80 {x10EE3/UL} Normal 0.80 - 2.80 {x10EE3/UL} [facility].; [facility], [facility]. Work Phone: Lymphocytes/100 WBC (Bld) 13.1 % Abnormal 20.0 - 45.0 % [facility]; [facility], [facility]. Work Phone: MCH (RBC) [Entitic mass] 31 pg Normal 27 - 33 pg [facility]; [facility], [facility] Work Phone: MCHC (RBC) [Mass/Vol] 33 {X10_3} Normal 32 - 3 6 {X10_3} [facility].; [facility], [facility]. Work Phone: MCV (RBC) [Entitic vol] 92 fL Normal 80 - 99 fL E [facility]; [facility], [facility]. Work Phone: Monocytes (Bld) [#/Vol] 1.00 {x10EE3/UL} Normal 0.20 - 1.00 {x10EE3/UL} [facility]; [facility], [facility]. Work Phone: Monocytes/100 WBC (Bld) 7.4 % Normal 0.0 - 10.0 % [facility]; [facility], [facility]. Work Phone: Morphology Mehul (Bld) [Interp] N/A Normal [facility]; [facility], [facility]. Work Phone: Neutrophils (Bld) [#/Vol] 10.90 {x10EE3/UL} Abnormal 1.50 - 7.10 {x10EE3/UL} [facility].; [facility], [facility]. Work Phone: Neutrophils/100 WBC (Bld) 78.8 % Abnormal 46.0 - 76.0 % [facility].; [facility], [facility]. Work Phone: Platelet mean volume (Bld) [Entitic vol] 8.7 fL Normal 6.6 - 10.5 fL [facility].; . Work Phone: Platelets (Bld) [#/Vol] 200 {x10EE3/UL} Normal 1 50 - 450 {x10EE3/UL} [facility].; [facility], [facility]. Work Phone: RBC (Bld) [#/Vol] 3.53 {x_10EE6/UL} Abnormal 4.10 - 5.30 {x_10EE6/UL} [facility].; [facility], [facility]. Work Phone: WBC (Bld) [#/Vol] 13.9 {x_10EE3/UL} Abnormal 4.5 - 10.8 {x_10EE3/UL} [facility].; [facility], [facility]. Work Phone: No Panel Informationon 11-04 CBC + DIFF Normal [facility].; [facility], [facility]. Work Phone: MANUAL DIFF N/A Normal [facility].; [facility], [facility]. Work Phone: Laboratory - Blood bankon ABO group Nom (Bld) O Normal [facility].; [facility], [facility]. Work Phone: Blood group antibody screen Ql Negative Normal [facility]ics[facility] CenterCBA [employer]AR[employer]; [facility] Work Phone: Rh Nom (Bld) Positive Normal [facility]; [facility] Work Phone: Laboratory - Coagulationon 0 11-03-2022 aPTT Coag (Bld) [Time] 23.3 s Abnormal 25.4 - 38.4 {sec} [facility].; [facility]. Work Phone: INR Coag (PPP) [Relative time] 0.9 {INR} Normal 0.8 - 1.2 [facility]; [facility]. Work Phone: PT Coag (Bld) [Time] 10.4 s Normal 9.3 - 1 4.1 {sec} [facility].; [facility]. Work Phone: Laboratory - Hematology and Cell countson 11-03-2022 Basophils (Bld) [#/Vol] 0.00 {x10EE3/UL} Normal 0.00 - 0.10 {x10EE3/UL} [facility].; [facility], [facility]. Work Phone: Basophils/100 WBC (Bld) 0.5 % Normal 0.0 - 2.0 % [facility]; [facility]. Work Phone: Eosinophils (Bld) [#/Vol] 0.10 {x10EE3/UL} Normal 0.00 - 0.50 {x10EE3/UL} [facility].; [facility], [facility]. Work Phone: Eosinophils/100 WBC (Bld) 1.3 % Normal 0.0 - 7.0 % [facility]; [facility]. Work Phone: Erythrocyte distribution width (RBC) [Ratio] 13.6 % Normal 12.0 - 15.6 % [facility]; [facility] Work Phone: Hematocrit (Bld) [Volume fraction] 34.6 % Normal 34.0 - 46.0 % [facility]; [facility] Work Phone: Hemoglobin (Bld) [Mass/Vol] 11.7 g/dL Abnormal 12.0 - 16.0 g/dL [facility]; [facility], [facility]. Work Phone: Lymphocytes (Bld) [#/Vol] 1.20 {x10EE3/UL} Normal 0.80 - 2.80 {x10EE3/UL} [facility]; [facility], [facility]. Work Phone: Lymphocytes/100 WBC (Bld) 14.2 % Abnormal 20.0 - 45.0 % [facility]; [facility], [facility]. Work Phone: MCH (RBC) [Entitic mass] 31 pg Normal 27 - 33 pg [facility]; [facility], [facility]. Work Phone: MCHC (RBC) [Mass/Vol] 34 {X10_3} Normal 32 - 3 6 {X10_3} [facility]; [facility], [facility]. Work Phone: MCV (RBC) [Entitic vol] 92 fL Normal 80 - 99 fL E [facility]; [facility], [facility] Work Phone: Monocytes (Bld) [#/Vol] 0.60 {x10EE3/UL} Normal 0.20 - 1.00 {x10EE3/UL} [facility]; [facility]. Work Phone: Monocytes/100 WBC (Bld) 6.9 % Normal 0.0 - 10.0 % [facility].; [facility]. Work Phone: Morphology Mehul (Bld) [Interp] N/A Normal [facility].; [facility], [facility]. Work Phone: Neutrophils (Bld) [#/Vol] 6.70 {x10EE3/UL} Normal 1.50 - 7.10 {x10EE3/UL} [facility].; [facility], [facility]. Work Phone: Neutrophils/100 WBC (Bld) 77.1 % Abnormal 46.0 - 76.0 % [facility].; [facility], [facility]. Work Phone: Platelet mean volume (Bld) [Entitic vol] 8.9 fL Normal 6.6 - 10.5 fL [facility].; [facility]. Work Phone: Platelets (Bld) [#/Vol] 206 {x10EE3/UL} Normal 1 50 - 450 {x10EE3/UL} [facility].; [facility], [facility]. Work Phone: RBC (Bld) [#/Vol] 3.77 {x_10EE6/UL} Abnormal 4.10 - 5.30 {x_10EE6/UL} [facility].; [facility], [facility]. Work Phone: WBC (Bld) [#/Vol] 8.7 {x_10EE3/UL} Normal 4.5 - 10.8 {x_10EE3/UL} [facility].; [facility], [employer]. Work Phone: No Panel Informationon 11-03 BB TYPE Normal [facility]; [facility] Work Phone: CBC + DIFF Normal [facility]; [facility] Work Phone: MANUAL DIFF N/A Normal [facility]; [facility] Work Phone: PROTHROMBIN TIME AND INR Normal [facility]; . Work Phone: Laboratory - Chemistry and C hemistry - challengeon 08-25-2022 Glucose [Mass/Vol] 81 mg/dL Normal 70 - 140 mg/dL [facility]; [facility] Work Phone: Laboratory - Hematology and Cell countson 08-25-2022 Basophils (Bld) [#/Vol] 0.00 {x10EE3/UL} Normal 0.00 - 0.10 {x10EE3/UL} [facility]; [facility], [facility] Work Phone: Basophils/100 WBC (Bld) 0.4 % Normal 0.0 - 2.0 % [facility]; [facility] Work Phone: Eosinophils (Bld) [#/Vol] 0.20 {x10EE3/UL} Normal 0.00 - 0.50 {x10EE3/UL} [facility].; . Work Phone: Eosinophils/100 WBC (Bld) 1.9 % Normal 0.0 - 7.0 % [facility]; [facility], [facility] Work Phone: Erythrocyte distribution width (RBC) [Ratio] 13.5 % Normal 12.0 - 15.6 % [facility]; [facility] Work Phone: Hematocrit (Bld) [Volume fraction] 32.2 % Abnormal 34.0 - 46.0 % [facility]; [facility] Work Phone: Hemoglobin (Bld) [Mass/Vol] 10.8 g/dL Abnormal 12.0 - 16.0 g/dL [facility]; . Work Phone: Lymphocytes (Bld) [#/Vol] 1.60 {x10EE3/UL} Normal 0.80 - 2.80 {x10EE3/UL} [facility]; [facility], [facility] Work Phone: Lymphocytes/100 WBC (Bld) 17.0 % Abnormal 20.0 - 45.0 % [facility]; [facility], [facility]. Work Phone: MCH (RBC) [Entitic mass] 32 pg Normal 27 - 33 pg [facility]; [facility] Work Phone: MCHC (RBC) [Mass/Vol] 34 {X10_3} Normal 32 - 3 6 {X10_3} [facility]; [facility], [facility]. Work Phone: MCV (RBC) [Entitic vol] 94 fL Normal 80 - 99 fL E [facility]; [facility], [facility] Work Phone: Monocytes (Bld) [#/Vol] 0.60 {x10EE3/UL} Normal 0.20 - 1.00 {x10EE3/UL} [facility]; [facility], [facility]. Work Phone: Monocytes/100 WBC (Bld) 6.0 % Normal 0.0 - 10.0 % [facility]; [facility]. Work Phone: Morphology Mehul (Bld) [Interp] N/A Normal [facility]; [facility]. Work Phone: Neutrophils (Bld) [#/Vol] 6.80 {x10EE3/UL} Normal 1.50 - 7.10 {x10EE3/UL} [facility].; [facility]. Work Phone: Neutrophils/100 WBC (Bld) 74.7 % Normal 46.0 - 76.0 % [facility]; [facility]. Work Phone: Platelet mean volume (Bld) [Entitic vol] 8.7 fL Normal 6.6 - 10.5 fL [facility] CenterC[facility] [employer]; [facility]. Work Phone: Platelets (Bld) [#/Vol] 263 {x10EE3/UL} Normal 1 50 - 450 {x10EE3/UL} [facility].; [facility]. Work Phone: RBC (Bld) [#/Vol] 3.43 {x_10EE6/UL} Abnormal 4.10 - 5.30 {x_10EE6/UL} [facility].; [facility]. Work Phone: WBC (Bld) [#/Vol] 9.1 {x_10EE3/UL} Normal 4.5 - 10.8 {x_10EE3/UL} [facility].; [facility]. Work Phone: No Panel Informationon 08-25 CBC + DIFF Normal [facility]icsW[facility]; [facility] [employer] [facility] Center[facility]. Work Phone: GLUCOSE CHALLENGE 50GM 1 HOUR Normal [facility].; [facility], [facility]. Work Phone: MANUAL DIFF N/A Normal [facility].; [facility] Work Phone: Laboratory - Chemistry and C hemistry - challengeon 03-14-2022 [place] [address].8 m[IU]/mL Normal [facility].; . No Panel Informationon 03-14 Date of LMP Normal [facility].; . Laboratory - Blood bankon ABO and Rh group Nom (Bld) Blood group O Rh(D) positive Abnormal [facility].; [facility] Laboratory - Chemistry and C hemistry - challengeon 03-12-2022 [place] [address].2 m[IU]/mL Normal [facility].; [facility], [facility]. No Panel Informationon 03-12 Date of LMP unknown Normal [facility].; [facility], [facility]. Laboratory - Chemistry and C hemistry - challengeon 07-30-2010 Bilirubin Ql (U) Negative Normal [facility].; [facility], [facility]. pH (U) 5.0 [pH] Normal [facility].; [facility], [facility]. Specific gravity (U) [Rel density] 1.030 Abnormal [facility].; [facility], [facility]. Laboratory - Hematology and Cell countson 07-30-2010 Hemoglobin Ql (U) Negative Normal [facility].; [facility], [facility]. Laboratory - Specimen inform ationon 07-30-2010 Appearance (U) CLEAR Normal [facility].; [facility], [facility]. Color (U) YELLOW Normal [facility].; [facility], [facility]. Laboratory - Urinalysison Glucose Test strip (U) [Mass/Vol] Negative Normal [facility].; [facility], [facility] Leukocyte esterase Test strip Ql (U) Negative Normal [facility].; [facility], [facility]. Nitrite Ql (U) Negative Normal [facility].; [facility] Protein Ql (U) TRACE Normal [facility].; [facility], [facility]. No Panel Informationon 07-30 UA - ODOR Negative Normal [facility].; [facility], [facility]. UA - UROBILIGEN 0.2 Normal [facility].; [facility], [facility]. Vital Signs Date Time Vital Sign Value Performing Clinician Faci lity 07-25-2025 13:42-0400 Body height 167.64 cm Chanda BFKW ADVISORY SOFTWARE ENGINEER-C Work Phone: [facility] 07-25-2025 13:42-0400 Body mass index (BMI) [Ratio] 24.7 kg/m2 [email or web address]ORY SOFTWARE ENGINEER[employer]C Work Phone: [facility] 07-25-2025 13:42-0400 Body weight 69.59 kg Chanda BFKW ADVISORY SOFTWARE ENGINEER-C Work Phone: [facility] 07-25-2025 13:42-0400 Diastolic blood pressure 72 mm[Hg] Chanda BFKW ADVISORY SOFTWARE ENGINEER-C Work Phone: [facility] 07-25-2025 13:42-0400 Systolic blood pressure 113 mm[Hg] Chanda BFKW ADVISORY SOFTWARE ENGINEER-C Work Phone: [facility] 07-10-2025 10:06-0400 Body height 167.64 cm Chanda BFKW ADVISORY SOFTWARE ENGINEER-C Work Phone: [facility] 07-10-2025 10:06-0400 Body mass index (BMI) [Ratio] 24.1 kg/m2 [email or web address] ADVISORY SOFTWARE ENGINEER-C Work Phone: [facility] 07-10-2025 10:06-0400 Body weight 67.78 kg Chanda Huizartetter ADVISORY SOFTWARE ENGINEER-C Work Phone: [facility] 07-10-2025 10:06-0400 Diastolic blood pressure 75 mm[Hg] Chanda Hofstetter ADVISORY SOFTWARE ENGINEER-C Work Phone: [facility] 07-10-2025 10:06-0400 Systolic blood pressure 112 mm[Hg] Chanda Hofstetter ADVISORY SOFTWARE ENGINEER-C Work Phone: [facility] 06-21-2025 09:27-0400 Body height 167.64 cm Chanda Garciafstetter ADVISORY SOFTWARE ENGINEER-C Work Phone: [facility] 06-21-2025 09:25-0400 Body mass index (BMI) [Ratio] 23.4 kg/m2 Chanda Josefstetter ADVISORY SOFTWARE ENGINEER-C Work Phone: [facility] 06-21-2025 09:25-0400 Body weight 65.82 kg Chanda Garciafstetter ADVISORY SOFTWARE ENGINEER-C Work Phone: [facility] 06-21-2025 09:25-0400 Diastolic blood pressure 76 mm[Hg] Chanda Hofstetter ADVISORY SOFTWARE ENGINEER-C Work Phone: [facility] 06-21-2025 09:25-0400 Systolic blood pressure 111 mm[Hg] Chanda Garciafstetter ADVISORY SOFTWARE ENGINEER-C Work Phone: [facility] 05-24-2025 10:33-0400 Body height 167.64 cm Chanda Madisontter ADVISORY SOFTWARE ENGINEER-C Work Phone: [facility] 05-24-2025 10:33-0400 Body mass index (BMI) [Ratio] 22.4 kg/m2 Chanda Hofstetter ADVISORY SOFTWARE ENGINEER-C Work Phone: [facility] 05-24-2025 10:33-0400 Body weight 63.13 kg Chanda Garciafstetter ADVISORY SOFTWARE ENGINEER-C Work Phone: [facility] 05-24-2025 10:33-0400 Diastolic blood pressure 68 mm[Hg] Chanda Hofstetter ADVISORY SOFTWARE ENGINEER-C Work Phone: [facility] 05-24-2025 10:33-0400 Systolic blood pressure 106 mm[Hg] Chanda Hofstetter ADVISORY SOFTWARE ENGINEER-C Work Phone: [facility] 04-25-2025 08:20-0400 Body height 167.64 cm Chanda Hofstetter ADVISORY SOFTWARE ENGINEER-C Work Phone: [facility] 04-25-2025 08:20-0400 Body mass index (BMI) [Ratio] 21.9 kg/m2 Chanda Hofstetter ADVISORY SOFTWARE ENGINEER-C Work Phone: [facility] 04-25-2025 08:20-0400 Body weight 61.8 kg Chanda Hofstetter ADVISORY SOFTWARE ENGINEER-C Work Phone: [facility] 04-25-2025 08:20-0400 Diastolic blood pressure 76 mm[Hg] Chanda Hofstetter ADVISORY SOFTWARE ENGINEER-C Work Phone: [facility] 04-25-2025 08:20-0400 Systolic blood pressure 120 mm[Hg] Chanda Hofstetter ADVISORY SOFTWARE ENGINEER-C Work Phone: [facility] 04-05-2025 14:41-0400 Body height 167.64 cm Chanda Josefstetter ADVISORY SOFTWARE ENGINEER-C Work Phone: [facility] 04-05-2025 14:41-0400 Body mass index (BMI) [Ratio] 21.7 kg/m2 Chanda Hofstetter ADVISORY SOFTWARE ENGINEER-C Work Phone: [facility] 04-05-2025 14:41-0400 Body weight 60.95 kg Chanda Hofstetter ADVISORY SOFTWARE ENGINEER-C Work Phone: [facility] 04-05-2025 14:41-0400 Diastolic blood pressure 76 mm[Hg] Chanda Hofstetter ADVISORY SOFTWARE ENGINEER-C Work Phone: [facility] 04-05-2025 14:41-0400 Systolic blood pressure 116 mm[Hg] Chanda Hofstetter ADVISORY SOFTWARE ENGINEER-C Work Phone: [facility] 03-02-2025 09:11-0400 Body height 167.64 cm Chanda Hofstetter ADVISORY SOFTWARE ENGINEER-C Work Phone: [facility] 03-02-2025 09:11-0400 Body mass index (BMI) [Ratio] 21.4 kg/m2 Chanda Hofstetter ADVISORY SOFTWARE ENGINEER-C Work Phone: [facility] 03-02-2025 09:11-0400 Body weight 60.44 kg Chanad Hofstetter ADVISORY SOFTWARE ENGINEER-C Work Phone: [facility] 03-02-2025 09:11-0400 Diastolic blood pressure 78 mm[Hg] Chanda Hofstetter ADVISORY SOFTWARE ENGINEER-C Work Phone: [facility] 03-02-2025 09:11-0400 Systolic blood pressure 116 mm[Hg] Chanda Hofstetter ADVISORY SOFTWARE ENGINEER-C Work Phone: [facility] 02-07-2025 16:03-0400 Body mass index (BMI) [Ratio] 20.5 kg/m2 Chanda Hofstetter ADVISORY SOFTWARE ENGINEER-C Work Phone: [facility] 02-07-2025 16:03-0400 Body weight 57.6 kg Chanda Josefstetter ADVISORY SOFTWARE ENGINEER-C Work Phone: [facility] 02-07-2025 16:03-0400 Diastolic blood pressure 84 mm[Hg] Chanda Hofstetter ADVISORY SOFTWARE ENGINEER-C Work Phone: [facility] 02-07-2025 16:03-0400 Systolic blood pressure 124 mm[Hg] Chanda Hofstetter ADVISORY SOFTWARE ENGINEER-C Work Phone: [facility] 12-21-2024 11:06-0500 Body height 165.1 cm June Yang RN [facility]; [facility] 12-21-2024 11:06-0500 Body mass index (BMI) [Ratio] 20.38 kg/m2 June Yang RN [facility] 12-21-2024 11:06-0500 Body surface area Derived from formula 1.61 m2 June Yang RN [facility] 12-21-2024 11:06-0500 Body temperature 98.4 [degF] June Yang RN [facility] Comment on above: Method: Oral 12-21-2024 11:06-0500 Body weight 55.57 kg June Yang RN [facility], [facility].; [employer] [facility] 12-21-2024 11:06-0500 Diastolic blood pressure 78 mm[Hg] June Yang RN [facility] [employer] [facility] Comment on above: Patient Position: Sitting; Cuff Location : Left Arm; Cuff Size: Standard 12-21-2024 11:06-0500 Heart rate 96 /min June Yang RN [facility], [employer] [facility], [employer]. Comment on above: Pattern: Regular 12-21-2024 11:06-0500 Inhaled oxygen concentration 21 % June Yang RN [facility] Comment on above: Room air 12-21-2024 11:06-0500 SaO2% (BldA) [Mass fraction] 98 % June Yang RN [facility] 12-21-2024 11:06-0500 Systolic blood pressure 122 mm[Hg] June Yang RN [facility] [employer] [facility], [employer]. Comment on above: Patient Position: Sitting; Cuff Location : Left Arm; Cuff Size: Standard 10-09-2023 13:46-0500 Body height 165.1 cm Tamar Johnson RN [facility] 10-09-2023 13:46-0500 Body mass index (BMI) [Ratio] 21.13 kg/m2 Tamar Johnson RN [facility] 10-09-2023 13:46-0500 Body surface area Derived from formula 1.63 m2 Tamar Johnson RN [facility] 10-09-2023 13:46-0500 Body weight 57.61 kg Tamar Johnson RN [facility] 10-09-2023 13:46-0500 Diastolic blood pressure 83 mm[Hg] Tamar Johnson RN [facility] Comment on above: Patient Position: Sitting; Cuff Location : Left Arm; Cuff Size: Large 10-09-2023 13:46-0500 Heart rate 109 /min Tamar Johnson RN [facility] Comment on above: Pattern: Regular 10-09-2023 13:46-0500 Systolic blood pressure 118 mm[Hg] Tamar Johnson RN [facility], [employer].; [facility] Comment on above: Patient Position: Sitting; Cuff Location : Left Arm; Cuff Size: Large 08-20-2022 10:37-0400 Body height 165.1 cm Kelli Rdz RN [facility], [facility].; [facility] 08-20-2022 10:37-0400 Body mass index (BMI) [Ratio] 24.38 kg/m2 Kelli Rdz RN [facility] 08-20-2022 10:37-0400 Body surface area Derived from formula 1.73 m2 Kelli Rdz RN [facility] 08-20-2022 10:37-0400 Body weight 66.45 kg Kelli Rdz RN [facility], [employer].; [employer] [facility] 08-20-2022 10:37-0400 Diastolic blood pressure 77 mm[Hg] Kelli Rdz RN [facility].; [employer] [facility], [employer]. Comment on above: Patient Position: Sitting; Cuff Location : Left Arm; Cuff Size: Large 08-20-2022 10:37-0400 Heart rate 94 /min Kelli Rdz RN [facility] [employer] [facility]. Comment on above: Pattern: Regular 08-20-2022 10:37-0400 Systolic blood pressure 115 mm[Hg] Kelli Rzd RN [facility].; [employer] [facility], [employer]. Comment on above: Patient Position: Sitting; Cuff Location : Left Arm; Cuff Size: Large 03-12-2022 10:44-0400 Body height 165.1 cm Kelli Rdz RN [facility], [employer].; [facility] 03-12-2022 10:44-0400 Body mass index (BMI) [Ratio] 20.67 kg/m2 Kelli Rdz RN [facility], [facility].; [facility] 03-12-2022 10:44-0400 Body surface area Derived from formula 1.62 m2 Kelli Rdz RN [facility], [facility].; [employer] [facility] 03-12-2022 10:44-0400 Body temperature 97.8 [degF] Kelli Rdz RN [facility], [employer].; [employer] [facility], [employer]. Comment on above: Method: Oral 03-12-2022 10:44-0400 Body weight 56.34 kg Kelli Rdz RN [facility], [employer].; [employer] [facility] 03-12-2022 10:44-0400 Diastolic blood pressure 79 mm[Hg] Kelli Rdz RN [facility] [employer] [facility] [facility] Comment on above: Patient Position: Sitting; Cuff Location : Left Arm; Cuff Size: Large 03-12-2022 10:44-0400 Heart rate 116 /min Kelli Rdz RN [facility], [employer]. Comment on above: Pattern: Regular 03-12-2022 10:44-0400 Inhaled oxygen concentration 21 % Kelli Rdz RN [facility] Comment on above: Room air 03-12-2022 10:44-0400 SaO2% (BldA) [Mass fraction] 100 % Kelli Rdz RN [facility] 03-12-2022 10:44-0400 Systolic blood pressure 122 mm[Hg] Kelli Rdz RN [facility], [employer].; [facility], [employer]. Comment on above: Patient Position: Sitting; Cuff Location : Left Arm; Cuff Size: Large 02-12-2022 09:52-0400 Body height 165.1 cm KAYLEIGH LUNA RN [facility] 02-12-2022 09:52-0400 Body mass index (BMI) [Ratio] 20.67 kg/m2 KAYLEIGH LUNA RN [facility] 02-12-2022 09:52-0400 Body surface area Derived from formula 1.62 m2 KAYLEIGH LUNA RN [facility] [employer] [facility] 02-12-2022 09:52-0400 Body weight 56.34 kg KAYLEIGH GRATE MESHA [facility].; [employer] [facility] 02-12-2022 09:52-0400 Diastolic blood pressure 89 mm[Hg] KAYLEIGH GRATE MESHA [facility] [employer] [facility] Comment on above: Patient Position: Sitting; Cuff Location : Left Arm; Cuff Size: Standard 02-12-2022 09:52-0400 Heart rate 108 /min KAYLEIGH LUNA RN [facility] [employer] [facility] Comment on above: Pattern: Regular 02-12-2022 09:52-0400 Systolic blood pressure 133 mm[Hg] KAYLEIGH LUNA RN [facility] Comment on above: Patient Position: Sitting; Cuff Location : Left Arm; Cuff Size: Standard 01-09-2022 14:47-0400 Body height 165.1 cm Tamar Johnson RN [facility] 01-09-2022 14:47-0400 Body mass index (BMI) [Ratio] 20.8 kg/m2 Tamar Johnson RN [facility] 01-09-2022 14:47-0400 Body surface area Derived from formula 1.62 m2 Tamar Johnson RN [facility], [facility].; [facility] 01-09-2022 14:47-0400 Body weight 56.7 kg Tamar Johnson RN [facility] 01-09-2022 14:47-0400 Diastolic blood pressure 91 mm[Hg] Tamar Johnson RN [facility] Comment on above: Patient Position: Sitting; Cuff Location : Left Arm; Cuff Size: Large 01-09-2022 14:47-0400 Heart rate 125 /min Tamar Johnson RN [facility] [employer] [facility] Comment on above: Pattern: Regular 01-09-2022 14:47-0400 Systolic blood pressure 150 mm[Hg] Tamar Johnson RN [facility] Comment on above: Patient Position: Sitting; Cuff Location : Left Arm; Cuff Size: Large 05-31-2021 10:16-0400 Body height 165.1 cm Tamar Johnson RN [facility] 05-31-2021 10:16-0400 Body mass index (BMI) [Ratio] 20.34 kg/m2 Tamar Johnson RN [facility], [facility]. 05-31-2021 10:16-0400 Body surface area Derived from formula 1.6 m2 Tamar Johnson RN [facility], [facility].; [facility] 05-31-2021 10:16-0400 Body weight 55.45 kg Tamar Johnson RN [facility] 05-31-2021 10:16-0400 Diastolic blood pressure 80 mm[Hg] Tamar Johnson RN [facility] Comment on above: Patient Position: Sitting; Cuff Location : Left Arm; Cuff Size: Large 05-31-2021 10:16-0400 Heart rate 102 /min Tamar Johnson RN [facility], [employer] [facility], [employer]. Comment on above: Pattern: Regular 05-31-2021 10:16-0400 Systolic blood pressure 130 mm[Hg] Tamar Johnson RN [facility], [facility].; [facility], [employer]. Comment on above: Patient Position: Sitting; Cuff Location : Left Arm; Cuff Size: Large 07-19-2014 14:29-0400 Body height 165.1 cm Tamar Johnson RN [facility], [facility].; [facility] 07-19-2014 14:29-0400 Body mass index (BMI) [Percentile] Per age and sex 58 % Tamar Johnson RN [facility], [facility].; [facility], [employer]. 07-19-2014 14:29-0400 Body mass index (BMI) [Ratio] 19.89 kg/m2 Tamar Johnson RN [facility], [employer].; [facility] 07-19-2014 14:29-0400 Body surface area Derived from formula 1.59 m2 Tamar Johnson RN [facility] 07-19-2014 14:29-0400 Body weight 54.21 kg Tamar Johnson RN [facility].; [employer] [facility]. 07-19-2014 14:29-0400 Diastolic blood pressure 60 mm[Hg] Tamar Johnson RN [facility].; [email or web address] [facility] [employer], [employer]. Comment on above: Patient Position: Sitting; Cuff Location : Left Arm; Cuff Size: Large 07-19-2014 14:29-0400 Heart rate 85 /min Tamar Johnson RN [facility].; [employer], [employer]. Comment on above: Pattern: Regular 07-19-2014 14:29-0400 Systolic blood pressure 97 mm[Hg] Tamar Johnson RN [facility].; [email or web address] [facility] [employer] [facility]. Comment on above: Patient Position: Sitting; Cuff Location : Left Arm; Cuff Size: Large 03-04-2013 16:26-0400 Body height 153.67 cm Kelli Rdz RN [facility].; [employer] [facility] 03-04-2013 16:26-0400 Body mass index (BMI) [Percentile] Per age and sex 65 % Kelli Rdz RN [facility].; [employer] [facility] 03-04-2013 16:26-0400 Body mass index (BMI) [Ratio] 19.59 kg/m2 Kelli Rdz RN [facility] [employer] [facility]. 03-04-2013 16:26-0400 Body surface area Derived from formula 1.41 m2 Kelli Rdz RN [facility], [employer].; [employer] [facility] 03-04-2013 16:26-0400 Body weight 46.27 kg Kelli Rdz RN [facility], [employer].; [employer] [facility] [employer], [employer]. 03-04-2013 16:26-0400 Diastolic blood pressure 71 mm[Hg] Kelli Rdz RN [facility] [employer], [employer]. Comment on above: Patient Position: Sitting; Cuff Location : Left Arm; Cuff Size: Large 03-04-2013 16:26-0400 Heart rate 82 /min Kelli Rdz RN [facility], [employer].; [facility] Comment on above: Pattern: Regular 03-04-2013 16:26-0400 Systolic blood pressure 106 mm[Hg] Kelli Rdz RN [facility] Comment on above: Patient Position: Sitting; Cuff Location : Left Arm; Cuff Size: Large 12-26-2011 15:17-0500 Body height 146.05 cm June Yang RN [facility], [employer].; [employer] [facility] 12-26-2011 15:17-0500 Body mass index (BMI) [Percentile] Per age and sex 32 % June Yang RN [facility] 12-26-2011 15:17-0500 Body mass index (BMI) [Ratio] 16.59 kg/m2 June Yang RN [facility] [employer] [facility] 12-26-2011 15:17-0500 Body surface area Derived from formula 1.21 m2 June Yang RN [facility] [employer] [facility] 12-26-2011 15:17-0500 Body temperature 98 [degF] June Yang RN [facility] [employer] [facility] Comment on above: Method: Oral 12-26-2011 15:17-0500 Body weight 35.38 kg June Yang RN [facility] [employer] [facility] 12-26-2011 15:17-0500 Diastolic blood pressure 74 mm[Hg] June Yang RN [facility] [employer] [facility] Comment on above: Patient Position: Sitting; Cuff Location : Left Arm; Cuff Size: Standard 12-26-2011 15:17-0500 Heart rate 91 /min June Yang RN [facility] [employer] [facility], [employer]. Comment on above: Pattern: Regular 12-26-2011 15:17-0500 Systolic blood pressure 110 mm[Hg] June [facility] RN [facility].; . Comment on above: Patient Position: Sitting; Cuff Location : Left Arm; Cuff Size: Standard 07-30-2010 13:0400 Body temperature 98.9 [degF] Tamar Johnson RN [facility].; [facility] Comment on above: Method: Oral 07-30-2010 13:040 Body weight 30.39 kg Tamar Johnson RN [facility].; . Encounters Encounter Date Encounter Type Care Provider Facility Start: 08-14-2025 End: 08-14-2025 ambulatory No Primary Care Physician [facility] [place]: 07-25-2025 End: 07-25-2025 Patient encounter procedure Lora FLOWERS -[facility] Work Phone: Start: 07-25-2025 End: 07-25-2025 ambulatory Chanda Velasco ADVISORY SOFTWARE ENGINEER-C Work Phone: [facility] Start: 07-10-2025 End: 07-10-2025 ambulatory Chanda Velasco ADVISORY SOFTWARE ENGINEER-C Work Phone: -[facility] Start: 07-10-2025 End: 07-10-[address] Sirena Padilla MD -[facility] Work Phone: Start: 07-10-2025 End: 07-10-2025 ambulatory Lizbeth Cruz Facility:[facility] Start: 06-21-2025 End: 06-21-[address] Lizbeth Cruz DO -[facility] Work Phone: Start: 06-21-2025 End: 06-21-2025 ambulatory Chanda Velasco ADVISORY SOFTWARE ENGINEER-C Work Phone: -[facility] Start: 05-24-2025 End: 05-24-2025 Patient encounter procedure Lora FLOWERS -[facility] Work Phone: Start: 05-24-2025 End: 05-24-2025 ambulatory Chanda Velasco ADVISORY SOFTWARE ENGINEER-C Work Phone: -[facility] Start: 05-18-2025 End: 05-18-2025 ambulatory Chanda Bhupendratetter ADVISORY SOFTWARE ENGINEER-C Work Phone: -[facility] Start: 05-18-2025 End: 05-18-[address] Sirena Padilla MD -[facility] Work Phone: Start: 05-18-2025 End: 05-18-2025 ambulatory Sirena Padilla Facility:[facility] Start: 04-25-2025 End: 04-25-2025 Patient encounter procedure Lora Collins NP-C -[facility] Work Phone: Start: 04-25-2025 End: 04-25-2025 ambulatory Chanda Velasco ADVISORY SOFTWARE ENGINEER-C Work Phone: -[facility] Start: 04-05-2025 End: 04-05-[address] Sirena Padilla MD -[facility] Work Phone: Start: 04-05-2025 End: 04-05-2025 ambulatory Chanda Velasco ADVISORY SOFTWARE ENGINEER-C Work Phone: [facility] Work Phone: Start: 03-02-2025 End: 03-02-2025 Patient encounter procedure Sophia Cho CNM -[facility] Work Phone: Start: 03-02-2025 End: 03-02-2025 ambulatory Chanda Velasco ADVISORY SOFTWARE ENGINEER-C Work Phone: [facility] Work Phone: Start: 03-02-2025 End: 03-02-2025 ambulatory Chanda Velasco ADVISORY SOFTWARE ENGINEER Facility:[facility] Start: 02-07-2025 End: 02-07-[address] Sirena Padilla MD -[facility] Work Phone: Start: 02-07-2025 End: 02-07-2025 ambulatory Chanda Velasco ADVISORY SOFTWARE ENGINEER Facility[facility] Start: 02-01-2025 End: 02-01-[address] Sirena Padilla MD -Lab [facility] Start: 02-01-2025 End: 02-01-2025 ambulatory Chanda Velasco ADVISORY SOFTWARE ENGINEER Facility:[facility] Start: 01-30-2025 End: 01-30-[address] Sirena Padilla MD -Lab [facility] Start: 01-30-2025 End: 01-30-2025 ambulatory Chanda Velasoc ADVISORY SOFTWARE ENGINEER Facility:[facility] Start: 12-21-2024 End: 12-21-2024 Office outpatient visit 10 minutes YOHANA CHAMBERLAIN MD Work Phone: [facility]. Start: 10-30-2024 End: 10-30-2024 Emergency department patient visit MALCOLM REILLY [facility] Start: 2024 End: 08-11-2024 Medication Refill/Order YOHANA CHAMBERLAIN MD Work Phone: [facility]. Start: 03-10-2024 Patient encounter procedure Chanda Velasco ADVISORY SOFTWARE ENGINEER-C Work Phone: [facility] Start: 10-09-2023 End: 10-09-2023 Office outpatient visit 10 minutes YOHANA CHAMBERLAIN MD Work Phone: [facility]. Start: 11-05-2022 End: 11-05-2022 Medication Refill/Order YOHANA CHAMBERLAIN MD Work Phone: [facility]. Start: 08-20-2022 End: 08-20-2022 Office outpatient visit 10 minutes YOHANA CHAMBERLAIN MD Work Phone: [facility]. Start: 03-24-2022 End: 03-24-2022 Patient encounter procedure YOHANA CHAMBERLAIN MD Work Phone: [employer] [facility] Start: 03-19-2022 End: 03-19-2022 Procedure Order YOHANA CHAMBERLAIN MD Work Phone: [facility] Start: 03-19-2022 End: 03-19-2022 Results Review YOHANA CHAMBERLAIN MD Work Phone: [facility] Start: 03-14-2022 End: 03-14-2022 Lab Only YOHANA CHAMBERLAIN MD Work Phone: [facility] Start: 03-13-2022 End: 03-13-2022 Results Review YOHANA CHAMBERLAIN MD Work Phone: [facility] Start: 03-12-2022 End: 03-12-2022 Office outpatient visit 10 minutes YOAHNA CHAMBERLAIN MD Work Phone: [email or web address] [facility] Start: 02-12-2022 End: 02-12-2022 Patient encounter procedure YOHANA CHAMBERLAIN MD Work Phone: [email or web address] [facility] Start: 01-09-2022 End: 01-09-2022 Office outpatient visit 10 minutes YOHANA CHAMBERLAIN MD Work Phone: [email or web address] [facility] Start: 05-31-2021 End: 05-31-2021 Office outpatient visit 15 minutes YOHANA CHAMBERLAIN MD Work Phone: [email or web address] [facility] [employer] Start: 07-19-2014 End: 07-19-2014 Office outpatient visit 15 minutes YOHANA CHAMBERLAIN MD Work Phone: [email or web address] [facility] [employer] Start: 07-04-2014 End: 07-04-2014 Medication Refill/Order YOHANA CHAMBERLAIN MD Work Phone: [facility] Start: 03-04-2013 End: 03-04-2013 Patient encounter procedure YOHANA CHAMBERLAIN MD Work Phone: [facility] Start: 12-26-2011 End: 12-26-2011 Patient encounter procedure YOHANA CHAMBERLAIN MD Work Phone: [facility] Start: 12-26-2011 End: 12-26-2011 Historical Summary YOHANA CHAMBERLAIN MD Work Phone: [facility] Start: 07-30-2010 End: 07-30-2010 Patient encounter procedure YOHANA CHAMBERLAIN MD Work Phone: [employer] [facility] Procedures Date Procedure Procedure Detail Performing Clinician Start: 07-10-2025 Serologic test for syphilis Chanda Velasco ADVISORY SOFTWARE ENGINEER-C Work Phone: Start: 05-18-2025 Ultrasonography in f irst trimester Chanda Velasco ADVISORY SOFTWARE ENGINEER-C Work Phone: Start: 03-02-2025 Urine culture Chanda Pretty azeb ADVISORY SOFTWARE ENGINEER-C Work Phone: Start: 03-02-2025 Hepatitis C antibody [facility] ADVISORY SOFTWARE ENGINEER-C Work Phone: Comment on above: Reactive: Presumptiv e evidence of antibodies to HCV. Follow CDC recommendations for supplemental testing.Non-Reactive: Antibodies to HCV were not detected; does not exclude the possibility of exposure to HCVReactive Results are presumptive evidence of antibodies to HCV. Follow CDC recommendations for supplemental testing.Order confirmation testing: HCV Quant by PCR testing - HCVPCR #[id number] Non Reactive: < 0.8 Equivocal: >/= 0.8 to < 1.0 Reactive: >/= 1.0The CDC requires that a reactive/equivocal HCV antibody result be sent out for confirmation. HCV Quant by PCR testing. Start: 03-02-2025 Rubella IgG measurement Chanda Velasco ADVISORY SOFTWARE ENGINEER-C Work Phone: Comment on above: Antibody Result: Int erpretationNon-Reactive: Non- ImmuneReactive: ImmuneThe following results were obtained with the [employer] Rubella IgG assay. Results from assays of other manufacturers cannot be used interchangeably. Start: 03-02-2025 Serologic test for syphilis Chanda Velasco ADVISORY SOFTWARE ENGINEER-C Work Phone: Start: 01-30-2025 Serum progesterone measurement Chanda Velasco ADVISORY SOFTWARE ENGINEER-C Work Phone: Comment on above: Follicular phase 0.1 - 0.9 Luteal phase 1.8 - 23.9 Ovulation phase 0.1 - 12.0 First trimester 11.0 - 44.3 Second trimester 25.4 - 83.3 Third trimester 58.7 - 214.0 Postmenopausal 0.0 - 0.1Performed at: [address] [id number] Director: Cody Bell PhD, Phone: [phone] Start: 12-21-2024 End: 12-21-2024 Dischrg meds reconciled w/current med list YULIYA MAGALLANES TIMBER SUPERVISOR-C Work Phone: Start: 10-30-2024 End: 10-30-2024 Urinalysis YOHANA CHAMBERLAIN MD Work Phone: Comment on above: Result Comment: URIN ALYSIS Performed By: #### [id number] #### [facility],[address] [place] [address] Start: 08-20-2022 End: 08-20-2022 Dischrg meds reconciled w/current med list CHANDA VELASCO TIMBER SUPERVISOR-C Work Phone: Start: 03-12-2022 End: 03-12-2022 Dischrg meds reconciled w/current med list CHANDA VELASCO TIMBER SUPERVISOR-C Work Phone: Start: 05-31-2021 End: 05-31-2021 Urinary Incontinence CHANDA Addison TIMBER SUPERVISOR-C Work Phone: Comment on above: Negative. H/O: section Previous c esarean section Chanda Velasco ADVISORY SOFTWARE ENGINEER-C Work Phone: Comment on above: breech H/O: section Previous c esarean section Sophia Cho CNM H/O: section Previous c esarean section Dr. Sirena Padilla MD H/O: section Previous c esarean section Lora Collins ADVISORY SOFTWARE ENGINEER-C H/O: section Previous c esarean section Lora Collins ADVISORY SOFTWARE ENGINEER-C H/O: section Previous c esarean section Dr. Lizbeth Cruz DO H/O: section Previous c esarean section Dr. Sirena Padilla MD H/O: section Previous c esarean section Lora Collins ADVISORY SOFTWARE ENGINEER-C TDAP - Adacel/Boostrix Kristal Yang RN Comment on above: Discussed. 12/21/2024 Plan of Treatment Date Care Activity Detail Author Start: 03-02-2025 CBC W Auto Differential panel - Blood [facility] Start: 03-02-2025 Hepatitis C antibody measurement [facility] Start: 03-02-2025 Rubella IgG measurement [facility] Start: 03-02-2025 Serologic test for syphilis [facility] Start: 03-02-2025 T4 free measurement [facility] Start: 03-02-2025 Thyroid stimulating hormone measurement [facility] Start: 03-02-2025 [facility] Start: 09-23-2024 [facility] visit, [facility]; ESTABLISHED PATIENT ROUTINE VISIT - [facility] [employer] Start: 23-Sep-2024 14:00-05:00 MD MALCOLM YANG Appointment Request [facility] Start: 03-19-2022 Us uterus 14 wk transabdl 10/19 gestat OB US < 14 WKS, SINGLE FETUS ([id number]) Start: 19-Mar-2022 [facility]; [facility] [employer] [facility] Start: 05-31-2021 Patient Education IRRITABLE BOWEL Indication: Irritable bowel syndrome with diarrhea Start: 31-May-2021 Instruction Type: Patient Education [facility] Work Phone: CBC W Auto Different ial panel - Blood [facility] Chlamydia deoxyribon ucleic acid detection [facility] Erythrocyte mean corpuscular volume determination [facility] Hematocrit [Volume Fraction] of Blood [facility] Hemoglobin [Mass/vol ume] in Blood [facility] Hepatitis B virus sen rface Ag [Presence] in Serum [facility] Leukocytes [#/volume ] in Blood [facility] Mean corpuscular hem oglobin concentration determination [facility] Mean corpuscular hem oglobin determination [facility] Measurement of gluco se 2 hours after glucose challenge for glucose tolerance test [facility] Neutrophil count [facility] Neutrophil percent differential count [facility] Platelets [#/volume] in Blood [facility] Procedure [facility] Red blood cell count [facility] Red cell distributio n width determination [facility] Serologic test for syphilis [facility] Ultrasonography in f irst trimester [facility] Immunizations Immunization Date Immunization Notes Care Provider [facility] influenza virus vaccine, unspecified formulation YOHANA CHAMBERLAIN MD Work Phone: [facility].; [facility] Comment on above: Refused. 08/20/2022 influenza virus vaccine, unspecified formulation YOHANA CHAMBERLAIN MD Work Phone: [facility].; [facility] Comment on above: Refused. 12/21/2024 Payers Date Payer Category Payer Unknown [id number] 2025 Self-pay [id number] 2025 Self-pay 2025 Unknown [id number] a 2000 Unknown [id number] Unknown [id number] Unknown [facility] Unknown [id number] Unknown [id number] [id number] Unknown [id number] [id number] Unknown [id number] [id number] Unknown [id number] [id number] Unknown [id number] [id number] Unknown [id number] [id number] Unknown [id number] [id number] Unknown [id number] [id number] Unknown [id number] [id number] Unknown [id number] [id number] Unknown [id number] [id number] Unknown [id number] [id number] Unknown [id number] [id number] Social History Date Type Detail Facility Alcohol Use: Alcohol Use: ; N o Alcohol Use. [facility].; [facility] Tobacco use: Tobacco use: ; N ever smoker. [facility].; [facility], [facility]. Start: 2000 [facility] Start: 02-16-2025 Never smoked tobacco [facility] Current Work/Study Status Current Work/Study Status [facility].; [facility] Sex Female [facility] Clinical Notes 11-10-2024 to 07-10-2025 Note Date & Type Note Facility 07-10-2025 Progress note [facility] 06-21-2025 Progress note [facility] 05-19-2025 Radiology Diagnostic study note [facility] Imaging Services [address] [address] OB Anatomy w/ Transvaginal MR#: [id number] Acct: [id number] Name: GAURAV FORTE Rep #: [id number] : 2000 F 24 From: Alexy Reagan MD PCP: OUT OF TOWN DOCTOR Status: REG CLI Study:OB Anatomy w/ Transvaginal Date of Exam : 05/18/25 Exam# [id number] Ordering Dr: Sirena Rudolph MD PROCEDURE: OB ANATOMY W/ TRANSVAGINAL [...] of 20 weeks and 0days. Reading Location: [id number] CC: Dr. Sirena Padilla MD ~ Manual Lathe Machinist: Signed [facility] 04-05-2025 Evaluation note Diagnosis Onset Date [...] veins during acute July 10, 2025 10:00am [facility] Work Phone: 1(718) 630-546506-18-2025 Evaluation note* Diagnosis Onset Date Resolution Status [...] Varicose veins during acute July 25 1:40pm [facility] Work Phone: 1(364) 728-551006-18-2025 Progress [facility] [address] [place] [address], [address] [place], [place] [id number] OFFICE VISIT Date of Service: 04/05/25 MR#: [id number] Acct: [id number] Name: GAURAV FORTE Rep #: [id number] : 2000 Provider: Dr. Ammon Padilla MD Age/Sex: 24/F Location: [facility] Status: Signed Intake Vital Signs 02/07/25 16:03 03/02/25 09:11 04/05/25 14:41 Height 5 ft 6 in 5 ft 6 in 5 ft 6 in Weight: 134 lb 6 oz BMI 21.7 BP 116/76 Intake Visit Reasons: 13wk OB Tour Guide Required: No Is patient in pain?: No Allergies No Known Allergies Allergy (Unverified 04/05/25 14:48) Medications ?Medication ?Instructions ?Recorded ?Confirmed ?Type sertraline 25 mg tablet 25 mg PO DAILY 03/10/2403/19 History fish, borage, flaxseed oils-omega See Rx Instructions PO DAILY 02/16/25 04/05/25 History 3,6,9 comb no.1 1,200 mg capsule ([place] 3-6-9) magnesium 250 mg tablet 250 mg PO QDAY 02/16/2503/19 History multivit-min no.71-iron fum 28 cap PO 02/16/25 5 History mg-folate no.1 1 mg-dha 300 mg capsule (PNV-[place]) Last Menstrual Period: 12/29/24 Zika: Zika virus screening: Negative : No PFSH PFSH Medical History Women's annual routine gynecological examination Surgical History Previous section Family History Aunt Cancer, Onset Age: 25 Paternal Brain tumor Social History adopted: No household members: spouse and children housing: house number of children: 1 current occupational status: unemployed current occupation: [employer] current occupational exposures/hazards: No pets and [...] physical activity do you participate in: none cindy/mormon: Episcopalian seatbelt use: always do you feel safe at home: Yes additional social history: - [employer] work History 3 Elective abortions Hx Para [...] Cosign Signature: Date (if applicable) CC: ~ [facility]06-18-2025 Progress note Author Sirena Padilla [facility] Note Date/Time April 05, 2025 3:[address] [facility] [address], [address] [place] [address] OFFICE VISIT Date of Service: 04/05/25 MR#: [id number] Acct: [id number] Name: GAURAV FORTE Rep #: [id number] : 2000 Provider: Dr. Ammon Padilla MD Age/Sex: 24/F Location: [facility] Status: Signed Intake Vital Signs 02/07/25 16:03 03/02/25 09:11 04/05/25 14:41 Height 5 ft 6 in 5 ft 6 in 5 ft 6 in Weight: 134 lb 6 oz BMI 21.7 BP 116/76 Intake Visit Reasons: 13wk OB Tour Guide Required: No Is patient in pain?: No Allergies No Known Allergies Allergy (Unverified 04/05/25 14:48) Medications ?Medication ?Instructions ?Recorded ?Confirmed ?Type sertraline 25 mg tablet 25 mg PO DAILY 03/10/2403/19 History fish, borage, flaxseed oils-omega See Rx Instructions PO DAILY 02/16/25 04/05/25 History 3,6,9 comb no.1 1,200 mg capsule ([place] 3-6-9) magnesium 250 mg tablet 250 mg PO QDAY 02/16/2503/19 History multivit-min no.71-iron fum 28 cap PO 02/16/25 5 History mg-folate no.1 1 mg-dha 300 mg capsule (PNV-[place]) Last Menstrual Period: 12/29/24 Zika: Zika virus screening: Negative : No PFSH PFSH Medical History Women's annual routine gynecological examination Surgical History Previous section Family History Aunt Cancer, Onset Age: 25 Paternal Brain tumor Social History adopted: No household members: spouse and children housing: house number of children: 1 current occupational status: unemployed current occupation: [employer] current occupational exposures/hazards: No pets and [...] physical activity do you participate in: none cindy/mormon: Episcopalian seatbelt use: always do you feel safe at home: Yes additional social history: - [employer] work History 3 Elective abortions Hx Para [...] Symptoms of Preeclampsia, Infant Feeding No , [place] Education and Family Medical Leave or Disability [...] Cosigner Signature: Date (if applicable) CC: ~ [facility] Work Phone: 1(106) 488-553605-15-2025 Evaluation note* Diagnosis Onset Date Resolution Status [...] Varicose veins during acute June 21 9:24am [facility] Work Phone: 1(365) 536-672105-15-2025 Progress [facility] [address], [address] [place] [address] OFFICE VISIT Date of Service: 03/02/25 MR#: [id number] Acct: [id number] Name: GAURAV FORTE Rep #: [id number] : 2000 Provider: NOELLE Cho Age/Sex: 24/F Location: [facility] Status: Signed Intake Vital Signs 03/10/24 13:00 02/07/25 16:03 03/02/25 09:11 Height 5 ft 6 in 5 ft 6 in 5 ft 6 in Weight: 133 lb 4 oz BMI 21.4 BP 116/78 Intake Visit Reasons: NOB: LMP 12/29, WILBER 10/05 Chief Complaint: New OB Tour Guide Required: No Is patient in pain?: No Allergies No Known Allergies Allergy (Unverified 03/02/25 09:15) Medications ?Medication ?Instructions ?Recorded ?Confirmed ?Type sertraline 25 mg tablet 25 mg PO DAILY 03/10/2402/16 History fish, borage, flaxseed oils-omega See Rx Instructions PO DAILY 02/16/25 03/02/25 History 3,6,9 comb no.1 1,200 mg capsule ([place] 3-6-9) magnesium 250 mg tablet 250 mg PO QDAY 02/16/2502/16 History multivit-min no.71-iron fum 28 cap PO 02/16/25 5 History mg-folate no.1 1 mg-dha 300 mg capsule (PNV-[place]) Last Menstrual Period: 12/29/24 PFSH PFSH Medical History Women's annual routine gynecological examination Surgical History Previous section Family History Aunt Cancer, Onset Age: 25 Paternal Brain tumor Social History adopted: No household members: spouse and children housing: house number of children: 1 current occupational status: unemployed current occupation: [employer] current occupational exposures/hazards: No pets and [...] physical activity do you participate in: none cindy/mormon: Episcopalian seatbelt use: always do you feel safe at home: Yes additional social history: - [employer] work History 3 Elective abortions Hx Para [...] Other, Intellectual Disability/Autism: Other, Recurrent Loss/Stillbirth: Partner (Dlocbo-ukhfsxusxw-mirwotur brain), Other Structural Defect: Other, Other Genetic [...] the knee, inner thigh vaginal -denies DVT's), Manager Lighting surgery (c sectionx1) and Relevant family history (Paternal Aunt Brain tumor 25yo) and Negative: Diabetes, Hypertension, Heart disease, Auto-immune disorder, Kidney disease/UTI, Neurologic/epilepsy, Depression/ depression, Hepatitis/liver disease, Thyroid dysfunction (underactive per timber supervisor not dx as hypo), Trauma/domestic violence, [...] Signs and Symptoms of Preeclampsia, Infant Feeding, [place] Education and Family Medical Leave or Disability [...] Cosigner Signature: Date (if applicable) CC: ~ [facility]04-22-2025 Evaluation note* Diagnosis Onset Date [...] during acut e March 02, 2025 9:08am [facility] Work Phone: 1(842) 138-283204-22-2025 Evaluation note* Diagnosis Onset Date Resolution Status [...] during acut e April 05, 2025 2:28pm [facility] Work Phone: 1(929) 125-135804-22-2025 Evaluation note* Diagnosis Onset Date Resolution Status [...] during acut e April 25, 2025 8:17am [facility] Work Phone: 1(859) 775-792604-22-2025 Evaluation note* Diagnosis Onset Date Resolution Status [...] veins during acute May 24, 2025 10:28am [facility] Work Phone: 1(115) 956-781004-22-2025 Evaluation note* Diagnosis Onset Date Resolution Status [...] veins during acute May 24, 2025 10:28am [facility] Work Phone: 1(478) 885-795601-23-2025 NoteDischarge Instructions Discharge Summary [address] [address] [id number] 10/30/2024 Patient: GAURAV FORTE Sex: Female : 2000 Age: 24y Thank you for visiting [facility]. You have been evaluated today by Wilfredo Chamberlain M.D. for the following condition(s): Principal Diagnosis Moderate vaginal bleeding. Probable complete spontaneous (miscarriage).No complications. INSTRUCTIONS Drink plenty of fluids. OTC Medications: Take ibuprofen (such as Advil, Motrin or Nuprin) according to label instructions. Available over the counter. Follow-up: Follow up with your healthcare provider in two days if not better. 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 You have been evaluated today by Wilfredo Chamberlain M.D. for the following condition(s): Principal Diagnosis Moderate vaginal bleeding. Probable complete spontaneous (miscarriage).No complications. INSTRUCTIONS Drink plenty of fluids. OTC Medications: Take ibuprofen (such as Advil, Motrin or Nuprin) according to label instructions. Available over the counter. Follow-up: Follow up with your healthcare provider in two days if not better. 2 [facility] Author Sophia Cho [facility] Note Date/Time March 02, 2025 9:39a m [facility] [address] [place] [address], [address] [place] [id number] OFFICE VISIT Date of Service: 03/02/25 MR#: [id number] Acct: [id number] Name: GAURAV FORTE Rep #: [id number] : 2000 Provider: NOELLE Cho Age/Sex: 24/F [place] [facility] [place]: Signed Intake Vital Signs 03/10/24 13:00 02/07/25 16:03 03/02/25 09:11 Height 5 ft 6 in 5 ft 6 in 5 ft 6 in Weight: 133 lb 4 oz BMI 21.4 BP 116/78 Intake Visit Reasons: NOB: LMP 12/29, WILBER 10/05 Chief Complaint: New OB Tour Guide Required: No Is patient in pain?: No Allergies No Known Allergies Allergy (Unverified 03/02/25 09:15) Medications ?Medication ?Instructions ?Recorded ?Confirmed ?Type sertraline 25 mg tablet 25 mg PO DAILY 03/10/2402/16 History fish, borage, flaxseed oils-omega See Rx Instructions PO DAILY 02/16/25 03/02/25 History 3,6,9 comb no.1 1,200 mg capsule ([place] 3-6-9) magnesium 250 mg tablet 250 mg PO QDAY 02/16/2502/16 History multivit-min no.71-iron fum 28 cap PO 02/16/25 5 History mg-folate no.1 1 mg-dha 300 mg capsule (PNV-[place]) Last Menstrual Period: 12/29/24 PFSH PFSH Medical History Women's annual routine gynecological examination Surgical History Previous section Family History Aunt Cancer, Onset Age: 25 Paternal Brain tumor Social History adopted: No household members: spouse and children housing: house number of children: 1 current occupational status: unemployed current occupation: [employer] current occupational exposures/hazards: No pets and [...] physical activity do you participate in: none cindy/mormon: Episcopalian seatbelt use: always do you feel safe at home: Yes additional social history: - [employer] work History 3 Elective abortions Hx Para [...] Other, Intellectual Disability/Autism: Other, Recurrent Loss/Stillbirth: Partner (Abziht-xgfdcloqfq-erhvrdvj brain), Other Structural Defect: Other, Other Genetic [...] the knee, inner thigh vaginal -denies DVT's), Manager Lighting surgery (c sectionx1) and Relevant family history (Paternal Aunt Brain tumor 25yo) and Negative: Diabetes, Hypertension, Heart disease, Auto-immune disorder, Kidney disease/UTI, Neurologic/epilepsy, Depression/ depression, Hepatitis/liver disease, Thyroid dysfunction (underactive per timber supervisor not dx as hypo), Trauma/domestic violence, [...] Signs and Symptoms of Preeclampsia, Infant Feeding, [place] Education and Family Medical Leave or Disability [...] declines 03/02/25 0939 <Electronically signed by Sophia johnsno CNM> Date _ Sophia Cho CNM Cosigner Signature: Date (if applicable) CC: ~ [facility] Work Phone: Progress note Author Lizbeth Lowe [facility] Note Date/Time June 21, 2025 9:55am [facility] [address] [place] [address], [address] [place] [address] OFFICE VISIT Date of Service: 06/21/25 MR#: [id number] Acct: [id number] Name: GAURAV FORTE Rep #: [id number] : 2000 Provider: Dr. Larisa Cruz DO Age/Sex: 24/F Location[place] [facility] [place] Status: Signed Intake Vital Signs 04/25/25 08:20 05/24/25 10:33 06/21/25 09:25 06/21/25 09:27 Height 5 ft 6 in 5 ft 6 in 5 ft 6 in 5 ft 6 in Weight: 145 lb 2 oz BMI 23.4 BP 111/76 Intake Visit Reasons: 25 wk ob Tour Guide Required: No Is patient in pain?: No Allergies No Known Allergies Allergy (Verified 06/21/25 09:25) Medications ?Medication ?Instructions ?Recorded ?Confirmed ?Type sertraline 25 mg tablet 25 mg PO DAILY 03/10/2401/10 History fish, borage, flaxseed oils-omega See Rx Instructions PO DAILY 02/16/25 06/21/25 History 3,6,9 comb no.1 1,200 mg capsule ([place] 3-6-9) magnesium 250 mg tablet 250 mg PO QDAY 02/16/2501/10 History multivit-min no.71-iron fum 28 cap PO 02/16/25 5 History mg-folate no.1 1 mg-dha 300 mg capsule (PNV-[place]) Last Menstrual Period: 12/29/24 Zika: Zika virus screening: Negative : No PFSH PFSH Surgical History Previous section Family History Aunt Cancer, Onset Age: 25 Paternal Brain tumor Social History adopted: No household members: spouse and children housing: house number of children: 1 current occupational status: unemployed current occupation: [employer] current occupational exposures/hazards: No pets and [...] physical activity do you participate in: none cindy/mormon: Episcopalian seatbelt use: always do you feel safe at home: Yes additional social history: - [employer] work History 3 Elective abortions Hx Para [...] Friedman Signature: Date (if applicable) CC: ~ [facility] Work Phone: Progress note Author Sirena Padilla [facility] Note Date/Time July 10, 2025 10:34am [facility] [address] [place] [address], [address] [place] [address] OFFICE VISIT Date of Service: 07/10/25 MR#: [id number] Acct: [id number] Name: GAURAV FORTE Rep #: [id number] : 2000 Provider: Dr. Ammon Padilla MD Age/Sex: 24/F Location: [facility] [place] Status: Signed Intake Vital Signs 04/25/25 08:20 06/21/25 09:27 07/10/25 10:06 Height 5 ft 6 in 5 ft 6 in 5 ft 6 in Weight: 149 lb 7 oz BMI 24.1 BP 112/75 Intake Visit Reasons: 28 wk ob/glucose Tour Guide Required: No Is patient in pain?: No Allergies No Known Allergies Allergy (Verified 07/10/25 10:07) Medications ?Medication ?Instructions ?Recorded ?Confirmed ?Type sertraline 25 mg tablet 25 mg PO DAILY 03/10/2406/20 History fish, borage, flaxseed oils-omega See Rx Instructions PO DAILY 02/16/25 07/10/25 History 3,6,9 comb no.1 1,200 mg capsule ([place] 3-6-9) magnesium 250 mg tablet 250 mg PO QDAY 02/16/2506/20 History multivit-min no.71-iron fum 28 cap PO 02/16/25 5 History mg-folate no.1 1 mg-dha 300 mg capsule (PNV-[place]) Last Menstrual Period: 12/29/24 Zika: Zika virus screening: Negative : No PFSH PFSH Surgical History Previous section Family History Aunt Cancer, Onset Age: 25 Paternal Brain tumor Social History adopted: No household members: spouse and children housing: house number of children: 1 current occupational status: unemployed current occupation: [employer] current occupational exposures/hazards: No pets and [...] physical activity do you participate in: none cindy/mormon: Episcopalian seatbelt use: always do you feel safe at home: Yes additional social history: - [employer] work History 3 Elective abortions Hx Para [...] and Symptoms of Preeclampsia, Feeding No , [place] Education and Family Medical Leave or Disability [...] Cosigner Signature: Date (if applicable) CC: ~ [facility] Work Phone: Reason for referral (narrative)No reason for referral information availableK[facility] Work Phone: Summary Purpose Family [...] antepartum Se pt2024 9:24am [facility] Varicose veins during Septembe r [...] Se ptember 2024 9:24am [facility] 20[facility] 9:24am Varicose veins during Septgonzaloe [...] Se ptember 2024 10:00am [facility] 2024 10:00am Varicose veins during Faye r [...] section and content) DATE CREATED AUTHOR 11/11/2024 [facility] DATE CREATED AUTHOR AUTHOR'S DRISS ATION 08/15/2025 [facility] Care Teams (unrecognized sec tion and [...] Inactive Member Role Status Dates Chanda Velasco ADVISORY SOFTWARE ENGINEER, ADVISORY SOFTWARE ENGINEER-C Primary Care Provider Acti ve Start: February 07, 2025 End: February 07, 2025 Chanda Velasco ADVISORY SOFTWARE ENGINEER, ADVISORY SOFTWARE ENGINEER-C Referring Provider Active Start: February 07, 2025 End: February 07, 2025 Dr. Sirena Padilla MD Attending Provider Active Start: February 07, 2025 End: February 07, 2025 Team Status: Inactive Member Role Status Dates Chanda Velasco ADVISORY SOFTWARE ENGINEER, ADVISORY SOFTWARE ENGINEER-C Primary Care Provider Acti ve Start: March 02, 2025 End: March 02, 2025 Chanda Velasco ADVISORY SOFTWARE ENGINEER, ADVISORY SOFTWARE ENGINEER-C Referring Provider Active Start: March 02, 2025 End: March 02, 2025 Sophia Cho CNM Attending Provider Active S tart: March 02, 2025 End: March 02, 2025 Team Status: Active Member Role Status Dates Chanda Velasco ADVISORY SOFTWARE ENGINEER, ADVISORY SOFTWARE ENGINEER-C Primary Care Provider Acti ve Start: March 02, 2025 Sophia Cho CNM Attending Provider Active S tart: March 02, 2025 Sophia Cho CNM Referring Provider Active S tart: March 02, 2025 Team Status: Inactive Member Role Status Dates Chanda Velasco ADVISORY SOFTWARE ENGINEER, ADVISORY SOFTWARE ENGINEER-C Primary Care Provider Acti ve Start: March 02, 2025 End: March 02, 2025 Sophia Cho CNM Attending Provider Active S tart: March 02, 2025 End: March 02, 2025 Sophia Cho CNM Referring Provider Active S tart: March 02, 2025 End: March 02, 2025 Team Status: Inactive Member Role Status Dates Chanda Velasco ADVISORY SOFTWARE ENGINEER, ADVISORY SOFTWARE ENGINEER-C Primary Care Provider Acti ve Start: April 05, 2025 End: April 05, 2025 Chanda Velasco ADVISORY SOFTWARE ENGINEER, ADVISORY SOFTWARE ENGINEER-C Referring Provider Active Start: April 05, 2025 End: April 05, 2025 Dr. Sirena Padilla MD Attending Provider Active Start: April 05, 2025 End: April 05, 2025 Team Status: Active Member Role/Relationship Status Dates Chanda Velasco ADVISORY SOFTWARE ENGINEER, ADVISORY SOFTWARE ENGINEER-C Primary Care Provider Acti ve Team Status: Inactive Member Role/Relationship Status Dates Chanda Velasco ADVISORY SOFTWARE ENGINEER, ADVISORY SOFTWARE ENGINEER-C Primary Care Provider Acti ve Start: January 30, 2025 End: January 30, 2025 Dr. Sirena Padilla MD Attending Provider Active Start: January 30, 2025 End: January 30, 2025 Dr. Sirena Padilla MD Referring Provider Active Start: January 30, 2025 End: January 30, 2025 Team Status: Inactive Member Role/Relationship Status Dates Chanda Velasco ADVISORY SOFTWARE ENGINEER, ADVISORY SOFTWARE ENGINEER-C Primary Care Provider Acti ve Start: February 01, 2025 End: February 01, 2025 Dr. Sirena Padilla MD Attending Provider Active Start: February 01, 2025 End: February 01, 2025 Dr. Sirena Padilla MD Referring Provider Active Start: February 01, 2025 End: February 01, 2025 Team Status: Inactive Member Role/Relationship Status Dates Chanda Velasco ADVISORY SOFTWARE ENGINEER, ADVISORY SOFTWARE ENGINEER-C Primary Care Provider Acti ve Start: February 07, 2025 End: February 07, 2025 Chanda Velasco ADVISORY SOFTWARE ENGINEER, ADVISORY SOFTWARE ENGINEER-C Referring Provider Active Start: February 07, 2025 End: February 07, 2025 Dr. Sirena Padilla MD Attending Provider Active Start: February 07, 2025 End: February 07, 2025 Team Status: Inactive Member Role/Relationship Status Dates Chanda Velasco ADVISORY SOFTWARE ENGINEER, ADVISORY SOFTWARE ENGINEER-C Primary Care Provider Acti ve Start: March 02, 2025 End: March 02, 2025 Chanda Velasco ADVISORY SOFTWARE ENGINEER, ADVISORY SOFTWARE ENGINEER-C Referring Provider Active Start: March 02, 2025 End: March 02, 2025 Sophia Cho CNM Attending Provider Active S tart: March 02, 2025 End: March 02, 2025 Team Status: Inactive Member Role/Relationship Status Dates Chanda Velasco ADVISORY SOFTWARE ENGINEER, ADVISORY SOFTWARE ENGINEER-C Primary Care Provider Acti ve Start: March 02, 2025 End: March 02, 2025 Sophia Cho CNM Attending Provider Active S tart: March 02, 2025 End: March 02, 2025 Sophia Cho CNM Referring Provider Active S tart: March 02, 2025 End: March 02, 2025 Team Status: Inactive Member Role/Relationship Status Dates Chanda Velasco ADVISORY SOFTWARE ENGINEER, ADVISORY SOFTWARE ENGINEER-C Primary Care Provider Acti ve Start: April 05, 2025 End: April 05, 2025 Chanda Velasco ADVISORY SOFTWARE ENGINEER, ADVISORY SOFTWARE ENGINEER-C Referring Provider Active Start: April 05, 2025 End: April 05, 2025 Dr. Sirena Padilla MD Attending Provider Active Start: April 05, 2025 End: April 05, 2025 Team Status: Inactive Member Role/Relationship Status Dates Chanda Velasco ADVISORY SOFTWARE ENGINEER, ADVISORY SOFTWARE ENGINEER-C Primary Care Provider Acti ve Start: April 25, 2025 End: April 25, 2025 Chanda Velasco ADVISORY SOFTWARE ENGINEER, ADVISORY SOFTWARE ENGINEER-C Referring Provider Active Start: April 25, 2025 End: April 25, 2025 Lora Collins ADVISORY SOFTWARE ENGINEER, ADVISORY SOFTWARE ENGINEER-C Attending Provider Active Start: April 25, 2025 End: April 25, 2025 Team Status: Active Member Role/Relationship Status Dates Out [facility] Primary Care Provider Active Team Status: Active Member Role/Relationship Status Dates Dr. Sirena Padilla MD Attending Provider Active Start: May 18, 2025 Dr. Sirena Padilla MD Referring Provider Active Start: May 18, 2025 Out of [facility] Primary Care Provider Active Start: May 18, 2025 Team Status: Inactive Member Role/Relationship Status Dates Chanda Velasco ADVISORY SOFTWARE ENGINEER, ADVISORY SOFTWARE ENGINEER-C Referring Provider Active Start: May 24, 2025 End: May 24, 2025 Lora Collins ADVISORY SOFTWARE ENGINEER, ADVISORY SOFTWARE ENGINEER-C Attending Provider Active Start: May 24, 2025 End: May 24, 2025 Out of [facility] Primary Care Provider Active Start: May 24, 2025 End: May 24, 2025 Team Status: Inactive Member Role/Relationship Status Dates Dr. Sirena Padilla MD Attending Provider Active Start: May 18, 2025 End: May 18, 2025 Dr. Sirena Padilla MD Referring Provider Active Start: May 18, 2025 End: May 18, 2025 Out [facility] Primary Care Provider Active Start: May 18, 2025 End: May 18, 2025 Team Status: Inactive Member Role/Relationship Status Dates Chanda Velasco ADVISORY SOFTWARE ENGINEER, ADVISORY SOFTWARE ENGINEER-C Primary Care Provider Acti ve Start: March 02, 2025 End: March 02, 2025 Chanda Velasco NP, ADVISORY SOFTWARE ENGINEER-C Referring Provider Active Start: March 02, 2025 End: March 02, 2025 Sophia Cho CNM Attending Provider Active S tart: March 02, 2025 End: March 02, 2025 Team Status: Inactive Member Role/Relationship Status Dates Chanda Velasco NP, ADVISORY SOFTWARE ENGINEER-C Primary Care Provider Acti ve Start: March 02, 2025 End: March 02, 2025 Sophia Cho CNM Attending Provider Active S tart: March 02, 2025 End: March 02, 2025 Sophia Cho CNM Referring Provider Active S tart: March 02, 2025 End: March 02, 2025 Team Status: Inactive Member Role/Relationship Status Dates Chanda Velasco ADVISORY SOFTWARE ENGINEER, ADVISORY SOFTWARE ENGINEER-C Primary Care Provider Acti ve Start: April 05, 2025 End: April 05, 2025 Chanda Velasco ADVISORY SOFTWARE ENGINEER, ADVISORY SOFTWARE ENGINEER-C Referring Provider Active Start: April 05, 2025 End: April 05, 2025 Dr. Sirena Padilla MD Attending Provider Active Start: April 05, 2025 End: April 05, 2025 Team Status: Inactive Member Role/Relationship Status Dates Chanda Velasco ADVISORY SOFTWARE ENGINEER, ADVISORY SOFTWARE ENGINEER-C Primary Care Provider Acti ve Start: April 25, 2025 End: April 25, 2025 Chanda Velasco ADVISORY SOFTWARE ENGINEER, ADVISORY SOFTWARE ENGINEER-C Referring Provider Active Start: April 25, 2025 End: April 25, 2025 Lora Collins ADVISORY SOFTWARE ENGINEER, ADVISORY SOFTWARE ENGINEER-C Attending Provider Active Start: April 25, 2025 End: April 25, 2025 Team Status: Inactive Member Role/Relationship Status Dates Dr. Sirena Padilla MD Attending Provider Active Start: May 18, 2025 End: May 18, 2025 Dr. Sirena Padilla MD Referring Provider Active Start: May 18, 2025 End: May 18, 2025 [facility] Primary Care Provider Active Start: May 18, 2025 End: May 18, 2025 Team Status: Inactive Member Role/Relationship Status Dates Chanda Velasco NP, ADVISORY SOFTWARE ENGINEER-C Referring Provider Active Start: May 24, 2025 End: May 24, 2025 Lora Collins NP, ADVISORY SOFTWARE ENGINEER-C Attending Provider Active Start: May 24, 2025 End: May 24, 2025 Out of [facility] Primary Care Provider Active Start: May 24, 2025 End: May 24, 2025 Team Status: Inactive Member Role/Relationship Status Dates Chanda Velasco ADVISORY SOFTWARE ENGINEER, ADVISORY SOFTWARE ENGINEER-C Referring Provider Active Start: June 21, 2025 End: June 21, 2025 Dr. Lizbeth Cruz DO Attending Provider Activ e Start: June 21, 2025 End: June 21, 2025 Out of [facility] Primary Care Provider Active Start: June 21, 2025 End: June 21, 2025 Team Status: Active Member Role/Relationship Status Dates No Primary Care Physician Primary care physician Activ e Team Status: Inactive Member Role/Relationship Status Dates Chanda Velasco ADVISORY SOFTWARE ENGINEER, ADVISORY SOFTWARE ENGINEER-C Primary care physician Act jarod Start: April 05, 2025 End: April 05, 2025 Chanda Velasco ADVISORY SOFTWARE ENGINEER, ADVISORY SOFTWARE ENGINEER-C Referring Provider Active Start: April 05, 2025 End: April 05, 2025 Dr. Sirena Padilla MD Attending physician Active Start: April 05, 2025 End: April 05, 2025 Team Status: Inactive Member Role/Relationship Status Dates Chanda Velasco ADVISORY SOFTWARE ENGINEER, ADVISORY SOFTWARE ENGINEER-C Primary care physician Act jarod Start: April 25, 2025 End: April 25, 2025 Chanda Velasco NP, ADVISORY SOFTWARE ENGINEER-C Referring Provider Active Start: April 25, 2025 End: April 25, 2025 Lora Collins ADVISORY SOFTWARE ENGINEER, ADVISORY SOFTWARE ENGINEER-C Attending physician Active Start: April 25, 2025 End: April 25, 2025 Team Status: Inactive Member Role/Relationship Status Dates Dr. Sirena Padilla MD Attending physician Active Start: May 18, 2025 End: May 18, 2025 Dr. Sirena Padilla MD Referring Provider Active Start: May 18, 2025 End: May 18, 2025 Out [facility] Primary care physician Active Start: May 18, 2025 End: May 18, 2025 Team Status: Inactive Member Role/Relationship Status Dates Chanda Velasco NP, ADVISORY SOFTWARE ENGINEER-C Referring Provider Active Start: May 24, 2025 End: May 24, 2025 Loar Collins NP, ADVISORY SOFTWARE ENGINEER-C Attending physician Active Start: May 24, 2025 End: May 24, 2025 Out of [facility] Primary care physician Active Start: May 24, 2025 End: May 24, 2025 Team Status: Inactive Member Role/Relationship Status Dates Chanda Velasco NP, ADVISORY SOFTWARE ENGINEER-C Referring Provider Active Start: June 21, 2025 [...] Member Role/Relationship Status Dates Chanda Velasco NP ADVISORY SOFTWARE ENGINEER-C Referring Provider Active Start: July 10, 2025 End: July 10, 2025 Dr. Sirena Padilla MD Attending physician Active Start: July 10, 2025 End: July 10, 2025 No Primary Care Physician Primary care physician Activ e Start: July 10, 2025 End: July 10, 2025 Team Status: Inactive Member Role/Relationship Status Dates Out of [facility] Referring Provider Active Sta rt: July 25, 2025 End: July 25, 2025 Lora Collins NP, ADVISORY SOFTWARE ENGINEER-C Attending physician Active Start: July 25, 2025 [...] BE BASED ON THE PRIMARY CLINICAL RECORDS. [employer] [facility]. provides no warranty or guarantee of the accuracy or completeness of information in this document.
== END | disposition home or self-care (01) ==
LOC: LABSPEC 07:45
PROVIDERS: Referring Provider Obstetrics & Gynecology; Visit Provider Obstetrics & Gynecology
DX: O09.93 Supervision of high risk pregnancy, unspecified, third trimester (principal); Z3A.35 35 weeks gestation of pregnancy
CPT/HCPCS: 87081

== ENCOUNTER → 2025-09-27 | Outpatient (CLI) | payer SELFPAY, OTHER ==
[2025-09-27 12:23] LABS: Hematocrit 33.7 % (37-47); Hemoglobin 11.2 g/dL (12.0-15.0); Immature Granulocytes Count 0.130 X10^3/uL (0.0-0.0); Mean Corp Hgb Conc 33.2 g/dL (32-36); Mean Corpuscular Volume 91.3 fL (81-99); Mean Platelet Vol. 10.7 fl (6.2-12.0); NRBC Flagged by Analyzer 0 % (0-5); Platelet Count 155 K/mm3 (150-450); RBC Distribution Width CV 14.5 % (11.6-14.6); RBC Distribution Width SD 48.7 fl (35.1-43.9); Red Blood Count 3.69 M/mm3 (4.2-5.4); White Blood Count 9.5 K/mm3 (4.4-11.0)
== END | disposition home or self-care (01) ==
PROVIDERS: Visit Provider Advanced Practice Midwife
DX: O99.019 Anemia complicating pregnancy, unspecified trimester (principal); Z3A.00 Weeks of gestation of pregnancy not specified
CPT/HCPCS: 36415; 85025

== ENCOUNTER 2025-10-10 07:14 | Inpatient (IN) | payer SELFPAY, OTHER ==
[2025-10-10] VITALS (67 sets, daily range): BP systolic 107–144; BP diastolic 65–86; PULSE 83–113; RESP 14–18; TEMP 36.5–37.5; O2SAT 82–100; BMI 27.1
--- OUTSIDE RECORDS SUMMARY | 2025-10-10 07:12 | XMS RPT_ITS | CCD ---
Author Organization [facility] Care Team Providers Care Inspector Brake Lining Name Role Phone CINTIA REILLY, YOHANA Will [...] Dr. Sirena Padilla MD Referring Provider [phone] Chanda Addison Referring Provider Sophia Cho CNM Attending Provider Sophia Cho CNM Referring Provider [phone] Lora Lopez Attending Provider [phone] [facility], Out of Primary Care Provider Unavai lable Krista APPLE THINNER-C, Chanda Primary Care Provider Krista APPLE THINNER-C, Chanda Referring Provider Valerie REILLY, Dr. Pack Attending Provider Dr. Sirena Padilla MD Referring Provider [phone] Dr. Lizbeth Cruz DO Attending Provider Krista APPLE THINNER-C, Chanda Primary Care Physician Krista APPLE THINNER-C, Chanda Referring Provider Valerie REILLY, Dr. Pack Attending Physician Dennis APPLE THINNER-C, Lora Attending Physician [phone] [facility] Doctor, Out of Primary Care Physician Unava ilable Dr. Lizbeth Cruz DO Attending Physician Care Physician, No Primary Primary Care Physicia n Unavailable Dr. Lizbeth Cruz DO Referring Provider [facility] Doctor, Out of Referring Provider Unavailab le Care Physician, No Primary Primary Care Unava ilable Dennis APPLE THINNER, Lora Attending Unavailable [facility] Doctor, Out of Referring Unavailable Care Physician, No Primary Primary Care Unava ilable Krista APPLE THINNER, Chanda Referring Unavailab le Sirena Padilla Attending Unavailable Krista APPLE THINNER, Chanda Referring Unavailab le [facility] Doctor, Out of Primary Care Unavailable Lizbeth Cruz Attending Unavailabl e MarcanthSirena sanchez Referring Unavailable [facility] Doctor, Out of Primary Care Unavailable Sirena Padilla Attending Unavailable Lizbeth Cruz Attending Unavailabl e Care Physician, No Primary Primary Care Unava ilable Lizbeth Cruz Referring Unavailabl e Javier APPLE THINNER, [place] Primary Care Unavailab Sophia Dhillon Referring Unavailable Sophia Cho Attending Unavailable Krista APPLE THINNER, [place] Primary Care Unavailab le MarcanthonySirena Referring Unavailable MarcanthSirena sanchez Attending Unavailable Losttsylvesetr APPLE THINNER, [place] Primary Care Unavailab le Marcanthony, Sirena Referring Unavailable MarcanthonySirena Attending Unavailable Krista APPLE THINNER, Chanda Referring Unavailab vitor Collins APPLE THINNER, Lora Attending Unavailable [facility] Doctor, Out of Primary Care Unavailable Krista APPLE THINNER, Chanda Primary Care Unavailab le Krista APPLE THINNER, Chanda Referring Unavailab vitor Collins APPLE THINNER, Lora Attending Unavailable Krista APPLE THINNER, Chanda Primary Care Unavailab le Krista APPLE THINNER, Chanda Referring Unavailab Sirena Landin Attending Unavailable Krista APPLE THINNER, Chanda Primary Care Unavailab le Krista APPLE THINNER, Chanda Referring Unavailab Sophia Dhillon Attending Unavailable Krista APPLE THINNER, Chanda Primary Care Unavailab le Krista APPLE THINNER, Chanda Referring Unavailab Sirena Landin Attending Unavailable Care Physician, No Primary Primary Care Unava ilable [facility] Doctor, Out of Referring Unavailable Sophia Cho Attending Unavailable Allergies Allergy Classification Reported Allergen(s) Allergy Type Date of Onset Reaction(s) Facility (1 source) Lactose; Translations: [LACTOSE] Drug Allergy [facility] Repository Medications Current Medications Medication Drug Class(es) Dates Sig (Normalized) Sig (Original) Fish,Bora,Flax Oils-Om3,6,9no1 (Harvest 3-6-9) 1,200 mg capsule (9 sources) Start: 02-16-2025 take 1 capsule by mouth once daily Fish,Bora,Flax Oils-Om3,6,9no1 (Harvest 3-6-9) 1,200 mg capsule Active 0 PO DAILY February 16, 2025 12:00am 1 orally daily; Complies with drug therapy Start: 02-16-2025 take 1 capsule by mo [facility] once daily Fish,Bora,Flax Oils-Om3,6,9no1 (Harvest 3-6-9) 1,200 mg capsule Active 0 PO [...] PO daily February 16, 2025 12:00am Mv-Mins 21-Kqad-Acjfc No.1-D christiansen (Pnv-Harvest) 28-1-300 mg capsule (9 sources) Start: 02-16-2025 Mv-Mins 71-Iro n-Folic No.1-Dha (Pnv-Harvest) 28-1-300 mg capsule Active NMA PO February 16, 2025 12:00am Complies with drug therapy Start: 02-16-2025 Mv-Mins 71-Iro n-Folic No.1-Dha (Pnv-Harvest) 28-1-300 mg capsule Active NMA PO February [...] Test Name Value Interpretation Reference Range Facility Licensed Professional Counselor Office Visit Reporton 08-14-2025 Licensed Professional Counselor Office Visit Report [facility] [address], [address] [place] [address] OFFICE VISIT Date of Service: 08/14/25 MR#: [id number] Acct: [id number] Name: GAURVA FORTE Rep #: [id number] : 2000 Provider: NOELLE Fan ams Age/Sex: 25/F Location: [facility] Status: Signed Intake Vital Signs 06/21/25 09:27 07/25/25 13:42 08/14/25 09:37 Height 5 ft 6 in 5 ft 6 in 5 ft 6 in Weight: 154 lb 9 oz BMI 24.9 BP 137/80 H Intake Visit Reasons: 33 wk ob *pt on vacation* Chief Complaint: 33wk OB Junior Programmer Required: No Is patient in pain?: No Allergies No Known Allergies Allergy (Verified 08/14/25 09:36) Medications ???Medication ???Instructions ???Recorded ???Confirmed ???Type sertraline 25 mg tablet 25 mg PO DAILY 03/10/24 08/14/25 H istory fish, borage, flaxseed oils-omega See Rx Instructions PO DAILY 11/1208/14/25 History 3,6,9 comb no.1 1,200 mg capsule (Harvest 3-6-9) magnesium 250 mg tablet 250 mg PO QDAY 02/16/25 08/14/25 H istory multivit-min no.71-iron fum 28 cap PO 02/16/25 08/14/25 History mg-folate no.1 1 mg-dha 300 mg capsule (PNV-Harvest) Last Menstrual Period: 12/29/24 PFSH PFSH Surgical History Previous section Family History Aunt Cancer, Onset Age: 25 Paternal Brain tumor Social History adopted: No household members: spouse and children housing: house number of children: 1 current occupational status: unemployed current occupation: [employer] current occupational exposures/hazards: No pets and animals: [...] physical activity do you participate in: none cindy/samaritan: Hindu seatbelt use: always do you feel safe at home: Yes additional social history: - [employer] work History 3 Elective abortions Hx Para [...] -???-???-???-???-???- ???-???-???-???-?? (more content not included)... Normal [facility] Licensed Professional Counselor Office Visit Reporton 07-25-2025 Licensed Professional Counselor Office Visit Report [facility] [address], [address] [place] [address] OFFICE VISIT Date of Service: 07/25/25 MR#: [id number] Acct: [id number] Name: GAURAV FORTE Rep #: [id number] : 2000 Provider: KRISTIE parnell Age/Sex: 24/F Location: [facility] Status: Signed Intake Vital Signs 06/21/25 09:27 07/10/25 10:06 07/25/25 13:42 Height 5 ft 6 in 5 ft 6 in 5 ft 6 in Weight: 153 lb 7 oz BMI 24.7 BP 113/72 Intake Visit Reasons: 30 wk ob Chief Complaint: 30 Week OB Junior Programmer Required: No Is patient in pain?: No Allergies No Known Allergies Allergy (Verified 07/25/25 13:42) Medications ???Medication ???Instructions ???Recorded ???Confirmed ???Type sertraline 25 mg tablet 25 mg PO DAILY 03/10/24 07/25/25 H istory fish, borage, flaxseed oils-omega See Rx Instructions PO DAILY 11/1207/25/25 History 3,6,9 comb no.1 1,200 mg capsule (Harvest 3-6-9) magnesium 250 mg tablet 250 mg PO QDAY 02/16/25 07/25/25 H istory multivit-min no.71-iron fum 28 cap PO 02/16/25 07/25/25 History mg-folate no.1 1 mg-dha 300 mg capsule (PNV-Harvest) Last Menstrual Period: 12/29/24 Zika: Zika virus screening: Negative : Yes PFSH PFSH Surgical History Previous section Family History Aunt Cancer, Onset Age: 25 Paternal Brain tumor Social History adopted: No household members: spouse and children housing: house number of children: 1 current occupational status: unemployed current occupation: [employer] current occupational exposures/hazards: No pets and animals: [...] physical activity do you participate in: none cindy/samaritan: Hindu seatbelt use: always do you feel safe at home: Yes additional social history: - [employer] work History 3 Elective abortions Hx Para [...] cr maping (more content not included)... Normal [facility] Absolute lymphocyte countOrd ered By: Lizbeth Chrissy on 07-10-2025 Lymphocytes Auto (Unsp spec) [#/Vol] 1.51 10*3/uL 0.83-4.51 [facility] Absolute neutrophil countOrd ered By: Lizbeth Chrissy on 07-10-2025 Neutrophils (Bld) [#/Vol] 6.4 10*3/uL 2.0-7.7 [facility] Automated lymphocyte count a s percentage of total leukocytesOrdered By: Lizbeth Chrissy on 07-10-2025 Lymphocytes/100 WBC Auto (Unsp spec) 17.2 % Low 19-41 [facility] Basophil percentageOrdered B y: Lizbeth Chrissy on 07-10-2025 Basophils/100 WBC (Bld) 0.3 % 0-[address] [facility] CBC W/Diff, Automatedon 09-2 2-2024 Absolute Lymph 1.51 X10 3/uL Normal 0.83-4.51 [facility] Comment on above: Performed By: #### L 100.0100, L501.0250, L509.8002, L3890.6006 #### [facility] [address] [place], [address] Absolute Neut 6.4 X10 3/uL Normal 2.0-7.7 [facility] Comment on above: Performed By: #### L 100.0100, L501.0250, L509.8002, L3890.6006 #### [facility] [address] [place], [address] Basophils/100 WBC (Bld) 0.3 % Normal 0-[address] [facility] Comment on above: Performed By: #### L 100.0100, L501.0250, L509.8002, L3890.6006 #### [facility] [address] [place], [address] Eosinophils/100 WBC (Bld) 1.4 % Normal 0-5 [facility] Comment on above: Performed By: #### L 100.0100, L501.0250, L509.8002, L3890.6006 #### [facility] [address] [place], [address] Erythrocyte distribution width (RBC) [Ratio] 12.9 % Normal 11.6-14.6 [facility] Comment on above: Performed By: #### L 100.0100, L501.0250, L509.8002, L3890.6006 #### [facility] [address] [place], [address] Hematocrit (Bld) [Volume fraction] 32.5 % Low 37-47 [facility] Comment on above: Performed By: #### L 100.0100, L501.0250, L509.8002, L3890.6006 #### [facility] [address] [place], [address] Hemoglobin (Bld) [Mass/Vol] 10.9 g/dL Low 12.0-15.0 [facility] Comment on above: Performed By: #### L 100.0100, L501.0250, L509.8002, L3890.6006 #### [facility] [address] [place], [address] IG% 1.300 High 0.0-0.9 [facility] Comment on above: Result Comment: IG% - Immature Granulocytes (promyelocytes, myelocytes and metamyelocytes) > 1% indicates that a LEFT SHIFT is Present. Performed By: #### L 100.0100, L501.0250, L509.8002, L3890.6006 #### [facility] [address] [place], [address] Lymphocytes/100 WBC (Bld) 17.2 % Low 19-41 [facility] Comment on above: Performed By: #### L 100.0100, L501.0250, L509.8002, L3890.6006 #### [facility] [address] [place], [address] MCH (RBC) [Entitic mass] 31.1 pg Normal 27.0-32.0 [facility] Comment on above: Performed By: #### L 100.0100, L501.0250, L509.8002, L3890.6006 #### [facility] [address] [place], [address] MCHC (RBC) [Mass/Vol] 33.5 g/dL Normal 32-36 [facility] Comment on above: Performed By: #### L 100.0100, L501.0250, L509.8002, L3890.6006 #### [facility] [address] [place], [address] MCV (RBC) [Entitic vol] 92.6 fL Normal 81-[address] [facility] Comment on above: Performed By: #### L 100.0100, L501.0250, L509.8002, L3890.6006 #### [facility] [address] [place], [address] Monocytes/100 WBC (Bld) 7.2 % Normal 0-[address] [facility] Comment on above: Performed By: #### L 100.0100, L501.0250, L509.8002, L3890.6006 #### [facility] [address] [place], [address] Neutrophils/100 WBC (Bld) 72.6 % High 47-70 [facility] Comment on above: Performed By: #### L 100.0100, L501.0250, L509.8002, L3890.6006 #### [facility] [address] [place], [address] Nucleated RBC (Bld) [#/Vol] 0 10*3/uL Normal 0-5 [facility] Comment on above: Performed By: #### L 100.0100, L501.0250, L509.8002, L3890.6006 #### [facility] [address] [place], [address] Platelet mean volume (Bld) [Entitic vol] 9.4 fL Normal 6.2-12.0 [facility] Comment on above: Performed By: #### L 100.0100, L501.0250, L509.8002, L3890.6006 #### [facility] [address] [place], [address] Platelets (Bld) [#/Vol] 168 10*3/uL Normal 150-450 [facility] Comment on above: Performed By: #### L 100.0100, L501.0250, L509.8002, L3890.6006 #### [facility] [address] [place], [address] RBC (Bld) [#/Vol] 3.51 10*6/uL Low 4.2-5.4 [facility] Comment on above: Performed By: #### L 100.0100, L501.0250, L509.8002, L3890.6006 #### [facility] [address] [place], [address] RDW SD 43.5 fl Normal 35.1-43.9 [facility] Comment on above: Performed By: #### L 100.0100, L501.0250, L509.8002, L3890.6006 #### [facility] [address] [place], [address] WBC (Bld) [#/Vol] 8.8 10*3/uL Normal 4.4-11.0 [facility] Comment on above: Performed By: #### L 100.0100, L501.0250, L509.8002, L3890.6006 #### [facility] [address] [place], [address] Eosinophil percentageOrdered By: Lizbeth Lowe on 07-10-2025 Eosinophils/100 WBC (Bld) 1.4 % 0-5 [facility] Erythrocyte distribution wid th ratioOrdered By: Lizbeth Lowe on 07-10-2025 Erythrocyte distribution width (RBC) [Ratio] 12.9 % 11.6-14.6 [facility] Erythrocyte distribution wid th standard deviationOrdered By: Lizbeth Lowe on 07-10-2025 Erythrocyte distribution width (RBC) [Ratio] 43.5 fl 35.1-43.9 [facility] Glucose Challenge Gest 1H 50 samuel 07-10-2025 GLU GEST 50g 1H 68 mg/dL Low 70-140 [facility] Comment on above: Order Comment: PT WA S LATE FOR THEIR 1 HR GLUCOSE DRAW. PT DIDNT CHECK IN UNTIL 954 Performed By: #### L 100.0100, L501.0250, L509.8002, L3890.6006 #### [facility] [address] [place], [address] Glucose measurement at 2 peng rs post-dose gestational glucose tolerance testOrdered By: Lizbeth Lowe on 07-10-2025 Glucose [Mass/Vol] 68 mg/dL Low 70-140 [facility] HIVon 07-10-2025 HIV Non-Reactive Normal Nonreactive [facility] Comment on above: Order Comment: PT WA [...] Order the HIV antibody detection and differentiation: lc#[id number] Performed By: #### L 100.0100, L501.0250, L509.8002, L3890.6006 #### [facility] [address] [place], [place], [id number] Hematocrit Auto (Bld) [Volum e fraction]Ordered By: Lizbeth Lowe on 07-10-2025 Hematocrit (Bld) [Volume fraction] 32.5 % Low 37-47 [facility] Hemoglobin measurementOrdere d By: Lizbeth Lowe on 07-10-2025 Hemoglobin (Bld) [Mass/Vol] 10.9 g/dL Low 12.0-15.0 [facility] Immature granulocytes/100 WB C Auto (Bld)Ordered By: Lizbeth Lowe on 07-10-2025 Immature granulocytes/100 WBC (Bld) 1.300 % High 0.0-0.9 [facility] Comment on above: IG% - Immature Granu locytes (promyelocytes, myelocytes and metamyelocytes) > 1% indicates that a LEFT SHIFT is Present. Laboratory - Chemistry and C hemistry - challengeOrdered By: Sirena Padilla on 07-10-2025 Glucose Ql (U) Negative [facility] - UrinalysisOrder ed By: Sirena Padilla on 07-10-2025 Protein Ql (U) Negative [facility] MCV (mean corpuscular volume ) determinationOrdered By: Lizbeth Lowe on 07-10-2025 MCV (RBC) [Entitic vol] 92.6 fL 81-[address] [facility] Mean corpuscular hemoglobin (MCH) determinationOrdered By: Lizbeth Lowe on 07-10-2025 MCH (RBC) [Entitic mass] 31.1 pg 27.0-32.0 [facility] Mean corpuscular hemoglobin concentration (MCHC) determinationOrdered By: Lizbeth Lowe on 07-10-2025 MCHC (RBC) [Mass/Vol] 33.5 g/dL 32-36 [facility] Mean platelet volume determi nationOrdered By: Lizbeth Lowe on 07-10-2025 Platelet mean volume (Bld) [Entitic vol] 9.4 fL 6.2-12.0 [facility] Monocyte percentageOrdered B y: Lizbeth Lowe on 07-10-2025 Monocytes/100 WBC (Bld) 7.2 % 0-[address] [facility] Neutrophil percentageOrdered By: Lizbeth Lowe on 07-10-2025 Neutrophils/100 WBC (Bld) 72.6 % High 47-70 [facility] No Panel InformationOrdered By: Lizbeth Lowe on 07-10-2025 HIV (1&2) Antibody Non-Reactive Nonreactive [facility] Comment on above: Non-ReactiveReactive Repeatedly reactive samples must be confirmed according to CDC recommended confirmatory algorithms. The subresults for either HIVAG or AHIV can be used as an aid in the selection of the confirmation algorithm for reactive samples.Send out specimens with Reactive results to [facility] for confirmation.Order the HIV antibody detection and differentiation: #[id number] Nucleated red blood cell per centageOrdered By: Lizbeth Lowe on 07-10-2025 Nucleated RBC/100 WBC (Bld) [Ratio] 0 % 0-5 [facility] Licensed Professional Counselor Office Visit Reporton 07-10-2025 Licensed Professional Counselor Office Visit Report [facility] [address] [place] [address], [address] [place] [address] OFFICE VISIT Date of Service: 07/10/25 MR#: [id number] Acct: [id number] Name: GAURAV FORTE Rep #: [id number] : 2000 Provider: Dr. Sirena jimenes MD Age/Sex: 24/F Location: [facility] Status: Signed Intake Vital Signs 04/25/25 08:20 06/21/25 09:27 07/10/25 10:06 Height 5 ft 6 in 5 ft 6 in 5 ft 6 in Weight: 149 lb 7 oz BMI 24.1 BP 112/75 Intake Visit Reasons: 28 wk ob/glucose Junior Programmer Required: No Is patient in pain?: No Allergies No Known Allergies Allergy (Verified 07/10/25 10:07) Medications ???Medication ???Instructions ???Recorded ???Confirmed ???Type sertraline 25 mg tablet 25 mg PO DAILY 03/10/24 07/10/25 H istory fish, borage, flaxseed oils-omega See Rx Instructions PO DAILY 11/1207/10/25 History 3,6,9 comb no.1 1,200 mg capsule (Harvest 3-6-9) magnesium 250 mg tablet 250 mg PO QDAY 02/16/25 07/10/25 H istory multivit-min no.71-iron fum 28 cap PO 02/16/25 07/10/25 History mg-folate no.1 1 mg-dha 300 mg capsule (PNV-Harvest) Last Menstrual Period: 12/29/24 Zika: Zika virus [...] physical activity do you participate in: none cindy/samaritan: Hindu seatbelt use: always do you feel safe at home: Yes additional social history: - [employer]- [employer] work History 3 Elective abortions Hx Para [...] -???-???-???-???-???- ?? (more content not included)... Normal [facility] Platelet countOrdered By: Austin Lowe on 07-10-2025 Platelets (Bld) [#/Vol] 168 10*3/uL 150-450 [facility] RBC Auto (Bld) [#/Vol]Ordere d By: Lizbeth Lowe on 07-10-2025 RBC (Bld) [#/Vol] 3.51 10*6/uL Low 4.2-5.4 [facility] Syphilis Antibodieson 2024 Syphilis Abs Non-Reactive Normal Nonreactive [facility] Comment on above: Order Comment: PT WA S LATE FOR THEIR 1 HR GLUCOSE DRAW. PT DIDNT CHECK IN UNTIL 954 Performed By: #### L 100.0100, L501.0250, L509.8002, L3890.6006 #### [facility] [address] [place], [address] White blood cell (WBC) count Ordered By: Lizbeth Lowe on 07-10-2025 WBC (Bld) [#/Vol] 8.8 10*3/uL 4.4-11.0 [facility] Laboratory - Chemistry and C hemistry - challengeOrdered By: Lizbeth Lowe on 06-21-2025 Glucose Ql (U) Negative [facility] - UrinalysisOrder ed By: Lizbeth Lowe on 06-21-2025 Protein Ql (U) Negative [facility] Licensed Professional Counselor Office Visit Reporton 06-21-2025 Licensed Professional Counselor Office Visit Report [facility], [address] [place] [address] OFFICE VISIT Date of Service: 06/21/25 MR#: [id number] Acct: [id number] Name: GAURAV FORTE Rep #: [id number] : 2000 Provider: Dr. Lizbeth Rangel DO Age/Sex: 24/F Location: [facility] Status: Signed Intake Vital Signs 04/25/25 08:20 05/24/25 10:33 06/21/25 09:25 06/21/25 09:27 Height 5 ft 6 in 5 ft 6 in 5 ft 6 in 5 ft 6 in Weight: 145 lb 2 oz BMI 23.4 BP 111/76 Intake Visit Reasons: 25 wk ob Junior Programmer Required: No Is patient in pain?: No Allergies No Known Allergies Allergy (Verified 06/21/25 09:25) Medications ???Medication ???Instructions ???Recorded ???Confirmed ???Type sertraline 25 mg tablet 25 mg PO DAILY 03/10/24 06/21/25 H istory fish, borage, flaxseed oils-omega See Rx Instructions PO DAILY 11/1206/21/25 History 3,6,9 comb no.1 1,200 mg capsule (Harvest 3-6-9) magnesium 250 mg tablet 250 mg PO QDAY 02/16/25 06/21/25 H istory multivit-min no.71-iron fum 28 cap PO 02/16/25 06/21/25 History mg-folate no.1 1 mg-dha 300 mg capsule (PNV-Harvest) Last Menstrual Period: 12/29/24 Zika: Zika virus screening: Negative : No PFSH PFSH Surgical History Previous section Family History Aunt Cancer, Onset Age: 25 Paternal Brain tumor Social History adopted: No household members: spouse and children housing: house number of children: 1 current occupational status: unemployed current occupation: [employer] current occupational exposures/hazards: No pets and animals: [...] physical activity do you participate in: none cindy/samaritan: Hindu seatbelt use: always do you feel safe at home: Yes additional social history: - [employer] work History 3 Elective abortions Hx Para [...] 120/76 Negati (more content not included)... Normal [facility] Laboratory - Chemistry and C hemistry - challengeOrdered By: Lora Collins on 05-24-2025 Glucose Ql (U) Negative [facility] - UrinalysisOrder ed By: Lora Collins on 05-24-2025 Protein Ql (U) Negative [facility] Licensed Professional Counselor Office Visit Reporton 05-24-2025 Licensed Professional Counselor Office Visit Report [facility] [address], [address] [place] [address] OFFICE VISIT Date of Service: 05/24/25 MR#: [id number] Acct: [id number] Name: GAURAV FORTE Rep #: [id number] : 2000 Provider: KRISTIE parnell Age/Sex: 24/F Location: [facility] Status: Signed Intake Vital Signs 04/25/25 08:20 05/24/25 10:33 Height 5 ft 6 in 5 ft 6 in Weight: 139 lb 3 oz BMI 22.4 BP 106/68 Intake Visit Reasons: 21 wk ob Chief Complaint: 21 Week OB Junior Programmer Required: No Is patient in pain?: No Allergies No Known Allergies Allergy (Unverified 05/24/25 10:34) Medications ???Medication ???Instructions ???Recorded ???Confirmed ???Type sertraline 25 mg tablet 25 mg PO DAILY 03/10/24 05/24/25 H istory fish, borage, flaxseed oils-omega See Rx Instructions PO DAILY 11/1205/24/25 History 3,6,9 comb no.1 1,200 mg capsule (Harvest 3-6-9) magnesium 250 mg tablet 250 mg PO QDAY 02/16/25 05/24/25 H istory multivit-min no.71-iron fum 28 cap PO 02/16/25 05/24/25 History mg-folate no.1 1 mg-dha 300 mg capsule (PNV-Harvest) Last Menstrual Period: 12/29/24 Zika: Zika virus screening: Negative : No PFSH PFSH Surgical History Previous section Family History Aunt Cancer, Onset Age: 25 Paternal Brain tumor Social History adopted: No household members: spouse and children housing: house number of children: 1 current occupational status: unemployed current occupation: [employer] current occupational exposures/hazards: No pets and animals: [...] physical activity do you participate in: none cindy/samaritan: Hindu seatbelt use: always do you feel safe at home: Yes additional social history: - [employer] work History 3 Elective abortions Hx Para [...] -???-???-???-???-???- ???-? (more content not included)... Normal [facility] OB Anatomy w/ Transvaginalon 05-18-2025 OB Anatomy w/ Transvaginal [facility] Imaging Services [address] [place], [place] [address] OB Anatomy w/ Transvaginal MR#: [id number] Acct: [id number] Name: GAURAV FORTE Rep #: [id number] : 2000 F 24 From: Antonio heaton MD PCP: [facility] DOCTOR Status: [facility] Study: OB Anatomy w/ Transvaginal Date of Exam: 05/18 Exam# [id number] Ordering Dr: Sirena Padilla PROCEDURE: OB ANATOMY [...] 20 weeks and 0 days. Reading Location: [facility] CC: Dr. Sirena Padilla MD Canceling Machine Operator: Signed Normal [facility] Laboratory - Chemistry and C hemistry - challengeOrdered By: Lora Collins on 04-25-2025 Glucose Ql (U) Negative [facility] Laboratory - UrinalysisOrder ed By: Lora Collins on 04-25-2025 Protein Ql (U) Negative [facility] Licensed Professional Counselor Office Visit Reporton 04-25-2025 Licensed Professional Counselor Office Visit Report [facility]'s [address], [address] [place] [address] OFFICE VISIT Date of Service: 04/25/25 MR#: [id number] Acct: [id number] Name: GAURAV FORTE Rep #: [id number] : 2000 Provider: KRISTIE parnell Age/Sex: 24/F Location: [facility] Status: Signed Intake Vital Signs 03/02/25 09:11 04/05/25 14:41 04/25/25 08:20 Height 5 ft 6 in 5 ft 6 in 5 ft 6 in Weight: 136 lb 4 oz BMI 21.9 BP 120/76 Intake Visit Reasons: 17 wk ob Chief Complaint: 17 Week OB Junior Programmer Required: No Is patient in pain?: No Allergies No Known Allergies Allergy (Unverified 04/25/25 08:20) Medications ???Medication ???Instructions ???Recorded ???Confirmed ???Type sertraline 25 mg tablet 25 mg PO DAILY 03/10/24 04/25/25 H istory fish, borage, flaxseed oils-omega See Rx Instructions PO DAILY 11/1204/25/25 History 3,6,9 comb no.1 1,200 mg capsule (Harvest 3-6-9) magnesium 250 mg tablet 250 mg PO QDAY 02/16/25 04/25/25 H istory multivit-min no.71-iron fum 28 cap PO 02/16/25 04/25/25 History mg-folate no.1 1 mg-dha 300 mg capsule (PNV-Harvest) Last Menstrual Period: 12/29/24 Zika: Zika virus screening: Negative : No PFSH PFSH Medical History Women's annual routine gynecological examination Surgical History Previous section Family History Aunt Cancer, Onset Age: 25 Paternal Brain tumor Social History adopted: No household members: spouse and children housing: house number of children: 1 current occupational status: unemployed current occupation: [employer] current occupational exposures/hazards: No pets and animals: [...] physical activity do you participate in: none cindy/samaritan: Hindu seatbelt use: always do you feel safe at home: Yes additional social history: - [employer] work History 3 Elective abortions Hx Para [...] cr map (more content not included)... Normal [facility] Laboratory - Chemistry and C hemistry - challengeOrdered By: Sirena Padilla on 04-05-2025 Glucose Ql (U) Negative [facility] Laboratory - UrinalysisOrder ed By: Sirena Padilla on 04-05-2025 Protein Ql (U) Negative [facility] Licensed Professional Counselor Office Visit Reporton 04-05-2025 Licensed Professional Counselor Office Visit Report [facility]'[address], [address] [place] [address] OFFICE VISIT Date of Service: 04/05/25 MR#: [id number] Acct: [id number] Name: GAURAV FORTE Rep #: [id number] : 2000 Provider: Dr. Sirena jimenes MD Age/Sex: 24/F Location: [facility] Status: Signed Intake Vital Signs 02/07/25 16:03 03/02/25 09:11 04/05/25 14:41 Height 5 ft 6 in 5 ft 6 in 5 ft 6 in Weight: 134 lb 6 oz BMI 21.7 BP 116/76 Intake Visit Reasons: 13wk OB Junior Programmer Required: No Is patient in pain?: No Allergies No Known Allergies Allergy (Unverified 04/05/25 14:48) Medications ???Medication ???Instructions ???Recorded ???Confirmed ???Type sertraline 25 mg tablet 25 mg PO DAILY 03/10/24 04/05/25 H istory fish, borage, flaxseed oils-omega See Rx Instructions PO DAILY 11/1204/05/25 History 3,6,9 comb no.1 1,200 mg capsule (Harvest 3-6-9) magnesium 250 mg tablet 250 mg PO QDAY 02/16/25 04/05/25 H istory multivit-min no.71-iron fum 28 cap PO 02/16/25 04/05/25 History mg-folate no.1 1 mg-dha 300 mg capsule (PNV-Harvest) Last Menstrual Period: 12/29/24 Zika: Zika virus screening: Negative : No PFSH PFSH Medical History Women's annual routine gynecological examination Surgical History Previous section Family History Aunt Cancer, Onset Age: 25 Paternal Brain tumor Social History adopted: No household members: spouse and children housing: house number of children: 1 current occupational status: unemployed current occupation: [employer] current occupational exposures/hazards: No pets and animals: [...] physical activity do you participate in: none cindy/samaritan: Hindu seatbelt use: always do you feel safe at home: Yes additional social history: - [employer] work History 3 Elective abortions Hx Para [...] First Trimester (more content not included)... Normal [facility] Chlamydia/GC JERRY aptimaon CHLAMY,NUC ACID Negative Normal Negative [facility] Comment on above: Performed By: #### L 7000.1800, M100.2200 #### [facility] [address] [place], [address] GC BY NUC ACID Negative Normal Negative [facility] Comment on above: Result Comment: Perf ormed at: =G - [facility] [address] [place] [id number] Optical Sales Associate: Jennifer Mendez MD, Phone: [phone] Performed By: #### L 7000.1800, M100.2200 #### [facility] [address] [place], [place], [id number] Urine Cultureon 03-03-2025 URC #1, 2 Below infectio n level. GNR lactose filter press pumper Walker Count <1000 Mixed Gram Positive Organisms Mixed Gram Positive Organisms MIXC Mixed contaminants. Submit a new specimen if indicated. Normal [facility] Comment on above: Performed By: #### L 7000.1800, M100.2200 #### [facility] [address] [place], [place], [id number] Absolute lymphocyte countOrd ered By: Sophia Cho on 03-02-2025 Lymphocytes Auto (Unsp spec) [#/Vol] 1.59 10*3/uL 0.83-4.51 [facility] Absolute neutrophil countOrd ered By: Sophia Cho on 03-02-2025 Neutrophils (Bld) [#/Vol] 4.0 10*3/uL 2.0-7.7 [facility] Automated lymphocyte count a s percentage of total leukocytesOrdered By: Sophia Cho on 03-02-2025 Lymphocytes/100 WBC Auto (Unsp spec) 25.6 % 19-41 [facility] Basophil percentageOrdered B y: Sophia Cho on 03-02-2025 Basophils/100 WBC (Bld) 0.6 % 0-[address] [facility] CBC W/Diff, Automatedon 02-16 Absolute Lymph 1.59 X10 3/uL Normal 0.83-4.51 [facility] Comment on above: Performed By: #### L 509.8002, L3890.6006, L3890.6102, L3890.6301, BTS, L100.0100, L501.9520, L506.0400, L509.4006 #### [facility] [address] [place], [address] Absolute Neut 4.0 X10 3/uL Normal 2.0-7.7 [facility] Comment on above: Performed By: #### L 509.8002, L3890.6006, L3890.6102, L3890.6301, BTS, L100.0100, L501.9520, L506.0400, L509.4006 #### [facility] [address] [place], [address] Basophils/100 WBC (Bld) 0.6 % Normal 0-[address] [facility] Comment on above: Performed By: #### L 509.8002, L3890.6006, L3890.6102, L3890.6301, BTS, L100.0100, L501.9520, L506.0400, L509.4006 #### [facility] [address] [place], [address] Eosinophils/100 WBC (Bld) 1.9 % Normal 0-5 [facility] Comment on above: Performed By: #### L 509.8002, L3890.6006, L3890.6102, L3890.6301, BTS, L100.0100, L501.9520, L506.0400, L509.4006 #### [facility] [address] [place], [address] Erythrocyte distribution width (RBC) [Ratio] 13.2 % Normal 11.6-14.6 [facility] Comment on above: Performed By: #### L 509.8002, L3890.6006, L3890.6102, L3890.6301, BTS, L100.0100, L501.9520, L506.0400, L509.4006 #### [facility] [address] [place], [address] Hematocrit (Bld) [Volume fraction] 36.2 % Low 37-47 [facility] Comment on above: Performed By: #### L 509.8002, L3890.6006, L3890.6102, L3890.6301, BTS, L100.0100, L501.9520, L506.0400, L509.4006 #### [facility] [address] [place], [address] Hemoglobin (Bld) [Mass/Vol] 12.0 g/dL Normal 12.0-15.0 [facility] Comment on above: Performed By: #### L 509.8002, L3890.6006, L3890.6102, L3890.6301, BTS, L100.0100, L501.9520, L506.0400, L509.4006 #### [facility] [address] [place], [address] (307) IG% 0.500 Normal 0.0-0.9 [facility] Comment on above: Result Comment: IG% - Immature Granulocytes (promyelocytes, myelocytes and metamyelocytes) > 1% indicates that a LEFT SHIFT is Present. Performed By: #### L 509.8002, L3890.6006, L3890.6102, L3890.6301, BTS, L100.0100, L501.9520, L506.0400, L509.4006 #### [facility] [address] [place], [address] Lymphocytes/100 WBC (Bld) 25.6 % Normal 19-41 [facility] Comment on above: Performed By: #### L 509.8002, L3890.6006, L3890.6102, L3890.6301, BTS, L100.0100, L501.9520, L506.0400, L509.4006 #### [facility] [address] [place], [address] MCH (RBC) [Entitic mass] 30.0 pg Normal 27.0-32.0 [facility] Comment on above: Performed By: #### L 509.8002, L3890.6006, L3890.6102, L3890.6301, BTS, L100.0100, L501.9520, L506.0400, L509.4006 #### [facility] [address] [place], [address] MCHC (RBC) [Mass/Vol] 33.1 g/dL Normal 32-36 [facility] Comment on above: Performed By: #### L 509.8002, L3890.6006, L3890.6102, L3890.6301, BTS, L100.0100, L501.9520, L506.0400, L509.4006 #### [facility] [address] [place], [address] MCV (RBC) [Entitic vol] 90.5 fL Normal 81-99 [facility] Comment on above: Performed By: #### L 509.8002, L3890.6006, L3890.6102, L3890.6301, BTS, L100.0100, L501.9520, L506.0400, L509.4006 #### [facility] [address] [place], [address] Monocytes/100 WBC (Bld) 7.1 % Normal 0-10 [facility] Comment on above: Performed By: #### L 509.8002, L3890.6006, L3890.6102, L3890.6301, BTS, L100.0100, L501.9520, L506.0400, L509.4006 #### [facility] [address] [place], [address] Neutrophils/100 WBC (Bld) 64.3 % Normal 47-70 [facility] Comment on above: Performed By: #### L 509.8002, L3890.6006, L3890.6102, L3890.6301, BTS, L100.0100, L501.9520, L506.0400, L509.4006 #### [facility] [address] [place], [address] Nucleated RBC (Bld) [#/Vol] 0 10*3/uL Normal 0-5 [facility] Comment on above: Performed By: #### L 509.8002, L3890.6006, L3890.6102, L3890.6301, BTS, L100.0100, L501.9520, L506.0400, L509.4006 #### [facility] [address] [place], [address] Platelet mean volume (Bld) [Entitic vol] 11.0 fL Normal 6.2-12.0 [facility] Comment on above: Performed By: #### L 509.8002, L3890.6006, L3890.6102, L3890.6301, BTS, L100.0100, L501.9520, L506.0400, L509.4006 #### [facility] [address] [place], [address] Platelets (Bld) [#/Vol] 171 10*3/uL Normal 150-450 [facility] Comment on above: Performed By: #### L 509.8002, L3890.6006, L3890.6102, L3890.6301, BTS, L100.0100, L501.9520, L506.0400, L509.4006 #### [facility] [address] [place], [address] RBC (Bld) [#/Vol] 4.00 10*6/uL Low 4.2-5.4 [facility] Comment on above: Performed By: #### L 509.8002, L3890.6006, L3890.6102, L3890.6301, BTS, L100.0100, L501.9520, L506.0400, L509.4006 #### [facility] [address] [place], [address] RDW SD 43.7 fl Normal 35.1-43.9 [facility] Comment on above: Performed By: #### L 509.8002, L3890.6006, L3890.6102, L3890.6301, BTS, L100.0100, L501.9520, L506.0400, L509.4006 #### [facility] [address] [facility] [address] [place], [place], [id number] WBC (Bld) [#/Vol] 6.2 10*3/uL Normal 4.4-11.0 [facility] Comment on above: Performed By: #### L 509.8002, L3890.6006, L3890.6102, L3890.6301, BTS, L100.0100, L501.9520, L506.0400, L509.4006 #### [facility] [address] [facility] [address] [place], [place], [id number] Chlamydia trachomatis rRNA d etection by probe and target amplification methodOrdered By: Sophia Cho on 03-02-2025 C. trachomatis rRNA JERRY+probe Ql (Unsp spec) Negative Negative [facility] Eosinophil percentageOrdered By: Sophia Cho on 03-02-2025 Eosinophils/100 WBC (Bld) 1.9 % 0-5 [facility] Erythrocyte distribution wid th ratioOrdered By: Sophia Cho on 03-02-2025 Erythrocyte distribution width (RBC) [Ratio] 13.2 % 11.6-14.6 [facility] Erythrocyte distribution wid th standard deviationOrdered By: Sophia Cho on 03-02-2025 Erythrocyte distribution width (RBC) [Ratio] 43.7 fl 35.1-43.9 [facility] HIVon 03-02-2025 HIV Non-Reactive Normal Nonreactive [facility] Comment on above: Result Comment: Non- Reactive Reactive Repeatedly reactive samples must be confirmed according to CDC recommended confirmatory algorithms. The subresults for either HIVAG or AHIV can be used as an aid in the selection of the confirmation algorithm for reactive samples. Send out specimens with Reactive results to [facility] for confirmation. Order the HIV antibody detection and differentiation: lc#[id number] Performed By: #### L 100.0100, L501.0250, L509.8002, L3890.6006 #### [facility] [address] [place], [place], [id number] Hematocrit Auto (Bld) [Volum e fraction]Ordered By: Sophia Cho on 03-02-2025 Hematocrit (Bld) [Volume fraction] 36.2 % Low 37-47 [facility] Hemoglobin measurementOrdere d By: Sophia Cho on 03-02-2025 Hemoglobin (Bld) [Mass/Vol] 12.0 g/dL 12.0-15.0 [facility] Hepatitis C Antibodyon 03-02 Hepatitis C Ab Non-Reactive Normal Nonreactive [facility] Comment on above: Result Comment: Reac tive: Presumptive evidence of antibodies to HCV. Follow CDC recommendations for supplemental testing. Non-Reactive: Antibodies to HCV were not detected; does not exclude the possibility of exposure to HCV Reactive Results are presumptive evidence of antibodies to HCV. Follow CDC recommendations for supplemental testing. Order confirmation testing: HCV Quant by PCR testing - HCVPCR #[id number] Non Reactive: < 0.8 Equivocal: >/= 0.8 to < 1.0 Reactive: >/= 1.0 The CDC requires that a reactive/equivocal HCV antibody result be sent out for confirmation. HCV Quant by PCR testing. Performed By: #### L 100.0100, L501.0250, L509.8002, L3890.6006 #### [facility] [address] [place], [place], [id number] Immature granulocytes/100 WB C Auto (Bld)Ordered By: Sophia Cho on 03-02-2025 Immature granulocytes/100 WBC (Bld) 0.500 % 0.0-0.9 [facility] Comment on above: IG% - Immature Granu locytes (promyelocytes, myelocytes and metamyelocytes) > 1% indicates that a LEFT SHIFT is Present. L3890.6102on 03-02-2025 HEP B Surf Ag Non-Reactive Normal Nonreactive [facility] Comment on above: Result Comment: Reac tive: Presumptive evidence of HBV. Repeatedly reactive samples must be confirmed using a neutralization test ([employer] HBsAg Confirmatory Test) Non-Reactive: HBsAg not detected; does not exclude the possibility of exposure to HBV Performed By: #### L 100.0100, L501.0250, L509.8002, L3890.6006 #### [facility] [address] [place], [place], [address] L509.4006on 03-02-2025 Rubella IgG Non-Reactive Normal Nonreactive [facility] Comment on above: Result Comment: Anti body Result: Interpretation Non-Reactive: Non-Immune Reactive: Immune The following results were obtained with the [employer] Rubella IgG assay. Results from assays of other manufacturers cannot be used interchangeably. Performed By: #### L 100.0100, L501.0250, L509.8002, L3890.6006 #### [facility] [address] [place], [place], [id number] Laboratory - Microbiology an d Antimicrobial susceptibilityOrdered By: Sophia Cho on 03-02-2025 HBV surface Ag Ql (S) Non-Reactive Nonreactive [facility] Comment on above: Reactive: Presumptiv e evidence of HBV. Repeatedly reactive samples must be confirmed using a neutralization test ([employer] HBsAg Confirmatory Test)Non-Reactive: HBsAg not detected; does not exclude the possibility of exposure to HBV MCV (mean corpuscular volume ) determinationOrdered By: Sophia Cho on 03-02-2025 MCV (RBC) [Entitic vol] 90.5 fL 81-[address] [facility] Mean corpuscular hemoglobin (MCH) determinationOrdered By: Sophia Cho on 03-02-2025 MCH (RBC) [Entitic mass] 30.0 pg 27.0-32.0 [facility] Mean corpuscular hemoglobin concentration (MCHC) determinationOrdered By: Sophia Cho on 03-02-2025 MCHC (RBC) [Mass/Vol] 33.1 g/dL 32-36 [facility] Mean platelet volume determi nationOrdered By: Sophia Cho on 03-02-2025 Platelet mean volume (Bld) [Entitic vol] 11.0 fL 6.2-12.0 [facility] Monocyte percentageOrdered B y: Sophia Cho on 03-02-2025 Monocytes/100 WBC (Bld) 7.1 % 0-[address] [facility] Neisseria gonorrhoeae nuclei c acid detection by amplified probe techniqueOrdered By: Sophia Cho on 03-02-2025 N. gonorrhoeae DNA JERRY+probe Ql (Unsp spec) Negative Negative [facility] Comment on above: Performed at: =[address] [id number] Director: Jennifer Mendez MD, Phone: [phone] Neutrophil percentageOrdered By: Sophia Cho on 03-02-2025 Neutrophils/100 WBC (Bld) 64.3 % 47-70 [facility] No Panel InformationOrdered By: Sophia Cho on 03-02-2025 HIV (1&2) Antibody Non-Reactive Nonreactive [facility] Comment on above: Non-ReactiveReactive Repeatedly reactive samples must be confirmed according to CDC recommended confirmatory algorithms. The subresults for either HIVAG or AHIV can be used as an aid in the selection of the confirmation algorithm for reactive samples.Send out specimens with Reactive results to [facility] for confirmation.Order the HIV antibody detection and differentiation: #[id number] Nucleated red blood cell per centageOrdered By: Sophia Cho on 03-02-2025 Nucleated RBC/100 WBC (Bld) [Ratio] 0 % 0-5 [facility] Licensed Professional Counselor Office Visit Reporton 03-02-2025 Licensed Professional Counselor Office Visit Report [facility] [address], [address] [place] [address] OFFICE VISIT Date of Service: 03/02/25 MR#: [id number] Acct: [id number] Name: GAURAV FORTE Rep #: [id number] : 2000 Provider: NOELLE Fan ams Age/Sex: 24/F Location: [facility] Status: Signed Intake Vital Signs 03/10/24 13:00 02/07/25 16:03 03/02/25 09:11 Height 5 ft 6 in 5 ft 6 in 5 ft 6 in Weight: 133 lb 4 oz BMI 21.4 BP 116/78 Intake Visit Reasons: NOB: LMP 12/29, WILBER 10/05 Chief Complaint: New OB Junior Programmer Required: No Is patient in pain?: No Allergies No Known Allergies Allergy (Unverified 03/02/25 09:15) Medications ???Medication ???Instructions ???Recorded ???Confirmed ???Type sertraline 25 mg tablet 25 mg PO DAILY 03/10/24 03/02/25 H istory fish, borage, flaxseed oils-omega See Rx Instructions PO DAILY 11/1203/02/25 History 3,6,9 comb no.1 1,200 mg capsule (Harvest 3-6-9) magnesium 250 mg tablet 250 mg PO QDAY 02/16/25 03/02/25 H istory multivit-min no.71-iron fum 28 cap PO 02/16/25 03/02/25 History mg-folate no.1 1 mg-dha 300 mg capsule (PNV-Harvest) Last Menstrual Period: 12/29/24 [facility] Medical History Women's annual routine gynecological examination Surgical History Previous section Family History Aunt Cancer, Onset Age: 25 Paternal Brain tumor Social History adopted: No household members: spouse and children housing: house number of children: 1 current occupational status: unemployed current occupation: [employer] current occupational exposures/hazards: No pets and animals: [...] physical activity do you participate in: none cindy/samaritan: Hindu seatbelt use: always do you feel safe at home: Yes additional social history: - [employer] work History 3 Elective abortions Hx Para [...] Screening: Congenital (more content not included)... Normal [facility] Platelet countOrdered By: Indra Cho on 03-02-2025 Platelets (Bld) [#/Vol] 171 10*3/uL 150-450 [facility] RBC Auto (Bld) [#/Vol]Ordere d By: oSphia Cho on 03-02-2025 RBC (Bld) [#/Vol] 4.00 10*6/uL Low 4.2-5.4 [facility] Syphilis Antibodieson 2024 Syphilis Abs Non-Reactive Normal Nonreactive [facility] Comment on above: Performed By: #### L 100.0100, L501.0250, L509.8002, L3890.6006 #### [facility] [address] [place], [address] T4 Free Directon 03-02-2025 T4 FREE DIRECT 1.10 ng/dL Normal 0.76-1.46 [facility] Comment on above: Performed By: #### L 100.0100, L501.0250, L509.8002, L3890.6006 #### [facility] [address] [place], [place], [phone] T4 freeOrdered By: Sophia longoria on 03-02-2025 Free T4 [Mass/Vol] 1.10 ng/dL 0.76-1.46 [facility] TSH DL <= 0.005 mIU/L QnOrde red By: Sophia Cho on 03-02-2025 TSH Qn 0.738 uIU/mL 0.300-4.200 [facility] Thyroid Stim Hormone (TSH)on 03-02-2025 TSH 0.738 uIU/mL Normal 0.300-4.200 [facility] Comment on above: Performed By: #### L 100.0100, L501.0250, L509.8002, L3890.6006 #### [facility] [address] [place] [place], [address] Type AND Screenon 03-02-2025 Ab SCREEN GEL Negative Normal [facility] Comment on above: Order Comment: PT WA S LATE FOR THEIR 1 HR GLUCOSE DRAW. PT DIDNT CHECK IN UNTIL 954 Performed By: #### L 100.0100, L501.0250, L509.8002, L3890.6006 #### [facility] [address] [place], [place], [phone] Urine cultureOrdered By: David Cho on 03-02-2025 Bacteria identified Cx Nom (U) GNR lactose filter press pumper Abnormal [facility] Bacteria identified Cx Nom (U) Positive Abnormal [facility] White blood cell (WBC) count Ordered By: Sophia Cho on 03-02-2025 WBC (Bld) [#/Vol] 6.2 10*3/uL 4.4-11.0 [facility] Licensed Professional Counselor Office Visit Reporton 02-07-2025 Licensed Professional Counselor Office Visit Report [facility]'[address], [address] [place] [address] OFFICE VISIT Date of Service: 02/07/25 MR#: [id number] Acct: [id number] Name: GAURAV FORTE Rep #: [id number] : 2000 Provider: Dr. Sirena jimenes MD Age/Sex: 24/F Location: [facility] Status: Signed Intake Vital Signs 03/10/24 13:00 02/07/25 16:03 Height 5 ft 6 in 5 ft 6 in Weight: 127 lb BMI 20.5 BP 124/84 H Intake Visit Reasons: 5w5d spotting Junior Programmer Required: No Is patient in pain?: No Allergies No Known Allergies Allergy (Unverified 02/07/25 16:06) Medications ???Medication ???Instructions ???Recorded ???Confirmed ???Type sertraline 25 mg tablet 25 mg PO DAILY 03/10/24 02/07/25 H istory Post menopausal: No Patient : Yes : No [facility] Medical History (Updated 02/07/25 @ 16:37 by [...] in: walking frequency: 3-4 times per week cindy/samaritan: Hindu seatbelt use: always do you feel safe [...] Nutritional Appearance: average body habitus Orientation: alert HENWV Head: normal to inspection and normocephalic Neck [...] Plan fu for new ob visit 02/07/25 2098 Date Sirena Padilla MD (more content not included)... Normal [facility] No Panel Informationon 02-02 [facility].; [facility] HospitalAda[facility] [employer] [facility]. Serum human chorionic gonado tropin detection for pregnancyOrdered By: Sirena Padilla on 02-01-2025 HCG ( test) Ql 5046 mIU/mL High <9 [facility] Comment on above: Gestational Age0.2-1 Week: 5-50 mIU/mL1-2 Weeks: 50-500 mIU/mL2-3 Weeks: 100-5000 mIU/mL3-4 Weeks: 500-10,000 mIU/mL4-5 Weeks:1000-50,000 mIU/mL5-6 Weeks: 10,000-100,000 mIU/mL6-8 Weeks: 15,000-200,000 mIU/mL2-3 Months:10,000-100,000 mIU/mL hCG Titer Quant., Serumon HCG QUANT. 5046 mIU/mL High <9 non-preg [facility] Comment on above: Result Comment: Gest ational Age 0.2-1 Week: 5-50 mIU/mL 1-2 Weeks: 50-500 mIU/mL 2-3 Weeks: 100-5000 mIU/mL 3-4 Weeks: 500-10,000 mIU/mL 4-5 Weeks:1000-50,000 mIU/mL 5-6 Weeks: 10,000-100,000 mIU/mL 6-8 Weeks: 15,000-200,000 mIU/mL 2-3 Months:10,000-100,000 mIU/mL Performed By: #### L 700.8000 #### [facility] [address] [place], [address] No Panel Informationon 01-31 [facility] HospitalDE[facility]. PROGESTERONE 4317on 02-01-20 25 PROGESTERONE 26.8 ng/mL Normal . [facility] Comment on above: Order Comment: N Result Comment: Foll icular phase 0.1 - 0.9 Luteal phase 1.8 - 23.9 Ovulation phase 0.1 - 12.0 First trimester 11.0 - 44.3 Second trimester 25.4 - 83.3 Third trimester 58.7 - 214.0 Postmenopausal 0.0 - 0.1 Performed at: [facility] Lab[address] [id number] Optical Sales Associate: Cody Bell PhD, Phone: [phone] Performed By: #### L 900.0647, L012.8639 #### [facility] [address] [place], [address] No Panel Informationon 01-30 [facility].; [facility] HospitalDE[facility]. [facility]DE[facility].; [facility] HospitalDEQ Serum human chorionic gonado tropin detection for pregnancyOrdered By: Sirena Padilla on 01-30-2025 HCG ( test) Ql 2103 mIU/mL High <9 [facility] Comment on above: Gestational Age0.2-1 Week: 5-50 mIU/mL1-2 Weeks: 50-500 mIU/mL2-3 Weeks: 100-5000 mIU/mL3-4 Weeks: 500-10,000 mIU/mL4-5 Weeks:1000-50,000 mIU/mL5-6 Weeks: 10,000-100,000 mIU/mL6-8 Weeks: 15,000-200,000 mIU/mL2-3 Months:10,000-100,000 mIU/mL hCG Titer Quant., Serumon HCG QUANT. 2103 mIU/mL High <9 non-preg [facility] Comment on above: Result Comment: Gest ational Age 0.2-1 Week: 5-50 mIU/mL 1-2 Weeks: 50-500 mIU/mL 2-3 Weeks: 100-5000 mIU/mL 3-4 Weeks: 500-10,000 mIU/mL 4-5 Weeks:1000-50,000 mIU/mL 5-6 Weeks: 10,000-100,000 mIU/mL 6-8 Weeks: 15,000-200,000 mIU/mL 2-3 Months:10,000-100,000 mIU/mL Performed By: #### L 700.8000, L801.2600 #### [facility] [address] [place], [address] No Panel Informationon 12-22 [facility].; [facility] HospitalDE[facility]. [facility].; [facility] HospitalDE[facility]. No Panel Informationon 12-21 [facility].; [facility]DE[facility]. ED MED ADMINISTRATION DETAIL on 11-10-2024 ED MED ADMINISTRATION DETAIL [employer] Associate Medication Administration Record [address] [place] [address] [id number] 10/30/2024 Patient: GAURAV FORTE Sex: Female : [...] Memo Cabrera R.N. 1 of 1 Normal [facility] ED NURSES CLINICAL NOTEon ED NURSES CLINICAL NOTE Nurse Narrative Nurse Clinical Narrative [facility] [address] [place] [address] [phone] 10/30/2024 Patient: GAURAV FORTE Sex: Female : [...] Willingham E.M.T.-P. 18:52 10/30/24. Patient transported to ID by stretcher. Patient identifiers checked. Call light [...] ambulatory and via private vehicle. Driving (truck driver's offsider of choice). -- 20:10/30/24 NICOLE Cabrera R.N. Departure time: 19:58 10/30/2024. -- 20:10/30/24 NICOLE Cabrera R.N. 19:58 10/30/24. BP: 116 HR: 80. RR: 16. O2 saturation: 100% Pain level now 0/10. -- 20:29 10/30/24 NICOLE Cabrera R.N. 19:58 10/30/24. Site #1 removed upon discha (more content not included)... Normal [facility] ED ORDER SHEET (CPOE ONLY)on 11-10-2024 ED ORDER SHEET (CPOE ONLY) Order Sheet Order Sheet [facility] [address] [place] [address] [id number] 10/30/2024 Patient: GAURAV FORTE Sex: Female : [...] (11/10/2024 07:02 EST)] 2 of 2 Normal [facility] ED PHYSICIAN CLINICAL REPORT on 11-10-2024 ED PHYSICIAN CLINICAL REPORT Narrative Physician Clinical Narrative [facility] [address] [facility] [place] [address] [phone] 10/30/2024 Patient: GAURAV FORTE Sex: Female : [...] 1.50 - 7.10 Final EST 10/30/2024 18:35 [place] # 0.41 x10/UL 0.20 - 1.00 Final [...] - 20 (more content not included)... Normal [facility] ED SUPER BILLon 11-10-2024 ED [facility]ILL [facility] [address] [facility] [place] [address] [phone] 10/30/2024 Patient: GAURAV FORTE Sex: Female : 2000 Age: 24y Facility Professional Category Item Description Code Code Quantity Fee Total Nurse/E/M EMERGENCY 589200 1 $0.00 $0.00 DEPT VISIT HIGH SEVERITYFUNCJ (23460-95) Nurse/IV/IM/Infusions Hydration 706942 1 $0.00 $0.00 additional hour (42520) Nurse/IV/IM/Infusions Hydration initial 791028 1 $0.00 $0.00 (87900) Grand $0.00 Total Providers Wilfredo Chamberlain M.D. Chief Complaint VAGINAL BLEEDING. 1 of 2 Superbill Principal Diagnosis Moderate vaginal bleeding. Probable complete spontaneous (miscarriage).No complications. ICD-10 Codes N93.9: Abnormal uterine and vaginal bleeding, unspecified 2 of 2 Normal [facility] ED VISIT SUMMARYon ED VISIT SUMMARY Visit Overview Visit Overview [facility] [address] [facility] [place] [address] [id number] 10/30/2024 Patient: GAURAV FORTE Sex: Female : [...] SPONTANEOUS (MISCARRIAGE).NO COMPLICATIONS 3 of 3 Normal [facility] ED VITALS FLOW SHEETon 11-10 ED VITALS FLOW SHEET Vitals Vital Sign Flow Sheet [place] [address] [place] [address] [phone] 10/30/2024 Patient: GAURAV FORTE Sex: Female : [...] 98.4 F 2 2 of 2 Normal [facility] No Panel Informationon 10-31 [facility], [facility].; [facility], [facility]. CBC + DIFFon 10-30-2024 Baso # 0.01 x10EE3/UL Normal 0.00 - 0.10 [facility] Comment on above: Performed By: #### 2 55028 #### [facility],[address] [place] [address] Basophils/100 WBC (Bld) 0.2 % Normal 0.0 - 2.0 % [facility], Inc.; [place] - [facility] [employer] [facility], [facility] Work Phone: Comment on above: Performed By: #### 2 68889 #### [facility],[address] [place] [address] CBC + DIFF Normal [facility] Comment on above: Result Comment: CBC- COMPLETE BLOOD COUNT Performed By: #### 2 39306 #### [facility],[address] [place], [place] [id number] EO # 0.06 x10EE3/UL Normal 0.00 - 0.50 [facility] Comment on above: Performed By: #### 2 14913 #### [facility],[address] [place], [place] [id number] Eosinophils/100 WBC (Bld) 0.8 % Normal 0.0 - 7.0 % [facility]re[facility]pet[facility] [employer] [facility], Inc.; [place] [facility] [employer] [facility], [facility] Work Phone: Comment on above: Performed By: #### 2 06910 #### [facility],[address] [place], [place] [id number] Erythrocyte distribution width (RBC) [Ratio] 14.5 % Normal 12.0 - 15.6 % [facility] [employer] [facility], [facility].; [place] [facility] [employer] [facility], [employer] Work Phone: Comment on above: Performed By: #### 2 79699 #### [facility],[address] [place], [place] [phone] Hematocrit (Bld) [Volume fraction] 39.4 % Normal 34.0 - 46.0 % [facility], [facility].; [place] [facility] [employer] [facility], [employer] Work Phone: Comment on above: Performed By: #### 2 51507 #### [facility],[address] [place] [address] Hemoglobin (Bld) [Mass/Vol] 13.2 g/dL Normal 12.0 - 16.0 g/dL [facility] CenterDE[facility].; [facility], [employer]. Work Phone: Comment on above: Performed By: #### 2 43996 #### [facility],[address] [place] [address] Lymph # 1.32 x10EE3/UL Normal 0.80 - 2.80 [facility] Comment on above: Performed By: #### 2 91844 #### [address] [address] Lymphocytes/100 WBC (Bld) 18.1 % Abnormal 20.0 - 45.0 % [facility], [facility].; [facility], Inc[facility] Work Phone: Comment on above: Performed By: #### 2 01117 #### [facility],[address] [place] [address] MANUAL DIFF N/A Normal [facility] CenterAda[facility] Symb[facility].; [facility], Inc[facility] Work Phone: Comment on above: Performed By: #### 2 41158 #### [facility],[address] [place] [address]606 MCH (RBC) [Entitic mass] 30 pg Normal 27 - 33 pg [facility], [facility].; [facility], Inc[facility] Work Phone: Comment on above: Performed By: #### 2 47764 #### [facility],[address] [place] [address]198 MCHC 34 X10 3 Normal 32 - 36 [facility] Comment on above: Performed By: #### 2 73383 #### [facility],[address] [place] [address]6776 MCV (RBC) [Entitic vol] 89 fL Normal 80 - 99 fL E [facility], [employer].; [facility], [facility]. Work Phone: Comment on above: Performed By: #### 2 83803 #### [facility],[address] [place] [address] [place] # 0.41 x10EE3/UL Normal 0.20 - 1.00 [facility] Comment on above: Performed By: #### 2 64402 #### [facility],[address] [place] [address] 35051 MONOS % 5.7 % Normal 0.0 - 10.0 [facility] Comment on above: Performed By: #### 2 33046 #### [facility],[address] [place] [address] Morphology Mehul (Bld) [Interp] N/A Normal [facility].; [facility], [employer]. Work Phone: Comment on above: Performed By: #### 2 53634 #### [facility],[address] [place] [address] Neut # 5.48 x10EE3/UL Normal 1.50 - 7.10 [facility] Comment on above: Performed By: #### 2 34228 #### [facility],[address] [place] [address] Neutrophils/100 WBC (Bld) 75.3 % Normal 46.0 - 76.0 % [facility] Center[facility].; [facility] HospitalDE[facility]. Work Phone: Comment on above: Performed By: #### 2 28138 #### [facility],[address] [place] [address] PLATELET 149 x10EE3/UL Low 150 - 450 [facility] Comment on above: Performed By: #### 2 08037 #### [facility],[address] [place] [address]82 Platelet mean volume (Bld) [Entitic vol] 8.4 fL Normal 6.6 - 10.5 fL [facility]DE[facility].; [facility], [facility]. Work Phone: Comment on above: Result Comment: AUTO MATED DIFFERENTIAL Performed By: #### 2 11439 #### [facility],[address] [place] [address] 57541 RBC 4.42 x 10EE6/UL Normal 4.10 - 5.30 [facility] Comment on above: Performed By: #### 2 96413 #### [facility],[address] [place] [address]291 WBC 7.3 x 10EE3/UL Normal 4.5 - 10.8 [facility] Comment on above: Performed By: #### 2 29889 #### [facility],[address] [place], [place] [phone] CMP with eGFRon 10-30-2024 AGE 24 years Normal [facility] Comment on above: Performed By: #### 2 10803 ####[facility],[address] [place], [place] [phone] Albumin [Mass/Vol] 4.1 g/dL Normal 3.4 - 5.0 g/dL [facility].; [facility], [facility] Work Phone: Comment on above: Performed By: #### 2 39086 ####[address] [address] Albumin/Globulin [Mass ratio] 1.1 {ratio} Normal 0.9 - 1.6 [facility] Comment on above: Performed By: #### 2 39567 ####[facility],[address] [place] [address] ALK PHOS 48 U/L Normal 46 - 116 U/L [facility].; [facility], [facility] Work Phone: Comment on above: Performed By: #### 2 65073 ####[facility],[address] [place] [address] 15818 ALT [Catalytic activity/Vol] 26 U/L Normal 16 - 63 U/L [facility], [facility].; [facility], Inc[facility] Work Phone: Comment on above: Performed By: #### 2 76379 ####[facility],[address] [place] [address]015 Anion gap [Moles/Vol] 15 mmol/L Normal 10 - 20 mmol/L [facility], [facility].; [place] - [facility], [facility] Work Phone: Comment on above: Performed By: #### 2 10760 ####[facility],[address] [place], [place] [phone] AST [Catalytic activity/Vol] 14 U/L Normal 13 - 39 U/L [facility], [facility].; [facility], Inc[facility] Work Phone: Comment on above: Performed By: #### 2 76064 ####[facility],[address] [place] [address]053 B/C RATIO 13 ratio Normal 0 - 30 [facility] Comment on above: Performed By: #### 2 19244 ####[address] [address] Bilirubin [Mass/Vol] 0.5 mg/dL Normal 0.2 - 1 .0 mg/dL [facility], [facility].; [facility], Inc[facility] Work Phone: Comment on above: Performed By: #### 2 44803 ####[facility],[address] [place] [address]60 Calcium [Mass/Vol] 9.0 mg/dL Normal 8.5 - 10. 1 mg/dL [facility], [facility].; [facility], Inc[facility] Work Phone: Comment on above: Performed By: #### 2 72227 ####[place] [address],[place] [address] Chloride [Moles/Vol] 101 mmol/L Normal 98 - 10 7 mmol/L [facility]DE[facility].; [facility] HospitalDE[facility]. Work Phone: Comment on above: Performed By: #### 2 36900 ####[facility],[address] [place] [address]27 CMP with eGFR Normal [facility] Comment on above: Result Comment: COMP REHENSIVE METABOLIC PANEL Performed By: #### 2 04833 ####[address] [address] CO2 [Moles/Vol] 27.2 mmol/L Normal 21.0 - 32.0 mmol/L [facility]DE[facility].; [facility] [employer] [facility] CenterDE[facility]. Work Phone: Comment on above: Performed By: #### 2 19406 ####[facility],[address] [place] [address] Creatinine [Mass/Vol] 0.72 mg/dL Normal 0.55 - 1.02 mg/dL [facility]DE[facility].; [facility], [employer]. Work Phone: Comment on above: Performed By: #### 2 06592 ####[address] [address] GFR/1.73 sq M.predicted among non-blacks MDRD (S/P/Bld) [Vol rate/Area] mL/min/{1.73_m2} Normal 60 - 999 [facility] Comment on above: Performed By: #### 2 99431 ####[facility],[address] [place] [address] Result Comment: ACCO RDING TO THE NATIONAL KIDNEY DISEASE EDUCATION PROGRAM(NKDE), A NORMAL eGFR IS A VALUE GREATER THAN OR EQUAL TO 60 ML/MIN/1.73 SQ METERS. CHRONIC KIDNEY DISEASE: <60mL/MIN/1.73 SQ METERS KIDNEY FAILURE: <15mL/MIN/1.73 SQ METERS THIS TEST SHOULD ONLY BE USED FOR PATIENTS 18 YEARS OF AGE AND OLDER. Globulin (S) [Mass/Vol] 3.7 g/dL Normal 1.5 - 3.8 g/ dL [facility].; [facility], [facility]. Work Phone: Comment on above: Performed By: #### 2 69402 ####[address] [address] Glucose [Mass/Vol] 95 mg/dL Normal 74 - 106 mg/dL [facility].; [facility], [facility]. Work Phone: Comment on above: Performed By: #### 2 60826 ####[address] [address] Potassium [Moles/Vol] 3.8 mmol/L Normal 3.5 - 5.1 mmol/L [facility].; [facility], Inc[facility] Work Phone: Comment on above: Performed By: #### 2 39495 ####[address] [address] Protein [Mass/Vol] 7.8 g/dL Normal 6.4 - 8.2 g/dL [facility].; [facility], [facility]. Work Phone: Comment on above: Performed By: #### 2 28887 ####[address] [address] Sodium [Moles/Vol] 139 mmol/L Normal 136 - 145 mmol/L [facility].; [facility], Inc[facility] Work Phone: Comment on above: Performed By: #### 2 39372 ####[address] [address] Urea nitrogen [Mass/Vol] 9 mg/dL Normal 7 - 18 mg/d L [facility] [employer] [facility]DE[facility].; [employer] [facility] [employer] [facility], [employer]. Work Phone: Comment on above: Performed By: #### 2 52416 ####[facility],[address] [place] [address] Laboratory - Chemistry and C hemistry - challengeon 10-30-2024 Albumin [Mass/Vol] 1.1 g/dL Normal 0.9 - 1.6 [facility].; [employer] [facility] [employer] [facility], Inc[facility] Work Phone: Bilirubin [Mass/Vol] Negative Normal [facility] [facility] CenterNabriva Therapeutics; [facility] [employer] [facility], [employer]. Work Phone: GFR/1.73 sq M.predicted among blacks MDRD (S/P/Bld) [Vol rate/Area] mL/min/{1.73_m2} Normal 60 - 999 {ML/MINUTE} [facility] [facility]DE[facility].; [employer] [facility] [employer] [facility], Inc[facility] Work Phone: GFR/1.73 sq M.predicted MDRD (S/P/Bld) [Vol rate/Area] mL/min/{1.73_m2} Normal 60 - 999 {ML/MINUTE} [facility] [employer] [facility], [employer].; [employer] [facility] [employer] [facility], Inc[facility] Work Phone: Glucose [Mass/Vol] NORM Normal [facility] [facility]DE[facility].; [employer] [facility] [employer] [facility], Inc[facility] Work Phone: HCG.beta subunit Qn 16 m[IU]/mL Abnormal 0 - 6 m[iU]/mL [facility] [employer] [facility]DE[facility].; [employer] [facility] [employer] [facility], [facility] Work Phone: pH (Bld) 7 [pH] Normal [facility] [facility]DE[facility].; [employer] [facility] [employer] [facility], [facility] Work Phone: Protein [Mass/Vol] Negative Normal [facility]; [facility] [employer] [facility] Work Phone: Urea nitrogen/Creatinine [Mass ratio] 13 {ratio} Normal 0 - 30 {ratio} [facility]; [facility] [employer] [facility] Work Phone: Laboratory - Hematology and Cell countson 10-30-2024 Basophils (Bld) [#/Vol] 0.01 {x10EE3/UL} Normal 0.00 - 0.10 {x10EE3/UL} [facility]; [facility] Hospital[facility] Work Phone: Eosinophils (Bld) [#/Vol] 0.06 {x10EE3/UL} Normal 0.00 - 0.50 {x10EE3/UL} [facility].; [facility] [employer] [facility] Work Phone: Lymphocytes (Bld) [#/Vol] 1.32 {x10EE3/UL} Normal 0.80 - 2.80 {x10EE3/UL} [facility].; [facility], [facility]. Work Phone: MCHC (RBC) [Mass/Vol] 34 {X10_3} Normal 32 - 3 6 {X10_3} [facility].; [facility] [employer] [facility]. Work Phone: Monocytes (Bld) [#/Vol] 0.41 {x10EE3/UL} Normal 0.20 - 1.00 {x10EE3/UL} [facility].; [facility] [employer] [facility] Work Phone: Monocytes/100 WBC (Bld) 5.7 % Normal 0.0 - 10.0 % [facility] [employer] [facility]; [facility] [employer] [facility] Work Phone: Neutrophils (Bld) [#/Vol] 5.48 {x10EE3/UL} Normal 1.50 - 7.10 {x10EE3/UL} [facility] Center[facility].; [facility], [facility]. Work Phone: Platelets (Bld) [#/Vol] 149 {x10EE3/UL} Abnormal 1 50 - 450 {x10EE3/UL} [facility] Center[facility].; [facility], [facility]. Work Phone: RBC (Bld) [#/Vol] 4.42 {x_10EE6/UL} Normal 4.10 - 5.30 {x_10EE6/UL} [facility] [employer] [facility].; [facility], [facility]. Work Phone: WBC (Bld) [#/Vol] Negative Normal [facility] [facility].; [facility] [employer] [facility]. Work Phone: WBC (Bld) [#/Vol] 7.3 {x_10EE3/UL} Normal 4.5 - 10.8 {x_10EE3/UL} [facility] Center[facility].; [facility] [facility], [facility]. Work Phone: Laboratory - Microbiology an d Antimicrobial susceptibilityon 10-30-2024 Bacteria identified Cx Nom (Unsp spec) 2+ Normal [facility]; [facility] Work Phone: Laboratory - Specimen inform ationon 10-30-2024 Specimen type Nom (Spec) R Normal [facility].; [facility]. Work Phone: Laboratory - Urinalysison Yeast LM Ql (Urine sed) NONE Normal [facility].; [facility], [facility] Work Phone: No Panel Informationon 10-30 AGE 24 {years} Normal [facility].; [facility] Work Phone: Blood 150 Abnormal [facility] CenterDE[facility].; [employer] [facility], Inc[facility] Work Phone: CBC + DIFF Normal [facility] CenterDE[facility].; [employer]. - [facility] [employer] [facility], [employer]. Work Phone: CMP with eGFR Normal [facility] CenterDE[facility].; [employer] [facility] [employer] [facility], [employer]. Work Phone: Microscopic SEE BELOW Normal [facility] [facility] CenterDE[facility].; [employer] [facility] [employer] [facility], [employer]. Work Phone: PREG SERUM QUANTon 5 HCG QUANTITATIVE 16 mIU/mL High 0 - 6 [facility] Comment on above: Result Comment: [...] 3RD TRIMESTER 1000-50,000 Performed By: #### 2 [id number] ####[facility],[address] [place] [address] URINALYSISon 10-30-2024 Amorphous 3+ Normal [facility] [facility] CenterDE[facility].; [employer] [facility] [employer] [facility], [employer]. Work Phone: Comment on above: Performed By: #### 2 [id number] #### [facility],[address] [place] [address] 39119 Bacteria 2+ Normal [facility] Comment on above: Performed By: #### 2 [id number] #### [facility],[address] [place] [address] Bilirubin Ql (U) Negative Normal NORMAL: NEGATIVE [facility] Comment on above: Performed By: #### 2 [id number] #### [facility],[address] [place] [address] 79268 Casts NONE Normal [facility] [employer] [facility], Inc.; [employer] [facility] [employer] [facility], Inc[facility] Work Phone: Comment on above: Performed By: #### 2 [id number] #### [facility],[address] [place] [address] Clarity (U) very cloudy Normal [facility] [employer] [facility], Inc.; [employer] [facility] [employer] [facility], Inc[facility] Work Phone: Comment on above: Performed By: #### 2 [id number] #### [facility],[address] [place] [address] Color (U) yellow Normal [facility] [employer] [facility], Inc.; [employer] [facility] [employer] [facility], Inc[employer] Work Phone: Comment on above: Performed By: #### 2 [id number] #### [facility],[address] [place] [address] Crystals LM Nom (Urine sed) NONE Normal [facility] [employer] [facility], Inc.; [employer] - [facility] [employer] [facility], Inc. Work Phone: Comment on above: Performed By: #### 2 [id number] #### [facility],[address] [place] [address] Epi Cells FEW Normal [facility] [employer] [facility], Inc.; [employer] [facility] [employer] [facility], Inc. Work Phone: Comment on above: Performed By: #### 2 [id number] #### [facility],[address] [place], [place] [id number] Glucose Ql (U) NORM Normal NORMAL: NORMAL [facility] Comment on above: Performed By: #### 2 [id number] #### [facility],[address] [place], [place] [id number] Hemoglobin Ql (U) 150 Abnormal NORMAL: NEGATIVE [facility] Comment on above: Performed By: #### 2 [id number] #### [facility],[address] [place] [address] Ketone 15 Abnormal [facility].; [facility], Inc[facility] Work Phone: Comment on above: Performed By: #### 2 60816 #### [facility],[address] [place] [address] 17032 Leukocytes Negative Normal NORMAL: NEGATIVE [facility] Comment on above: Performed By: #### 2 61356 #### [facility],[address] [place] [address] 78185 Mucous NONE Normal [facility]DE[facility].; [facility], Inc[facility] Work Phone: Comment on above: Performed By: #### 2 84579 #### [facility],[address] [place] [address] 36239 Nitrite Ql (U) Negative Normal [facility], Inc[facility] Work Phone: Comment on above: Performed By: #### 2 [id number] #### [facility],[address] [place] [address] 74411 pH (U) 7 [pH] Normal NORMAL: 5.0-8.0 [facility] Comment on above: Performed By: #### 2 99538 #### [facility],[address] [place] [address] 27815 Protein Ql (U) Negative Normal NORMAL: NEGATIVE [facility] Comment on above: Performed By: #### 2 26474 #### [facility],[address] [place] [address] 39923 Rbc 5-10 Normal 0 - 3 [facility]DE[facility].; [facility], Inc[facility] Work Phone: Comment on above: Performed By: #### 2 [id number] #### [facility],[address] [place] [address] 46940 Sp [place] 1.015 Normal [facility] CenterDE[facility].; [facility], [employer]. Work Phone: Comment on above: Performed By: #### 2 [id number] #### [facility],[address] [place] [address] 58498 Specimen Type R Normal [facility] Comment on above: Performed By: #### 2 55509 #### [facility],[address] [place] [address] 40175 Urinalysis dipstick W Reflex Microscopic panel (U) SEE BELOW Normal [facility] Comment on above: Result Comment: MICR OSCOPIC Performed By: #### 2 65851 #### [facility],[address] [place] [address] 82350 Urobilinog NORM Normal [facility].; [facility], [facility]. Work Phone: Comment on above: Performed By: #### 2 96054 #### [facility],[address] [place] [address] 92569 Wbc NONE Normal 0 - 5 [facility].; [facility], [facility]. Work Phone: Comment on above: Performed By: #### 2 99836 #### [facility],[address] [place] [address] 57555 Yeast NONE Normal [facility] Comment on above: Performed By: #### 2 33956 #### [facility],[address] [place], [place] [id number] ENDO VAGINALon 025 OB ENDO VAGINAL [place] [address] Patient: GAURAV FORTE Phone#: : [phone] Age: 24 Gender: F Pt. Type: ER Account: [id number] Location: [facility] Ordering: WILFREDO CHAMBERLAIN Exam Date: 10/30/2024/18:27 Family Phys: MALCOLM YANG Charge Code: [id number] Physician: [place] Order #: [id number] Dose#: PROCEDURE: OB INITIAL <14 WEEKS ULTRASOUND, TRANSABDOMINAL ENDOVAGINAL COMPARISON: [facility], OB INITIAL <14 WEEKS, 03/21/2022, 14:49. INDICATIONS: [...] Michael MD on 10/31/2024 at 8:52 Normal [facility] US OB INITIAL< 14 WEEKS; 1st GESTATIONon 10-30-2024 US OB INITIAL< 14 WEEKS; 1st GESTATION [place] [id number] Patient: GAURAV FORTE Phone#: : [phone] Age: 24 Gender: F Pt. Type: ER Account: [id number] Location: 052 Ordering: WILFREDO CHAMBERLAIN Exam Date: 10/30/2024/18:27 Family Phys: MALCOLM YANG Charge Code: [id number] Physician: [place] Order #: [id number] Dose#: PROCEDURE: OB INITIAL <14 WEEKS ULTRASOUND, TRANSABDOMINAL ENDOVAGINAL COMPARISON: [facility], OB INITIAL <14 WEEKS, 03/21/2022, 14:49. INDICATIONS: [...] Sydni Michael MD on 10/31/2024 at 8:52 [facility] No Panel Informationon 08-11 [employer]. No Panel Informationon 03-10 [employer]DE[employer] Comment [employer] Work Phone: COMM . Normal [employer] Work Phone: COMMENT Comment [employer] Work Phone: DIAG Comment [employer] Work Phone: GS See Note Normal [employer] Work Phone: HPV RFLX Comment [employer] Work Phone: PAPSMR Comment [employer] Work Phone: PERFORM Comment Normal [facility]DE[facility].; [facility], [facility]. Work Phone: VAC See Note Normal [facility] CenterDE[facility].; [facility], [facility]. Work Phone: No Panel Informationon 02-25 [facility] CenterDE[facility].; [facility], [facility]. No Panel Informationon 10-21 [facility] CenterDE[facility].; [facility], [facility]. Laboratory - Hematology and Cell countson 11-04-2022 Basophils (Bld) [#/Vol] 0.10 {x10EE3/UL} Normal 0.00 - 0.10 {x10EE3/UL} [facility]DE[facility].; [facility], Inc[facility] Work Phone: Basophils/100 WBC (Bld) 0.4 % Normal 0.0 - 2.0 % [facility]DE[facility].; [facility], [facility]. Work Phone: Eosinophils (Bld) [#/Vol] 0.00 {x10EE3/UL} Normal 0.00 - 0.50 {x10EE3/UL} [facility]DE[facility].; [facility], Inc[facility] Work Phone: Eosinophils/100 WBC (Bld) 0.3 % Normal 0.0 - 7.0 % [facility].; [facility], [facility]. Work Phone: Erythrocyte distribution width (RBC) [Ratio] 13.8 % Normal 12.0 - 15.6 % [facility].; [facility], Inc[facility] Work Phone: Hematocrit (Bld) [Volume fraction] 32.4 % Abnormal 34.0 - 46.0 % [facility].; [facility], Inc[facility] Work Phone: Hemoglobin (Bld) [Mass/Vol] 10.8 g/dL Abnormal 12.0 - 16.0 g/dL [facility]; [facility], [facility]. Work Phone: Lymphocytes (Bld) [#/Vol] 1.80 {x10EE3/UL} Normal 0.80 - 2.80 {x10EE3/UL} [facility].; [facility], [facility]. Work Phone: Lymphocytes/100 WBC (Bld) 13.1 % Abnormal 20.0 - 45.0 % [facility]; [facility], [facility]. Work Phone: MCH (RBC) [Entitic mass] 31 pg Normal 27 - 33 pg [facility]; [facility], [facility] Work Phone: MCHC (RBC) [Mass/Vol] 33 {X10_3} Normal 32 - 3 6 {X10_3} [facility].; [facility], [facility]. Work Phone: MCV (RBC) [Entitic vol] 92 fL Normal 80 - 99 fL E [facility]; [facility], [facility]. Work Phone: Monocytes (Bld) [#/Vol] 1.00 {x10EE3/UL} Normal 0.20 - 1.00 {x10EE3/UL} [facility]; [facility], [facility]. Work Phone: Monocytes/100 WBC (Bld) 7.4 % Normal 0.0 - 10.0 % [facility]; [facility], [facility]. Work Phone: Morphology Mehul (Bld) [Interp] N/A Normal [facility]; [facility], [facility]. Work Phone: Neutrophils (Bld) [#/Vol] 10.90 {x10EE3/UL} Abnormal 1.50 - 7.10 {x10EE3/UL} [facility].; [facility], [facility]. Work Phone: Neutrophils/100 WBC (Bld) 78.8 % Abnormal 46.0 - 76.0 % [facility].; [facility], [facility]. Work Phone: Platelet mean volume (Bld) [Entitic vol] 8.7 fL Normal 6.6 - 10.5 fL [facility].; [facility]. Work Phone: Platelets (Bld) [#/Vol] 200 {x10EE3/UL} Normal 1 50 - 450 {x10EE3/UL} [facility].; [facility], [facility]. Work Phone: RBC (Bld) [#/Vol] 3.53 {x_10EE6/UL} Abnormal 4.10 - 5.30 {x_10EE6/UL} [facility].; [facility], [facility]. Work Phone: WBC (Bld) [#/Vol] 13.9 {x_10EE3/UL} Abnormal 4.5 - 10.8 {x_10EE3/UL} [facility].; [facility], [facility]. Work Phone: No Panel Informationon 11-04 CBC + DIFF Normal [facility].; [facility], [facility]. Work Phone: MANUAL DIFF N/A Normal [facility].; [facility], [facility]. Work Phone: Laboratory - Blood bankon ABO group Nom (Bld) O Normal [facility].; [facility], [facility]. Work Phone: Blood group antibody screen Ql Negative Normal [facility] Center[facility]; [facility] Work Phone: Rh Nom (Bld) Positive Normal [facility]; [facility] Work Phone: Laboratory - Coagulationon 0 11-03-2022 aPTT Coag (Bld) [Time] 23.3 s Abnormal 25.4 - 38.4 {sec} [facility].; [facility]. Work Phone: INR Coag (PPP) [Relative time] 0.9 {INR} Normal 0.8 - 1.2 [facility]; [facility]. Work Phone: PT Coag (Bld) [Time] 10.4 s Normal 9.3 - 1 4.1 {sec} [facility].; [facility]. Work Phone: Laboratory - Hematology and Cell countson 11-03-2022 Basophils (Bld) [#/Vol] 0.00 {x10EE3/UL} Normal 0.00 - 0.10 {x10EE3/UL} [facility].; [facility], [facility]. Work Phone: Basophils/100 WBC (Bld) 0.5 % Normal 0.0 - 2.0 % [facility]; [facility]. Work Phone: Eosinophils (Bld) [#/Vol] 0.10 {x10EE3/UL} Normal 0.00 - 0.50 {x10EE3/UL} [facility].; [facility], [facility]. Work Phone: Eosinophils/100 WBC (Bld) 1.3 % Normal 0.0 - 7.0 % [facility]; [facility]. Work Phone: Erythrocyte distribution width (RBC) [Ratio] 13.6 % Normal 12.0 - 15.6 % [facility]; [facility] Work Phone: Hematocrit (Bld) [Volume fraction] 34.6 % Normal 34.0 - 46.0 % [facility]; [facility] Work Phone: Hemoglobin (Bld) [Mass/Vol] 11.7 g/dL Abnormal 12.0 - 16.0 g/dL [facility]; [facility], [facility]. Work Phone: Lymphocytes (Bld) [#/Vol] 1.20 {x10EE3/UL} Normal 0.80 - 2.80 {x10EE3/UL} [facility]; [facility], [facility]. Work Phone: Lymphocytes/100 WBC (Bld) 14.2 % Abnormal 20.0 - 45.0 % [facility]; [facility], [facility]. Work Phone: MCH (RBC) [Entitic mass] 31 pg Normal 27 - 33 pg [facility]; [facility], [facility]. Work Phone: MCHC (RBC) [Mass/Vol] 34 {X10_3} Normal 32 - 3 6 {X10_3} [facility]; [facility], [facility]. Work Phone: MCV (RBC) [Entitic vol] 92 fL Normal 80 - 99 fL [facility]; [facility], [facility] Work Phone: Monocytes (Bld) [#/Vol] 0.60 {x10EE3/UL} Normal 0.20 - 1.00 {x10EE3/UL} [facility]; [facility]. Work Phone: Monocytes/100 WBC (Bld) 6.9 % Normal 0.0 - 10.0 % [facility].; [facility]. Work Phone: Morphology Mehul (Bld) [Interp] N/A Normal [facility].; [facility], [facility]. Work Phone: Neutrophils (Bld) [#/Vol] 6.70 {x10EE3/UL} Normal 1.50 - 7.10 {x10EE3/UL} [facility]DE[facility].; [facility], [facility]. Work Phone: Neutrophils/100 WBC (Bld) 77.1 % Abnormal 46.0 - 76.0 % [facility]DE[facility].; [facility], [facility]. Work Phone: Platelet mean volume (Bld) [Entitic vol] 8.9 fL Normal 6.6 - 10.5 fL [facility]DE[facility].; [facility]. Work Phone: Platelets (Bld) [#/Vol] 206 {x10EE3/UL} Normal 1 50 - 450 {x10EE3/UL} [facility]DE[facility].; [facility], [facility]. Work Phone: RBC (Bld) [#/Vol] 3.77 {x_10EE6/UL} Abnormal 4.10 - 5.30 {x_10EE6/UL} [facility]DE[facility].; [facility], [facility]. Work Phone: WBC (Bld) [#/Vol] 8.7 {x_10EE3/UL} Normal 4.5 - 10.8 {x_10EE3/UL} [facility]DE[facility].; [facility], [employer]. Work Phone: No Panel Informationon 11-03 BB TYPE Normal [facility]; [facility] Work Phone: CBC + DIFF Normal [facility]; [facility] Work Phone: MANUAL DIFF N/A Normal [facility]; [facility] Work Phone: PROTHROMBIN TIME AND INR Normal [facility]; [facility]. Work Phone: Laboratory - Chemistry and C hemistry - challengeon 08-25-2022 Glucose [Mass/Vol] 81 mg/dL Normal 70 - 140 mg/dL [facility]; [facility] Work Phone: Laboratory - Hematology and Cell countson 08-25-2022 Basophils (Bld) [#/Vol] 0.00 {x10EE3/UL} Normal 0.00 - 0.10 {x10EE3/UL} [facility]; [facility], [facility] Work Phone: Basophils/100 WBC (Bld) 0.4 % Normal 0.0 - 2.0 % [facility]; [facility] Work Phone: Eosinophils (Bld) [#/Vol] 0.20 {x10EE3/UL} Normal 0.00 - 0.50 {x10EE3/UL} [facility].; [facility]. Work Phone: Eosinophils/100 WBC (Bld) 1.9 % Normal 0.0 - 7.0 % [facility]; [facility], [facility] Work Phone: Erythrocyte distribution width (RBC) [Ratio] 13.5 % Normal 12.0 - 15.6 % [facility]; [facility] Work Phone: Hematocrit (Bld) [Volume fraction] 32.2 % Abnormal 34.0 - 46.0 % [facility]; [facility] Work Phone: Hemoglobin (Bld) [Mass/Vol] 10.8 g/dL Abnormal 12.0 - 16.0 g/dL [facility]; [facility]. Work Phone: Lymphocytes (Bld) [#/Vol] 1.60 {x10EE3/UL} Normal 0.80 - 2.80 {x10EE3/UL} [facility]; [facility], [facility] Work Phone: Lymphocytes/100 WBC (Bld) 17.0 % Abnormal 20.0 - 45.0 % [facility]; [facility], [facility]. Work Phone: MCH (RBC) [Entitic mass] 32 pg Normal 27 - 33 pg [facility]; [facility] Work Phone: MCHC (RBC) [Mass/Vol] 34 {X10_3} Normal 32 - 3 6 {X10_3} [facility]; [facility], [facility]. Work Phone: MCV (RBC) [Entitic vol] 94 fL Normal 80 - 99 fL E [facility]; [facility], [facility] Work Phone: Monocytes (Bld) [#/Vol] 0.60 {x10EE3/UL} Normal 0.20 - 1.00 {x10EE3/UL} [facility]; [facility], [facility]. Work Phone: Monocytes/100 WBC (Bld) 6.0 % Normal 0.0 - 10.0 % [facility]; [facility]. Work Phone: Morphology Mehul (Bld) [Interp] N/A Normal [facility]; [facility]. Work Phone: Neutrophils (Bld) [#/Vol] 6.80 {x10EE3/UL} Normal 1.50 - 7.10 {x10EE3/UL} [facility].; [facility]. Work Phone: Neutrophils/100 WBC (Bld) 74.7 % Normal 46.0 - 76.0 % [facility] [facility]; [facility]. Work Phone: Platelet mean volume (Bld) [Entitic vol] 8.7 fL Normal 6.6 - 10.5 fL [facility]; [facility]. Work Phone: Platelets (Bld) [#/Vol] 263 {x10EE3/UL} Normal 1 50 - 450 {x10EE3/UL} [facility].; [facility]. Work Phone: RBC (Bld) [#/Vol] 3.43 {x_10EE6/UL} Abnormal 4.10 - 5.30 {x_10EE6/UL} [facility]DE[facility].; [facility]. Work Phone: WBC (Bld) [#/Vol] 9.1 {x_10EE3/UL} Normal 4.5 - 10.8 {x_10EE3/UL} [facility]DE[facility].; [facility] [facility]. Work Phone: No Panel Informationon 08-25 CBC + DIFF Normal [facility] CenterNabriva Therapeutics; [facility] [employer] [facility] CenterDE[facility]. Work Phone: GLUCOSE CHALLENGE 50GM 1 HOUR Normal [facility].; [facility], [facility]. Work Phone: MANUAL DIFF N/A Normal [facility].; [facility] Work Phone: Laboratory - Chemistry and C hemistry - challengeon 03-14-2022 [place] [address].8 m[IU]/mL Normal [facility].; [facility]. No Panel Informationon 03-14 Date of LMP Normal [facility] [place].; [facility]. Laboratory - Blood bankon ABO and Rh group Nom (Bld) Blood group O Rh(D) positive Abnormal [facility].; [facility] Laboratory - Chemistry and C hemistry - challengeon 03-12-2022 [place] [address].2 m[IU]/mL Normal [facility].; [facility], [facility]. No Panel Informationon 03-12 Date of LMP unknown Normal [facility].; [facility], [facility]. Laboratory - Chemistry and C hemistry - challengeon 07-30-2010 Bilirubin Ql (U) Negative Normal [facility], [facility]. pH (U) 5.0 [pH] Normal [facility].; [facility], [facility]. Specific gravity (U) [Rel density] 1.030 Abnormal [facility].; [facility], [facility]. Laboratory - Hematology and Cell countson 07-30-2010 Hemoglobin Ql (U) Negative Normal [facility].; [facility], [facility]. Laboratory - Specimen inform ationon 07-30-2010 Appearance (U) CLEAR Normal [facility].; [facility], [facility]. Color (U) YELLOW Normal [facility].; [facility], [facility]. Laboratory - Urinalysison Glucose Test strip (U) [Mass/Vol] Negative [facility].; [facility], [facility]. Leukocyte esterase Test strip Ql (U) Negative Normal [facility] [place].; [facility], [facility]. Nitrite Ql (U) Negative Normal [facility].; [facility] Protein Ql (U) TRACE Normal [facility].; [facility], [facility]. No Panel Informationon 07-30 UA - ODOR Negative Normal [facility].; [facility], [facility]. UA - UROBILIGEN 0.2 Normal [facility], [facility]. Vital Signs Date Time Vital Sign Value Performing Clinician Faci lity 07-25-2025 13:42-0400 Body height 167.64 cm Chanda [employer] Work Phone: [facility] 07-25-2025 13:42-0400 Body mass index (BMI) [Ratio] 24.7 kg/m2 [employer] Work Phone: [facility] 07-25-2025 13:42-0400 Body weight 69.59 kg Chanda [employer] Work Phone: [facility] 07-25-2025 13:42-0400 Diastolic blood pressure 72 mm[Hg] Chanda [employer] Work Phone: [facility] 07-25-2025 13:42-0400 Systolic blood pressure 113 mm[Hg] Chanda [employer] Work Phone: [facility] 07-10-2025 10:06-0400 Body height 167.64 cm Chanda [employer] Work Phone: [facility] 07-10-2025 10:06-0400 Body mass index (BMI) [Ratio] 24.1 kg/m2 [employer] Work Phone: [facility] 07-10-2025 10:06-0400 Body weight 67.78 kg Chanda Huizartetter [employer] Work Phone: [facility] 07-10-2025 10:06-0400 Diastolic blood pressure 75 mm[Hg] Chanda Hofst[employer] Work Phone: [facility] 07-10-2025 10:06-0400 Systolic blood pressure 112 mm[Hg] Chanda [employer] Work Phone: [facility] 06-21-2025 09:27-0400 Body height 167.64 cm Chanda Garciafstetter [employer] Work Phone: [facility] 06-21-2025 09:25-0400 Body mass index (BMI) [Ratio] 23.4 kg/m2 Chanda Josefstetter [employer] Work Phone: [facility] 06-21-2025 09:25-0400 Body weight 65.82 kg Chanda Garciafstetter [employer] Work Phone: [facility] 06-21-2025 09:25-0400 Diastolic blood pressure 76 mm[Hg] Chanda Hofstetter [employer] Work Phone: [facility] 06-21-2025 09:25-0400 Systolic blood pressure 111 mm[Hg] Chanda Garciafstetter [employer] Work Phone: [facility] 05-24-2025 10:33-0400 Body height 167.64 cm Chanda Madisontter [employer] Work Phone: [facility] 05-24-2025 10:33-0400 Body mass index (BMI) [Ratio] 22.4 kg/m2 Chanda [employer] Work Phone: [facility] 05-24-2025 10:33-0400 Body weight 63.13 kg Chanda Garciafstetter [employer] Work Phone: [facility] 05-24-2025 10:33-0400 Diastolic blood pressure 68 mm[Hg] Chanda Hofstetter [employer] Work Phone: [facility] 05-24-2025 10:33-0400 Systolic blood pressure 106 mm[Hg] Chanda Hofstetter [employer] Work Phone: [facility] 04-25-2025 08:20-0400 Body height 167.64 cm Chanda [employer] Work Phone: [facility] 04-25-2025 08:20-0400 Body mass index (BMI) [Ratio] 21.9 kg/m2 Chanda [employer] Work Phone: [facility] 04-25-2025 08:20-0400 Body weight 61.8 kg Chanda Hofstetter [employer] Work Phone: [facility] 04-25-2025 08:20-0400 Diastolic blood pressure 76 mm[Hg] Chanda [employer]st[employer] Work Phone: [facility] 04-25-2025 08:20-0400 Systolic blood pressure 120 mm[Hg] Chanda Hofstetter [employer] Work Phone: [facility] 04-05-2025 14:41-0400 Body height 167.64 cm Chanda Josefstetter [employer] Work Phone: [facility] 04-05-2025 14:41-0400 Body mass index (BMI) [Ratio] 21.7 kg/m2 Chanda Hofstetter [employer] Work Phone: [facility] 04-05-2025 14:41-0400 Body weight 60.95 kg Chanda Hofstetter [employer] Work Phone: [facility] 04-05-2025 14:41-0400 Diastolic blood pressure 76 mm[Hg] Chanda Hofstetter [employer] Work Phone: [facility] 04-05-2025 14:41-0400 Systolic blood pressure 116 mm[Hg] Chanda Hofstetter [employer] Work Phone: [facility] 03-02-2025 09:11-0400 Body height 167.64 cm Chanda Hofstetter [employer] Work Phone: [facility] 03-02-2025 09:11-0400 Body mass index (BMI) [Ratio] 21.4 kg/m2 Chanda [employer] Work Phone: [facility] 03-02-2025 09:11-0400 Body weight 60.44 kg Chanda Hofstetter [employer] Work Phone: [facility] 03-02-2025 09:11-0400 Diastolic blood pressure 78 mm[Hg] Chanda Hofstetter [employer] Work Phone: [facility] 03-02-2025 09:11-0400 Systolic blood pressure 116 mm[Hg] Chanda Hofstetter [employer] Work Phone: [facility] 02-07-2025 16:03-0400 Body mass index (BMI) [Ratio] 20.5 kg/m2 Chanda Hofst[employer] Work Phone: [facility] 02-07-2025 16:03-0400 Body weight 57.6 kg Chanda Josefstetter [employer] Work Phone: [facility] 02-07-2025 16:03-0400 Diastolic blood pressure 84 mm[Hg] Chanda Hofstetter [employer] Work Phone: [facility] 02-07-2025 16:03-0400 Systolic blood pressure 124 mm[Hg] Chanda Hofstetter [employer] Work Phone: [facility] 12-21-2024 11:06-0500 Body height 165.1 cm June Yang RN [facility]; [facility] 12-21-2024 11:06-0500 Body mass index (BMI) [Ratio] 20.38 kg/m2 June Yang RN [facility] 12-21-2024 11:06-0500 Body surface area Derived from formula 1.61 m2 June Yang RN [facility] 12-21-2024 11:06-0500 Body temperature 98.4 [degF] June Yang RN [facility] [employer] [facility] Comment on above: Method: Oral 12-21-2024 11:06-0500 Body weight 55.57 kg June Yang RN [facility], [facility].; [employer] [facility] 12-21-2024 11:06-0500 Diastolic blood pressure 78 mm[Hg] June Yang RN [facility] [employer] [facility] [employer]. [facility] [employer] [facility] Comment on above: Patient Position: Sitting; Cuff Location : Left Arm; Cuff Size: Standard 12-21-2024 11:06-0500 Heart rate 96 /min June Yang RN [facility], [employer] [facility] [employer] [facility], [employer]. Comment on above: Pattern: Regular 12-21-2024 11:06-0500 Inhaled oxygen concentration 21 % June Yang RN [facility] [employer] [facility] [employer] [facility] Comment on above: Room air 12-21-2024 11:06-0500 SaO2% (BldA) [Mass fraction] 98 % June Yang RN [facility] [employer] [facility] [employer] [facility] 12-21-2024 11:06-0500 Systolic blood pressure 122 mm[Hg] June Yang RN [facility] [employer] [facility] [employer]. [facility] [employer] [facility], [employer]. Comment on above: Patient Position: Sitting; Cuff Location : Left Arm; Cuff Size: Standard 10-09-2023 13:46-0500 Body height 165.1 cm Tamar Johnson RN [facility] 10-09-2023 13:46-0500 Body mass index (BMI) [Ratio] 21.13 kg/m2 Tamar Johnson RN [facility] 10-09-2023 13:46-0500 Body surface area Derived from formula 1.63 m2 Tamar Johnson RN [facility] 10-09-2023 13:46-0500 Body weight 57.61 kg Tamar Johnson RN [facility] 10-09-2023 13:46-0500 Diastolic blood pressure 83 mm[Hg] Tamar Johnson RN [facility] [employer] [facility] Comment on above: Patient Position: Sitting; Cuff Location : Left Arm; Cuff Size: Large 10-09-2023 13:46-0500 Heart rate 109 /min Tamar Johnson RN [facility] [employer] [facility] Comment on above: Pattern: Regular 10-09-2023 13:46-0500 Systolic blood pressure 118 mm[Hg] Tamar Johnson RN [facility], [employer] [facility] Comment on above: Patient Position: Sitting; Cuff Location : Left Arm; Cuff Size: Large 08-20-2022 10:37-0400 Body height 165.1 cm Kelli Rdz RN [facility], [facility].; [facility] 08-20-2022 10:37-0400 Body mass index (BMI) [Ratio] 24.38 kg/m2 Kelli Rdz RN [facility] 08-20-2022 10:37-0400 Body surface area Derived from formula 1.73 m2 Kelli Rdz RN [facility] 08-20-2022 10:37-0400 Body weight 66.45 kg Kelli Rdz RN [facility], [employer]. [facility] [employer] [facility] 08-20-2022 10:37-0400 Diastolic blood pressure 77 mm[Hg] Kelli [facility]dz [facility] [employer]. [facility] [employer] [facility], [employer]. Comment on above: Patient Position: Sitting; Cuff Location : Left Arm; Cuff Size: Large 08-20-2022 10:37-0400 Heart rate 94 /min Kelli Rdz RN [facility] [employer]. [facility] [employer] [facility] Comment on above: Pattern: Regular 08-20-2022 10:37-0400 Systolic blood pressure 115 mm[Hg] Kelli [facility] [employer]. [facility] [employer] [facility], [employer]. Comment on above: Patient Position: Sitting; Cuff Location : Left Arm; Cuff Size: Large 03-12-2022 10:44-0400 Body height 165.1 cm Kelli Rdz RN [facility], [employer].; [facility] 03-12-2022 10:44-0400 Body mass index (BMI) [Ratio] 20.67 kg/m2 Kelli Rdz RN [facility], [facility].; [facility] 03-12-2022 10:44-0400 Body surface area Derived from formula 1.62 m2 Kelli Rdz RN [facility], [facility].; [employer]. [facility] [employer] [facility] 03-12-2022 10:44-0400 Body temperature 97.8 [degF] Kelli Rdz RN [facility], [employer].; [employer]. [facility] [employer] [facility], [employer]. Comment on above: Method: Oral 03-12-2022 10:44-0400 Body weight 56.34 kg Kelli Rdz RN [facility], [employer].; [employer]. [facility] [employer] [facility] 03-12-2022 10:44-0400 Diastolic blood pressure 79 mm[Hg] Kelli Rdz RN [facility] [employer]. [facility] [employer] [facility] Comment on above: Patient Position: Sitting; Cuff Location : Left Arm; Cuff Size: Large 03-12-2022 10:44-0400 Heart rate 116 /min Kelli Rdz RN [facility], [employer]. Comment on above: Pattern: Regular 03-12-2022 10:44-0400 Inhaled oxygen concentration 21 % Kelli Rdz RN [facility] Comment on above: Room air 03-12-2022 10:44-0400 SaO2% (BldA) [Mass fraction] 100 % Kelli Rdz RN [facility] 03-12-2022 10:44-0400 Systolic blood pressure 122 mm[Hg] Kelli Rdz RN [facility], [employer] [facility], [employer]. Comment on above: Patient Position: Sitting; Cuff Location : Left Arm; Cuff Size: Large 02-12-2022 09:52-0400 Body height 165.1 cm KAYLEIGH LUNA RN [facility] 02-12-2022 09:52-0400 Body mass index (BMI) [Ratio] 20.67 kg/m2 KAYLEIGH LUNA RN [facility] 02-12-2022 09:52-0400 Body surface area Derived from formula 1.62 m2 KAYLEIGH LUNA RN [facility] [employer]. [facility] 02-12-2022 09:52-0400 Body weight 56.34 kg KAYLEIGH GRATE MESHA [facility] [employer]. [facility] [employer] [facility] 02-12-2022 09:52-0400 Diastolic blood pressure 89 mm[Hg] KAYLEIGH GRATE MESHA [facility] [employer]. [facility] [employer] [facility] Comment on above: Patient Position: Sitting; Cuff Location : Left Arm; Cuff Size: Standard 02-12-2022 09:52-0400 Heart rate 108 /min KAYLEIGH LUNA RN [facility] [employer]. [facility] [employer] [facility] Comment on above: Pattern: Regular 02-12-2022 09:52-0400 Systolic blood pressure 133 mm[Hg] KAYLEIGH LUNA RN [facility] Comment on above: Patient Position: Sitting; Cuff Location : Left Arm; Cuff Size: Standard 01-09-2022 14:47-0400 Body height 165.1 cm Tamar Johnson RN [facility] 01-09-2022 14:47-0400 Body mass index (BMI) [Ratio] 20.8 kg/m2 Tamar Johnson RN [facility] 01-09-2022 14:47-0400 Body surface area Derived from formula 1.62 m2 Tamar Johnson RN [facility], [facility].; [facility] 01-09-2022 14:47-0400 Body weight 56.7 kg Tamar Johnson RN [facility] 01-09-2022 14:47-0400 Diastolic blood pressure 91 mm[Hg] Tamar Johnson RN [facility] Comment on above: Patient Position: Sitting; Cuff Location : Left Arm; Cuff Size: Large 01-09-2022 14:47-0400 Heart rate 125 /min Tamar Johnson RN [facility] [employer]. [facility] Comment on above: Pattern: Regular 01-09-2022 14:47-0400 Systolic blood pressure 150 mm[Hg] Tamar Johnson RN [facility] Comment on above: Patient Position: Sitting; Cuff Location : Left Arm; Cuff Size: Large 05-31-2021 10:16-0400 Body height 165.1 cm Tamar Johnson RN [facility] 05-31-2021 10:16-0400 Body mass index (BMI) [Ratio] 20.34 kg/m2 Tamar Johnson RN [facility], [facility]. 05-31-2021 10:16-0400 Body surface area Derived from formula 1.6 m2 Tamar Johnson RN [facility], [facility].; [facility] 05-31-2021 10:16-0400 Body weight 55.45 kg Tamar Johnson RN [facility] 05-31-2021 10:16-0400 Diastolic blood pressure 80 mm[Hg] Tamar Johnson RN [facility] Comment on above: Patient Position: Sitting; Cuff Location : Left Arm; Cuff Size: Large 05-31-2021 10:16-0400 Heart rate 102 /min Tamar Johnson RN [facility], [employer] [facility] [employer] [facility], [employer]. Comment on above: Pattern: Regular 05-31-2021 10:16-0400 Systolic blood pressure 130 mm[Hg] Tamar Johnson RN [facility], [facility].; [facility], [employer]. Comment on above: Patient Position: Sitting; Cuff Location : Left Arm; Cuff Size: Large 07-19-2014 14:29-0400 Body height 165.1 cm Tamar Johnson RN [facility], [facility].; [facility] 07-19-2014 14:29-0400 Body mass index (BMI) [Percentile] Per age and sex 58 % Tamar Johnson RN [facility], [facility].; [facility], [employer]. 07-19-2014 14:29-0400 Body mass index (BMI) [Ratio] 19.89 kg/m2 Tamar Johnson RN [facility], [employer] [facility] 07-19-2014 14:29-0400 Body surface area Derived from formula 1.59 m2 Tamar Johnson RN [facility] 07-19-2014 14:29-0400 Body weight 54.21 kg Tamar Johnson RN [facility] [facility] [employer] [facility] 07-19-2014 14:29-0400 Diastolic blood pressure 60 mm[Hg] Tamar Johnson RN [facility] [employer] [facility].; [employer] [facility] [facility] [employer], [employer]. Comment on above: Patient Position: Sitting; Cuff Location : Left Arm; Cuff Size: Large 07-19-2014 14:29-0400 Heart rate 85 /min Tamar Johnson RN [facility] [employer] [facility].; [employer], [employer]. Comment on above: Pattern: Regular 07-19-2014 14:29-0400 Systolic blood pressure 97 mm[Hg] Tamar Johnson RN [facility] [employer] [facility].; [employer] [facility] [facility] [facility]. Comment on above: Patient Position: Sitting; Cuff Location : Left Arm; Cuff Size: Large 03-04-2013 16:26-0400 Body height 153.67 cm Kelli Rdz RN [facility] [employer] [facility].; [employer]. [facility] [employer] [facility] 03-04-2013 16:26-0400 Body mass index (BMI) [Percentile] Per age and sex 65 % Kelli Rdz RN [facility] [employer] [facility].; [employer]. [facility] [employer] [facility] 03-04-2013 16:26-0400 Body mass index (BMI) [Ratio] 19.59 kg/m2 Kelli Rdz RN [facility] [employer] [facility] [employer]. [facility] [employer] [facility] 03-04-2013 16:26-0400 Body surface area Derived from formula 1.41 m2 Kelli Rdz RN [facility] [employer] [facility], [employer]. [facility] [employer] [facility] 03-04-2013 16:26-0400 Body weight 46.27 kg Kelli Rdz RN [facility] [employer] [facility], [employer]. [facility] [employer], [employer]. 03-04-2013 16:26-0400 Diastolic blood pressure 71 mm[Hg] Kelli Rdz RN [facility] [employer] [facility] [employer], [employer]. Comment on above: Patient Position: Sitting; Cuff Location : Left Arm; Cuff Size: Large 03-04-2013 16:26-0400 Heart rate 82 /min Kelli Rdz RN [facility] [employer] [facility], [employer].; [facility] [employer] [facility] Comment on above: Pattern: Regular 03-04-2013 16:26-0400 Systolic blood pressure 106 mm[Hg] Kelli Rdz RN [facility] [employer] [facility] [employer] [facility] Comment on above: Patient Position: Sitting; Cuff Location : Left Arm; Cuff Size: Large 12-26-2011 15:17-0500 Body height 146.05 cm June Yang RN [facility] [employer] [facility], [employer]. [facility] [employer] [facility] 12-26-2011 15:17-0500 Body mass index (BMI) [Percentile] Per age and sex 32 % June Yang RN [facility] [employer] [facility] 12-26-2011 15:17-0500 Body mass index (BMI) [Ratio] 16.59 kg/m2 June Yang RN [facility] [employer] [facility] [employer]. [facility] [employer] [facility] 12-26-2011 15:17-0500 Body surface area Derived from formula 1.21 m2 June Yang RN [facility] [employer] [facility] [employer]. [facility] [employer] [facility] 12-26-2011 15:17-0500 Body temperature 98 [degF] June Yang RN [facility] [employer] [facility] [employer]. [facility] [employer] [facility] Comment on above: Method: Oral 12-26-2011 15:17-0500 Body weight 35.38 kg June Yang RN [facility] [employer] [facility] [employer]. [facility] [employer] [facility] 12-26-2011 15:17-0500 Diastolic blood pressure 74 mm[Hg] June Yang RN [facility] [employer] [facility] [employer]. [facility] [employer] [facility] Comment on above: Patient Position: Sitting; Cuff Location : Left Arm; Cuff Size: Standard 12-26-2011 15:17-0500 Heart rate 91 /min June Yang RN [facility] [facility].; [employer]. [facility] [facility], [employer]. Comment on above: Pattern: Regular 12-26-2011 15:17-0500 Systolic blood pressure 110 mm[Hg] June Yang RN [facility]. Comment on above: Patient Position: Sitting; Cuff Location : Left Arm; Cuff Size: Standard 07-30-2010 13:0400 Body temperature 98.9 [degF] Tamar Johnson RN [facility].; [facility] Comment on above: Method: Oral 07-30-2010 13:040 Body weight 30.39 kg Tamra Johnson RN [facility] Center[facility] [employer] [facility].; [facility]. Encounters Encounter Date Encounter Type Care Provider Facility Start: 08-14-2025 End: 08-14-2025 ambulatory No Primary Care Physician Facility:[facility] Start: 07-25-2025 End: 07-25-2025 Patient encounter procedure Lora FLOWERS [place] [place] Work Phone: Start: 07-25-2025 End: 07-25-2025 ambulatory Chanda Velasco APPLE THINNER-C Work Phone: [facility] Start: 07-10-2025 End: 07-10-2025 ambulatory Chanda Velasco APPLE THINNER-C Work Phone: -[facility] Start: 07-10-2025 End: 07-10-[address] Sriena Padilla MD -[facility] Work Phone: Start: 07-10-2025 End: 07-10-2025 ambulatory Lizbeht Cruz Facility:[facility] Start: 06-21-2025 End: 06-21-[address] Lizbeth Cruz DO -[facility] [place] Work Phone: Start: 06-21-2025 End: 06-21-2025 ambulatory Chanda Velasco APPLE THINNER-C Work Phone: -[facility] [place] Start: 05-24-2025 End: 05-24-2025 Patient encounter procedure Lora FLOWERS -[facility] Work Phone: Start: 05-24-2025 End: 05-24-2025 ambulatory Chanda Velasco APPLE THINNER-C Work Phone: -[facility] Start: 05-18-2025 End: 05-18-2025 ambulatory Chanda Bhupendratetter APPLE THINNER-C Work Phone: -[facility] Start: 05-18-2025 End: 05-18-[address] Sirena Padilla MD -[facility] Work Phone: Start: 05-18-2025 End: 05-18-2025 ambulatory Sirena Padilla Facility:[facility] Start: 04-25-2025 End: 04-25-2025 Patient encounter procedure Lora Collins NP-C -[facility] [place] Work Phone: Start: 04-25-2025 End: 04-25-2025 ambulatory Chanda Velasco APPLE THINNER-C Work Phone: -[facility] [place] Start: 04-05-2025 End: 04-05-[address] Sirena Padilla MD -[facility] [place] Work Phone: Start: 04-05-2025 End: 04-05-2025 ambulatory Chanda Velasco APPLE THINNER-C Work Phone: [facility] Work Phone: Start: 03-02-2025 End: 03-02-2025 Patient encounter procedure Sophia Cho CNM -[facility] [place] Work Phone: Start: 03-02-2025 End: 03-02-2025 ambulatory Chanda Velasco APPLE THINNER-C Work Phone: [facility] Work Phone: Start: 03-02-2025 End: 03-02-2025 ambulatory Chanda Velasco APPLE THINNER Facility:[facility] Start: 02-07-2025 End: 02-07-[address] Sirena Padilla MD -[facility] Work Phone: Start: 02-07-2025 End: 02-07-2025 ambulatory Chanda Velasco APPLE THINNER Facility[facility] Start: 02-01-2025 End: 02-01-[address] Sirena Padilla MD -Lab [facility] Start: 02-01-2025 End: 02-01-2025 ambulatory Chanda Velasco APPLE THINNER Facility:[facility] Start: 01-30-2025 End: 01-30-[address] Sirena Padilla MD -Lab [facility] Start: 01-30-2025 End: 01-30-2025 ambulatory Chanda Velasco APPLE THINNER Facility:[facility] Start: 12-21-2024 End: 12-21-2024 Office outpatient visit 10 minutes YOHANA CHAMBERLAIN MD Work Phone: [employer]. Start: 10-30-2024 End: 10-30-2024 Emergency department patient visit MALCOLM REILLY [facility] Start: 2024 End: 08-11-2024 Medication Refill/Order YOHANA CHAMBERLAIN MD Work Phone: [employer]. Start: 03-10-2024 Patient encounter procedure Chanda Velasco APPLE THINNER-C Work Phone: [facility] Start: 10-09-2023 End: 10-09-2023 Office outpatient visit 10 minutes YOHANA CHAMBERLAIN MD Work Phone: [employer]. Start: 11-05-2022 End: 11-05-2022 Medication Refill/Order YOHANA CHAMBERLAIN MD Work Phone: [employer]. Start: 08-20-2022 End: 08-20-2022 Office outpatient visit 10 minutes YOHANA CHAMBERLAIN MD Work Phone: [employer]. Start: 03-24-2022 End: 03-24-2022 Patient encounter procedure YOHANA CHAMBERLAIN MD Work Phone: [facility] Start: 03-19-2022 End: 03-19-2022 Procedure Order YOHANA CHAMBERLAIN MD Work Phone: [facility] [employer] [facility]. Start: 03-19-2022 End: 03-19-2022 Results Review YOHANA CHAMBERLAIN MD Work Phone: [facility] Start: 03-14-2022 End: 03-14-2022 Lab Only YOHANA CHAMBERLAIN MD Work Phone: [facility] [employer] [facility] CenterN[facility] Start: 03-13-2022 End: 03-13-2022 Results Review YOHANA CHAMBERLAIN MD Work Phone: [facility] Start: 03-12-2022 End: 03-12-2022 Office outpatient visit 10 minutes YOHANA CHAMBERLAIN MD Work Phone: [employer] [facility] Start: 02-12-2022 End: 02-12-2022 Patient encounter procedure YOHANA CHAMBERLAIN MD Work Phone: [employer] [facility] Start: 01-09-2022 End: 01-09-2022 Office outpatient visit 10 minutes YOHANA CHAMBERLAIN MD Work Phone: [employer] [facility] Start: 05-31-2021 End: 05-31-2021 Office outpatient visit 15 minutes YOHANA CHAMBERLAIN MD Work Phone: [employer] [facility] Start: 07-19-2014 End: 07-19-2014 Office outpatient visit 15 minutes YOHANA CHAMBERLAIN MD Work Phone: [employer] [facility] Start: 07-04-2014 End: 07-04-2014 Medication Refill/Order YOHANA CHAMBERLAIN MD Work Phone: [facility] Start: 03-04-2013 End: 03-04-2013 Patient encounter procedure YOHANA CHAMBERLAIN MD Work Phone: [facility] Start: 12-26-2011 End: 12-26-2011 Patient encounter procedure YOHANA CHAMBERLAIN MD Work Phone: [facility] Start: 12-26-2011 End: 12-26-2011 Historical Summary YOHANA CHAMBERLAIN MD Work Phone: [facility] Start: 07-30-2010 End: 07-30-2010 Patient encounter procedure YOHANA CHAMBERLAIN MD Work Phone: [employer] [facility] Procedures Date Procedure Procedure Detail Performing Clinician Start: 07-10-2025 Serologic test for syphilis Chanda Velasco APPLE THINNER-C Work Phone: Start: 05-18-2025 Ultrasonography in f irst trimester Chanda Velasco APPLE THINNER-C Work Phone: Start: 03-02-2025 Urine culture Chanda Pretty azeb APPLE THINNER-C Work Phone: Start: 03-02-2025 Hepatitis C antibody [facility]IN[facility]C Work Phone: Comment on above: Reactive: Presumptiv e evidence of antibodies to HCV. Follow CDC recommendations for supplemental testing.Non-Reactive: Antibodies to HCV were not detected; does not exclude the possibility of exposure to HCVReactive Results are presumptive evidence of antibodies to HCV. Follow CDC recommendations for supplemental testing.Order confirmation testing: HCV Quant by PCR testing - HCVPCR #[id number] Non Reactive: < 0.8 Equivocal: >/= 0.8 to < 1.0 Reactive: >/= 1.0The CDC requires that a reactive/equivocal HCV antibody result be sent out for confirmation. HCV Quant by PCR testing. Start: 03-02-2025 Rubella IgG measurement Chanda Velasco APPLE THINNER-C Work Phone: Comment on above: Antibody Result: Int erpretationNon-Reactive: Non- ImmuneReactive: ImmuneThe following results were obtained with the [employer] Rubella IgG assay. Results from assays of other manufacturers cannot be used interchangeably. Start: 03-02-2025 Serologic test for syphilis Chanda Velasco APPLE THINNER-C Work Phone: Start: 01-30-2025 Serum progesterone measurement Chanda Velasco APPLE THINNER-C Work Phone: Comment on above: Follicular phase 0.1 - 0.9 Luteal phase 1.8 - 23.9 Ovulation phase 0.1 - 12.0 First trimester 11.0 - 44.3 Second trimester 25.4 - 83.3 Third trimester 58.7 - 214.0 Postmenopausal 0.0 - 0.1Performed at: [address] [id number] Director: Cody Bell PhD, Phone: [phone] Start: 12-21-2024 End: 12-21-2024 Dischrg meds reconciled w/current med list YULIYA MAGALLANES TURNING MACHINE OPERATOR-C Work Phone: Start: 10-30-2024 End: 10-30-2024 Urinalysis YOHANA CHAMBERLAIN MD Work Phone: Comment on above: Result Comment: URIN ALYSIS Performed By: #### 2 [id number] #### [facility],[address] [place] [id number] Start: 08-20-2022 End: 08-20-2022 Dischrg meds reconciled w/current med list CHANDA VELASCO TURNING MACHINE OPERATOR-C Work Phone: Start: 03-12-2022 End: 03-12-2022 Dischrg meds reconciled w/current med list CHANDA VELASCO TURNING MACHINE OPERATOR-C Work Phone: Start: 05-31-2021 End: 05-31-2021 Urinary Incontinence CHANDA Addison TURNING MACHINE OPERATOR-C Work Phone: Comment on above: Negative. H/O: section Previous c esarean section Chanda Velasco APPLE THINNER-C Work Phone: Comment on above: breech H/O: section Previous c esarean section Spohia Cho CNM H/O: section Previous c esarean section Dr. Sirena Padilla MD H/O: section Previous c esarean section Lora Collins APPLE THINNER-C H/O: section Previous c esarean section Lora Collins APPLE THINNER-C H/O: section Previous c esarean section Dr. Lizbeth rCuz DO H/O: section Previous c esarean section Dr. Sirena Padilla MD H/O: section Previous c esarean section Lora Collins APPLE THINNER-C TDAP - Adacel/Boostrix Kristal Yang RN Comment on above: Discussed. 12/21/2024 Plan of Treatment Date Care Activity Detail Author Start: 03-02-2025 CBC W Auto Differential panel - Blood [facility] Start: 03-02-2025 Hepatitis C antibody measurement [facility] Start: 03-02-2025 Rubella IgG measurement [facility] Start: 03-02-2025 Serologic test for syphilis [facility] Start: 03-02-2025 T4 free measurement [facility] Start: 03-02-2025 Thyroid stimulating hormone measurement [facility] Start: 03-02-2025 [facility] Start: 09-23-2024 [facility] visit, [facility]; ESTABLISHED PATIENT ROUTINE VISIT - [facility] [place] Start: 23-Sep-2024 14:00-05:00 MD MALCOLM YANG Appointment Request [facility] Start: 03-19-2022 Us uterus 14 wk transabdl 10/19 gestat OB US < 14 WKS, SINGLE FETUS ([id number]) Start: 19-Mar-2022 [facility] [employer] [facility] CenterNab[facility]; [facility] [facility]DE[facility] Start: 05-31-2021 Patient Education IRRITABLE BOWEL Indication: Irritable bowel syndrome with diarrhea Start: 31-May-2021 Instruction Type: Patient Education [facility].; [facility] Work Phone: CBC W Auto Different ial panel - Blood [facility] Chlamydia deoxyribon ucleic acid detection [facility] Erythrocyte mean corpuscular volume determination [facility] Hematocrit [Volume Fraction] of Blood [facility] Hemoglobin [Mass/vol ume] in Blood [facility] Hepatitis B virus sen rface Ag [Presence] in Serum [facility] Leukocytes [#/volume ] in Blood [facility] Mean corpuscular hem oglobin concentration determination [facility] Mean corpuscular hem oglobin determination [facility] Measurement of gluco se 2 hours after glucose challenge for glucose tolerance test [facility] Neutrophil count [facility] Neutrophil percent differential count [facility] Platelets [#/volume] in Blood [facility] Procedure [facility] Red blood cell count [facility] Red cell distributio n width determination [facility] Serologic test for syphilis [facility] Ultrasonography in f irst trimester [facility] Immunizations Immunization Date Immunization Notes Care Provider Fa [facility] influenza virus vaccine, unspecified formulation YOHANA CHAMBERLAIN MD Work Phone: [facility] Comment on above: Refused. 08/20/2022 influenza virus vaccine, unspecified formulation YOHANA CHAMBERLAIN MD Work Phone: [facility] Comment on above: Refused. 12/21/2024 Payers Date Payer Category Payer Unknown [id number] 2025 Self-pay 0 2025 Self-pay 2025 Unknown [id number] a 2000 Unknown [id number] Unknown 74-1 Unknown [facility] Unknown [id number] Unknown [id number] [id number] Unknown [id number] Unknown [id number] [id number] Unknown [id number] [id number] Unknown [id number] [id number] Unknown [id number] [id number] Unknown [id number] [id number] Unknown [id number] [id number] Unknown [id number] [id number] Unknown [id number] [id number] Unknown [id number] [id number] Unknown [id number] [id number] Unknown [id number] [id number] Social History Date Type Detail Facility Alcohol Use: Alcohol Use: ; N o Alcohol Use. [employer] [facility].; [facility] [facility] CenterAda[facility] [employer] [facility] Tobacco use: Tobacco use: ; N ever smoker. [employer] [facility].; [facility], [facility]. Start: 2000 [facility] Start: 02-16-2025 Never smoked tobacco [facility] Current Work/Study Status Current Work/Study Status [facility] [employer] [facility] CenterAda[facility] [employer] [facility].; [facility] [employer] [facility] Inc[employer] Sex Female [facility] Clinical Notes 11-10-2024 to 07-10-2025 Note Date & Type Note Facility 07-10-2025 Progress note [facility] 06-21-2025 Progress note [facility] 05-19-2025 Radiology Diagnostic study note [facility] Imaging Services [address] [address] OB Anatomy w/ Transvaginal MR#: [id number] Acct: [id number] Name: GAURAV FORTE Rep #: [id number] : 2000 F 24 From: Alexy Reagan MD PCP: OUT OF TOWN DOCTOR Status: REG CLI Study:OB Anatomy w/ Transvaginal Date of Exam : 05/18/25 Exam# [id number] Ordering Dr: Sirena Rudolph MD PROCEDURE: OB [...] of 20 weeks and 0days. Reading Location: [id number] CC: Dr. Sirena Padilla MD ~ Canceling Machine Operator: Signed [facility] 04-05-2025 Evaluation note Diagnosis Onset Date Resolution [...] veins during acute July 10, 2025 10:00am [facility] Work Phone: 1(876) 599-666806-18-2025 Evaluation note* Diagnosis Onset Date Resolution Status [...] Varicose veins during acute July 25 1:40pm [facility] Work Phone: 1(199) 124-295706-18-2025 [facility] [address] [place] [address], [address] [place], [place] [id number] OFFICE VISIT Date of Service: 04/05/25 MR#: [id number] Acct: [id number] Name: GAURAV FORTE Rep #: [id number] : 2000 Provider: Dr. Ammon Padilla MD Age/Sex: 24/F Location: [facility] Status: Signed Intake Vital Signs 02/07/25 16:03 03/02/25 09:11 04/05/25 14:41 Height 5 ft 6 in 5 ft 6 in 5 ft 6 in Weight: 134 lb 6 oz BMI 21.7 BP 116/76 Intake Visit Reasons: 13wk OB Junior Programmer Required: No Is patient in pain?: No Allergies No Known Allergies Allergy (Unverified 04/05/25 14:48) Medications ?Medication ?Instructions ?Recorded ?Confirmed ?Type sertraline 25 mg tablet 25 mg PO DAILY 03/10/2403/19 History fish, borage, flaxseed oils-omega See Rx Instructions PO DAILY 02/16/25 04/05/25 History 3,6,9 comb no.1 1,200 mg capsule (Harvest 3-6-9) magnesium 250 mg tablet 250 mg PO QDAY 02/16/2503/19 History multivit-min no.71-iron fum 28 cap PO 02/16/25 5 History mg-folate no.1 1 mg-dha 300 mg capsule (PNV-Harvest) Last Menstrual Period: 12/29/24 Zika: Zika virus screening: Negative : No PFSH PFSH Medical History Women's annual routine gynecological examination Surgical History Previous section Family History Aunt Cancer, Onset Age: 25 Paternal Brain tumor Social History adopted: No household members: spouse and children housing: house number of children: 1 current occupational status: unemployed current occupation: [employer] current occupational exposures/hazards: No pets and animals: [...] physical activity do you participate in: none cindy/samaritan: Hindu seatbelt use: always do you feel safe at home: Yes additional social history: - [employer] History 3 Elective abortions Hx Para [...] (5) FH: genetic disorder: Status: Acute Comment: Robiosn's dystonia, nephrocerebellar syndrome, Carrier testing done-Pt is [...] Cosign Signature: Date (if applicable) CC: ~ [facility]06-18-2025 Progress note Author Sirena Padilla [facility] Note Date/Time April 05, 2025 3:21 pm [facility] [address], [address] [place] [address] OFFICE VISIT Date of Service: 04/05/25 MR#: [id number] Acct: [id number] Name: GAURAV FORTE Rep #: [id number] : 2000 Provider: Dr. Ammon Padilla MD Age/Sex: 24/F Location: [facility] Status: Signed Intake Vital Signs 02/07/25 16:03 03/02/25 09:11 04/05/25 14:41 Height 5 ft 6 in 5 ft 6 in 5 ft 6 in Weight: 134 lb 6 oz BMI 21.7 BP 116/76 Intake Visit Reasons: 13wk OB Junior Programmer Required: No Is patient in pain?: No Allergies No Known Allergies Allergy (Unverified 04/05/25 14:48) Medications ?Medication ?Instructions ?Recorded ?Confirmed ?Type sertraline 25 mg tablet 25 mg PO DAILY 03/10/2403/19 History fish, borage, flaxseed oils-omega See Rx Instructions PO DAILY 02/16/25 04/05/25 History 3,6,9 comb no.1 1,200 mg capsule (Harvest 3-6-9) magnesium 250 mg tablet 250 mg PO QDAY 02/16/2503/19 History multivit-min no.71-iron fum 28 cap PO 02/16/25 5 History mg-folate no.1 1 mg-dha 300 mg capsule (PNV-Harvest) Last Menstrual Period: 12/29/24 Zika: Zika virus screening: Negative : No PFSH PFSH Medical History Women's annual routine gynecological examination Surgical History Previous section Family History Aunt Cancer, Onset Age: 25 Paternal Brain tumor Social History adopted: No household members: spouse and children housing: house number of children: 1 current occupational status: unemployed current occupation: [employer] current occupational exposures/hazards: No pets and animals: [...] physical activity do you participate in: none cindy/samaritan: Hindu seatbelt use: always do you feel safe at home: Yes additional social history: - [employer] work History 3 Elective abortions Hx Para [...] Symptoms of Preeclampsia, Infant Feeding No , [place] Education and Family Medical Leave or Disability [...] Cosigner Signature: Date (if applicable) CC: ~ [facility] [employer] Work Phone: 1(597) 381-832305-15-2025 Evaluation note* Diagnosis Onset Date Resolution Status [...] Varicose veins during acute June 21 9:24am [facility] Work Phone: 1(505) 698-608605-15-2025 [facility] [address], [address] [place] [address] OFFICE VISIT Date of Service: 03/02/25 MR#: [id number] Acct: [id number] Name: GAURAV FORTE Rep #: [id number] : 2000 Provider: NOELLE Cho Age/Sex: 24/F Location: [facility] Status: Signed Intake Vital Signs 03/10/24 13:00 02/07/25 16:03 03/02/25 09:11 Height 5 ft 6 in 5 ft 6 in 5 ft 6 in Weight: 133 lb 4 oz BMI 21.4 BP 116/78 Intake Visit Reasons: NOB: LMP 12/29, WILBER 10/05 Chief Complaint: New OB Junior Programmer Required: No Is patient in pain?: No Allergies No Known Allergies Allergy (Unverified 03/02/25 09:15) Medications ?Medication ?Instructions ?Recorded ?Confirmed ?Type sertraline 25 mg tablet 25 mg PO DAILY 03/10/2402/16 History fish, borage, flaxseed oils-omega See Rx Instructions PO DAILY 02/16/25 03/02/25 History 3,6,9 comb no.1 1,200 mg capsule (Harvest 3-6-9) magnesium 250 mg tablet 250 mg PO QDAY 02/16/2502/16 History multivit-min no.71-iron fum 28 cap PO 02/16/25 5 History mg-folate no.1 1 mg-dha 300 mg capsule (PNV-Harvest) Last Menstrual Period: 12/29/24 PFSH PFSH Medical History Women's annual routine gynecological examination Surgical History Previous section Family History Aunt Cancer, Onset Age: 25 Paternal Brain tumor Social History adopted: No household members: spouse and children housing: house number of children: 1 current occupational status: unemployed current occupation: [employer] current occupational exposures/hazards: No pets and animals: [...] physical activity do you participate in: none cindy/samaritan: Hindu seatbelt use: always do you feel safe at home: Yes additional social history: - [employer] work History 3 Elective abortions Hx Para [...] Other, Intellectual Disability/Autism: Other, Recurrent Loss/Stillbirth: Partner (Clrzyl-rglexeqrak-mkkbpaht brain), Other Structural Defect: Other, Other Genetic [...] the knee, inner thigh vaginal -denies DVT's), Wraparound Facilitator surgery (c sectionx1) and Relevant family history (Paternal Aunt Brain tumor 25yo) and Negative: Diabetes, Hypertension, Heart disease, Auto-immune disorder, Kidney disease/UTI, Neurologic/epilepsy, Depression/ depression, Hepatitis/liver disease, Thyroid dysfunction (underactive per safety inspector not dx as hypo), Trauma/domestic violence, History [...] Signs and Symptoms of Preeclampsia, Infant Feeding, [place] Education and Family Medical Leave or Disability [...] Cosigner Signature: Date (if applicable) CC: ~ [facility]04-22-2025 Evaluation note* Diagnosis Onset Date Resolution Status [...] during acut e March 02, 2025 9:08am [facility] Work Phone: 1(193) 727-536504-22-2025 Evaluation note* Diagnosis Onset Date Resolution Status [...] during acut e April 05, 2025 2:28pm [facility] Work Phone: 1(436) 839-944604-22-2025 Evaluation note* Diagnosis Onset Date Resolution Status [...] during acut e April 25, 2025 8:17am [facility] [facility] Work Phone: 1(178) 349-647404-22-2025 Evaluation note* Diagnosis Onset Date Resolution Status [...] veins during acute May 24, 2025 10:28am [facility] Work Phone: 1(293) 654-329604-22-2025 Evaluation note* Diagnosis Onset Date Resolution Status [...] veins during acute May 24, 2025 10:28am [facility] Work Phone: 1(717) 115-310501-23-2025 NoteDischarge Instructions Discharge Summary [address] [address] [id number] 10/30/2024 Patient: GAURAV FORTE Sex: Female : 2000 Age: 24y Thank you for visiting [facility]. You have been evaluated today by Wilfredo Chamberlain M.D. for the following condition(s): Principal Diagnosis Moderate vaginal bleeding. Probable complete spontaneous (miscarriage).No complications. INSTRUCTIONS Drink plenty of fluids. OTC Medications: Take ibuprofen (such as Advil, Motrin or Nuprin) according to label instructions. Available over the counter. Follow-up: Follow up with your healthcare provider in two days if not better. Patient Signature Facility Accounting Coordinator Date/Time 1 of 2 Discharge Instructions General Instructions with ExitWriter [address] [address] [id number] 10/30/2024 Patient: GAURAV FORTE Sex: Female : 2000 Age: 24y Thank you for visiting [facility]. You have been evaluated today by Wilfredo Chamberlain M.D. for the following condition(s): Principal Diagnosis Moderate vaginal bleeding. Probable complete spontaneous (miscarriage).No complications. INSTRUCTIONS Drink plenty of fluids. OTC Medications: Take ibuprofen (such as Advil, Motrin or Nuprin) according to label instructions. Available over the counter. Follow-up: Follow up with your healthcare provider in two days if not better. 2 [facility]eDelray [facility] CenterProgress note Author Sophia Cho [facility] Note Date/Time March 02, 2025 9:39a m [facility] [address] [place] [address], [address] [place] [id number] OFFICE VISIT Date of Service: 03/02/25 MR#: [id number] Acct: [id number] Name: GAURAV FORTE Rep #: [id number] : 2000 Provider: NOELLE Cho Age/Sex: 24/F Location: [facility] Status: Signed Intake Vital Signs 03/10/24 13:00 02/07/25 16:03 03/02/25 09:11 Height 5 ft 6 in 5 ft 6 in 5 ft 6 in Weight: 133 lb 4 oz BMI 21.4 BP 116/78 Intake Visit Reasons: NOB: LMP 12/29, WILBER 10/05 Chief Complaint: New OB Junior Programmer Required: No Is patient in pain?: No Allergies No Known Allergies Allergy (Unverified 03/02/25 09:15) Medications ?Medication ?Instructions ?Recorded ?Confirmed ?Type sertraline 25 mg tablet 25 mg PO DAILY 03/10/2402/16 History fish, borage, flaxseed oils-omega See Rx Instructions PO DAILY 02/16/25 03/02/25 History 3,6,9 comb no.1 1,200 mg capsule (Harvest 3-6-9) magnesium 250 mg tablet 250 mg PO QDAY 02/16/2502/16 History multivit-min no.71-iron fum 28 cap PO 02/16/25 5 History mg-folate no.1 1 mg-dha 300 mg capsule (PNV-Harvest) Last Menstrual Period: 12/29/24 PFSH PFSH Medical History Women's annual routine gynecological examination Surgical History Previous section Family History Aunt Cancer, Onset Age: 25 Paternal Brain tumor Social History adopted: No household members: spouse and children housing: house number of children: 1 current occupational status: unemployed current occupation: [employer] current occupational exposures/hazards: No pets and animals: [...] physical activity do you participate in: none cindy/samaritan: Hindu seatbelt use: always do you feel safe at home: Yes additional social history: - [employer] work History 3 Elective abortions Hx Para [...] Other, Intellectual Disability/Autism: Other, Recurrent Loss/Stillbirth: Partner (Jkzhcx-bfnsxbjjnb-ormjuvqu brain), Other Structural Defect: Other, Other Genetic [...] the knee, inner thigh vaginal -denies DVT's), Wraparound Facilitator surgery (c sectionx1) and Relevant family history (Paternal Aunt Brain tumor 25yo) and Negative: Diabetes, Hypertension, Heart disease, Auto-immune disorder, Kidney disease/UTI, Neurologic/epilepsy, Depression/ depression, Hepatitis/liver disease, Thyroid dysfunction (underactive per safety inspector not dx as hypo), Trauma/domestic violence, History [...] Signs and Symptoms of Preeclampsia, Infant Feeding, [place] Education and Family Medical Leave or Disability [...] Cosigner Signature: Date (if applicable) CC: ~ [facility] Work Phone: Progress note Author Lizbeth Lowe [facility] Note Date/Time June 21, 2025 9:55am [facility] [address] [place] [address], [address] [place] [address] OFFICE VISIT Date of Service: 06/21/25 MR#: [id number] Acct: [id number] Name: GAURAV FORTE Rep #: [id number] : 2000 Provider: Dr. Larisa Cruz DO Age/Sex: 24/F Location: [facility] Status: Signed Intake Vital Signs 04/25/25 08:20 05/24/25 10:33 06/21/25 09:25 06/21/25 09:27 Height 5 ft 6 in 5 ft 6 in 5 ft 6 in 5 ft 6 in Weight: 145 lb 2 oz BMI 23.4 BP 111/76 Intake Visit Reasons: 25 wk ob Junior Programmer Required: No Is patient in pain?: No Allergies No Known Allergies Allergy (Verified 06/21/25 09:25) Medications ?Medication ?Instructions ?Recorded ?Confirmed ?Type sertraline 25 mg tablet 25 mg PO DAILY 03/10/2401/10 History fish, borage, flaxseed oils-omega See Rx Instructions PO DAILY 02/16/25 06/21/25 History 3,6,9 comb no.1 1,200 mg capsule (Harvest 3-6-9) magnesium 250 mg tablet 250 mg PO QDAY 02/16/2501/10 History multivit-min no.71-iron fum 28 cap PO 02/16/25 5 History mg-folate no.1 1 mg-dha 300 mg capsule (PNV-Harvest) Last Menstrual Period: 12/29/24 Zika: Zika virus screening: Negative : No PFSH PFSH Surgical History Previous section Family History Aunt Cancer, Onset Age: 25 Paternal Brain tumor Social History adopted: No household members: spouse and children housing: house number of children: 1 current occupational status: unemployed current occupation: [employer] current occupational exposures/hazards: No pets and animals: [...] physical activity do you participate in: none cindy/samaritan: Hindu seatbelt use: always do you feel safe at home: Yes additional social history: - [employer] work History 3 Elective abortions Hx Para [...] Friedman Signature: Date (if applicable) CC: ~ [facility] Work Phone: Progress note Author Sirena Padilla [facility] Note Date/Time July 10, 2025 10:34am [facility] [address] [place] [address], [address] [place] [address] OFFICE VISIT Date of Service: 07/10/25 MR#: [id number] Acct: [id number] Name: GAURAV FORTE Rep #: [id number] : 2000 Provider: Dr. Ammon Padilla MD Age/Sex: 24/F Location: [facility] Status: Signed Intake Vital Signs 04/25/25 08:20 06/21/25 09:27 07/10/25 10:06 Height 5 ft 6 in 5 ft 6 in 5 ft 6 in Weight: 149 lb 7 oz BMI 24.1 BP 112/75 Intake Visit Reasons: 28 wk ob/glucose Junior Programmer Required: No Is patient in pain?: No Allergies No Known Allergies Allergy (Verified 07/10/25 10:07) Medications ?Medication ?Instructions ?Recorded ?Confirmed ?Type sertraline 25 mg tablet 25 mg PO DAILY 03/10/2406/20 History fish, borage, flaxseed oils-omega See Rx Instructions PO DAILY 02/16/25 07/10/25 History 3,6,9 comb no.1 1,200 mg capsule (Harvest 3-6-9) magnesium 250 mg tablet 250 mg PO QDAY 02/16/2506/20 History multivit-min no.71-iron fum 28 cap PO 02/16/25 5 History mg-folate no.1 1 mg-dha 300 mg capsule (PNV-Harvest) Last Menstrual Period: 12/29/24 Zika: Zika virus screening: Negative : No PFSH PFSH Surgical History Previous section Family History Aunt Cancer, Onset Age: 25 Paternal Brain tumor Social History adopted: No household members: spouse and children housing: house number of children: 1 current occupational status: unemployed current occupation: [employer] current occupational exposures/hazards: No pets and animals: [...] physical activity do you participate in: none cindy/samaritan: Hindu seatbelt use: always do you feel safe at home: Yes additional social history: - [employer] work History 3 Elective abortions Hx Para [...] presents for routine OB visit. OB Visit WILEBR Calculator Estimated Delivery Date Method Current WG [...] and Symptoms of Preeclampsia, Feeding No , [place] Education and Family Medical Leave or Disability [...] Cosigner Signature: Date (if applicable) CC: ~ [facility] Work Phone: Reason for referral (narrative)No reason for referral information availableWoodland [facility] Hospital Work Phone: Summary Purpose Family History No [...] antepartum Se pt2024 9:24am [facility] 9:24am Varicose veins during Septembe r [...] 25, 2025 8:17a m Desires (vaginal after rtoy an) trial April 25, 2025 8:17am FH: [...] Se ptember 2024 9:24am [facility] mber 2024 9:24am Varicose veins during Septgonzaloe [...] Se ptember 2024 10:00am [facility] 2024 10:00am Varicose veins during Faye [...] section and content) DATE CREATED AUTHOR 11/11/2024 [facility] DATE CREATED AUTHOR AUTHOR'S DRISS ATION 08/15/2025 [facility] Care Teams (unrecognized sec tion and [...] Inactive Member Role Status Dates Chanda Velasco APPLE THINNER, APPLE THINNER-C Primary Care Provider Acti ve Start: February 07, 2025 End: February 07, 2025 Chanda Velasco APPLE THINNER, APPLE THINNER-C Referring Provider Active Start: February 07, 2025 End: February 07, 2025 Dr. Sirena Padilla MD Attending Provider Active Start: February 07, 2025 End: February 07, 2025 Team Status: Inactive Member Role Status Dates Chanda Velasco APPLE THINNER, APPLE THINNER-C Primary Care Provider Acti ve Start: March 02, 2025 End: March 02, 2025 Chanda Velasco APPLE THINNER, APPLE THINNER-C Referring Provider Active Start: March 02, 2025 End: March 02, 2025 Sophia Cho CNM Attending Provider Active S tart: March 02, 2025 End: March 02, 2025 Team Status: Active Member Role Status Dates Chanda Velasco APPLE THINNER, APPLE THINNER-C Primary Care Provider Acti ve Start: March 02, 2025 Sophia Cho CNM Attending Provider Active S tart: March 02, 2025 Sophia Cho CNM Referring Provider Active S tart: March 02, 2025 Team Status: Inactive Member Role Status Dates Chanda Velasco APPLE THINNER, APPLE THINNER-C Primary Care Provider Acti ve Start: March 02, 2025 End: March 02, 2025 Sophia Cho CNM Attending Provider Active S tart: March 02, 2025 End: March 02, 2025 Sophia Cho CNM Referring Provider Active S tart: March 02, 2025 End: March 02, 2025 Team Status: Inactive Member Role Status Dates Chanda Velasco APPLE THINNER, APPLE THINNER-C Primary Care Provider Acti ve Start: April 05, 2025 End: April 05, 2025 Chanda Velasco APPLE THINNER, APPLE THINNER-C Referring Provider Active Start: April 05, 2025 End: April 05, 2025 Dr. Sirena Padilla MD Attending Provider Active Start: April 05, 2025 End: April 05, 2025 Team Status: Active Member Role/Relationship Status Dates Chanda Velasco APPLE THINNER, APPLE THINNER-C Primary Care Provider Acti ve Team Status: Inactive Member Role/Relationship Status Dates Chanda Velasco APPLE THINNER, APPLE THINNER-C Primary Care Provider Acti ve Start: January 30, 2025 End: January 30, 2025 Dr. Sirena Padilla MD Attending Provider Active Start: January 30, 2025 End: January 30, 2025 Dr. Sirena Padilla MD Referring Provider Active Start: January 30, 2025 End: January 30, 2025 Team Status: Inactive Member Role/Relationship Status Dates Chanda Velasco APPLE THINNER, APPLE THINNER-C Primary Care Provider Acti ve Start: February 01, 2025 End: February 01, 2025 Dr. Sirena Padilla MD Attending Provider Active Start: February 01, 2025 End: February 01, 2025 Dr. Sirena Padilla MD Referring Provider Active Start: February 01, 2025 End: February 01, 2025 Team Status: Inactive Member Role/Relationship Status Dates Chanda Velasco APPLE THINNER, APPLE THINNER-C Primary Care Provider Acti ve Start: February 07, 2025 End: February 07, 2025 Chanda Velasco APPLE THINNER, APPLE THINNER-C Referring Provider Active Start: February 07, 2025 End: February 07, 2025 Dr. Sirena Padilla MD Attending Provider Active Start: February 07, 2025 End: February 07, 2025 Team Status: Inactive Member Role/Relationship Status Dates Chanda Velasco APPLE THINNER, APPLE THINNER-C Primary Care Provider Acti ve Start: March 02, 2025 End: March 02, 2025 Chanda Velasco APPLE THINNER, APPLE THINNER-C Referring Provider Active Start: March 02, 2025 End: March 02, 2025 Sophia Cho CNM Attending Provider Active S tart: March 02, 2025 End: March 02, 2025 Team Status: Inactive Member Role/Relationship Status Dates Chanda Velasco APPLE THINNER, APPLE THINNER-C Primary Care Provider Acti ve Start: March 02, 2025 End: March 02, 2025 Sophia Cho CNM Attending Provider Active S tart: March 02, 2025 End: March 02, 2025 Sophia Cho CNM Referring Provider Active S tart: March 02, 2025 End: March 02, 2025 Team Status: Inactive Member Role/Relationship Status Dates Chanda Velasco APPLE THINNER, APPLE THINNER-C Primary Care Provider Acti ve Start: April 05, 2025 End: April 05, 2025 Chanda Velasco APPLE THINNER, APPLE THINNER-C Referring Provider Active Start: April 05, 2025 End: April 05, 2025 Dr. Sirena Padilla MD Attending Provider Active Start: April 05, 2025 End: April 05, 2025 Team Status: Inactive Member Role/Relationship Status Dates Chanda Velasco APPLE THINNER, APPLE THINNER-C Primary Care Provider Acti ve Start: April 25, 2025 End: April 25, 2025 Chanda Velasco APPLE THINNER, APPLE THINNER-C Referring Provider Active Start: April 25, 2025 End: April 25, 2025 Lora Collins APPLE THINNER, APPLE THINNER-C Attending Provider Active Start: April 25, 2025 End: April 25, 2025 Team Status: Active Member Role/Relationship Status Dates Out [facility] Primary Care Provider Active Team Status: Active Member Role/Relationship Status Dates Dr. Sirena Padilla MD Attending Provider Active Start: May 18, 2025 Dr. Sirena Padilla MD Referring Provider Active Start: May 18, 2025 Out of [facility] Primary Care Provider Active Start: May 18, 2025 Team Status: Inactive Member Role/Relationship Status Dates Chanda Velasco APPLE THINNER, APPLE THINNER-C Referring Provider Active Start: May 24, 2025 End: May 24, 2025 Lora Collins APPLE THINNER, APPLE THINNER-C Attending Provider Active Start: May 24, 2025 End: May 24, 2025 Out of [facility] Primary Care Provider Active Start: May 24, 2025 End: May 24, 2025 Team Status: Inactive Member Role/Relationship Status Dates Dr. Sirena Padilla MD Attending Provider Active Start: May 18, 2025 End: May 18, 2025 Dr. Sirena Padilla MD Referring Provider Active Start: May 18, 2025 End: May 18, 2025 Out [facility] Primary Care Provider Active Start: May 18, 2025 End: May 18, 2025 Team Status: Inactive Member Role/Relationship Status Dates Chanda Velasco APPLE THINNER, APPLE THINNER-C Primary Care Provider Acti ve Start: March 02, 2025 End: March 02, 2025 Chanda Velasco NP, APPLE THINNER-C Referring Provider Active Start: March 02, 2025 End: March 02, 2025 Sophia Cho CNM Attending Provider Active S tart: March 02, 2025 End: March 02, 2025 Team Status: Inactive Member Role/Relationship Status Dates Chanda Velasco NP, APPLE THINNER-C Primary Care Provider Acti ve Start: March 02, 2025 End: March 02, 2025 Sophia Cho CNM Attending Provider Active S tart: March 02, 2025 End: March 02, 2025 Sophia Cho CNM Referring Provider Active S tart: March 02, 2025 End: March 02, 2025 Team Status: Inactive Member Role/Relationship Status Dates Chanda Velasco APPLE THINNER, APPLE THINNER-C Primary Care Provider Acti ve Start: April 05, 2025 End: April 05, 2025 Chanda Velasco APPLE THINNER, APPLE THINNER-C Referring Provider Active Start: April 05, 2025 End: April 05, 2025 Dr. Sirena Padilla MD Attending Provider Active Start: April 05, 2025 End: April 05, 2025 Team Status: Inactive Member Role/Relationship Status Dates Chanda Velasco APPLE THINNER, APPLE THINNER-C Primary Care Provider Acti ve Start: April 25, 2025 End: April 25, 2025 Chanda Velasco APPLE THINNER, APPLE THINNER-C Referring Provider Active Start: April 25, 2025 End: April 25, 2025 Lora Collins APPLE THINNER, APPLE THINNER-C Attending Provider Active Start: April 25, 2025 End: April 25, 2025 Team Status: Inactive Member Role/Relationship Status Dates Dr. Sirena Padilla MD Attending Provider Active Start: May 18, 2025 End: May 18, 2025 Dr. Sirena Padilla MD Referring Provider Active Start: May 18, 2025 End: May 18, 2025 [facility] Primary Care Provider Active Start: May 18, 2025 End: May 18, 2025 Team Status: Inactive Member Role/Relationship Status Dates Chanda Velasco NP, APPLE THINNER-C Referring Provider Active Start: May 24, 2025 End: May 24, 2025 Lora Collins NP, APPLE THINNER-C Attending Provider Active Start: May 24, 2025 End: May 24, 2025 Out of [facility] Primary Care Provider Active Start: May 24, 2025 End: May 24, 2025 Team Status: Inactive Member Role/Relationship Status Dates Chanda Velasco APPLE THINNER, APPLE THINNER-C Referring Provider Active Start: June 21, 2025 End: June 21, 2025 Dr. Lizbeth Cruz DO Attending Provider Activ e Start: June 21, 2025 End: June 21, 2025 Out of [facility] Primary Care Provider Active Start: June 21, 2025 End: June 21, 2025 Team Status: Active Member Role/Relationship Status Dates No Primary Care Physician Primary care physician Activ e Team Status: Inactive Member Role/Relationship Status Dates Chanda Velasco APPLE THINNER, APPLE THINNER-C Primary care physician Act jarod Start: April 05, 2025 End: April 05, 2025 Chanda Velasco APPLE THINNER, APPLE THINNER-C Referring Provider Active Start: April 05, 2025 End: April 05, 2025 Dr. Sirena Padilla MD Attending physician Active Start: April 05, 2025 End: April 05, 2025 Team Status: Inactive Member Role/Relationship Status Dates Chanda Velasco APPLE THINNER, APPLE THINNER-C Primary care physician Act jarod Start: April 25, 2025 End: April 25, 2025 Chanda Velasco NP, APPLE THINNER-C Referring Provider Active Start: April 25, 2025 End: April 25, 2025 Lora Collins APPLE THINNER, APPLE THINNER-C Attending physician Active Start: April 25, 2025 End: April 25, 2025 Team Status: Inactive Member Role/Relationship Status Dates Dr. Sirena Padilla MD Attending physician Active Start: May 18, 2025 End: May 18, 2025 Dr. Sirena Padilla MD Referring Provider Active Start: May 18, 2025 End: May 18, 2025 Out [facility] Doctor Primary care physician Active Start: May 18, 2025 End: May 18, 2025 Team Status: Inactive Member Role/Relationship Status Dates Chanda Velasco NP, APPLE THINNER-C Referring Provider Active Start: May 24, 2025 End: May 24, 2025 Lora Collins NP, APPLE THINNER-C Attending physician Active Start: May 24, 2025 End: May 24, 2025 Out of [facility] Primary care physician Active Start: May 24, 2025 End: May 24, 2025 Team Status: Inactive Member Role/Relationship Status Dates Chanda Velasco NP, APPLE THINNER-C Referring Provider Active Start: June 21, 2025 [...] Member Role/Relationship Status Dates Chanda Velasco NP APPLE THINNER-C Referring Provider Active Start: July 10, 2025 End: July 10, 2025 Dr. Sirena Padilla MD Attending physician Active Start: July 10, 2025 End: July 10, 2025 No Primary Care Physician Primary care physician Activ e Start: July 10, 2025 End: July 10, 2025 Team Status: Inactive Member Role/Relationship Status Dates Out of [facility] Referring Provider Active Sta rt: July 25, 2025 End: July 25, 2025 Lora Collins NP, APPLE THINNER-C Attending physician Active Start: July 25, 2025 [...] BE BASED ON THE PRIMARY CLINICAL RECORDS. [employer] [facility]. provides no warranty or guarantee of the accuracy or completeness of information in this document.
--- NOTE | 2025-10-10 07:29 | HP.PCM.OB_ITS ---
HPI - General General Date of Admission: 10/10/25 HPI Narrative GAURAV FORTE, is a 25 y/o @ 40 weeks 5 days who presents to L&D for induction of labor. Her last was a for breech. She was found to be 3 cm dilated and 80% effaced last in the office 10/05. We have discussed the risks, benefits, and alternatives to IOL vs rpt section and she has chosen to proceed with induction. Maternal Data Information WILBER Calculator Estimated Delivery Date Method Current WG Current Estimate 10/05/25 LMP (Certain) 40w 5d Other Estimates 10/04/25 Ultrasound #1 40w 6d PFSH PFSH Home Medications ?Medication ?Instructions ?Recorded ?Last Taken ?Type sertraline 25 mg tablet 25 mg PO DAILY 03/10/24 Unkn own History fish, borage, flaxseed oils-omega See Rx Instructions PO DAILY 02/16/25 Unknown History 3,6,9 comb no.1 1,200 mg capsule ([place] 3-6-9) magnesium 250 mg tablet 250 mg PO QDAY 02/16/25 Unkn own History multivit-min no.71-iron fum 28 cap PO 02/16/25 Unknown History mg-folate no.1 1 mg-dha 300 mg capsule ([facility]-[place]) B-complex with vitamin C 1 cap PO QDAY 09/06/25 Unkno wn History evening primrose .Route DIRECTED 09/06/25 Unknown History iron supplement PO 09/27/25 Unknown History Allergy/AdvReac Type Severity Reaction Status Date / Time No Known Allergies Allergy Verified 10/05/25 09:44 Family History Aunt Cancer, Onset Age: 25 Paternal Brain tumor Surgical History Previous section Social History adopted: No household members: spouse and children housing: house number of children: 1 current occupational status: unemployed current occupation: [employer] current occupational exposures/hazards: No pets and animals: Yes (outside) pets and animals: dog(s) and horse(s) history of recent travel: No sexually active: Yes Smoking Status: Never smoker second hand exposure: No alcohol intake: current alcohol intake frequency: holidays/special occasions only details: Not while substance use type: does not use diet: lactose free well-balanced diet: daily or most days caffeine: No eating out: rarely or never during the past year weight has: remained stable what type of physical activity do you participate in: none cindy/church: Qu[employer] seatbelt use: always do you feel safe at home: Yes additional social history: - [employer] History 3 Elective abortions Hx Para 1 Spontaneous abortions 1 Hx # Term Pregnancies Ectopic pregnancies Hx # Pregnancies Multiple births # of living children 1 Past Pregnancies Del. Date Name GA/Weeks Outcome Route Bth Weight Infant Gen Labor Lgth Anesthesia Del Locatn Provider FOB Unknown Oct 2024 spontaneous 11/03/22 Kady 39 live - full term 7# Female spinal Pomerene Gopal Delivery Date: 11/03/22 Last Updated by: Sirena Padilla MD breech Visit Details Expected Delivery Route/Plan TOLAC previous for breech- plan on not scheduling anything until end of , consider IOL at 40-41 if favorable. patient counseled regarding risks/benefits of trial of labor versus repeat . ACOG/uptodate education given to patient. 77% likelihood of success per calculator TOLAC consent form signed: 06/21/25 Plans Covid status: [] Flu vaccine: declines Tdap vaccine: declines Rhogam: NA LARC form signed: yes Problem list reviewed and updated with the most current plan of care details and appropriate orders placed. Relevant counseling for the gestational age provided. Continue routine care and follow up unless otherwise noted in visit notes/problem list details OB Flowsheet Initial Weight: 133 lb Date -?-?-?-?-?-?-?-?-?-?-?-?- EGA Weight BP Urine Prot -?-?-?-?-?-?-?-?-?-?-?-?- Glucose FHR FuHt Pres Dilation -?-?-?-?-?-?-?-?-?-?-?-?- Effaced St Visit Note 03/02/25 -?-?-?-?-?-?-?-?-?-?-?-?- 9w 0d 133 lb 4 oz (+4 oz) 116/78 -?-?-?-?-?-?-?-?-?-?-?-?- 182 -?-?-?-?-?-?-?-?-?-?-?-?- KW- CRL cons wit h dates. declines NIPT 04/05/25 -?-?-?-?-?-?-?-?-?-?-?-?- 13w 6d 134 lb 6 oz (+1 lb 6 oz) 116/76 Negative -?-?-?-?-?-?-?-?-?-?-?-?- Negative 160 -?-?-?-?-?-?-?-?-?-?-?-?- SM- no vb crmapi ng 04/25/25 -?-?-?-?-?-?-?-?-?-?-?-?- 16w 5d 136 lb 4 oz (+3 lb 4 oz) 120/76 Negative -?-?-?-?-?-?-?-?-?-?-?-?- Negative 154 -?-?-?-?-?-?-?-?-?-?-?-?- MH-No VB. Nausea resolved. Varicose veins left leg. 05/24/25 -?-?-?-?-?-?-?-?-?-?-?-?- 20w 6d 139 lb 3 oz (+6 lb 3 oz) 106/68 Negative -?-?-?-?-?-?-?-?-?-?-?-?- Negative 160 -?-?-?-?-?-?-?--?-?-?-?-?- MH-No VB. Ken g flutters. Has noticed a couple times palpitations after eating. Offered EKG, further work up and declines 06/21/25 -?-?-?-?-?-?-?-?-?-?-?-?- 24w 6d 145 lb 2 oz (+12 lb 2 oz) 111/76 Negative -?-?-?-?-?-?-?-?-?-?-?-?- Negative 155 -?-?-?-?-?-?-?-?-?-?-?-?- JV- no lof, vagi nal bleeding, or dec fm. no complaints. long discussion about tolac today 07/10/25 -?-?-?-?-?-?-?-?-?-?-?-?- 27w 4d 149 lb 7 oz (+16 lb 7 oz) 112/75 Negative -?-?-?-?-?-?-?-?-?-?-?-?- Negative 160 28 -?-?-?-?-?-?-?-?-?-?-?-?- SM- no vb lof go od fm no reuglar ctx cbc gct 07/25/25 -?-?-?-?-?-?-?-?-?-?-?-?- 29w 5d 153 lb 7 oz (+20 lb 7 oz) 113/72 Negative -?-?-?-?-?-?-?-?-?-?-?-?- Negative 157 29 -?-?-?-?-?-?-?-?-?-?-?-?- MH-No Vb, LOF. G ood FM. Larc, declines flu, tdap. 08/14/25 -?-?-?-?-?-?-?-?-?-?-?-?- 32w 4d 154 lb 9 oz (+21 lb 9 oz) 137/80 Negative -?-?-?-?-?-?-?-?-?-?-?-?- Negative 145 32 Cephalic -?-?-?-?-?-?-?-?-?-?-?-?- KW- no vb/lof/ct x. good fm. 08/31/25 -?-?-?-?-?-?-?-?-?-?-?-?- 35w 0d 161 lb 3 oz (+28 lb 3 oz) 119/81 Negative -?-?-?-?-?-?-?-?-?-?-?-?- Negative 140 34 -?--?-?-?-?-?-?-?-?-?-?-?- JV- no lof, vagi nal bleeding, or dec fm. feeling weak, tired, and winded when walking up stairs. recommend compression stockings and repeat cbc today. 09/06/25 -?-?-?-?-?-?-?-?-?-?-?-?- 35w 6d 160 lb 2 oz (+27 lb 2 oz) 134/81 Negative -?-?-?-?-?-?-?-?-?-?-?-?- Negative 134 34 Cephalic -?-?-?-?-?-?-?-?-?-?-?-?- KV- Good FM. No ctx, LOF, or VB. KV- Good FM. No ctx, LOF, or VB. Pt was using evening primrose oil, advised to stop. 09/13/25 -?-?-?-?-?-?-?--?-?-?-?-?- 36w 6d 162 lb 2 oz (+29 lb 2 oz) 115/78 Negative -?-?-?-?-?-?-?-?-?-?-?-?- Negative 134 36 Cephalic 0 -?-?-?-?-?--?-?-?-?-?-?-?- JV- cephalic on bedside scan. KARUNA is 13. No signs of ROM. No vaginal bleeding or contractions GBS collected. 09/20/25 -?-?-?-?-?-?-?-?-?-?-?-?- 37w 6d 165 lb 6 oz (+32 lb 6 oz) 114/77 Negative -?-?-?-?-?-?-?-?-?-?-?-?- Negative 126 37 Cephalic 1 -?-?-?-?-?-?-?-?-?-?-?-?- 80 -2 JV- some c ontractions, no lof, vaginal bleeding, or dec fm. consent signed. 09/27/25 -?-?-?-?-?-?-?-?-?-?-?-?- 38w 6d 164 lb (+31 lb) 127/80 -?-?-?-?-?-?-?-?-?-?-?-?- 130 35 Cephalic 2 -?-?-?-?-?-?-?-?-?-?-?-?- 80 -2 KW- no vb/ lof. some ctx over the last few days and feels that she has lost her MP. good fm KARUNA 12. growth US ordered 10/05/25 -?-?-?-?-?-?-?-?-?-?-?-?- 40w 0d 164 lb 2 oz (+31 lb 2 oz) 129/83 Negative -?-?-?--?-?-?-?-?-?-?-?-?- Negative 135 38 Cephalic 3 -?-?-?-?-?-?-?-?-?-?-?-?- 80 -2 KV- Good F M. Some ctx. No LOF/VB. Would like induction if not in labor next week. ROS Constitutional Constitutional: Denies change in weight, fatigue, fever(s), headache(s), poor appetite or weakness Eyes Eyes: Denies blurry vision, change in vision, seeing flashes or spots in vision ENT HEENT: Denies dizziness, headache(s), loss taste/smell or sore throat Cardiovascular Cardiovascular: Denies chest pain, dizziness, dyspnea, irregular heart rhythm, leg edema, palpitations, rapid heart rate or vomiting Respiratory/Chest Respiratory/Chest: Denies chest tightness, cough, dyspnea or breast pain Gastrointestinal Gastrointestinal: Denies abdominal pain, anorexia, constipation, cramping, diarrhea, hemorrhoids, vomiting or weight changes Genitourinary Genitourinary: Denies dysuria, flank pain, genital lesions, genital pain, urinary frequency or urinary urgency Musculoskeletal Musculoskeletal: Denies back pain, difficulty walking, joint pain, limited range of motion, muscle cramps or numbness Integumentary Integumentary: Denies lesions or unusual bruising Neurologic Neurologic: Denies abnormal movements, abnormal speech, dizziness, numbness, s eizure-like activity or syncope Psychiatric Psychiatric: Denies anxiety, behavioral changes, change in appetite, change in libido, cognitive impairment, confusion, depression, difficulty concentrating, hallucinations or suicidal thoughts Endocrine Endocrinology: Denies excessive sweating, polydipsia or polyuria Hematologic/Lymphatic Hematologic/Lymphatic: Denies easy bleeding, easy bruising or lymphadenopathy Allergic/Immunologic Allergic/Immunologic: Denies itchy eyes, lip swelling, seasonal rhinorrhea, rhinitis, throat swelling, tongue swelling, eczemia, wheezing or asthma Vital Signs Vital Signs Vital Signs: 10/10/25 07:23 10/10/25 07:23 10/10/25 07:26 Temperature 97.7 F L Pulse Rate 105 H Blood Pressure 127/80 H BP Systolic 127 BP Diastolic 80 Weight Weight: 168 lb 8 oz Body Mass Index (BMI) 27.1 Physical Exam Const alert, oriented x3, no apparent distress and healthy appearing General Appearance: cooperative; Negative for anxious HEENT normocephalic Face and Sinus: normal facial exam Eyes EOMs intact bilaterally and no scleral icterus General Eye: normal appearance of both eyes Neck full ROM and supple Lymph Lymphatic: no lymphadenopathy noted Resp normal respiratory effort Effort and Inspection: able to speak in complete sentences Cardio regular rate GI soft to palpation and non-tender Inspection: gravid Palpation: soft; Negative for tender Back/Spine no CVA tenderness Extremity normal to inspection, full ROM and no clubbing, cyanosis or edema General Extremity: Negative for calf tenderness or edema Skin Lesions: no lesions Rashes: no rashes Psych mental status grossly normal Labs Labs Labs: Blood Type O POSITIVE Antibody Screen NEGATIVE Hct, (37-47) 33.7 % L Hgb, (12.0-15.0) 11.2 g/dL L Obstetrics Ultrasound Syphilis Total Ab, (Nonreactive) Nonreactive Rubella IgG Antibody, (Nonreactive) Nonreactive Hep Bs Antigen, (Nonreactive) Nonreactive Hepatitis C Antibody, (Nonreactive) Nonreactive Chlamydia DNA (JERRY), (Negative) Negative N.gonorrhoeae DNA (JERRY), (Negative) Negative HIV 1&2 Antibody, (Nonreactive) Nonreactive Glucose 1 Hr 50 gm, (70-140) 68 mg/dL L Assessment & Plan (1) Supervision of high-risk : QUALIFIERS: Trimester: third trimester Qualified Code(s): O09.93 - Supervision of high risk , unspecified, third trimester COMMENT: GBS neg, PRR, , WILBER 10/05/25, DIVYA Hillman, Gopal (2) : QUALIFIERS: Weeks of gestation: 40 weeks Qualified Code(s): Z3A.40 - 40 weeks gestation of COMMENT: declined NIPT, Carrier testing in past- neg. (3) Previous section: COMMENT: breech (4) Desires (vaginal after ) trial: COMMENT: chance of success is 77%. baby was breech. consent given. (5) Anemia: QUALIFIERS: Anemia type: unspecified type Qualified Code(s): D64.9 - Anemia, unspecified (6) Palpitation: COMMENT: after eating. No SOB, chest pain. Declines further evaluation (7) Rubella non-immune status, antepartum: COMMENT: offer MMR PP (8) FH: genetic disorder: COMMENT: Robison's dystonia, nephrocerebellar syndrome, Carrier testing done-Pt is not a carrier of this syndrome (9) Varicose veins during : COMMENT: behind knees, inner thigh, vaginal left leg. Enc stockings etc (10) Anxiety: COMMENT: sertraline (11) History of miscarriage, currently : PLAN: Plan Patient presents IOL, plan management for with pitocin/AROM. Pain management: plans epidural. GBS negative. Management of any complications: prior section- chance of successful vaginal delivery is 77%. consent signed. I have reviewed the [facility] and made any clinically relevant updates.
--- OUTSIDE RECORDS SUMMARY | 2025-10-10 07:38 | XMS RPT_ITS | CCD ---
Author Organization [facility] Care Team Providers Care Special Procedures Tech Name Role Phone CINTIA REILLY, YOHANA Will Unavailable BERLIN Unavailable Unavailable CINTIA REILLY, IRASEMA Guerrier Unavailable GASTROENTEROLOGY, GENERAL Unavailable Emilee Yang RN, June Unavailable Unavailable ABHIJIT REILLY, SHREYAS Stark Unavailable [phone] CHERYL RN, KAYLEIGH Unavailable Unavailable KRISTA ANDRESP-CCHANDA [...] PROVIDER, UNKNOWN Consulting Unavailable SONA LEYVA-CYULIYA Unavailable [phone] Chanda Addison Primary Care Provider Dr. Sirena Padilla MD Attending Provider Dr. Sirena Padilla MD Referring Provider Chanda Addison Referring Provider Sophia Cho CNM Attending Provider Sophia Cho CNM Referring Provider [phone] Lora Lopez Attending Provider [phone] [facility] Doctor, Out of Primary Care Provider Unavai lable Krista CATALOGUE MAKER-C, Chanda Primary Care Provider Krista CATALOGUE MAKER-C, Chanda Referring Provider Valerie REILLY, Dr. Pack Attending Provider Dr. Sirena Padilla MD Referring Provider [phone] Dr. Lizbeth Cruz DO Attending Provider Krista CATALOGUE MAKER-C, Chanda Primary Care Physician Krista CATALOGUE MAKER-C, Chanda Referring Provider Valerie REILLY, Dr. Pack Attending Physician Dennis CATALOGUE MAKER-C, Lora Attending Physician [phone] [facility] Doctor, Out of Primary Care Physician Unava ilable Dr. Lizbeth Cruz DO Attending Physician Care Physician, No Primary Primary Care Physicia n Unavailable Dr. Lizbeth Cruz DO Referring Provider [facility] Doctor, Out of Referring Provider Unavailab le Care Physician, No Primary Primary Care Unava ilable Dennis CATALOGUE MAKER, Lora Attending Unavailable [facility] Doctor, Out of Referring Unavailable Care Physician, No Primary Primary Care Unava ilable Krista CATALOGUE MAKER, Chanda Referring Unavailab le Sirena Padilla Attending Unavailable Krista CATALOGUE MAKER, Chanda Referring Unavailab le [facility] Doctor, Out of Primary Care Unavailable Lizbeth Cruz Attending Unavailabl e MarcanthSirena sanchez Referring Unavailable [facility] Doctor, Out of Primary Care Unavailable Sirena Padilla Attending Unavailable Lizbeth Cruz Attending Unavailabl e Care Physician, No Primary Primary Care Unava ilable Lizbeth Cruz Referring Unavailabl e Javier CATALOGUE MAKER, [place] Primary Care Unavailab Sophia Dhillon Referring Unavailable Sophia Cho Attending Unavailable Krista CATALOGUE MAKER, [place] Primary Care Unavailab le MarcanthonySirena Referring Unavailable MarcanthSirena sanchez Attending Unavailable Losttsylvester CATALOGUE MAKER, [place] Primary Care Unavailab le Marcanthony, Sirena Referring Unavailable MarcanthonySirena Attending Unavailable Krista CATALOGUE MAKER, Chanda Referring Unavailab vitor Collins CATALOGUE MAKER, Lora Attending Unavailable [facility] Doctor, Out of Primary Care Unavailable Krista CATALOGUE MAKER, Chanda Primary Care Unavailab le Krista CATALOGUE MAKER, Chanda Referring Unavailab vitor Collins CATALOGUE MAKER, Lora Attending Unavailable Krista CATALOGUE MAKER, Chanda Primary Care Unavailab le Krista CATALOGUE MAKER, Chanda Referring Unavailab Sirena Landin Attending Unavailable Krista CATALOGUE MAKER, Chanda Primary Care Unavailab le Krista CATALOGUE MAKER, Chanda Referring Unavailab Sophia Dhillon Attending Unavailable Krista CATALOGUE MAKER, Chanda Primary Care Unavailab le Krista CATALOGUE MAKER, Chanda Referring Unavailab Sirena Landin Attending Unavailable Care Physician, No Primary Primary Care Unava ilable [facility] Doctor, Out of Referring Unavailable Sophia Cho Attending Unavailable Allergies Allergy Classification Reported Allergen(s) Allergy Type Date of Onset Reaction(s) Facility (1 source) Lactose; Translations: [LACTOSE] Drug Allergy [facility] Repository Medications Current Medications Medication Drug Class(es) Dates Sig (Normalized) Sig (Original) Fish,Bora,Flax Oils-Om3,6,9no1 ([place] 3-6-9) 1,200 mg capsule (9 sources) Start: 02-16-2025 take 1 capsule by mouth once daily Fish,Bora,Flax Oils-Om3,6,9no1 ([place] 3-6-9) 1,200 mg capsule Active 0 PO DAILY February 16, 2025 12:00am 1 orally daily; Complies with drug therapy Start: 02-16-2025 take 1 capsule by mo [facility] once daily Fish,Bora,Flax Oils-Om3,6,9no1 ([place] 3-6-9) 1,200 mg capsule Active 0 PO [...] PO daily February 16, 2025 12:00am Mv-Mins 05-Znba-Eymiv No.1-D christiansen (Pnv-[place]) 28-1-300 mg capsule (9 sources) Start: 02-16-2025 Mv-Mins 71-Iro n-Folic No.1-Dha (Pnv-[place]) 28-1-300 mg capsule Active NMA PO February 16, 2025 12:00am Complies with drug therapy Start: 02-16-2025 Mv-Mins 71-Iro n-Folic No.1-Dha (Pnv-[place]) 28-1-300 mg capsule Active NMA PO February [...] Test Name Value Interpretation Reference Range Facility [facility] Office Visit Reporton 08-14-2025 [facility] Office Visit Report [facility] [address], [address] [place] [address] OFFICE VISIT Date of Service: 08/14/25 MR#: [id number] Acct: [id number] Name: GAURAV FORTE Rep #: [id number] : 2000 Provider: NOELLE Fan ams Age/Sex: 25/F Location: [facility] [place] Status: Signed Intake Vital Signs 06/21/25 09:27 07/25/25 13:42 08/14/25 09:37 Height 5 ft 6 in 5 ft 6 in 5 ft 6 in Weight: 154 lb 9 oz BMI 24.9 BP 137/80 H Intake Visit Reasons: 33 wk ob *pt on vacation* Chief Complaint: 33wk OB [place] [employer] Required: No Is patient in pain?: No Allergies No Known Allergies Allergy (Verified 08/14/25 09:36) Medications ???Medication ???Instructions ???Recorded ???Confirmed ???Type sertraline 25 mg tablet 25 mg PO DAILY 03/10/24 08/14/25 H istory fish, borage, flaxseed oils-omega See Rx Instructions PO DAILY 11/1208/14/25 History 3,6,9 comb no.1 1,200 mg capsule ([place] 3-6-9) magnesium 250 mg tablet 250 mg PO QDAY 02/16/25 08/14/25 H istory multivit-min no.71-iron fum 28 cap PO 02/16/25 08/14/25 History mg-folate no.1 1 mg-dha 300 mg capsule (PNV-[place]) Last Menstrual Period: 12/29/24 PFSH PFSH Surgical History Previous section Family History Aunt Cancer, Onset Age: 25 Paternal Brain tumor Social History adopted: No household members: spouse and children housing: house number of children: 1 current occupational status: unemployed current occupation: [employer] current occupational exposures/hazards: No pets and animals: [...] physical activity do you participate in: none cindy/yazidi: Rastafarian seatbelt use: always do you feel safe at home: Yes additional social history: - [employer] work History 3 Elective abortions Hx Para [...] -???-???-???-???-???- ???-???-???-???-?? (more content not included)... Normal [facility] Office Visit Reporton 07-25-2025 Park A[facility] Office Visit Report [facility] [address], [address] [place] [address] OFFICE VISIT Date of Service: 07/25/25 MR#: [id number] Acct: [id number] Name: GAURAV FORTE Rep #: [id number] : 2000 Provider: KRISTIE parnell Age/Sex: 24/F Location: [facility] [place] Status: Signed Intake Vital Signs 06/21/25 09:27 07/10/25 10:06 07/25/25 13:42 Height 5 ft 6 in 5 ft 6 in 5 ft 6 in Weight: 153 lb 7 oz BMI 24.7 BP 113/72 Intake Visit Reasons: 30 wk ob Chief Complaint: 30 Week OB [place] San[place] Required: No Is patient in pain?: No Allergies No Known Allergies Allergy (Verified 07/25/25 13:42) Medications ???Medication ???Instructions ???Recorded ???Confirmed ???Type sertraline 25 mg tablet 25 mg PO DAILY 03/10/24 07/25/25 H istory fish, borage, flaxseed oils-omega See Rx Instructions PO DAILY 11/1207/25/25 History 3,6,9 comb no.1 1,200 mg capsule ([place] 3-6-9) magnesium 250 mg tablet 250 mg PO QDAY 02/16/25 07/25/25 H istory multivit-min no.71-iron fum 28 cap PO 02/16/25 07/25/25 History mg-folate no.1 1 mg-dha 300 mg capsule (PNV-[place]) Last Menstrual Period: 12/29/24 Zika: Zika virus screening: Negative : Yes PFSH PFSH Surgical History Previous section Family History Aunt Cancer, Onset Age: 25 Paternal Brain tumor Social History adopted: No household members: spouse and children housing: house number of children: 1 current occupational status: unemployed current occupation: [employer] current occupational exposures/hazards: No pets and animals: [...] physical activity do you participate in: none cindy/yazidi: Rastafarian seatbelt use: always do you feel safe at home: Yes additional social history: - [employer] work History 3 Elective abortions Hx Para [...] cr maping (more content not included)... Normal [facility] Absolute lymphocyte countOrd ered By: Lizbeth Chrissy on 07-10-2025 Lymphocytes Auto (Unsp spec) [#/Vol] 1.51 10*3/uL 0.83-4.51 [facility] Absolute neutrophil countOrd ered By: Lizbeth Chrissy on 07-10-2025 Neutrophils (Bld) [#/Vol] 6.4 10*3/uL 2.0-7.7 [facility] Automated lymphocyte count a s percentage of total leukocytesOrdered By: Lizbeth Chrissy on 07-10-2025 Lymphocytes/100 WBC Auto (Unsp spec) 17.2 % Low 19-41 [facility] Basophil percentageOrdered B y: Lizbeth Chrissy on 07-10-2025 Basophils/100 WBC (Bld) 0.3 % 0-1 [facility] CBC W/Diff, Automatedon 09-2 2-2024 Absolute Lymph 1.51 X10 3/uL Normal 0.83-4.51 [facility] Comment on above: Performed By: #### L 100.0100, L501.0250, L509.8002, L3890.6006 #### [facility] [address] [place], [address] Absolute Neut 6.4 X10 3/uL Normal 2.0-7.7 [facility] Comment on above: Performed By: #### L 100.0100, L501.0250, L509.8002, L3890.6006 #### [facility] [address] [place], [address] Basophils/100 WBC (Bld) 0.3 % Normal 0-1 [facility] Comment on above: Performed By: #### L 100.0100, L501.0250, L509.8002, L3890.6006 #### [facility] [address] [place], [address] Eosinophils/100 WBC (Bld) 1.4 % Normal 0-5 [facility] Comment on above: Performed By: #### L 100.0100, L501.0250, L509.8002, L3890.6006 #### [facility] [address] [place], [address] Erythrocyte distribution width (RBC) [Ratio] 12.9 % Normal 11.6-14.6 [facility] Comment on above: Performed By: #### L 100.0100, L501.0250, L509.8002, L3890.6006 #### [facility] [address] [place], [address] Hematocrit (Bld) [Volume fraction] 32.5 % Low 37-47 [facility] Comment on above: Performed By: #### L 100.0100, L501.0250, L509.8002, L3890.6006 #### [facility] [address] [place], [address] Hemoglobin (Bld) [Mass/Vol] 10.9 g/dL Low 12.0-15.0 [facility] Comment on above: Performed By: #### L 100.0100, L501.0250, L509.8002, L3890.6006 #### [facility] [address] [place], [address] IG% 1.300 High 0.0-0.9 [facility] Comment on above: Result Comment: IG% - Immature Granulocytes (promyelocytes, myelocytes and metamyelocytes) > 1% indicates that a LEFT SHIFT is Present. Performed By: #### L 100.0100, L501.0250, L509.8002, L3890.6006 #### [facility] [address] [place], [address] Lymphocytes/100 WBC (Bld) 17.2 % Low 19-41 [facility] Comment on above: Performed By: #### L 100.0100, L501.0250, L509.8002, L3890.6006 #### [facility] [address] [place], [address] MCH (RBC) [Entitic mass] 31.1 pg Normal 27.0-32.0 [facility] Comment on above: Performed By: #### L 100.0100, L501.0250, L509.8002, L3890.6006 #### [facility] [address] [place], [address] MCHC (RBC) [Mass/Vol] 33.5 g/dL Normal 32-36 [facility] Comment on above: Performed By: #### L 100.0100, L501.0250, L509.8002, L3890.6006 #### [facility] [address] [place], [address] MCV (RBC) [Entitic vol] 92.6 fL Normal 81-99 [facility] Comment on above: Performed By: #### L 100.0100, L501.0250, L509.8002, L3890.6006 #### [facility] [address] [place], [address] Monocytes/100 WBC (Bld) 7.2 % Normal 0-10 [facility] Comment on above: Performed By: #### L 100.0100, L501.0250, L509.8002, L3890.6006 #### [facility] [address] [place], [address] Neutrophils/100 WBC (Bld) 72.6 % High 47-70 [facility] Comment on above: Performed By: #### L 100.0100, L501.0250, L509.8002, L3890.6006 #### [facility] [address] [place], [address] Nucleated RBC (Bld) [#/Vol] 0 10*3/uL Normal 0-5 [facility] Comment on above: Performed By: #### L 100.0100, L501.0250, L509.8002, L3890.6006 #### [facility] [address] [place], [address] Platelet mean volume (Bld) [Entitic vol] 9.4 fL Normal 6.2-12.0 [facility] Comment on above: Performed By: #### L 100.0100, L501.0250, L509.8002, L3890.6006 #### [facility] [address] [place], [address] Platelets (Bld) [#/Vol] 168 10*3/uL Normal 150-450 [facility] Comment on above: Performed By: #### L 100.0100, L501.0250, L509.8002, L3890.6006 #### [facility] [address] [place], [address] RBC (Bld) [#/Vol] 3.51 10*6/uL Low 4.2-5.4 [facility] Comment on above: Performed By: #### L 100.0100, L501.0250, L509.8002, L3890.6006 #### [facility] [address] [place], [address] RDW SD 43.5 fl Normal 35.1-43.9 [facility] Comment on above: Performed By: #### L 100.0100, L501.0250, L509.8002, L3890.6006 #### [facility] [address] [place], [address] WBC (Bld) [#/Vol] 8.8 10*3/uL Normal 4.4-11.0 [facility] Comment on above: Performed By: #### L 100.0100, L501.0250, L509.8002, L3890.6006 #### [facility] [address] [place], [address] Eosinophil percentageOrdered By: Lizbeth Lowe on 07-10-2025 Eosinophils/100 WBC (Bld) 1.4 % 0-5 [facility] Erythrocyte distribution wid th ratioOrdered By: Lizbeth Lowe on 07-10-2025 Erythrocyte distribution width (RBC) [Ratio] 12.9 % 11.6-14.6 [facility] Erythrocyte distribution wid th standard deviationOrdered By: Lizbeth Lowe on 07-10-2025 Erythrocyte distribution width (RBC) [Ratio] 43.5 fl 35.1-43.9 [facility] Glucose Challenge Gest 1H 50 samuel 07-10-2025 GLU GEST 50g 1H 68 mg/dL Low 70-140 [facility] Comment on above: Order Comment: PT WA S LATE FOR THEIR 1 HR GLUCOSE DRAW. PT DIDNT CHECK IN UNTIL 954 Performed By: #### L 100.0100, L501.0250, L509.8002, L3890.6006 #### [facility] [address] [place], [address] Glucose measurement at 2 peng rs post-dose gestational glucose tolerance testOrdered By: Lizbeth Lowe on 07-10-2025 Glucose [Mass/Vol] 68 mg/dL Low 70-140 [facility] HIVon 07-10-2025 HIV Non-Reactive Normal Nonreactive [facility] Comment on above: Order Comment: PT [...] Order the HIV antibody detection and differentiation: lc#[id number] Performed By: #### L 100.0100, L501.0250, L509.8002, L3890.6006 #### [facility] [address] [place], [place], [address] Hematocrit Auto (Bld) [Volum e fraction]Ordered By: Lizbeth Lowe on 07-10-2025 Hematocrit (Bld) [Volume fraction] 32.5 % Low 37-47 [facility] Hemoglobin measurementOrdere d By: Lizbeth Lowe on 07-10-2025 Hemoglobin (Bld) [Mass/Vol] 10.9 g/dL Low 12.0-15.0 [facility] Immature granulocytes/100 WB C Auto (Bld)Ordered By: Lizbeth Lowe on 07-10-2025 Immature granulocytes/100 WBC (Bld) 1.300 % High 0.0-0.9 [facility] Comment on above: IG% - Immature Granu locytes (promyelocytes, myelocytes and metamyelocytes) > 1% indicates that a LEFT SHIFT is Present. Laboratory - Chemistry and C hemistry - challengeOrdered By: Sirena Padilla on 07-10-2025 Glucose Ql (U) Negative [facility] - UrinalysisOrder ed By: Sirena Padilla on 07-10-2025 Protein Ql (U) Negative [facility] MCV (mean corpuscular volume ) determinationOrdered By: Lizbeth Lowe on 07-10-2025 MCV (RBC) [Entitic vol] 92.6 fL 81-99 [facility] Mean corpuscular hemoglobin (MCH) determinationOrdered By: Lizbeth Lowe on 07-10-2025 MCH (RBC) [Entitic mass] 31.1 pg 27.0-32.0 [facility] Mean corpuscular hemoglobin concentration (MCHC) determinationOrdered By: Lizbeth Lowe on 07-10-2025 MCHC (RBC) [Mass/Vol] 33.5 g/dL 32-36 [facility] Mean platelet volume determi nationOrdered By: Lizbeth Lowe on 07-10-2025 Platelet mean volume (Bld) [Entitic vol] 9.4 fL 6.2-12.0 [facility] Monocyte percentageOrdered B y: Lizbeth Lowe on 07-10-2025 Monocytes/100 WBC (Bld) 7.2 % 0-10 [facility] Neutrophil percentageOrdered By: Lizbeth Lowe on 07-10-2025 Neutrophils/100 WBC (Bld) 72.6 % High 47-70 [facility] No Panel InformationOrdered By: Lizbeth Lowe on 07-10-2025 HIV (1&2) Antibody Non-Reactive Nonreactive [facility] Comment on above: Non-ReactiveReactive Repeatedly reactive samples must be confirmed according to CDC recommended confirmatory algorithms. The subresults for either HIVAG or AHIV can be used as an aid in the selection of the confirmation algorithm for reactive samples.Send out specimens with Reactive results to [facility] for confirmation.Order the HIV antibody detection and differentiation: #[id number] Nucleated red blood cell per centageOrdered By: Lizbeth Lowe on 07-10-2025 Nucleated RBC/100 WBC (Bld) [Ratio] 0 % 0-5 [facility] Office Visit Reporton 07-10-2025 Park Aide Office Visit Report [facility] [address] [place] [address], [address] [place] [address] OFFICE VISIT Date of Service: 07/10/25 MR#: [id number] Acct: [id number] Name: GAURAV FORTE Rep #: [id number] : 2000 Provider: Dr. Sierna jimenes MD Age/Sex: 24/F Location: [facility] [place] Status: Signed Intake Vital Signs 04/25/25 08:20 06/21/25 09:27 07/10/25 10:06 Height 5 ft 6 in 5 ft 6 in 5 ft 6 in Weight: 149 lb 7 oz BMI 24.1 BP 112/75 Intake Visit Reasons: 28 wk ob/glucose [place] San[place] Required: No Is patient in pain?: No Allergies No Known Allergies Allergy (Verified 07/10/25 10:07) Medications ???Medication ???Instructions ???Recorded ???Confirmed ???Type sertraline 25 mg tablet 25 mg PO DAILY 03/10/24 07/10/25 H istory fish, borage, flaxseed oils-omega See Rx Instructions PO DAILY 11/1207/10/25 History 3,6,9 comb no.1 1,200 mg capsule ([place] 3-6-9) magnesium 250 mg tablet 250 mg PO QDAY 02/16/25 07/10/25 H istory multivit-min no.71-iron fum 28 cap PO 02/16/25 07/10/25 History mg-folate no.1 1 mg-dha 300 mg capsule (PNV-[place]) Last Menstrual Period: 12/29/24 Zika: Zika virus [...] physical activity do you participate in: none cindy/yazidi: Rastafarian seatbelt use: always do you feel safe at home: Yes additional social history: - [employer] work History 3 Elective abortions Hx Para [...] -???-???-???-???-???- ?? (more content not included)... Normal [facility] Platelet countOrdered By: Austin Lowe on 07-10-2025 Platelets (Bld) [#/Vol] 168 10*3/uL 150-450 [facility] RBC Auto (Bld) [#/Vol]Ordere d By: Lizbeth Lowe on 07-10-2025 RBC (Bld) [#/Vol] 3.51 10*6/uL Low 4.2-5.4 [facility] Syphilis Antibodieson 2024 Syphilis Abs Non-Reactive Normal Nonreactive [facility] Comment on above: Order Comment: PT WA S LATE FOR THEIR 1 HR GLUCOSE DRAW. PT DIDNT CHECK IN UNTIL 954 Performed By: #### L 100.0100, L501.0250, L509.8002, L3890.6006 #### [facility] [address] [facility] [place], [address] White blood cell (WBC) count Ordered By: Lizbeth Lowe on 07-10-2025 WBC (Bld) [#/Vol] 8.8 10*3/uL 4.4-11.0 [facility] Laboratory - Chemistry and C hemistry - challengeOrdered By: Lizbeth Lowe on 06-21-2025 Glucose Ql (U) Negative [facility] Laboratory - UrinalysisOrder ed By: Lizbeth Lowe on 06-21-2025 Protein Ql (U) Negative [facility] Park Aide Office Visit Reporton 06-21-2025 Park Aide Office Visit Report [facility], [address] [place] [address] OFFICE VISIT Date of Service: 06/21/25 MR#: [id number] Acct: [id number] Name: GAURAV FORTE Rep #: [id number] : 2000 Provider: Dr. Lizbeth Rangel DO Age/Sex: 24/F Location: [facility] [place] Status: Signed Intake Vital Signs 04/25/25 08:20 05/24/25 10:33 06/21/25 09:25 06/21/25 09:27 Height 5 ft 6 in 5 ft 6 in 5 ft 6 in 5 ft 6 in Weight: 145 lb 2 oz BMI 23.4 BP 111/76 Intake Visit Reasons: 25 wk ob [place] Required: No Is patient in pain?: No Allergies No Known Allergies Allergy (Verified 06/21/25 09:25) Medications ???Medication ???Instructions ???Recorded ???Confirmed ???Type sertraline 25 mg tablet 25 mg PO DAILY 03/10/24 06/21/25 H istory fish, borage, flaxseed oils-omega See Rx Instructions PO DAILY 11/1206/21/25 History 3,6,9 comb no.1 1,200 mg capsule ([place] 3-6-9) magnesium 250 mg tablet 250 mg PO QDAY 02/16/25 06/21/25 H istory multivit-min no.71-iron fum 28 cap PO 02/16/25 06/21/25 History mg-folate no.1 1 mg-dha 300 mg capsule (PNV-[place]) Last Menstrual Period: 12/29/24 Zika: Zika virus screening: Negative : No PFSH PFSH Surgical History Previous section Family History Aunt Cancer, Onset Age: 25 Paternal Brain tumor Social History adopted: No household members: spouse and children housing: house number of children: 1 current occupational status: unemployed current occupation: [employer] current occupational exposures/hazards: No pets and animals: [...] physical activity do you participate in: none cindy/yazidi: Rastafarian seatbelt use: always do you feel safe at home: Yes additional social history: - [employer] work History 3 Elective abortions Hx Para [...] 120/76 Negati (more content not included)... Normal [facility] Laboratory - Chemistry and C hemistry - challengeOrdered By: Lora Collins on 05-24-2025 Glucose Ql (U) Negative [facility] Laboratory - UrinalysisOrder ed By: Lora Collins on 05-24-2025 Protein Ql (U) Negative [facility] Park Aide Office Visit Reporton 05-24-2025 Park Aide Office Visit Report [facility] [address], [address] [place] [address] OFFICE VISIT Date of Service: 05/24/25 MR#: [id number] Acct: [id number] Name: GAURAV FORTE Rep #: [id number] : 2000 Provider: KRISTIE parnell Age/Sex: 24/F Location: [facility] [place] Status: Signed Intake Vital Signs 04/25/25 08:20 05/24/25 10:33 Height 5 ft 6 in 5 ft 6 in Weight: 139 lb 3 oz BMI 22.4 BP 106/68 Intake Visit Reasons: 21 wk ob Chief Complaint: 21 Week OB [place] [employer] Required: No Is patient in pain?: No Allergies No Known Allergies Allergy (Unverified 05/24/25 10:34) Medications ???Medication ???Instructions ???Recorded ???Confirmed ???Type sertraline 25 mg tablet 25 mg PO DAILY 03/10/24 05/24/25 H istory fish, borage, flaxseed oils-omega See Rx Instructions PO DAILY 11/1205/24/25 History 3,6,9 comb no.1 1,200 mg capsule ([place] 3-6-9) magnesium 250 mg tablet 250 mg PO QDAY 02/16/25 05/24/25 H istory multivit-min no.71-iron fum 28 cap PO 02/16/25 05/24/25 History mg-folate no.1 1 mg-dha 300 mg capsule (PNV-[place]) Last Menstrual Period: 12/29/24 Zika: Zika virus screening: Negative : No PFSH PFSH Surgical History Previous section Family History Aunt Cancer, Onset Age: 25 Paternal Brain tumor Social History adopted: No household members: spouse and children housing: house number of children: 1 current occupational status: unemployed current occupation: [employer] current occupational exposures/hazards: No pets and animals: [...] physical activity do you participate in: none cindy/yazidi: Rastafarian seatbelt use: always do you feel safe at home: Yes additional social history: - [employer] [place] work History 3 Elective abortions Hx Para [...] -???-???-???-???-???- ???-? (more content not included)... Normal [facility] OB Anatomy w/ Transvaginalon 05-18-2025 OB Anatomy w/ Transvaginal [facility] Imaging Services [address] [place], [place] [address] OB Anatomy w/ Transvaginal MR#: [id number] Acct: [id number] Name: GAURAV FORTE Rep #: [id number] : 2000 F 24 From: Antonio heaton MD PCP: OUT OF [facility] DOCTOR Status: [facility] Study: OB Anatomy w/ Transvaginal Date of Exam: 05/18 Exam# [id number] Ordering Dr: Sirena Padilal PROCEDURE: OB ANATOMY W/ TRANSVAGINAL 05/18/2025 REASON [...] 20 weeks and 0 days. Reading Location: [facility] CC: Dr. 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 [facility] Status: Signed Intake Vital Signs 03/02/25 09:11 04/05/25 14:41 04/25/25 08:20 Height 5 ft 6 in 5 ft 6 in 5 ft 6 in Weight: 136 lb 4 oz BMI 21.9 BP 120/76 Intake Visit Reasons: 17 wk ob Chief Complaint: 17 Week OB [place] San[place] Required: No Is patient in pain?: No Allergies No Known Allergies Allergy (Unverified 04/25/25 08:20) Medications ???Medication ???Instructions ???Recorded ???Confirmed ???Type sertraline 25 mg tablet 25 mg PO DAILY 03/10/24 04/25/25 H istory fish, borage, flaxseed oils-omega See Rx Instructions PO DAILY 11/1204/25/25 History 3,6,9 comb no.1 1,200 mg capsule ([place] 3-6-9) magnesium 250 mg tablet 250 mg PO QDAY 02/16/25 04/25/25 H istory multivit-min no.71-iron fum 28 cap PO 02/16/25 04/25/25 History mg-folate no.1 1 mg-dha 300 mg capsule (PNV-[place]) Last Menstrual Period: 12/29/24 Zika: Zika virus screening: Negative : No PFSH PFSH Medical History Women's annual routine gynecological examination Surgical History Previous section Family History Aunt Cancer, Onset Age: 25 Paternal Brain tumor Social History adopted: No household members: spouse and children housing: house number of children: 1 current occupational status: unemployed current occupation: [employer] current occupational exposures/hazards: No pets and animals: [...] physical activity do you participate in: none cindy/yazidi: Rastafarian seatbelt use: always do you feel safe at home: Yes additional social history: - [employer] [place] work History 3 Elective abortions Hx Para [...] cr map (more content not included)... Normal [facility] - Chemistry and C hemistry - challengeOrdered By: Sirena Padilla on 04-05-2025 Glucose Ql (U) Negative [facility] - UrinalysisOrder ed By: Sirena Padilla on 04-05-2025 Protein Ql (U) Negative [facility] Park Aide Office Visit Reporton 04-05-2025 Park Aide Office Visit Report [facility]'[address], [address] [place] [address] OFFICE VISIT Date of Service: 04/05/25 MR#: [id number] Acct: [id number] Name: GAURAV FORTE Rep #: [id number] : 2000 Provider: Dr. Sirena jimenes MD Age/Sex: 24/F Location: [facility] [facility] Status: Signed Intake Vital Signs 02/07/25 16:03 03/02/25 09:11 04/05/25 14:41 Height 5 ft 6 in 5 ft 6 in 5 ft 6 in Weight: 134 lb 6 oz BMI 21.7 BP 116/76 Intake Visit Reasons: 13wk OB [place] San[place] Required: No Is patient in pain?: No Allergies No Known Allergies Allergy (Unverified 04/05/25 14:48) Medications ???Medication ???Instructions ???Recorded ???Confirmed ???Type sertraline 25 mg tablet 25 mg PO DAILY 03/10/24 04/05/25 H istory fish, borage, flaxseed oils-omega See Rx Instructions PO DAILY 11/1204/05/25 History 3,6,9 comb no.1 1,200 mg capsule ([place] 3-6-9) magnesium 250 mg tablet 250 mg PO QDAY 02/16/25 04/05/25 H istory multivit-min no.71-iron fum 28 cap PO 02/16/25 04/05/25 History mg-folate no.1 1 mg-dha 300 mg capsule (PNV-[place]) Last Menstrual Period: 12/29/24 Zika: Zika virus screening: Negative : No PFSH PFSH Medical History Women's annual routine gynecological examination Surgical History Previous section Family History Aunt Cancer, Onset Age: 25 Paternal Brain tumor Social History adopted: No household members: spouse and children housing: house number of children: 1 current occupational status: unemployed current occupation: [employer] current occupational exposures/hazards: No pets and animals: [...] physical activity do you participate in: none cindy/yazidi: Rastafarian seatbelt use: always do you feel safe at home: Yes additional social history: - [employer] [place] work History 3 Elective abortions Hx Para [...] First Trimester (more content not included)... Normal [facility] Chlamydia/GC JERRY aptimaon CHLAMY,NUC ACID Negative Normal Negative [facility] Comment on above: Performed By: #### L 7000.1800, M100.2200 #### [facility] [address] [place], [address] GC BY NUC ACID Negative Normal Negative [facility] Comment on above: Result Comment: Perf ormed at: =G - [facility] [place] [address] [place] [id number] Chief Radiologic Technologist: Jennifer Mendez MD, Phone: [phone] Performed By: #### L 7000.1800, M100.2200 #### [facility] [address] [place], [place], [id number] Urine Cultureon 03-03-2025 URC #1, 2 Below infectio n level. GNR lactose supervisor anodizing [place] Count <1000 Mixed Gram Positive Organisms Mixed Gram Positive Organisms MIXC Mixed contaminants. Submit a new specimen if indicated. Normal [facility] Comment on above: Performed By: #### L 7000.1800, M100.2200 #### [facility] [address] [place], [place], [address] Absolute lymphocyte countOrd ered By: Sophia Cho on 03-02-2025 Lymphocytes Auto (Unsp spec) [#/Vol] 1.59 10*3/uL 0.83-4.51 [facility] Absolute neutrophil countOrd ered By: Sophia Cho on 03-02-2025 Neutrophils (Bld) [#/Vol] 4.0 10*3/uL 2.0-7.7 [facility] Automated lymphocyte count a s percentage of total leukocytesOrdered By: Sophia Cho on 03-02-2025 Lymphocytes/100 WBC Auto (Unsp spec) 25.6 % 19-41 [facility] Basophil percentageOrdered B y: Sophia Cho on 03-02-2025 Basophils/100 WBC (Bld) 0.6 % 0-1 [facility] CBC W/Diff, Automatedon 02-16 Absolute Lymph 1.59 X10 3/uL Normal 0.83-4.51 [facility] Comment on above: Performed By: #### L 509.8002, L3890.6006, L3890.6102, L3890.6301, BTS, L100.0100, L501.9520, L506.0400, L509.4006 #### [facility] [address] [place], [address] Absolute Neut 4.0 X10 3/uL Normal 2.0-7.7 [facility] Comment on above: Performed By: #### L 509.8002, L3890.6006, L3890.6102, L3890.6301, BTS, L100.0100, L501.9520, L506.0400, L509.4006 #### [facility] [address] [place], [address] Basophils/100 WBC (Bld) 0.6 % Normal 0-1 [facility] Comment on above: Performed By: #### L 509.8002, L3890.6006, L3890.6102, L3890.6301, BTS, L100.0100, L501.9520, L506.0400, L509.4006 #### [facility] [address] [place], [address] Eosinophils/100 WBC (Bld) 1.9 % Normal 0-5 [facility] Comment on above: Performed By: #### L 509.8002, L3890.6006, L3890.6102, L3890.6301, BTS, L100.0100, L501.9520, L506.0400, L509.4006 #### [facility] [address] [place], [address] Erythrocyte distribution width (RBC) [Ratio] 13.2 % Normal 11.6-14.6 [facility] Comment on above: Performed By: #### L 509.8002, L3890.6006, L3890.6102, L3890.6301, BTS, L100.0100, L501.9520, L506.0400, L509.4006 #### [facility] [address] [place], [address] Hematocrit (Bld) [Volume fraction] 36.2 % Low 37-47 [facility] Comment on above: Performed By: #### L 509.8002, L3890.6006, L3890.6102, L3890.6301, BTS, L100.0100, L501.9520, L506.0400, L509.4006 #### [facility] [address] [place], [address] Hemoglobin (Bld) [Mass/Vol] 12.0 g/dL Normal 12.0-15.0 [facility] Comment on above: Performed By: #### L 509.8002, L3890.6006, L3890.6102, L3890.6301, BTS, L100.0100, L501.9520, L506.0400, L509.4006 #### [facility] [address] [place], [address] (287) IG% 0.500 Normal 0.0-0.9 [facility] Comment on above: Result Comment: IG% - Immature Granulocytes (promyelocytes, myelocytes and metamyelocytes) > 1% indicates that a LEFT SHIFT is Present. Performed By: #### L 509.8002, L3890.6006, L3890.6102, L3890.6301, BTS, L100.0100, L501.9520, L506.0400, L509.4006 #### [facility] [address] [place], [address] Lymphocytes/100 WBC (Bld) 25.6 % Normal 19-41 [facility] Comment on above: Performed By: #### L 509.8002, L3890.6006, L3890.6102, L3890.6301, BTS, L100.0100, L501.9520, L506.0400, L509.4006 #### [facility] [address] [place], [address] MCH (RBC) [Entitic mass] 30.0 pg Normal 27.0-32.0 [facility] Comment on above: Performed By: #### L 509.8002, L3890.6006, L3890.6102, L3890.6301, BTS, L100.0100, L501.9520, L506.0400, L509.4006 #### [facility] [address] [place], [address] MCHC (RBC) [Mass/Vol] 33.1 g/dL Normal 32-36 [facility] Comment on above: Performed By: #### L 509.8002, L3890.6006, L3890.6102, L3890.6301, BTS, L100.0100, L501.9520, L506.0400, L509.4006 #### [facility] [address] [place], [address] MCV (RBC) [Entitic vol] 90.5 fL Normal 81-99 [facility] Comment on above: Performed By: #### L 509.8002, L3890.6006, L3890.6102, L3890.6301, BTS, L100.0100, L501.9520, L506.0400, L509.4006 #### [facility] [address] [facility] [place], [address] Monocytes/100 WBC (Bld) 7.1 % Normal 0-10 [facility] Comment on above: Performed By: #### L 509.8002, L3890.6006, L3890.6102, L3890.6301, BTS, L100.0100, L501.9520, L506.0400, L509.4006 #### [facility] [address] [place], [address] Neutrophils/100 WBC (Bld) 64.3 % Normal 47-70 [facility] Comment on above: Performed By: #### L 509.8002, L3890.6006, L3890.6102, L3890.6301, BTS, L100.0100, L501.9520, L506.0400, L509.4006 #### [facility] [address] [place], [address] Nucleated RBC (Bld) [#/Vol] 0 10*3/uL Normal 0-5 [facility] Comment on above: Performed By: #### L 509.8002, L3890.6006, L3890.6102, L3890.6301, BTS, L100.0100, L501.9520, L506.0400, L509.4006 #### [facility] [address] [place], [address] Platelet mean volume (Bld) [Entitic vol] 11.0 fL Normal 6.2-12.0 [facility] Comment on above: Performed By: #### L 509.8002, L3890.6006, L3890.6102, L3890.6301, BTS, L100.0100, L501.9520, L506.0400, L509.4006 #### [facility] [address] [place], [address] Platelets (Bld) [#/Vol] 171 10*3/uL Normal 150-450 [facility] Comment on above: Performed By: #### L 509.8002, L3890.6006, L3890.6102, L3890.6301, BTS, L100.0100, L501.9520, L506.0400, L509.4006 #### [facility] [address] [place], [address] RBC (Bld) [#/Vol] 4.00 10*6/uL Low 4.2-5.4 [facility] Comment on above: Performed By: #### L 509.8002, L3890.6006, L3890.6102, L3890.6301, BTS, L100.0100, L501.9520, L506.0400, L509.4006 #### [facility] [address] [place], [address] RDW SD 43.7 fl Normal 35.1-43.9 [facility] Comment on above: Performed By: #### L 509.8002, L3890.6006, L3890.6102, L3890.6301, BTS, L100.0100, L501.9520, L506.0400, L509.4006 #### [facility] [address] [facility] [address] [place], [place], [address] WBC (Bld) [#/Vol] 6.2 10*3/uL Normal 4.4-11.0 [facility] Comment on above: Performed By: #### L 509.8002, L3890.6006, L3890.6102, L3890.6301, BTS, L100.0100, L501.9520, L506.0400, L509.4006 #### [facility] [address] [facility] [place], [place], [address] Chlamydia trachomatis rRNA d etection by probe and target amplification methodOrdered By: Sophia Cho on 03-02-2025 C. trachomatis rRNA JERRY+probe Ql (Unsp spec) Negative Negative [facility] Eosinophil percentageOrdered By: Sophia Cho on 03-02-2025 Eosinophils/100 WBC (Bld) 1.9 % 0-5 [facility] Erythrocyte distribution wid th ratioOrdered By: Sophia Cho on 03-02-2025 Erythrocyte distribution width (RBC) [Ratio] 13.2 % 11.6-14.6 [facility] Erythrocyte distribution wid th standard deviationOrdered By: Sophia Cho on 03-02-2025 Erythrocyte distribution width (RBC) [Ratio] 43.7 fl 35.1-43.9 [facility] HIVon 03-02-2025 HIV Non-Reactive Normal Nonreactive [facility] Comment on above: Result Comment: Non- Reactive Reactive Repeatedly reactive samples must be confirmed according to CDC recommended confirmatory algorithms. The subresults for either HIVAG or AHIV can be used as an aid in the selection of the confirmation algorithm for reactive samples. Send out specimens with Reactive results to [facility] for confirmation. Order the HIV antibody detection and differentiation: lc#[id number] Performed By: #### L 100.0100, L501.0250, L509.8002, L3890.6006 #### [facility] [address] [place], [place], [address] Hematocrit Auto (Bld) [Volum e fraction]Ordered By: Sophia Cho on 03-02-2025 Hematocrit (Bld) [Volume fraction] 36.2 % Low 37-47 [facility] Hemoglobin measurementOrdere d By: Sophia Cho on 03-02-2025 Hemoglobin (Bld) [Mass/Vol] 12.0 g/dL 12.0-15.0 [facility] Hepatitis C Antibodyon 03-02 Hepatitis C Ab Non-Reactive Normal Nonreactive [facility] Comment on above: Result Comment: Reac tive: Presumptive evidence of antibodies to HCV. Follow CDC recommendations for supplemental testing. Non-Reactive: Antibodies to HCV were not detected; does not exclude the possibility of exposure to HCV Reactive Results are presumptive evidence of antibodies to HCV. Follow CDC recommendations for supplemental testing. Order confirmation testing: HCV Quant by PCR testing - HCVPCR #[id number] Non Reactive: < 0.8 Equivocal: >/= 0.8 to < 1.0 Reactive: >/= 1.0 The CDC requires that a reactive/equivocal HCV antibody result be sent out for confirmation. HCV Quant by PCR testing. Performed By: #### L 100.0100, L501.0250, L509.8002, L3890.6006 #### [facility] [address] [place], [place], [address] Immature granulocytes/100 WB C Auto (Bld)Ordered By: Sophia Cho on 03-02-2025 Immature granulocytes/100 WBC (Bld) 0.500 % 0.0-0.9 [facility] Comment on above: IG% - Immature Granu locytes (promyelocytes, myelocytes and metamyelocytes) > 1% indicates that a LEFT SHIFT is Present. L3890.6102on 03-02-2025 HEP B Surf Ag Non-Reactive Normal Nonreactive [facility] Comment on above: Result Comment: Reac tive: Presumptive evidence of HBV. Repeatedly reactive samples must be confirmed using a neutralization test ([employer] HBsAg Confirmatory Test) Non-Reactive: HBsAg not detected; does not exclude the possibility of exposure to HBV Performed By: #### L 100.0100, L501.0250, L509.8002, L3890.6006 #### [facility] [address] [facility] [place], [place], [address] L509.4006on 03-02-2025 Rubella IgG Non-Reactive Normal Nonreactive [facility] Comment on above: Result Comment: Anti body Result: Interpretation Non-Reactive: Non-Immune Reactive: Immune The following results were obtained with the [employer] Rubella IgG assay. Results from assays of other manufacturers cannot be used interchangeably. Performed By: #### L 100.0100, L501.0250, L509.8002, L3890.6006 #### [facility] [address] [facility] [place], [place], [address] Laboratory - Microbiology an d Antimicrobial susceptibilityOrdered By: Sophia Cho on 03-02-2025 HBV surface Ag Ql (S) Non-Reactive Nonreactive [facility] Comment on above: Reactive: Presumptiv e evidence of HBV. Repeatedly reactive samples must be confirmed using a neutralization test ([employer] HBsAg Confirmatory Test)Non-Reactive: HBsAg not detected; does not exclude the possibility of exposure to HBV MCV (mean corpuscular volume ) determinationOrdered By: Sophia Cho on 03-02-2025 MCV (RBC) [Entitic vol] 90.5 fL 81-99 [facility] Mean corpuscular hemoglobin (MCH) determinationOrdered By: Sophia Cho on 03-02-2025 MCH (RBC) [Entitic mass] 30.0 pg 27.0-32.0 [facility] Mean corpuscular hemoglobin concentration (MCHC) determinationOrdered By: Sophia Cho on 03-02-2025 MCHC (RBC) [Mass/Vol] 33.1 g/dL 32-36 [facility] Mean platelet volume determi nationOrdered By: Sophia Cho on 03-02-2025 Platelet mean volume (Bld) [Entitic vol] 11.0 fL 6.2-12.0 [facility] Monocyte percentageOrdered B y: Sophia Cho on 03-02-2025 Monocytes/100 WBC (Bld) 7.1 % 0-10 [facility] Neisseria gonorrhoeae nuclei c acid detection by amplified probe techniqueOrdered By: Sophia Cho on 03-02-2025 N. gonorrhoeae DNA JERRY+probe Ql (Unsp spec) Negative Negative [facility] Comment on above: Performed at: =[address] [id number] Director: Jennifer Mendez MD, Phone: [phone] Neutrophil percentageOrdered By: Sophia Cho on 03-02-2025 Neutrophils/100 WBC (Bld) 64.3 % 47-70 [facility] No Panel InformationOrdered By: Sophia Cho on 03-02-2025 HIV (1&2) Antibody Non-Reactive Nonreactive [facility] Comment on above: Non-ReactiveReactive Repeatedly reactive samples must be confirmed according to CDC recommended confirmatory algorithms. The subresults for either HIVAG or AHIV can be used as an aid in the selection of the confirmation algorithm for reactive samples.Send out specimens with Reactive results to [facility] for confirmation.Order the HIV antibody detection and differentiation: #[id number] Nucleated red blood cell per centageOrdered By: Sophia Cho on 03-02-2025 Nucleated RBC/100 WBC (Bld) [Ratio] 0 % 0-5 [facility] Park Aide Office Visit Reporton 03-02-2025 Park Aide Office Visit Report [facility] [address], [address] [place] [address] OFFICE VISIT Date of Service: 03/02/25 MR#: [id number] Acct: [id number] Name: GAURAV FORTE Rep #: [id number] : 2000 Provider: NOELLE Fan ams Age/Sex: 24/F Location: [facility] [place] Status: Signed Intake Vital Signs 03/10/24 13:00 02/07/25 16:03 03/02/25 09:11 Height 5 ft 6 in 5 ft 6 in 5 ft 6 in Weight: 133 lb 4 oz BMI 21.4 BP 116/78 Intake Visit Reasons: NOB: LMP 12/29, WIL[place] 10/05 Chief Complaint: [place] Required: No Is patient in pain?: No Allergies No Known Allergies Allergy (Unverified 03/02/25 09:15) Medications ???Medication ???Instructions ???Recorded ???Confirmed ???Type sertraline 25 mg tablet 25 mg PO DAILY 03/10/24 03/02/25 H istory fish, borage, flaxseed oils-omega See Rx Instructions PO DAILY 11/1203/02/25 History 3,6,9 comb no.1 1,200 mg capsule ([place] 3-6-9) magnesium 250 mg tablet 250 mg PO QDAY 02/16/25 03/02/25 H istory multivit-min no.71-iron fum 28 cap PO 02/16/25 03/02/25 History mg-folate no.1 1 mg-dha 300 mg capsule (PNV-[place]) Last Menstrual Period: 12/29/24 [facility] Medical History Women's annual routine gynecological examination Surgical History Previous section Family History Aunt Cancer, Onset Age: 25 Paternal Brain tumor Social History adopted: No household members: spouse and children housing: house number of children: 1 current occupational status: unemployed current occupation: [employer] current occupational exposures/hazards: No pets and animals: [...] physical activity do you participate in: none cindy/yazidi: Rastafarian seatbelt use: always do you feel safe at home: Yes additional social history: - [employer] [place] work History 3 Elective abortions Hx Para [...] Screening: Congenital (more content not included)... Normal [facility] Platelet countOrdered By: Indra Cho on 03-02-2025 Platelets (Bld) [#/Vol] 171 10*3/uL 150-450 [facility] RBC Auto (Bld) [#/Vol]Ordere d By: Sophia Cho on 03-02-2025 RBC (Bld) [#/Vol] 4.00 10*6/uL Low 4.2-5.4 [facility] Syphilis Antibodieson 2024 Syphilis Abs Non-Reactive Normal Nonreactive [facility] Comment on above: Performed By: #### L 100.0100, L501.0250, L509.8002, L3890.6006 #### [facility] [address] [place], [address] T4 Free Directon 03-02-2025 T4 FREE DIRECT 1.10 ng/dL Normal 0.76-1.46 [facility] Comment on above: Performed By: #### L 100.0100, L501.0250, L509.8002, L3890.6006 #### [facility] [address] [place], [place], [id number] T4 freeOrdered By: Sophia longoria on 03-02-2025 Free T4 [Mass/Vol] 1.10 ng/dL 0.76-1.46 [facility] TSH DL <= 0.005 mIU/L QnOrde red By: Sophia Cho on 03-02-2025 TSH Qn 0.738 uIU/mL 0.300-4.200 [facility] Thyroid Stim Hormone (TSH)on 03-02-2025 TSH 0.738 uIU/mL Normal 0.300-4.200 [facility] Comment on above: Performed By: #### L 100.0100, L501.0250, L509.8002, L3890.6006 #### [facility] [address] [place], [address] Type AND Screenon 03-02-2025 Ab SCREEN GEL Negative Normal [facility] Comment on above: Order Comment: PT WA S LATE FOR THEIR 1 HR GLUCOSE DRAW. PT DIDNT CHECK IN UNTIL 954 Performed By: #### L 100.0100, L501.0250, L509.8002, L3890.6006 #### [facility] [address] [place], [place], [id number] Urine cultureOrdered By: David Cho on 03-02-2025 Bacteria identified Cx Nom (U) GNR lactose supervisor anodizing Abnormal [facility] Bacteria identified Cx Nom (U) Positive Abnormal [facility] White blood cell (WBC) count Ordered By: Sophia Cho on 03-02-2025 WBC (Bld) [#/Vol] 6.2 10*3/uL 4.4-11.0 [facility] Park Aide Office Visit Reporton 02-07-2025 Park Aide Office Visit Report [facility], [address] [place] [address] OFFICE VISIT Date of Service: 02/07/25 MR#: [id number] Acct: [id number] Name: GAURAV FORTE Rep #: [id number] : 2000 Provider: Dr. Sirena jimenes MD Age/Sex: 24/F Location: [facility] [place] Status: Signed Intake Vital Signs 03/10/24 13:00 02/07/25 16:03 Height 5 ft 6 in 5 ft 6 in Weight: 127 lb BMI 20.5 BP 124/84 H Intake Visit Reasons: 5w5d spotting [place] [employer] Required: No Is patient in pain?: No Allergies No Known Allergies Allergy (Unverified 02/07/25 16:06) Medications ???Medication ???Instructions ???Recorded ???Confirmed ???Type sertraline 25 mg tablet 25 mg PO DAILY 03/10/24 02/07/25 H istory Post menopausal: No Patient : Yes : No [facility] Medical History (Updated 02/07/25 @ 16:37 by [...] in: walking frequency: 3-4 times per week cindy/yazidi: Rastafarian seatbelt use: always do you feel safe [...] Nutritional Appearance: average body habitus Orientation: alert HENAR Head: normal to inspection and normocephalic Neck [...] Plan fu for new ob visit 02/07/25 0838 Date Sirena Padilla MD (more content not included)... Normal [facility] No Panel Informationon 02-02 [facility]. Serum human chorionic gonado tropin detection for pregnancyOrdered By: Sirena Padilla on 02-01-2025 HCG ( test) Ql 5046 mIU/mL High <9 [facility] Comment on above: Gestational Age0.2-1 Week: 5-50 mIU/mL1-2 Weeks: 50-500 mIU/mL2-3 Weeks: 100-5000 mIU/mL3-4 Weeks: 500-10,000 mIU/mL4-5 Weeks:1000-50,000 mIU/mL5-6 Weeks: 10,000-100,000 mIU/mL6-8 Weeks: 15,000-200,000 mIU/mL2-3 Months:10,000-100,000 mIU/mL hCG Titer Quant., Serumon HCG QUANT. 5046 mIU/mL High <9 non-preg [facility] Comment on above: Result Comment: Gest ational Age 0.2-1 Week: 5-50 mIU/mL 1-2 Weeks: 50-500 mIU/mL 2-3 Weeks: 100-5000 mIU/mL 3-4 Weeks: 500-10,000 mIU/mL 4-5 Weeks:1000-50,000 mIU/mL 5-6 Weeks: 10,000-100,000 mIU/mL 6-8 Weeks: 15,000-200,000 mIU/mL 2-3 Months:10,000-100,000 mIU/mL Performed By: #### L 700.8000 #### [facility] [address] [place], [address] No Panel Informationon 01-31 [facility] PROGESTERONE 4317on 02-01-20 25 PROGESTERONE 26.8 ng/mL Normal . [facility] Comment on above: Order Comment: N Result Comment: Foll icular phase 0.1 - 0.9 Luteal phase 1.8 - 23.9 Ovulation phase 0.1 - 12.0 First trimester 11.0 - 44.3 Second trimester 25.4 - 83.3 Third trimester 58.7 - 214.0 Postmenopausal 0.0 - 0.1 Performed at: [facility] Lab[address] [id number] Chief Radiologic Technologist: Cody Bell PhD, Phone: [phone] Performed By: #### L 509.7528, L075.6658 #### [facility] [address] [place], [address] No Panel Informationon 01-30 [facility]. [facility] Serum human chorionic gonado tropin detection for pregnancyOrdered By: Sirena Padilla on 01-30-2025 HCG ( test) Ql 2103 mIU/mL High <9 [facility] Comment on above: Gestational Age0.2-1 Week: 5-50 mIU/mL1-2 Weeks: 50-500 mIU/mL2-3 Weeks: 100-5000 mIU/mL3-4 Weeks: 500-10,000 mIU/mL4-5 Weeks:1000-50,000 mIU/mL5-6 Weeks: 10,000-100,000 mIU/mL6-8 Weeks: 15,000-200,000 mIU/mL2-3 Months:10,000-100,000 mIU/mL hCG Titer Quant., Serumon HCG QUANT. 2103 mIU/mL High <9 non-preg [facility] Comment on above: Result Comment: Gest ational Age 0.2-1 Week: 5-50 mIU/mL 1-2 Weeks: 50-500 mIU/mL 2-3 Weeks: 100-5000 mIU/mL 3-4 Weeks: 500-10,000 mIU/mL 4-5 Weeks:1000-50,000 mIU/mL 5-6 Weeks: 10,000-100,000 mIU/mL 6-8 Weeks: 15,000-200,000 mIU/mL 2-3 Months:10,000-100,000 mIU/mL Performed By: #### L 700.8000, L801.2600 #### [facility] [address] [place], [address] No Panel Informationon 12-22 [facility]. [facility]. No Panel Informationon 12-21 [facility]. ED MED ADMINISTRATION DETAIL on 11-10-2024 ED MED ADMINISTRATION DETAIL Nurses Medical Assistants Phlebotomists Medication Administration Record [address] [place] [address] [id number] 10/30/2024 Patient: GAURAV FORTE Sex: Female : [...] Memo Cabrera R.N. 1 of 1 Normal [facility] ED NURSES CLINICAL NOTEon ED NURSES CLINICAL NOTE Nurse Narrative Nurse Clinical Narrative [facility] [address] [place] [address] [phone] 10/30/2024 Patient: GAURAV FORTE Sex: Female : [...] Willingham E.M.T.-P. 18:52 10/30/24. Patient transported to [place] by stretcher. Patient identifiers checked. Call light placed in reach. Side rails up. Bed placed in lowest position. -- 18:52 10/30/24 NICOLE Ramires R.N. DISPOSITION / DISCHARGE 19:28 10/30/24. BP: 117/82 MAP: 91 mmHg. HR: 86 bpm. -- 20:26 10/30/24 NIOCLE Cabrera R.N. 19:42 10/30/24. IV NS 0.9 [...] left ambulatory and via private vehicle. Driving (commercial driver's license driver of choice). -- 20:10/30/24 NICOLE Cabrera R.N. Departure time: 19:58 10/30/2024. -- 20:10/30/24 NICOLE Cabrera R.N. 19:58 10/30/24. BP: 116 HR: 80. RR: 16. O2 saturation: 100% Pain level now 0/10. -- 20:29 10/30/24 NICOLE Cabrera R.N. 19:58 10/30/24. Site #1 removed upon discha (more content not included)... Normal [facility] ED ORDER SHEET (CPOE ONLY)on 11-10-2024 ED ORDER SHEET (CPOE ONLY) Order Sheet Order Sheet [facility] [address] [place] [address] [id number] 10/30/2024 Patient: GAURAV FORTE Sex: Female : [...] (11/10/2024 07:02 EST)] 2 of 2 Normal [facility] ED PHYSICIAN CLINICAL REPORT on 11-10-2024 ED PHYSICIAN CLINICAL REPORT Narrative Physician Clinical Narrative [facility] [address] [place] [address] [phone] 10/30/2024 Patient: GAURAV FORTE Sex: Female : [...] 1.50 - 7.10 Final EST 10/30/2024 18:35 [place] # 0.41 x10/UL 0.20 - 1.00 Final [...] - 20 (more content not included)... Normal [facility] ED SUPER BILLon 11-10-2024 ED [facility]PER BILL [facility] [address] [place] [address] [id number] 10/30/2024 Patient: GAURAV FORTE Sex: Female : 2000 Age: 24y Facility Professional Category Item Description Code Code Quantity Fee Total Nurse/E/M EMERGENCY 845489 1 $0.00 $0.00 DEPT VISIT HIGH SEVERITYFUNCJ (27914-07) Nurse/IV/IM/Infusions Hydration 650633 1 $0.00 $0.00 additional hour (15340) Nurse/IV/IM/Infusions Hydration initial 264275 1 $0.00 $0.00 (47254) Grand $0.00 Total Providers Wilfredo Chamberlain M.D. Chief Complaint VAGINAL BLEEDING. 1 of 2 Superbill Principal Diagnosis Moderate vaginal bleeding. Probable complete spontaneous (miscarriage).No complications. ICD-10 Codes N93.9: Abnormal uterine and vaginal bleeding, unspecified 2 of 2 Normal [facility] ED VISIT SUMMARYon ED VISIT SUMMARY Visit Overview Visit Overview [facility] [address] [facility] [place] [address] [id number] 10/30/2024 Patient: GAURAV FORTE Sex: Female : [...] SPONTANEOUS (MISCARRIAGE).NO COMPLICATIONS 3 of 3 Normal [facility] ED VITALS FLOW SHEETon 11-10 ED VITALS FLOW SHEET Vitals Vital Sign Flow Sheet [place] [address] [place] [address] [phone] 10/30/2024 Patient: GAURAV FORTE Sex: Female : [...] 98.4 F 2 2 of 2 Normal [facility] No Panel Informationon 10-31 [facility], [facility].; [facility], [facility]. CBC + DIFFon 10-30-2024 Baso # 0.01 x10EE3/UL Normal 0.00 - 0.10 [facility] Comment on above: Performed By: #### 2 34799 #### [facility],[address] [place] [address]67 Basophils/100 WBC (Bld) 0.2 % Normal 0.0 - 2.0 % [facility] [place] - [facility] [employer] Work Phone: Comment on above: Performed By: #### 2 33251 #### [facility],[address] [place] [address] CBC + DIFF Normal [facility] Comment on above: Result Comment: CBC- COMPLETE BLOOD COUNT Performed By: #### 2 64241 #### [facility],[address] [place], [place] [id number] EO # 0.06 x10EE3/UL Normal 0.00 - 0.50 [facility] Comment on above: Performed By: #### 2 81079 #### [facility],[address] [place], [place] [id number] Eosinophils/100 WBC (Bld) 0.8 % Normal 0.0 - 7.0 % [facility], [facility].; [place] - [facility] [employer] Work Phone: Comment on above: Performed By: #### 2 93361 #### [facility],[address] [place], [place] [id number] Erythrocyte distribution width (RBC) [Ratio] 14.5 % Normal 12.0 - 15.6 % [facility], [facility].; [place] [facility] [place] [facility] [employer] Work Phone: Comment on above: Performed By: #### 2 14187 #### [facility],[address] [place], [place] [id number] Hematocrit (Bld) [Volume fraction] 39.4 % Normal 34.0 - 46.0 % [facility] [place] [facility] [place] [facility] [employer] Work Phone: Comment on above: Performed By: #### 2 38778 #### [facility],[address] [place] [address]159 Hemoglobin (Bld) [Mass/Vol] 13.2 g/dL Normal 12.0 - 16.0 g/dL [facility], [employer]. Work Phone: Comment on above: Performed By: #### 2 82857 #### [facility],[address] [place] [address] 04921 Lymph # 1.32 x10EE3/UL Normal 0.80 - 2.80 [facility] Comment on above: Performed By: #### 2 37904 #### [address] [address] Lymphocytes/100 WBC (Bld) 18.1 % Abnormal 20.0 - 45.0 % [facility], [facility].; [facility], Inc[facility] Work Phone: Comment on above: Performed By: #### 2 37105 #### [facility],[address] [place] [address] 29983 MANUAL DIFF N/A Normal [facility].; [facility], Inc[facility] Work Phone: Comment on above: Performed By: #### 2 46928 #### [facility],[address] [place] [address] 51889 MCH (RBC) [Entitic mass] 30 pg Normal 27 - 33 pg [facility], [facility].; [facility], Inc[facility] Work Phone: Comment on above: Performed By: #### 2 34333 #### [facility],[address] [place] [address] 40805 MCHC 34 X10 3 Normal 32 - 36 [facility] Comment on above: Performed By: #### 2 34689 #### [facility],[address] [place] [address] 38543 MCV (RBC) [Entitic vol] 89 fL Normal 80 - 99 fL E [facility], [employer].; [facility], [facility]. Work Phone: Comment on above: Performed By: #### 2 94580 #### [facility],[address] [place] [address] [place] # 0.41 x10EE3/UL Normal 0.20 - 1.00 [facility] Comment on above: Performed By: #### 2 55140 #### [facility],[address] [place] [address]8737 MONOS % 5.7 % Normal 0.0 - 10.0 [facility] Comment on above: Performed By: #### 2 27440 #### [facility],[address] [place] [address] Morphology Mehul (Bld) [Interp] N/A Normal [facility].; [facility], [employer]. Work Phone: Comment on above: Performed By: #### 2 39996 #### [facility],[address] [place] [address] Neut # 5.48 x10EE3/UL Normal 1.50 - 7.10 [facility] Comment on above: Performed By: #### 2 98476 #### [facility],[address] [place] [address] 90627 Neutrophils/100 WBC (Bld) 75.3 % Normal 46.0 - 76.0 % [facility].; [facility]. Work Phone: Comment on above: Performed By: #### 2 12075 #### [facility],[address] [place] [address]44 PLATELET 149 x10EE3/UL Low 150 - 450 [facility] Comment on above: Performed By: #### 2 67956 #### [facility],[address] [place] [address] 25085 Platelet mean volume (Bld) [Entitic vol] 8.4 fL Normal 6.6 - 10.5 fL [facility].; [facility], [facility]. Work Phone: Comment on above: Result Comment: AUTO MATED DIFFERENTIAL Performed By: #### 2 71965 #### [facility],[address] [place] [address] 85581 RBC 4.42 x 10EE6/UL Normal 4.10 - 5.30 [facility] Comment on above: Performed By: #### 2 51727 #### [facility],[address] [place] [address] 82300 WBC 7.3 x 10EE3/UL Normal 4.5 - 10.8 [facility] Comment on above: Performed By: #### 2 61737 #### [facility],[address] [place], [place] [id number] CMP with eGFRon 10-30-2024 AGE 24 years Normal [facility] Comment on above: Performed By: #### 2 42819 ####[facility],[address] [place], [place] [id number] Albumin [Mass/Vol] 4.1 g/dL Normal 3.4 - 5.0 g/dL [facility], [facility] Work Phone: Comment on above: Performed By: #### 2 65100 ####[address] [address] Albumin/Globulin [Mass ratio] 1.1 {ratio} Normal 0.9 - 1.6 [facility] Comment on above: Performed By: #### 2 91809 ####[facility],[address] [place] [address] 99537 ALK PHOS 48 U/L Normal 46 - 116 U/L [facility].; [facility], [facility] Work Phone: Comment on above: Performed By: #### 2 56860 ####[facility],[address] [place] [address] 56004 ALT [Catalytic activity/Vol] 26 U/L Normal 16 - 63 U/L [facility], [facility].; [facility], Inc[facility] Work Phone: Comment on above: Performed By: #### 2 95165 ####[facility],[address] [place] [address] 23128 Anion gap [Moles/Vol] 15 mmol/L Normal 10 - 20 mmol/L [facility], [facility].; [place] - [facility] Work Phone: Comment on above: Performed By: #### 2 52087 ####[facility],[address] [place], [place] [id number] AST [Catalytic activity/Vol] 14 U/L Normal 13 - 39 U/L [facility], [facility].; [facility], Inc[facility] Work Phone: Comment on above: Performed By: #### 2 95549 ####[facility],[address] [place] [address]120 B/C RATIO 13 ratio Normal 0 - 30 [facility] Comment on above: Performed By: #### 2 76957 ####[address] [address] Bilirubin [Mass/Vol] 0.5 mg/dL Normal 0.2 - 1 .0 mg/dL [facility], [facility].; [facility], Inc[facility] Work Phone: Comment on above: Performed By: #### 2 62337 ####[facility],[address] [place] [address] 18434 Calcium [Mass/Vol] 9.0 mg/dL Normal 8.5 - 10. 1 mg/dL [facility], [facility].; [facility], Inc[facility] Work Phone: Comment on above: Performed By: #### 2 95718 ####[place] [address],[place] [address] Chloride [Moles/Vol] 101 mmol/L Normal 98 - 10 7 mmol/L [facility].; [facility]. Work Phone: Comment on above: Performed By: #### 2 12972 ####[facility],[address] [place] [address]11 CMP with eGFR Normal [facility] Comment on above: Result Comment: COMP REHENSIVE METABOLIC PANEL Performed By: #### 2 65624 ####[address] [address] CO2 [Moles/Vol] 27.2 mmol/L Normal 21.0 - 32.0 mmol/L [facility].; [facility]. Work Phone: Comment on above: Performed By: #### 2 56179 ####[facility],[address] [place] [address]270 Creatinine [Mass/Vol] 0.72 mg/dL Normal 0.55 - 1.02 mg/dL [facility].; [facility], [employer]. Work Phone: Comment on above: Performed By: #### 2 62897 ####[address] [address] GFR/1.73 sq M.predicted among non-blacks MDRD (S/P/Bld) [Vol rate/Area] mL/min/{1.73_m2} Normal 60 - 999 [facility] Comment on above: Performed By: #### 2 78485 ####[facility],[address] [place] [address]776 Result Comment: ACCO RDING TO THE NATIONAL [...] g/ dL [facility].; [facility], [facility]. Work Phone: Comment on above: Performed By: #### 2 99120 ####[address] [address] Glucose [Mass/Vol] 95 mg/dL Normal 74 - 106 mg/dL [facility].; [facility], [facility]. Work Phone: Comment on above: Performed By: #### 2 77101 ####[address] [address] Potassium [Moles/Vol] 3.8 mmol/L Normal 3.5 - 5.1 mmol/L [facility].; [facility], [facility] Work Phone: Comment on above: Performed By: #### 2 05710 ####[address] [address] Protein [Mass/Vol] 7.8 g/dL Normal 6.4 - 8.2 g/dL [facility].; [facility], [facility]. Work Phone: Comment on above: Performed By: #### 2 06100 ####[address] [address] Sodium [Moles/Vol] 139 mmol/L Normal 136 - 145 mmol/L [facility].; [facility], [facility] Work Phone: Comment on above: Performed By: #### 2 66279 ####[address] [address] Urea nitrogen [Mass/Vol] 9 mg/dL Normal 7 - 18 mg/d L [facility].; [employer] [facility], [employer]. Work Phone: Comment on above: Performed By: #### 2 69764 ####[facility],[address] [place] [address] Laboratory - Chemistry and C hemistry - challengeon 10-30-2024 Albumin [Mass/Vol] 1.1 g/dL Normal 0.9 - 1.6 [facility].; [employer] [facility], [facility] Work Phone: Bilirubin [Mass/Vol] Negative Normal [facility] [employer]; [facility], [employer]. Work Phone: GFR/1.73 sq M.predicted among blacks MDRD (S/P/Bld) [Vol rate/Area] mL/min/{1.73_m2} Normal 60 - 999 {ML/MINUTE} [facility].; [place] [facility], [facility] Work Phone: GFR/1.73 sq M.predicted MDRD (S/P/Bld) [Vol rate/Area] mL/min/{1.73_m2} Normal 60 - 999 {ML/MINUTE} [facility], [employer] [place] [facility], [facility] Work Phone: Glucose [Mass/Vol] NORM Normal [facility].; [employer] [facility], [facility] Work Phone: HCG.beta subunit Qn 16 m[IU]/mL Abnormal 0 - 6 m[iU]/mL [facility].; [place] [facility] Work Phone: pH (Bld) 7 [pH] Normal [facility].; [employer] [facility], [facility] Work Phone: Protein [Mass/Vol] Negative Normal [facility]; [facility] Work Phone: Urea nitrogen/Creatinine [Mass ratio] 13 {ratio} Normal 0 - 30 {ratio} [facility]; [facility] Work Phone: Laboratory - Hematology and Cell countson 10-30-2024 Basophils (Bld) [#/Vol] 0.01 {x10EE3/UL} Normal 0.00 - 0.10 {x10EE3/UL} [facility]; [facility] Work Phone: Eosinophils (Bld) [#/Vol] 0.06 {x10EE3/UL} Normal 0.00 - 0.50 {x10EE3/UL} [facility].; [facility] Work Phone: Lymphocytes (Bld) [#/Vol] 1.32 {x10EE3/UL} Normal 0.80 - 2.80 {x10EE3/UL} [facility].; [facility], [facility]. Work Phone: MCHC (RBC) [Mass/Vol] 34 {X10_3} Normal 32 - 3 6 {X10_3} [facility].; [facility]. Work Phone: Monocytes (Bld) [#/Vol] 0.41 {x10EE3/UL} Normal 0.20 - 1.00 {x10EE3/UL} [facility].; [facility] Work Phone: Monocytes/100 WBC (Bld) 5.7 % Normal 0.0 - 10.0 % [facility]; [facility] Work Phone: Neutrophils (Bld) [#/Vol] 5.48 {x10EE3/UL} Normal 1.50 - 7.10 {x10EE3/UL} [facility].; [facility], [facility]. Work Phone: Platelets (Bld) [#/Vol] 149 {x10EE3/UL} Abnormal 1 50 - 450 {x10EE3/UL} [facility].; [facility], [facility]. Work Phone: RBC (Bld) [#/Vol] 4.42 {x_10EE6/UL} Normal 4.10 - 5.30 {x_10EE6/UL} [facility].; [facility], [facility]. Work Phone: WBC (Bld) [#/Vol] Negative Normal [facility].; [facility]. Work Phone: WBC (Bld) [#/Vol] 7.3 {x_10EE3/UL} Normal 4.5 - 10.8 {x_10EE3/UL} [facility].; [facility], [facility]. Work Phone: Laboratory - Microbiology an d Antimicrobial susceptibilityon 10-30-2024 Bacteria identified Cx Nom (Unsp spec) 2+ Normal [facility]; [facility] Work Phone: Laboratory - Specimen inform ationon 10-30-2024 Specimen type Nom (Spec) R Normal [facility].; [facility]. Work Phone: Laboratory - Urinalysison Yeast LM Ql (Urine sed) NONE Normal [facility].; [facility], [facility] [facility] Work Phone: No Panel Informationon 10-30 AGE 24 {years} Normal [facility] Hospital[facility].; [facility] Work Phone: Blood 150 Abnormal [facility].; [employer] [facility] Work Phone: CBC + DIFF Normal [facility].; [email or web address] - [facility], [employer]. Work Phone: CMP with eGFR Normal [facility].; [employer] [facility], [employer]. Work Phone: Microscopic SEE BELOW Normal [facility].; [employer] [facility], [employer]. Work Phone: PREG SERUM QUANTon 5 HCG QUANTITATIVE 16 mIU/mL High 0 - 6 [facility] Comment on above: Result Comment: Refe [...] 3RD TRIMESTER 1000-50,000 Performed By: #### 2 [id number] ####[facility],[address] [place] [address] URINALYSISon 10-30-2024 Amorphous 3+ Normal [facility].; [employer] [facility], [employer]. Work Phone: Comment on above: Performed By: #### 2 [id number] #### [facility],[address] [place] [address] 69005 Bacteria 2+ Normal [facility] Comment on above: Performed By: #### 2 [id number] #### [facility],[address] [place] [address] Bilirubin Ql (U) Negative Normal NORMAL: NEGATIVE [facility] Comment on above: Performed By: #### 2 [id number] #### [facility],[address] [place] [address] 34983 Casts NONE Normal [facility], [facility] [employer] [facility] Work Phone: Comment on above: Performed By: #### 2 [id number] #### [facility],[address] [place] [address] Clarity (U) very cloudy Normal [facility], [facility] [employer] [facility] Work Phone: Comment on above: Performed By: #### 2 [id number] #### [facility],[address] [place] [address] Color (U) yellow Normal [facility], [facility] [employer] [facility] Work Phone: Comment on above: Performed By: #### 2 [id number] #### [facility],[address] [place] [address] Crystals LM Nom (Urine sed) NONE Normal [facility], [facility].; [email or web address] - [facility] Work Phone: Comment on above: Performed By: #### 2 [id number] #### [facility],[address] [place] [address] Epi Cells FEW Normal [facility] [facility] Work Phone: Comment on above: Performed By: #### 2 [id number] #### [facility],[address] [place], [place] [id number] Glucose Ql (U) NORM Normal NORMAL: NORMAL [facility] Comment on above: Performed By: #### 2 [id number] #### [facility],[address] [place], [place] [id number] Hemoglobin Ql (U) 150 Abnormal NORMAL: NEGATIVE [facility] Comment on above: Performed By: #### 2 [id number] #### [facility],[address] [place] [address] Ketone 15 Abnormal [facility].; [facility] Work Phone: Comment on above: Performed By: #### 2 [id number] #### [facility],[address] [place] [address] 24783 Leukocytes Negative Normal NORMAL: NEGATIVE [facility] Comment on above: Performed By: #### 2 12851 #### [facility],[address] [place] [address] 33453 Mucous NONE Normal [facility].; [facility], [facility] Work Phone: Comment on above: Performed By: #### 2 72135 #### [facility],[address] [place] [address] 71269 Nitrite Ql (U) Negative Normal [facility].; [facility], [facility] Work Phone: Comment on above: Performed By: #### 2 [id number] #### [facility],[address] [place] [address] 59521 pH (U) 7 [pH] Normal NORMAL: 5.0-8.0 [facility] Comment on above: Performed By: #### 2 [id number] #### [facility],[address] [place] [address] 16513 Protein Ql (U) Negative Normal NORMAL: NEGATIVE [facility] Comment on above: Performed By: #### 2 14113 #### [facility],[address] [place] [address] 55717 Rbc 5-10 Normal 0 - 3 [facility].; [facility], [facility] Work Phone: Comment on above: Performed By: #### 2 87859 #### [facility],[address] [place] [address] 30085 Sp [place] 1.015 Normal [facility].; [facility], [employer]. Work Phone: Comment on above: Performed By: #### 2 98575 #### [facility],[address] [place] [address] 61342 Specimen Type R Normal [facility] Comment on above: Performed By: #### 2 02110 #### [facility],[address] [place] [address] 94312 Urinalysis dipstick W Reflex Microscopic panel (U) SEE BELOW Normal [facility] Comment on above: Result Comment: MICR OSCOPIC Performed By: #### 2 05792 #### [facility],[address] [place] [address] 55764 Urobilinog NORM Normal [facility].; [facility], [facility]. Work Phone: Comment on above: Performed By: #### 2 03192 #### [facility],[address] [place] [address] 73008 Wbc NONE Normal 0 - 5 [facility].; [facility], [facility]. Work Phone: Comment on above: Performed By: #### 2 24449 #### [facility],[address] [place] [address] 79733 Yeast NONE Normal [facility] Comment on above: Performed By: #### 2 56904 #### [facility],[address] [place], [place] [address] OB ENDO VAGINALon 025 OB ENDO VAGINAL [place] [address] Patient: GAURAV FORTE Phone#: : [phone] Age: 24 Gender: F Pt. Type: ER Account: [id number] Location: [facility] Ordering: WILFREDO CHAMBERLAIN Exam Date: 10/30/2024/18:27 Family Phys: MALCOLM YANG Charge Code: [id number] Physician: [place] Order #: [id number] Dose#: PROCEDURE: OB INITIAL <14 WEEKS ULTRASOUND, TRANSABDOMINAL ENDOVAGINAL COMPARISON: [facility], OB INITIAL <14 WEEKS, 03/21/2022, [...] Michael MD on 10/31/2024 at 8:52 Normal [facility] US OB INITIAL< 14 WEEKS; 1st GESTATIONon 10-30-2024 US OB INITIAL< 14 WEEKS; 1st GESTATION [place] [id number] Patient: GAURAV FORTE Phone#: : [phone] Age: 24 Gender: F Pt. Type: ER Account: [id number] Location: 052 Ordering: WILFREDO CHAMBERLAIN Exam Date: 10/30/2024/18:27 Family Phys: MALCOLM YANG Charge Code: [id number] Physician: [place] Order #: [id number] Dose#: PROCEDURE: OB INITIAL <14 WEEKS ULTRASOUND, TRANSABDOMINAL ENDOVAGINAL COMPARISON: [facility], OB INITIAL <14 WEEKS, 03/21/2022, [...] Sydni Michael MD on 10/31/2024 at 8:52 [facility] No Panel Informationon 08-11 [employer], [employer]. No Panel Informationon 03-10 ADE[employer] Comment [employer] Work Phone: COMM . Normal [employer], [employer] Work Phone: COMMENT Comment [employer].; [employer], [employer] Work Phone: DIAG Comment [employer], [employer] Work Phone: GS See Note Normal [employer], [employer] Work Phone: HPV RFLX Comment [employer], [employer] Work Phone: PAPSMR Comment [employer].; [employer], [employer] Work Phone: PERFORM Comment Normal [facility].; [facility], [facility]. Work Phone: VAC See Note Normal [facility].; [facility], [facility]. Work Phone: No Panel Informationon 02-25 [facility].; [facility], [facility]. No Panel Informationon 10-21 [facility].; [facility], [facility]. Laboratory - Hematology and Cell countson 11-04-2022 Basophils (Bld) [#/Vol] 0.10 {x10EE3/UL} Normal 0.00 - 0.10 {x10EE3/UL} [facility].; [facility], [facility] Work Phone: Basophils/100 WBC (Bld) 0.4 % Normal 0.0 - 2.0 % [facility].; [facility], [facility]. Work Phone: Eosinophils (Bld) [#/Vol] 0.00 {x10EE3/UL} Normal 0.00 - 0.50 {x10EE3/UL} [facility].; [facility], [facility] Work Phone: Eosinophils/100 WBC (Bld) 0.3 % Normal 0.0 - 7.0 % [facility].; [facility], [facility]. Work Phone: Erythrocyte distribution width (RBC) [Ratio] 13.8 % Normal 12.0 - 15.6 % [facility].; [facility], [facility] Work Phone: Hematocrit (Bld) [Volume fraction] 32.4 % Abnormal 34.0 - 46.0 % [facility].; [facility], [facility] Work Phone: Hemoglobin (Bld) [Mass/Vol] 10.8 g/dL Abnormal 12.0 - 16.0 g/dL [facility]; [facility], [facility]. Work Phone: Lymphocytes (Bld) [#/Vol] 1.80 {x10EE3/UL} Normal 0.80 - 2.80 {x10EE3/UL} [facility].; [facility], [facility]. Work Phone: Lymphocytes/100 WBC (Bld) 13.1 % Abnormal 20.0 - 45.0 % [facility]; [facility], [facility]. Work Phone: MCH (RBC) [Entitic mass] 31 pg Normal 27 - 33 pg [facility]; [facility], [facility] Work Phone: MCHC (RBC) [Mass/Vol] 33 {X10_3} Normal 32 - 3 6 {X10_3} [facility].; [facility], [facility]. Work Phone: MCV (RBC) [Entitic vol] 92 fL Normal 80 - 99 fL E [facility]; [facility], [facility]. Work Phone: Monocytes (Bld) [#/Vol] 1.00 {x10EE3/UL} Normal 0.20 - 1.00 {x10EE3/UL} [facility]; [facility], [facility]. Work Phone: Monocytes/100 WBC (Bld) 7.4 % Normal 0.0 - 10.0 % [facility] Hospital[facility]; [facility], [facility]. Work Phone: Morphology Mehul (Bld) [Interp] N/A Normal [facility]; [facility], [facility]. Work Phone: Neutrophils (Bld) [#/Vol] 10.90 {x10EE3/UL} Abnormal 1.50 - 7.10 {x10EE3/UL} [facility].; [facility], [facility]. Work Phone: Neutrophils/100 WBC (Bld) 78.8 % Abnormal 46.0 - 76.0 % [facility].; [facility], [facility]. Work Phone: Platelet mean volume (Bld) [Entitic vol] 8.7 fL Normal 6.6 - 10.5 fL [facility].; [facility]. Work Phone: Platelets (Bld) [#/Vol] 200 {x10EE3/UL} Normal 1 50 - 450 {x10EE3/UL} [facility].; [facility], [facility]. Work Phone: RBC (Bld) [#/Vol] 3.53 {x_10EE6/UL} Abnormal 4.10 - 5.30 {x_10EE6/UL} [facility].; [facility], [facility]. Work Phone: WBC (Bld) [#/Vol] 13.9 {x_10EE3/UL} Abnormal 4.5 - 10.8 {x_10EE3/UL} [facility].; [facility], [facility]. Work Phone: No Panel Informationon 11-04 CBC + DIFF Normal [facility].; [facility], [facility]. Work Phone: MANUAL DIFF N/A Normal [facility].; [facility], [facility]. Work Phone: Laboratory - Blood bankon ABO group Nom (Bld) O Normal [facility].; [facility], [facility]. Work Phone: Blood group antibody screen Ql Negative Normal [facility] HospitalEdge[facility] HospitalSproutBox; [facility] Work Phone: Rh Nom (Bld) Positive Normal [facility]; [facility] Work Phone: Laboratory - Coagulationon 0 11-03-2022 aPTT Coag (Bld) [Time] 23.3 s Abnormal 25.4 - 38.4 {sec} [facility].; [facility]. Work Phone: INR Coag (PPP) [Relative time] 0.9 {INR} Normal 0.8 - 1.2 [facility]; [facility]. Work Phone: PT Coag (Bld) [Time] 10.4 s Normal 9.3 - 1 4.1 {sec} [facility].; [facility]. Work Phone: Laboratory - Hematology and Cell countson 11-03-2022 Basophils (Bld) [#/Vol] 0.00 {x10EE3/UL} Normal 0.00 - 0.10 {x10EE3/UL} [facility] Hospital[facility].; [facility], [facility]. Work Phone: Basophils/100 WBC (Bld) 0.5 % Normal 0.0 - 2.0 % [facility]; [facility]. Work Phone: Eosinophils (Bld) [#/Vol] 0.10 {x10EE3/UL} Normal 0.00 - 0.50 {x10EE3/UL} [facility] HospitalEdge[facility].; [facility], [facility]. Work Phone: Eosinophils/100 WBC (Bld) 1.3 % Normal 0.0 - 7.0 % [facility] HospitalEdge[facility]; [facility]. Work Phone: Erythrocyte distribution width (RBC) [Ratio] 13.6 % Normal 12.0 - 15.6 % [facility]; [facility] Work Phone: Hematocrit (Bld) [Volume fraction] 34.6 % Normal 34.0 - 46.0 % [facility]; [facility] Work Phone: Hemoglobin (Bld) [Mass/Vol] 11.7 g/dL Abnormal 12.0 - 16.0 g/dL [facility]; [facility], [facility]. Work Phone: Lymphocytes (Bld) [#/Vol] 1.20 {x10EE3/UL} Normal 0.80 - 2.80 {x10EE3/UL} [facility]; [facility], [facility]. Work Phone: Lymphocytes/100 WBC (Bld) 14.2 % Abnormal 20.0 - 45.0 % [facility]; [facility], [facility]. Work Phone: MCH (RBC) [Entitic mass] 31 pg Normal 27 - 33 pg [facility]; [facility], [facility]. Work Phone: MCHC (RBC) [Mass/Vol] 34 {X10_3} Normal 32 - 3 6 {X10_3} [facility]; [facility], [facility]. Work Phone: MCV (RBC) [Entitic vol] 92 fL Normal 80 - 99 fL E [facility]; [facility], [facility] Work Phone: Monocytes (Bld) [#/Vol] 0.60 {x10EE3/UL} Normal 0.20 - 1.00 {x10EE3/UL} [facility]; [facility]. Work Phone: Monocytes/100 WBC (Bld) 6.9 % Normal 0.0 - 10.0 % [facility].; [facility]. Work Phone: Morphology Mehul (Bld) [Interp] N/A Normal [facility]Edge[facility].; [facility], [facility]. Work Phone: Neutrophils (Bld) [#/Vol] 6.70 {x10EE3/UL} Normal 1.50 - 7.10 {x10EE3/UL} [facility].; [facility], [facility]. Work Phone: Neutrophils/100 WBC (Bld) 77.1 % Abnormal 46.0 - 76.0 % [facility].; [facility], [facility]. Work Phone: Platelet mean volume (Bld) [Entitic vol] 8.9 fL Normal 6.6 - 10.5 fL [facility].; [facility]. Work Phone: Platelets (Bld) [#/Vol] 206 {x10EE3/UL} Normal 1 50 - 450 {x10EE3/UL} [facility].; [facility], [facility]. Work Phone: RBC (Bld) [#/Vol] 3.77 {x_10EE6/UL} Abnormal 4.10 - 5.30 {x_10EE6/UL} [facility].; [facility], [facility]. Work Phone: WBC (Bld) [#/Vol] 8.7 {x_10EE3/UL} Normal 4.5 - 10.8 {x_10EE3/UL} [facility].; [facility], [employer]. Work Phone: No Panel Informationon 11-03 BB TYPE Normal [facility]; [facility] Work Phone: CBC + DIFF Normal [facility]; [facility] Work Phone: MANUAL DIFF N/A Normal [facility]; [facility] Work Phone: PROTHROMBIN TIME AND INR Normal [facility]; [facility]. Work Phone: Laboratory - Chemistry and C hemistry - challengeon 08-25-2022 Glucose [Mass/Vol] 81 mg/dL Normal 70 - 140 mg/dL [facility]; [facility] Work Phone: Laboratory - Hematology and Cell countson 08-25-2022 Basophils (Bld) [#/Vol] 0.00 {x10EE3/UL} Normal 0.00 - 0.10 {x10EE3/UL} [facility]; [facility], [facility] Work Phone: Basophils/100 WBC (Bld) 0.4 % Normal 0.0 - 2.0 % [facility]; [facility] Work Phone: Eosinophils (Bld) [#/Vol] 0.20 {x10EE3/UL} Normal 0.00 - 0.50 {x10EE3/UL} [facility].; [facility]. Work Phone: Eosinophils/100 WBC (Bld) 1.9 % Normal 0.0 - 7.0 % [facility]; [facility], [facility] Work Phone: Erythrocyte distribution width (RBC) [Ratio] 13.5 % Normal 12.0 - 15.6 % [facility]; [facility] Work Phone: Hematocrit (Bld) [Volume fraction] 32.2 % Abnormal 34.0 - 46.0 % [facility]; [facility] Work Phone: Hemoglobin (Bld) [Mass/Vol] 10.8 g/dL Abnormal 12.0 - 16.0 g/dL [facility]; [facility]. Work Phone: Lymphocytes (Bld) [#/Vol] 1.60 {x10EE3/UL} Normal 0.80 - 2.80 {x10EE3/UL} [facility]; [facility], [facility] Work Phone: Lymphocytes/100 WBC (Bld) 17.0 % Abnormal 20.0 - 45.0 % [facility]; [facility], [facility]. Work Phone: MCH (RBC) [Entitic mass] 32 pg Normal 27 - 33 pg [facility]; [facility] Center[facility] Work Phone: MCHC (RBC) [Mass/Vol] 34 {X10_3} Normal 32 - 3 6 {X10_3} [facility]; [facility], [facility]. Work Phone: MCV (RBC) [Entitic vol] 94 fL Normal 80 - 99 fL E [facility]; [facility], [facility] Work Phone: Monocytes (Bld) [#/Vol] 0.60 {x10EE3/UL} Normal 0.20 - 1.00 {x10EE3/UL} [facility]; [facility], [facility]. Work Phone: Monocytes/100 WBC (Bld) 6.0 % Normal 0.0 - 10.0 % [facility]; [facility]. Work Phone: Morphology Mehul (Bld) [Interp] N/A Normal [facility]; [facility]. Work Phone: Neutrophils (Bld) [#/Vol] 6.80 {x10EE3/UL} Normal 1.50 - 7.10 {x10EE3/UL} [facility]Edge[facility].; [facility]. Work Phone: Neutrophils/100 WBC (Bld) 74.7 % Normal 46.0 - 76.0 % [facility]Edge[facility]; [facility]. Work Phone: Platelet mean volume (Bld) [Entitic vol] 8.7 fL Normal 6.6 - 10.5 fL [facility] HospitalEdge[facility] HospitalSpr[employer]; [facility]. Work Phone: Platelets (Bld) [#/Vol] 263 {x10EE3/UL} Normal 1 50 - 450 {x10EE3/UL} [facility]Edge[facility].; [facility]. Work Phone: RBC (Bld) [#/Vol] 3.43 {x_10EE6/UL} Abnormal 4.10 - 5.30 {x_10EE6/UL} [facility].; [facility]. Work Phone: WBC (Bld) [#/Vol] 9.1 {x_10EE3/UL} Normal 4.5 - 10.8 {x_10EE3/UL} [facility].; [facility]. Work Phone: No Panel Informationon 08-25 CBC + DIFF Normal [facility] HospitalSc[employer]; [facility]. Work Phone: GLUCOSE CHALLENGE 50GM 1 HOUR Normal [facility].; [facility], [facility]. Work Phone: MANUAL DIFF N/A Normal [facility].; [facility] Work Phone: Laboratory - Chemistry and C hemistry - challengeon 03-14-2022 [place] [address].8 m[IU]/mL Normal [facility].; [facility]. No Panel Informationon 03-14 Date of LMP Normal [facility].; [facility]. Laboratory - Blood bankon ABO and Rh group Nom (Bld) Blood group O Rh(D) positive Abnormal [facility].; [facility] Laboratory - Chemistry and C hemistry - challengeon 03-12-2022 [place]CG[place] subunit Qn 80071.2 m[IU]/mL Normal [facility].; [facility], [facility]. No Panel Informationon 03-12 Date of LMP unknown Normal [facility].; [facility], [facility]. Laboratory - Chemistry and C hemistry - challengeon 07-30-2010 Bilirubin Ql (U) Negative Normal [facility]; [facility], [facility]. pH (U) 5.0 [pH] Normal [facility].; [facility], [facility]. Specific gravity (U) [Rel density] 1.030 Abnormal [facility].; [facility], [facility]. Laboratory - Hematology and Cell countson 07-30-2010 Hemoglobin Ql (U) Negative Normal [facility], [facility]. Laboratory - Specimen inform ationon 07-30-2010 Appearance (U) CLEAR Normal [facility].; [facility], [facility]. Color (U) YELLOW Normal [facility], [facility]. Laboratory - Urinalysison Glucose Test strip (U) [Mass/Vol] Negative [facility].; [facility], [facility]. Leukocyte esterase Test strip Ql (U) Negative Normal [facility].; [facility], [facility]. Nitrite Ql (U) Negative Normal [facility].; [facility] Protein Ql (U) TRACE Normal [facility].; [facility], [facility]. No Panel Informationon 07-30 UA - ODOR Negative Normal [facility].; [facility], [facility]. UA - UROBILIGEN 0.2 Normal [facility].; [facility], [facility]. Vital Signs Date Time Vital Sign Value Performing Clinician Faci lity 07-25-2025 13:42-0400 Body height 167.64 cm Chanda Arrayent [employer] Work Phone: [facility] 07-25-2025 13:42-0400 Body mass index (BMI) [Ratio] 24.7 kg/m2 [employer] Work Phone: [facility] 07-25-2025 13:42-0400 Body weight 69.59 kg Chanda Arrayent [employer] Work Phone: [facility] 07-25-2025 13:42-0400 Diastolic blood pressure 72 mm[Hg] Chanda Arrayent [employer] Work Phone: [facility] 07-25-2025 13:42-0400 Systolic blood pressure 113 mm[Hg] Chanda Arrayent [employer] Work Phone: [facility] 07-10-2025 10:06-0400 Body height 167.64 cm Chanda Arrayent [employer] Work Phone: [facility] 07-10-2025 10:06-0400 Body mass index (BMI) [Ratio] 24.1 kg/m2 [employer] Work Phone: [facility] 07-10-2025 10:06-0400 Body weight 67.78 kg Chanda Huizartetter [employer] Work Phone: [facility] 07-10-2025 10:06-0400 Diastolic blood pressure 75 mm[Hg] Chanda Hofstetter [employer] Work Phone: [facility] 07-10-2025 10:06-0400 Systolic blood pressure 112 mm[Hg] Chanda Hofstetter [employer] Work Phone: [facility] 06-21-2025 09:27-0400 Body height 167.64 cm Chanda Garciafstetter [employer] Work Phone: [facility] 06-21-2025 09:25-0400 Body mass index (BMI) [Ratio] 23.4 kg/m2 Chanda Josefstetter [employer] Work Phone: [facility] 06-21-2025 09:25-0400 Body weight 65.82 kg Chanda Garicafstetter [employer] Work Phone: [facility] 06-21-2025 09:25-0400 Diastolic blood pressure 76 mm[Hg] Chanda Hofstetter [employer] Work Phone: [facility] 06-21-2025 09:25-0400 Systolic blood pressure 111 mm[Hg] Chanda Garciafstetter [employer] Work Phone: [facility] 05-24-2025 10:33-0400 Body height 167.64 cm Chanda Madisontter [employer] Work Phone: [facility] 05-24-2025 10:33-0400 Body mass index (BMI) [Ratio] 22.4 kg/m2 Chanda Hofstetter [employer] Work Phone: [facility] 05-24-2025 10:33-0400 Body weight 63.13 kg Chanda Garciafstetter [employer] Work Phone: [facility] 05-24-2025 10:33-0400 Diastolic blood pressure 68 mm[Hg] Chanda Hofstetter [employer] Work Phone: [facility] 05-24-2025 10:33-0400 Systolic blood pressure 106 mm[Hg] Chanda Hofstetter [employer] Work Phone: [facility] 04-25-2025 08:20-0400 Body height 167.64 cm Chanda Hofstetter [employer] Work Phone: [facility] 04-25-2025 08:20-0400 Body mass index (BMI) [Ratio] 21.9 kg/m2 Chanda Hofstetter [employer] Work Phone: [facility] 04-25-2025 08:20-0400 Body weight 61.8 kg Chanda Hofstetter [employer] Work Phone: [facility] 04-25-2025 08:20-0400 Diastolic blood pressure 76 mm[Hg] Chanda Hofstetter [employer] Work Phone: [facility] 04-25-2025 08:20-0400 Systolic blood pressure 120 mm[Hg] Chanda Hofstetter [employer] Work Phone: [facility] 04-05-2025 14:41-0400 Body height 167.64 cm Chanda Josefstetter [employer] Work Phone: [facility] 04-05-2025 14:41-0400 Body mass index (BMI) [Ratio] 21.7 kg/m2 Chanda Hofstetter [employer] Work Phone: [facility] 04-05-2025 14:41-0400 Body weight 60.95 kg Chanda Hofstetter [employer] Work Phone: [facility] 04-05-2025 14:41-0400 Diastolic blood pressure 76 mm[Hg] Chanda Hofstetter [employer] Work Phone: [facility] 04-05-2025 14:41-0400 Systolic blood pressure 116 mm[Hg] Chanda Hofstetter [employer] Work Phone: [facility] 03-02-2025 09:11-0400 Body height 167.64 cm Chanda Hofstetter [employer] Work Phone: [facility] 03-02-2025 09:11-0400 Body mass index (BMI) [Ratio] 21.4 kg/m2 Chanda Hofstetter [employer] Work Phone: [facility] 03-02-2025 09:11-0400 Body weight 60.44 kg Chanda Hofstetter [employer] Work Phone: [facility] 03-02-2025 09:11-0400 Diastolic blood pressure 78 mm[Hg] Chanda Hofstetter [employer] Work Phone: [facility] 03-02-2025 09:11-0400 Systolic blood pressure 116 mm[Hg] Chanda Hofstetter [employer] Work Phone: [facility] 02-07-2025 16:03-0400 Body mass index (BMI) [Ratio] 20.5 kg/m2 Chanda Hofstetter [employer] Work Phone: [facility] 02-07-2025 16:03-0400 Body weight 57.6 kg Chanda Josefstetter [employer]AL[employer] Work Phone: [facility] 02-07-2025 16:03-0400 Diastolic blood pressure 84 mm[Hg] Chanda Hofstetter [employer] Work Phone: [facility] 02-07-2025 16:03-0400 Systolic blood pressure 124 mm[Hg] Chanda Hofstetter [employer]ALOGUE MA[employer] Work Phone: [facility] 12-21-2024 11:06-0500 Body height 165.1 cm June Yang RN [facility]; [facility] 12-21-2024 11:06-0500 Body mass index (BMI) [Ratio] 20.38 kg/m2 June Yang RN [facility] 12-21-2024 11:06-0500 Body surface area Derived from formula 1.61 m2 June Yang RN [facility] 12-21-2024 11:06-0500 Body temperature 98.4 [degF] June Yang RN [facility] Comment on above: Method: Oral 12-21-2024 11:06-0500 Body weight 55.57 kg June Yang RN [facility], [facility].; [email or web address] [facility] 12-21-2024 11:06-0500 Diastolic blood pressure 78 mm[Hg] June Yang RN [facility] [email or web address] [facility] [place] [facility] Comment on above: Patient Position: Sitting; Cuff Location : Left Arm; Cuff Size: Standard 12-21-2024 11:06-0500 Heart rate 96 /min June Yang RN [facility], [employer] [facility], [employer]. Comment on above: Pattern: Regular 12-21-2024 11:06-0500 Inhaled oxygen concentration 21 % June Yang RN [facility] Comment on above: Room air 12-21-2024 11:06-0500 SaO2% (BldA) [Mass fraction] 98 % June Yang RN [facility] 12-21-2024 11:06-0500 Systolic blood pressure 122 mm[Hg] June Yang RN [facility] [email or web address] [facility] [place] [facility], [employer]. Comment on above: Patient Position: Sitting; Cuff Location : Left Arm; Cuff Size: Standard 10-09-2023 13:46-0500 Body height 165.1 cm Tamar Johnson RN [facility] 10-09-2023 13:46-0500 Body mass index (BMI) [Ratio] 21.13 kg/m2 Tamar Johnson RN [facility] 10-09-2023 13:46-0500 Body surface area Derived from formula 1.63 m2 Tamar Johnson RN [facility] 10-09-2023 13:46-0500 Body weight 57.61 kg Tamar Johnson RN [facility] 10-09-2023 13:46-0500 Diastolic blood pressure 83 mm[Hg] Tamar Johnson RN [facility] Comment on above: Patient Position: Sitting; Cuff Location : Left Arm; Cuff Size: Large 10-09-2023 13:46-0500 Heart rate 109 /min Tamar Johnson RN [facility] Comment on above: Pattern: Regular 10-09-2023 13:46-0500 Systolic blood pressure 118 mm[Hg] Tamar Johnson RN [facility], [employer].; [facility] Comment on above: Patient Position: Sitting; Cuff Location : Left Arm; Cuff Size: Large 08-20-2022 10:37-0400 Body height 165.1 cm Kelli Rdz RN [facility], [facility].; [facility] 08-20-2022 10:37-0400 Body mass index (BMI) [Ratio] 24.38 kg/m2 Kelli Rdz RN [facility] 08-20-2022 10:37-0400 Body surface area Derived from formula 1.73 m2 Kelli Rdz RN [facility] 08-20-2022 10:37-0400 Body weight 66.45 kg Kelli Rdz RN [facility], [employer].; [email or web address] [facility] [place] [facility] 08-20-2022 10:37-0400 Diastolic blood pressure 77 mm[Hg] Kelli [facility]dz RN [facility] [email or web address] [facility], [employer]. Comment on above: Patient Position: Sitting; Cuff Location : Left Arm; Cuff Size: Large 08-20-2022 10:37-0400 Heart rate 94 /min Kelli Rdz RN [facility] [email or web address] [facility] Comment on above: Pattern: Regular 08-20-2022 10:37-0400 Systolic blood pressure 115 mm[Hg] Kelli Rdz RN [facility] [email or web address] [facility] [place] [facility], [employer]. Comment on above: Patient Position: Sitting; Cuff Location : Left Arm; Cuff Size: Large 03-12-2022 10:44-0400 Body height 165.1 cm Kelli Rdz RN [facility], [employer].; [facility] 03-12-2022 10:44-0400 Body mass index (BMI) [Ratio] 20.67 kg/m2 Kelli Rdz RN [facility], [facility].; [facility] 03-12-2022 10:44-0400 Body surface area Derived from formula 1.62 m2 eKlli Rdz RN [facility], [facility].; [email or web address] [facility] [place] [facility] 03-12-2022 10:44-0400 Body temperature 97.8 [degF] Kelli Rdz RN [facility], [employer].; [email or web address] [facility], [employer]. Comment on above: Method: Oral 03-12-2022 10:44-0400 Body weight 56.34 kg Kelli Rdz RN [facility], [employer].; [email or web address] [facility] [place] [facility] 03-12-2022 10:44-0400 Diastolic blood pressure 79 mm[Hg] Kelli Rdz RN [facility] [email or web address] [facility] [employer] [facility] Comment on above: Patient Position: Sitting; Cuff Location : Left Arm; Cuff Size: Large 03-12-2022 10:44-0400 Heart rate 116 /min Kelli Rdz RN [facility], [employer]. Comment on above: Pattern: Regular 03-12-2022 10:44-0400 Inhaled oxygen concentration 21 % Kelli Rdz RN [facility] Comment on above: Room air 03-12-2022 10:44-0400 SaO2% (BldA) [Mass fraction] 100 % Kelli Rdz RN [facility] 03-12-2022 10:44-0400 Systolic blood pressure 122 mm[Hg] Kelli Rdz RN [facility], [employer].; [facility], [employer]. Comment on above: Patient Position: Sitting; Cuff Location : Left Arm; Cuff Size: Large 02-12-2022 09:52-0400 Body height 165.1 cm KAYLEIGH LUNA RN [facility] 02-12-2022 09:52-0400 Body mass index (BMI) [Ratio] 20.67 kg/m2 KAYLEIGH LUNA RN [facility] 02-12-2022 09:52-0400 Body surface area Derived from formula 1.62 m2 KAYLEIGH LUNA RN [facility] [email or web address] [facility] 02-12-2022 09:52-0400 Body weight 56.34 kg KAYLEIGH GRATE MESHA [facility] [email or web address] [facility] [place] [facility] 02-12-2022 09:52-0400 Diastolic blood pressure 89 mm[Hg] KAYLEIGH GRATE MESHA [facility] [email or web address] [facility] [place] [facility] Comment on above: Patient Position: Sitting; Cuff Location : Left Arm; Cuff Size: Standard 02-12-2022 09:52-0400 Heart rate 108 /min KAYLEIGH LUNA RN [facility] [email or web address] [facility] [place] [facility] Comment on above: Pattern: Regular 02-12-2022 09:52-0400 Systolic blood pressure 133 mm[Hg] KAYLEIGH LUNA RN [facility] Comment on above: Patient Position: Sitting; Cuff Location : Left Arm; Cuff Size: Standard 01-09-2022 14:47-0400 Body height 165.1 cm Tamar Johnson RN [facility] 01-09-2022 14:47-0400 Body mass index (BMI) [Ratio] 20.8 kg/m2 Tamar Johnson RN [facility] 01-09-2022 14:47-0400 Body surface area Derived from formula 1.62 m2 Tamar Johnson RN [facility], [facility].; [facility] 01-09-2022 14:47-0400 Body weight 56.7 kg Tamar Johnson RN [facility] 01-09-2022 14:47-0400 Diastolic blood pressure 91 mm[Hg] Tamar Johnson RN [facility] Comment on above: Patient Position: Sitting; Cuff Location : Left Arm; Cuff Size: Large 01-09-2022 14:47-0400 Heart rate 125 /min Tamar Johnson RN [facility] [email or web address] [facility] Comment on above: Pattern: Regular 01-09-2022 14:47-0400 Systolic blood pressure 150 mm[Hg] Tamar Johnson RN [facility] Comment on above: Patient Position: Sitting; Cuff Location : Left Arm; Cuff Size: Large 05-31-2021 10:16-0400 Body height 165.1 cm Tamar Johnson RN [facility] 05-31-2021 10:16-0400 Body mass index (BMI) [Ratio] 20.34 kg/m2 Tamar Johnson RN [facility], [facility]. 05-31-2021 10:16-0400 Body surface area Derived from formula 1.6 m2 Tamar Johnson RN [facility], [facility].; [facility] 05-31-2021 10:16-0400 Body weight 55.45 kg Tamar Johnson RN [facility] 05-31-2021 10:16-0400 Diastolic blood pressure 80 mm[Hg] Tamar Johnson RN [facility] Comment on above: Patient Position: Sitting; Cuff Location : Left Arm; Cuff Size: Large 05-31-2021 10:16-0400 Heart rate 102 /min Tamar Johnson RN [facility], [employer] [facility], [employer]. Comment on above: Pattern: Regular 05-31-2021 10:16-0400 Systolic blood pressure 130 mm[Hg] Tamar Johnson RN [facility], [facility].; [facility], [employer]. Comment on above: Patient Position: Sitting; Cuff Location : Left Arm; Cuff Size: Large 07-19-2014 14:29-0400 Body height 165.1 cm Tamar Johnson RN [facility], [facility].; [facility] 07-19-2014 14:29-0400 Body mass index (BMI) [Percentile] Per age and sex 58 % Tamar Johnson RN [facility], [facility].; [facility], [employer]. 07-19-2014 14:29-0400 Body mass index (BMI) [Ratio] 19.89 kg/m2 Tamar Johnson RN [facility], [employer].; [facility] 07-19-2014 14:29-0400 Body surface area Derived from formula 1.59 m2 Tamar Johnson RN [facility] 07-19-2014 14:29-0400 Body weight 54.21 kg Tamar Johnson RN [facility].; [employer] [facility] 07-19-2014 14:29-0400 Diastolic blood pressure 60 mm[Hg] Tamar Johnson RN [facility].; [employer] [facility] [employer], [employer]. Comment on above: Patient Position: Sitting; Cuff Location : Left Arm; Cuff Size: Large 07-19-2014 14:29-0400 Heart rate 85 /min [facility] [employer], [employer]. Comment on above: Pattern: Regular 07-19-2014 14:29-0400 Systolic blood pressure 97 mm[Hg] Tamar Johnson [facility].; [employer] [facility] [employer] [facility] Comment on above: Patient Position: Sitting; Cuff Location : Left Arm; Cuff Size: Large 03-04-2013 16:26-0400 Body height 153.67 cm Kelli Rdz RN [facility] [email or web address] [facility] 03-04-2013 16:26-0400 Body mass index (BMI) [Percentile] Per age and sex 65 % Kelli Rdz RN [facility].; [email or web address] [facility] 03-04-2013 16:26-0400 Body mass index (BMI) [Ratio] 19.59 kg/m2 Kelli Rdz RN [facility] [email or web address] [facility] 03-04-2013 16:26-0400 Body surface area Derived from formula 1.41 m2 Kelli Rdz RN [facility], [employer].; [email or web address] [facility] 03-04-2013 16:26-0400 Body weight 46.27 kg Kelli Rdz RN [facility], [employer].; [email or web address] [facility], [employer] 03-04-2013 16:26-0400 Diastolic blood pressure 71 mm[Hg] Kelli Rdz RN [facility] [employer], [employer]. Comment on above: Patient Position: Sitting; Cuff Location : Left Arm; Cuff Size: Large 03-04-2013 16:26-0400 Heart rate 82 /min Kelli Rdz RN [facility], [employer] [facility] Comment on above: Pattern: Regular 03-04-2013 16:26-0400 Systolic blood pressure 106 mm[Hg] Kelli Rdz RN [facility] Comment on above: Patient Position: Sitting; Cuff Location : Left Arm; Cuff Size: Large 12-26-2011 15:17-0500 Body height 146.05 cm June Yang RN [facility], [email or web address] [facility] [place] [facility] 12-26-2011 15:17-0500 Body mass index (BMI) [Percentile] Per age and sex 32 % June Yang RN [facility] 12-26-2011 15:17-0500 Body mass index (BMI) [Ratio] 16.59 kg/m2 June Yang RN [facility] [email or web address] [facility] [place] [facility] 12-26-2011 15:17-0500 Body surface area Derived from formula 1.21 m2 June Yang RN [facility] [email or web address] [facility] [place] [facility] 12-26-2011 15:17-0500 Body temperature 98 [degF] June Yang RN [facility] [email or web address] [facility] [place] [facility] Comment on above: Method: Oral 12-26-2011 15:17-0500 Body weight 35.38 kg June Yang RN [facility] [email or web address] [facility] [place] [facility] 12-26-2011 15:17-0500 Diastolic blood pressure 74 mm[Hg] June Yang RN [facility] [email or web address] [facility] Comment on above: Patient Position: Sitting; Cuff Location : Left Arm; Cuff Size: Standard 12-26-2011 15:17-0500 Heart rate 91 /min June Yang RN [facility], [facility] [email or web address] [facility], [employer]. Comment on above: Pattern: Regular 12-26-2011 15:17-0500 Systolic blood pressure 110 mm[Hg] June [facility]. Comment on above: Patient Position: Sitting; Cuff Location : Left Arm; Cuff Size: Standard 07-30-2010 13:0400 Body temperature 98.9 [degF] Tamar Johnson RN [facility] Comment on above: Method: Oral 07-30-2010 13:040 Body weight 30.39 kg Tamar oJhnson RN [facility].; [facility]. Encounters Encounter Date Encounter Type Care Provider Facility Start: 08-14-2025 End: 08-14-2025 ambulatory No Primary Care Physician Facility:[facility] Start: 07-25-2025 End: 07-25-2025 Patient encounter procedure Lora FLOWERS [facility] Work Phone: Start: 07-25-2025 End: 07-25-2025 ambulatory Chanda Velasco [employer] Work Phone: [facility] Start: 07-10-2025 End: 07-10-2025 ambulatory Chanda Velasco [employer] Work Phone: -[facility] Start: 07-10-2025 End: 07-10-[address] Sirena Padilla MD -[facility] Work Phone: Start: 07-10-2025 End: 07-10-2025 ambulatory Lizbeth Cruz Facility:[facility] Start: 06-21-2025 End: 06-21-[address] Lizbeth Cruz DO -[facility] Work Phone: Start: 06-21-2025 End: 06-21-2025 ambulatory Chanda Velasco CATALOGUE MAKER-C Work Phone: -[facility] Start: 05-24-2025 End: 05-24-2025 Patient encounter procedure Lora FLOWERS -[facility] Work Phone: Start: 05-24-2025 End: 05-24-2025 ambulatory Chanda Velasco CATALOGUE MAKER-C Work Phone: -[facility] Start: 05-18-2025 End: 05-18-2025 ambulatory Chanda Bhupendratetter CATALOGUE MAKER-C Work Phone: -[facility] Start: 05-18-2025 End: 05-18-[address] Sirena Padilla MD -[facility] Work Phone: Start: 05-18-2025 End: 05-18-2025 ambulatory Sirena Padilla Facility:[facility] Start: 04-25-2025 End: 04-25-2025 Patient encounter procedure Lora Collins NP-C -[facility] Work Phone: Start: 04-25-2025 End: 04-25-2025 ambulatory Chanda Velasco CATALOGUE MAKER-C Work Phone: -[facility] Start: 04-05-2025 End: 04-05-[address] Sirena Padilla MD -[facility] Work Phone: Start: 04-05-2025 End: 04-05-2025 ambulatory Chanda Velasco CATALOGUE MAKER-C Work Phone: [facility] Work Phone: Start: 03-02-2025 End: 03-02-2025 Patient encounter procedure Sophia Cho CNM -[facility] Work Phone: Start: 03-02-2025 End: 03-02-2025 ambulatory Chanda Velasco CATALOGUE MAKER-C Work Phone: [facility] Work Phone: Start: 03-02-2025 End: 03-02-2025 ambulatory Chanda Velasco CATALOGUE MAKER Facility:[facility] Start: 02-07-2025 End: 02-07-[address] Sirena Padilla MD -[facility] Work Phone: Start: 02-07-2025 End: 02-07-2025 ambulatory Chanda Velasco CATALOGUE MAKER Facility:[facility] Start: 02-01-2025 End: 02-01-[address] Sirena Padilla MD -[facility] Start: 02-01-2025 End: 02-01-2025 ambulatory Chanda Velasco CATALOGUE MAKER Facility:[facility] Start: 01-30-2025 End: 01-30-[address] Sirena Padilla MD -[facility] Start: 01-30-2025 End: 01-30-2025 ambulatory Chanda Velasco CATALOGUE MAKER Facility:[facility] Start: 12-21-2024 End: 12-21-2024 Office outpatient visit 10 minutes YOHANA CHAMBERLAIN MD Work Phone: [email or web address]. Start: 10-30-2024 End: 10-30-2024 Emergency department patient visit MALCOLM REILLY [facility] Start: 2024 End: 08-11-2024 Medication Refill/Order YOHANA CHAMBERLAIN MD Work Phone: [email or web address]. Start: 03-10-2024 Patient encounter procedure Chanda Velasco CATALOGUE MAKER-C Work Phone: [facility] Start: 10-09-2023 End: 10-09-2023 Office outpatient visit 10 minutes YOHANA CHAMBERLAIN MD Work Phone: [email or web address]. Start: 11-05-2022 End: 11-05-2022 Medication Refill/Order YOHANA CHAMBERLAIN MD Work Phone: [email or web address]. Start: 08-20-2022 End: 08-20-2022 Office outpatient visit 10 minutes YOHANA CHAMBERLAIN MD Work Phone: [email or web address]. Start: 03-24-2022 End: 03-24-2022 Patient encounter procedure YOHANA CHAMBERLAIN MD Work Phone: [employer] [facility] Start: 03-19-2022 End: 03-19-2022 Procedure Order YOHANA CHAMBERLAIN MD Work Phone: [facility] Start: 03-19-2022 End: 03-19-2022 Results Review YOHANA CHAMBERLAIN MD Work Phone: [facility] Start: 03-14-2022 End: 03-14-2022 Lab Only YOHANA CHAMBERLAIN MD Work Phone: [facility] Start: 03-13-2022 End: 03-13-2022 Results Review YOHANA CHAMBERLAIN MD Work Phone: [facility] Start: 03-12-2022 End: 03-12-2022 Office outpatient visit 10 minutes YOHANA CHAMBERLAIN MD Work Phone: [employer] [facility] Start: 02-12-2022 End: 02-12-2022 Patient encounter procedure YOHANA CHAMBERLAIN MD Work Phone: [employer] [facility] Start: 01-09-2022 End: 01-09-2022 Office outpatient visit 10 minutes YOHANA CHAMBERLAIN MD Work Phone: [employer] [facility] Start: 05-31-2021 End: 05-31-2021 Office outpatient visit 15 minutes YOHANA CHAMBERLAIN MD Work Phone: [employer] [facility] [employer] Start: 07-19-2014 End: 07-19-2014 Office outpatient visit 15 minutes YOHANA CHAMBERLAIN MD Work Phone: [employer] [facility] [employer] Start: 07-04-2014 End: 07-04-2014 Medication Refill/Order YOHANA CHAMBERLAIN MD Work Phone: [facility] Start: 03-04-2013 End: 03-04-2013 Patient encounter procedure YOHANA CHAMBERLAIN MD Work Phone: [facility] Start: 12-26-2011 End: 12-26-2011 Patient encounter procedure YOHANA CHAMBERLAIN MD Work Phone: [facility] Start: 12-26-2011 End: 12-26-2011 Historical Summary YOHANA CHAMBERLAIN MD Work Phone: [facility] Start: 07-30-2010 End: 07-30-2010 Patient encounter procedure YOHANA CHAMBERLAIN MD Work Phone: [email or web address] [facility] Procedures Date Procedure Procedure Detail Performing Clinician Start: 07-10-2025 Serologic test for syphilis Chanda Velasco CATALOGUE MAKER-C Work Phone: Start: 05-18-2025 Ultrasonography in f irst trimester Chanda Velasco CATALOGUE MAKER-C Work Phone: Start: 03-02-2025 Urine culture Chanda Pretty azeb CATALOGUE MAKER-C Work Phone: Start: 03-02-2025 Hepatitis C antibody [facility] CATALOGUE MAKER-C Work Phone: Comment on above: Reactive: Presumptiv e evidence of antibodies to HCV. Follow CDC recommendations for supplemental testing.Non-Reactive: Antibodies to HCV were not detected; does not exclude the possibility of exposure to HCVReactive Results are presumptive evidence of antibodies to HCV. Follow CDC recommendations for supplemental testing.Order confirmation testing: HCV Quant by PCR testing - HCVPCR #[id number] Non Reactive: < 0.8 Equivocal: >/= 0.8 to < 1.0 Reactive: >/= 1.0The CDC requires that a reactive/equivocal HCV antibody result be sent out for confirmation. HCV Quant by PCR testing. Start: 03-02-2025 Rubella IgG measurement Chanda Velasco CATALOGUE MAKER-C Work Phone: Comment on above: Antibody Result: Int erpretationNon-Reactive: Non- ImmuneReactive: ImmuneThe following results were obtained with the [employer] Rubella IgG assay. Results from assays of other manufacturers cannot be used interchangeably. Start: 03-02-2025 Serologic test for syphilis Chanda Velasco CATALOGUE MAKER-C Work Phone: Start: 01-30-2025 Serum progesterone measurement Chanda Velasco CATALOGUE MAKER-C Work Phone: Comment on above: Follicular phase 0.1 - 0.9 Luteal phase 1.8 - 23.9 Ovulation phase 0.1 - 12.0 First trimester 11.0 - 44.3 Second trimester 25.4 - 83.3 Third trimester 58.7 - 214.0 Postmenopausal 0.0 - 0.1Performed at: [address] [id number] Director: Cody Bell PhD, Phone: [phone] Start: 12-21-2024 End: 12-21-2024 Dischrg meds reconciled w/current med list YULIYA MAGALLANES ICE HOCKEY COACH-C Work Phone: Start: 10-30-2024 End: 10-30-2024 Urinalysis YOHANA CHAMBERLAIN MD Work Phone: Comment on above: Result Comment: URIN ALYSIS Performed By: #### [id number] #### [facility],[address] [place] [id number] Start: 08-20-2022 End: 08-20-2022 Dischrg meds reconciled w/current med list CHANDA VELASCO ICE HOCKEY COACH-C Work Phone: Start: 03-12-2022 End: 03-12-2022 Dischrg meds reconciled w/current med list CHANDA VELASCO ICE HOCKEY COACH-C Work Phone: Start: 05-31-2021 End: 05-31-2021 Urinary Incontinence CHANDA Addison [employer] HOCKEY COACH-C Work Phone: Comment on above: Negative. H/O: section Previous c esarean section Chanda Velasco CATALOGUE MAKER-C Work Phone: Comment on above: breech H/O: section Previous c esarean section Sophia Cho CNM H/O: section Previous c esarean section Dr. Sirena Padilla MD H/O: section Previous c esarean section oLra Collins CATALOGUE MAKER-C H/O: section Previous c esarean section Lora Collins CATALOGUE MAKER-C H/O: section Previous c esarean section Dr. Lizbeth Cruz DO H/O: section Previous c esarean section Dr. Sirena Padilla MD H/O: section Previous c esarean section Lora Collins CATALOGUE MAKER-C TDAP - Adacel/Boostrix Kristal Yang RN Comment on above: Discussed. 12/21/2024 Plan of Treatment Date Care Activity Detail Author Start: 03-02-2025 CBC W Auto Differential panel - Blood [facility] Start: 03-02-2025 Hepatitis C antibody measurement [facility] Start: 03-02-2025 Rubella IgG measurement [facility] Start: 03-02-2025 Serologic test for syphilis [facility] Start: 03-02-2025 T4 free measurement [facility] Start: 03-02-2025 Thyroid stimulating hormone measurement [facility] Start: 03-02-2025 [facility] Start: 09-23-2024 [facility] visit, [facility]; ESTABLISHED PATIENT ROUTINE VISIT - [facility] [employer] Start: 23-Sep-2024 14:00-05:00 MD MALCOLM YANG Appointment Request [facility] Start: 03-19-2022 Us uterus 14 wk transabdl 10/19 gestat OB US < 14 WKS, SINGLE FETUS ([id number]) Start: 19-Mar-2022 [facility]; [facility] Start: 05-31-2021 Patient Education IRRITABLE BOWEL Indication: Irritable bowel syndrome with diarrhea Start: 31-May-2021 Instruction Type: Patient Education [facility] Work Phone: CBC W Auto Different ial panel - Blood [facility] Chlamydia deoxyribon ucleic acid detection [facility] Erythrocyte mean corpuscular volume determination [facility] Hematocrit [Volume Fraction] of Blood [facility] Hemoglobin [Mass/vol ume] in Blood [facility] Hepatitis B virus sen rface Ag [Presence] in Serum [facility] Leukocytes [#/volume ] in Blood [facility] Mean corpuscular hem oglobin concentration determination [facility] Mean corpuscular hem oglobin determination [facility] Measurement of gluco se 2 hours after glucose challenge for glucose tolerance test [facility] Neutrophil count [facility] Neutrophil percent differential count [facility] Platelets [#/volume] in Blood [facility] Procedure [facility] Red blood cell count [facility] Red cell distributio n width determination [facility] Serologic test for syphilis [facility] Ultrasonography in f irst trimester [facility] Immunizations Immunization Date Immunization Notes Care Provider Fa [facility] influenza virus vaccine, unspecified formulation YOHANA CHAMBERLAIN MD Work Phone: [facility] Comment on above: Refused. 08/20/2022 influenza virus vaccine, unspecified formulation YOHANA CHAMBERLAIN MD Work Phone: [facility] Comment on above: Refused. 12/21/2024 Payers Date Payer Category Payer Unknown [id number] 2025 Self-pay 0 2025 Self-pay 2025 Unknown [id number] a 2000 Unknown [id number] Unknown 74-1 Unknown [facility] Unknown [id number] Unknown [id number] [id number] Unknown [id number] [id number] Unknown [id number] [id number] Unknown [id number] [id number] Unknown [id number] [id number] Unknown [id number] [id number] Unknown [id number] [id number] Unknown [id number] [id number] Unknown [id number] [id number] Unknown [id number] [id number] Unknown [id number] [id number] Unknown [id number] [id number] Unknown [id number] [id number] Social History Date Type Detail Facility Alcohol Use: Alcohol Use: ; N o Alcohol Use. [employer] [facility] Tobacco use: Tobacco use: ; N ever smoker. [employer] [facility], [facility]. Start: 2000 [facility] Start: 02-16-2025 Never smoked tobacco [facility] Current Work/Study Status Current Work/Study Status [facility] Sex Female [facility] Clinical Notes 11-10-2024 to 07-10-2025 Note Date & Type Note Facility 07-10-2025 Progress note [facility] 06-21-2025 Progress note [facility] 05-19-2025 Radiology Diagnostic study note [facility] Imaging Services [address] [address] OB Anatomy w/ Transvaginal MR#: [id number] Acct: [id number] Name: GAURAV FORTE Rep #: [id number] : 2000 F 24 From: Alexy Reagan MD PCP: OUT OF TOWN DOCTOR Status: REG CLI Study:OB Anatomy w/ Transvaginal Date of Exam : 05/18/25 Exam# [id number] Ordering Dr: Sirena Rudolph MD PROCEDURE: OB [...] of 20 weeks and 0days. Reading Location: [id number] CC: Dr. Sirena Padilla MD ~ Tool And Cutter Grinder: Signed [facility] 04-05-2025 Evaluation note Diagnosis Onset Date [...] veins during acute July 10, 2025 10:00am [facility] Work Phone: 1(391) 148-850306-18-2025 Evaluation note* Diagnosis Onset Date Resolution Status [...] Varicose veins during acute July 25 1:40pm [facility] Work Phone: 1(388) 504-845806-18-[address] [facility] [address] [place] [address], [address] [place], [place] [id number] OFFICE VISIT Date of Service: 04/05/25 MR#: [id number] Acct: [id number] Name: GAURAV FORTE Rep #: [id number] : 2000 Provider: Dr. Ammon Padilla MD Age/Sex: 24/F Location: [facility] Status: Signed Intake Vital Signs 02/07/25 16:03 03/02/25 09:11 04/05/25 14:41 Height 5 ft 6 in 5 ft 6 in 5 ft 6 in Weight: 134 lb 6 oz BMI 21.7 BP 116/76 Intake Visit Reasons: 13wk OB [place] Sanitarian Required: No Is patient in pain?: No Allergies No Known Allergies Allergy (Unverified 04/05/25 14:48) Medications ?Medication ?Instructions ?Recorded ?Confirmed ?Type sertraline 25 mg tablet 25 mg PO DAILY 03/10/2403/19 History fish, borage, flaxseed oils-omega See Rx Instructions PO DAILY 02/16/25 04/05/25 History 3,6,9 comb no.1 1,200 mg capsule ([place] 3-6-9) magnesium 250 mg tablet 250 mg PO QDAY 02/16/2503/19 History multivit-min no.71-iron fum 28 cap PO 02/16/25 5 History mg-folate no.1 1 mg-dha 300 mg capsule (PNV-[place]) Last Menstrual Period: 12/29/24 Zika: Zika virus screening: Negative : No PFSH PFSH Medical History Women's annual routine gynecological examination Surgical History Previous section Family History Aunt Cancer, Onset Age: 25 Paternal Brain tumor Social History adopted: No household members: spouse and children housing: house number of children: 1 current occupational status: unemployed current occupation: [employer] current occupational exposures/hazards: No pets and animals: [...] physical activity do you participate in: none cindy/yazidi: Rastafarian seatbelt use: always do you feel safe at home: Yes additional social history: - [employer] work History 3 Elective abortions Hx Para [...] Cosign Signature: Date (if applicable) CC: ~ [facility]20[facility] Progress note Author Sirena Padilla [facility] Note Date/Time April 05, 2025 3:21 pm [facility] [address], [address] [place] [address] OFFICE VISIT Date of Service: 04/05/25 MR#: [id number] Acct: [id number] Name: GAURAV FORTE Rep #: [id number] : 2000 Provider: Dr. Ammon Padilla MD Age/Sex: 24/F Location: [facility] Status: Signed Intake Vital Signs 02/07/25 16:03 03/02/25 09:11 04/05/25 14:41 Height 5 ft 6 in 5 ft 6 in 5 ft 6 in Weight: 134 lb 6 oz BMI 21.7 BP 116/76 Intake Visit Reasons: 13wk OB [place] San[place] Required: No Is patient in pain?: No Allergies No Known Allergies Allergy (Unverified 04/05/25 14:48) Medications ?Medication ?Instructions ?Recorded ?Confirmed ?Type sertraline 25 mg tablet 25 mg PO DAILY 03/10/2403/19 History fish, borage, flaxseed oils-omega See Rx Instructions PO DAILY 02/16/25 04/05/25 History 3,6,9 comb no.1 1,200 mg capsule ([place] 3-6-9) magnesium 250 mg tablet 250 mg PO QDAY 02/16/2503/19 History multivit-min no.71-iron fum 28 cap PO 02/16/25 5 History mg-folate no.1 1 mg-dha 300 mg capsule (PNV-[place]) Last Menstrual Period: 12/29/24 Zika: Zika virus screening: Negative : No PFSH PFSH Medical History Women's annual routine gynecological examination Surgical History Previous section Family History Aunt Cancer, Onset Age: 25 Paternal Brain tumor Social History adopted: No household members: spouse and children housing: house number of children: 1 current occupational status: unemployed current occupation: [employer] current occupational exposures/hazards: No pets and animals: [...] physical activity do you participate in: none cindy/yazidi: Rastafarian seatbelt use: always do you feel safe at home: Yes additional social history: - [employer] work History 3 Elective abortions Hx Para [...] Symptoms of Preeclampsia, Infant Feeding No , [place] Education and Family Medical Leave or Disability [...] Cosigner Signature: Date (if applicable) CC: ~ [facility] [employer] Work Phone: 1(305) 177-865105-15-2025 Evaluation note* Diagnosis Onset Date Resolution Status [...] Varicose veins during acute June 21 9:24am [facility] Work Phone: 1(919) 401-535705-15-[address] [facility] [address], [address] [place] [address] OFFICE VISIT Date of Service: 03/02/25 MR#: [id number] Acct: [id number] Name: GAURAV FORTE Rep #: [id number] : 2000 Provider: NOELLE Cho Age/Sex: 24/F Location: [facility] Status: Signed Intake Vital Signs 03/10/24 13:00 02/07/25 16:03 03/02/25 09:11 Height 5 ft 6 in 5 ft 6 in 5 ft 6 in Weight: 133 lb 4 oz BMI 21.4 BP 116/78 Intake Visit Reasons: NOB: LMP 12/29, WILBER 10/05 Chief Complaint: New OB [place] San[place] Required: No Is patient in pain?: No Allergies No Known Allergies Allergy (Unverified 03/02/25 09:15) Medications ?Medication ?Instructions ?Recorded ?Confirmed ?Type sertraline 25 mg tablet 25 mg PO DAILY 03/10/2402/16 History fish, borage, flaxseed oils-omega See Rx Instructions PO DAILY 02/16/25 03/02/25 History 3,6,9 comb no.1 1,200 mg capsule ([place] 3-6-9) magnesium 250 mg tablet 250 mg PO QDAY 02/16/2502/16 History multivit-min no.71-iron fum 28 cap PO 02/16/25 5 History mg-folate no.1 1 mg-dha 300 mg capsule (PNV-[place]) Last Menstrual Period: 12/29/24 PFSH PFSH Medical History Women's annual routine gynecological examination Surgical History Previous section Family History Aunt Cancer, Onset Age: 25 Paternal Brain tumor Social History adopted: No household members: spouse and children housing: house number of children: 1 current occupational status: unemployed current occupation: [employer] current occupational exposures/hazards: No pets and animals: [...] physical activity do you participate in: none cindy/yazidi: Rastafarian seatbelt use: always do you feel safe at home: Yes additional social history: - [employer] work History 3 Elective abortions Hx Para [...] Other, Intellectual Disability/Autism: Other, Recurrent Loss/Stillbirth: Partner (Bkgjkj-ppnhkqxlny-yplsnzuk brain), Other Structural Defect: Other, Other Genetic [...] the knee, inner thigh vaginal -denies DVT's), 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) and Relevant family history (Paternal Aunt Brain tumor 25yo) and Negative: Diabetes, Hypertension, Heart disease, Auto-immune disorder, Kidney disease/UTI, Neurologic/epilepsy, Depression/ depression, Hepatitis/liver disease, Thyroid dysfunction (underactive per team leader surgery not dx as hypo), Trauma/domestic violence, History [...] Signs and Symptoms of Preeclampsia, Infant Feeding, [place] Education and Family Medical Leave or Disability [...] Cosigner Signature: Date (if applicable) CC: ~ [facility]04-22-2025 Evaluation note* Diagnosis Onset Date Resolution Status [...] during acut e March 02, 2025 9:08am [facility] Work Phone: 1(356) 115-238104-22-2025 Evaluation note* Diagnosis Onset Date Resolution Status [...] during acut e April 05, 2025 2:28pm [facility] [employer] [facility] Work Phone: 1(509) 101-897504-22-2025 Evaluation note* Diagnosis Onset Date Resolution Status [...] during acut e April 25, 2025 8:17am [facility] [employer] [facility] Work Phone: 1(803) 581-969804-22-2025 Evaluation note* Diagnosis Onset Date Resolution Status [...] veins during acute May 24, 2025 10:28am [facility] Work Phone: 1(342) 547-857004-22-2025 Evaluation note* Diagnosis Onset Date Resolution Status [...] veins during acute May 24, 2025 10:28am [facility] Work Phone: 1(830) 257-293001-23-2025 NoteDischarge Instructions Discharge Summary [address] [id number] 10/30/2024 Patient: GAURAV FORTE Sex: Female : 2000 Age: 24y Thank you for visiting [facility]. You have been evaluated today by Wilfredo Chamberlain M.D. for the following condition(s): Principal Diagnosis Moderate vaginal bleeding. Probable complete spontaneous (miscarriage).No complications. INSTRUCTIONS Drink plenty of fluids. OTC Medications: Take ibuprofen (such as Advil, Motrin or Nuprin) according to label instructions. Available over the counter. Follow-up: Follow up with your healthcare provider in two days if not better. Patient Signature Facility Collection Administrator Date/Time 1 of 2 Discharge Instructions General Instructions with ExitWriter [address] [address] [id number] 10/30/2024 Patient: GAURAV FORTE Sex: Female : 2000 Age: 24y Thank you for visiting [facility]. You have been evaluated today by Wilfredo Chamberlain M.D. for the following condition(s): Principal Diagnosis Moderate vaginal bleeding. Probable complete spontaneous (miscarriage).No complications. INSTRUCTIONS Drink plenty of fluids. OTC Medications: Take ibuprofen (such as Advil, Motrin or Nuprin) according to label instructions. Available over the counter. Follow-up: Follow up with your healthcare provider in two days if not better. [facility]ide[facility] note Author Sophia Cho [facility] Note Date/Time March 02, 2025 9:39a m [facility] [address] [place] [address], [address] [place] [id number] OFFICE VISIT Date of Service: 03/02/25 MR#: [id number] Acct: [id number] Name: GAURAV FORTE Rep #: [id number] : 2000 Provider: NOELLE Cho Age/Sex: 24/F Location: [facility] [place] Status: Signed Intake Vital Signs 03/10/24 13:00 02/07/25 16:03 03/02/25 09:11 Height 5 ft 6 in 5 ft 6 in 5 ft 6 in Weight: 133 lb 4 oz BMI 21.4 BP 116/78 Intake Visit Reasons: NOB: LMP 12/29, WILBER 10/05 Chief Complaint: New OB [place] San[place] Required: No Is patient in pain?: No Allergies No Known Allergies Allergy (Unverified 03/02/25 09:15) Medications ?Medication ?Instructions ?Recorded ?Confirmed ?Type sertraline 25 mg tablet 25 mg PO DAILY 03/10/2402/16 History fish, borage, flaxseed oils-omega See Rx Instructions PO DAILY 02/16/25 03/02/25 History 3,6,9 comb no.1 1,200 mg capsule ([place] 3-6-9) magnesium 250 mg tablet 250 mg PO QDAY 02/16/2502/16 History multivit-min no.71-iron fum 28 cap PO 02/16/25 5 History mg-folate no.1 1 mg-dha 300 mg capsule (PNV-[place]) Last Menstrual Period: 12/29/24 PFSH PFSH Medical History Women's annual routine gynecological examination Surgical History Previous section Family History Aunt Cancer, Onset Age: 25 Paternal Brain tumor Social History adopted: No household members: spouse and children housing: house number of children: 1 current occupational status: unemployed current occupation: [employer] current occupational exposures/hazards: No pets and animals: [...] physical activity do you participate in: none cindy/yazidi: Rastafarian seatbelt use: always do you feel safe at home: Yes additional social history: - [employer] work History 3 Elective abortions Hx Para [...] Other, Intellectual Disability/Autism: Other, Recurrent Loss/Stillbirth: Partner (Pxikwf-aknyfaodfj-kdxcibsi brain), Other Structural Defect: Other, Other Genetic [...] the knee, inner thigh vaginal -denies DVT's), 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) and Relevant family history (Paternal Aunt Brain tumor 25yo) and Negative: Diabetes, Hypertension, Heart disease, Auto-immune disorder, Kidney disease/UTI, Neurologic/epilepsy, Depression/ depression, Hepatitis/liver disease, Thyroid dysfunction (underactive per team leader surgery not dx as hypo), Trauma/domestic violence, History [...] Signs and Symptoms of Preeclampsia, Infant Feeding, [place] Education and Family Medical Leave or Disability [...] Cosigner Signature: Date (if applicable) CC: ~ [facility] Work Phone: Progress note Author Lizbeth Lowe [facility] Note Date/Time June 21, 2025 9:55am [facility] [address] [place] [address], [address] [place] [address] OFFICE VISIT Date of Service: 06/21/25 MR#: [id number] Acct: [id number] Name: GAURAV FORTE Rep #: [id number] : 2000 Provider: Dr. Larisa Cruz DO Age/Sex: 24/F Location: [facility] [place] Status: Signed Intake Vital Signs 04/25/25 08:20 05/24/25 10:33 06/21/25 09:25 06/21/25 09:27 Height 5 ft 6 in 5 ft 6 in 5 ft 6 in 5 ft 6 in Weight: 145 lb 2 oz BMI 23.4 BP 111/76 Intake Visit Reasons: 25 wk ob [place] Sanitarian Required: No Is patient in pain?: No Allergies No Known Allergies Allergy (Verified 06/21/25 09:25) Medications ?Medication ?Instructions ?Recorded ?Confirmed ?Type sertraline 25 mg tablet 25 mg PO DAILY 03/10/2401/10 History fish, borage, flaxseed oils-omega See Rx Instructions PO DAILY 02/16/25 06/21/25 History 3,6,9 comb no.1 1,200 mg capsule ([place] 3-6-9) magnesium 250 mg tablet 250 mg PO QDAY 02/16/2501/10 History multivit-min no.71-iron fum 28 cap PO 02/16/25 5 History mg-folate no.1 1 mg-dha 300 mg capsule (PNV-[place]) Last Menstrual Period: 12/29/24 Zika: Zika virus screening: Negative : No PFSH PFSH Surgical History Previous section Family History Aunt Cancer, Onset Age: 25 Paternal Brain tumor Social History adopted: No household members: spouse and children housing: house number of children: 1 current occupational status: unemployed current occupation: [employer] current occupational exposures/hazards: No pets and animals: [...] physical activity do you participate in: none cindy/yazidi: Rastafarian seatbelt use: always do you feel safe at home: Yes additional social history: - [employer] work History 3 Elective abortions Hx Para [...] Friedman Signature: Date (if applicable) CC: ~ [facility] Work Phone: Progress note Author Sirena Padilla [facility] Note Date/Time July 10, 2025 10:34am [facility] [address] [place] [address], [address] [place] [address] OFFICE VISIT Date of Service: 07/10/25 MR#: [id number] Acct: [id number] Name: GAURAV FORTE Rep #: [id number] : 2000 Provider: Dr. Ammon Padilla MD Age/Sex: 24/F Location: [facility] [place] Status: Signed Intake Vital Signs 04/25/25 08:20 06/21/25 09:27 07/10/25 10:06 Height 5 ft 6 in 5 ft 6 in 5 ft 6 in Weight: 149 lb 7 oz BMI 24.1 BP 112/75 Intake Visit Reasons: 28 wk ob/glucose [place] Sanitarian Required: No Is patient in pain?: No Allergies No Known Allergies Allergy (Verified 07/10/25 10:07) Medications ?Medication ?Instructions ?Recorded ?Confirmed ?Type sertraline 25 mg tablet 25 mg PO DAILY 03/10/2406/20 History fish, borage, flaxseed oils-omega See Rx Instructions PO DAILY 02/16/25 07/10/25 History 3,6,9 comb no.1 1,200 mg capsule ([place] 3-6-9) magnesium 250 mg tablet 250 mg PO QDAY 02/16/2506/20 History multivit-min no.71-iron fum 28 cap PO 02/16/25 5 History mg-folate no.1 1 mg-dha 300 mg capsule (PNV-[place]) Last Menstrual Period: 12/29/24 Zika: Zika virus screening: Negative : No PFSH PFSH Surgical History Previous section Family History Aunt Cancer, Onset Age: 25 Paternal Brain tumor Social History adopted: No household members: spouse and children housing: house number of children: 1 current occupational status: unemployed current occupation: [employer] current occupational exposures/hazards: No pets and animals: [...] physical activity do you participate in: none cindy/yazidi: Rastafarian seatbelt use: always do you feel safe at home: Yes additional social history: - [employer] work History 3 Elective abortions Hx Para [...] and Symptoms of Preeclampsia, Feeding No , [place] Education and Family Medical Leave or Disability [...] Cosigner Signature: Date (if applicable) CC: ~ [facility] Work Phone: Reason for referral (narrative)No reason for referral [facility] Work Phone: Summary Purpose Family History No [...] antepartum Se pt2024 9:24am [facility] Varicose veins during Septembe [...] Se ptember 2024 9:24am [facility] 2024 9:24am Varicose veins during [...] Se ptember 2024 10:00am [facility] 2024 10:00am Varicose veins during [...] section and content) DATE CREATED AUTHOR 11/11/2024 [facility] DATE CREATED AUTHOR AUTHOR'S DRISS ATION 08/15/2025 [facility] Care Teams (unrecognized sec tion and [...] Inactive Member Role Status Dates Chanda Velasco CATALOGUE MAKER, CATALOGUE MAKER-C Primary Care Provider Acti ve Start: February 07, 2025 End: February 07, 2025 Chanda Velasco CATALOGUE MAKER, CATALOGUE MAKER-C Referring Provider Active Start: February 07, 2025 End: February 07, 2025 Dr. Sirena Padilla MD Attending Provider Active Start: February 07, 2025 End: February 07, 2025 Team Status: Inactive Member Role Status Dates Chanda Velasco CATALOGUE MAKER, CATALOGUE MAKER-C Primary Care Provider Acti ve Start: March 02, 2025 End: March 02, 2025 Chanda Velasco CATALOGUE MAKER, CATALOGUE MAKER-C Referring Provider Active Start: March 02, 2025 End: March 02, 2025 Sophia Cho CNM Attending Provider Active S tart: March 02, 2025 End: March 02, 2025 Team Status: Active Member Role Status Dates Chanda Velasco CATALOGUE MAKER, CATALOGUE MAKER-C Primary Care Provider Acti ve Start: March 02, 2025 Sophia Cho CNM Attending Provider Active S tart: March 02, 2025 Sophia Cho CNM Referring Provider Active S tart: March 02, 2025 Team Status: Inactive Member Role Status Dates Chanda Velasco CATALOGUE MAKER, CATALOGUE MAKER-C Primary Care Provider Acti ve Start: March 02, 2025 End: March 02, 2025 Sophia Cho CNM Attending Provider Active S tart: March 02, 2025 End: March 02, 2025 Sophia Cho CNM Referring Provider Active S tart: March 02, 2025 End: March 02, 2025 Team Status: Inactive Member Role Status Dates Chanda Velasco CATALOGUE MAKER, CATALOGUE MAKER-C Primary Care Provider Acti ve Start: April 05, 2025 End: April 05, 2025 Chanda Velasco CATALOGUE MAKER, CATALOGUE MAKER-C Referring Provider Active Start: April 05, 2025 End: April 05, 2025 Dr. Sirena Padilla MD Attending Provider Active Start: April 05, 2025 End: April 05, 2025 Team Status: Active Member Role/Relationship Status Dates Chanda Velasco CATALOGUE MAKER, CATALOGUE MAKER-C Primary Care Provider Acti ve Team Status: Inactive Member Role/Relationship Status Dates Chanda Velasco CATALOGUE MAKER, CATALOGUE MAKER-C Primary Care Provider Acti ve Start: January 30, 2025 End: January 30, 2025 Dr. Sirena Padilla MD Attending Provider Active Start: January 30, 2025 End: January 30, 2025 Dr. Sirena Padilla MD Referring Provider Active Start: January 30, 2025 End: January 30, 2025 Team Status: Inactive Member Role/Relationship Status Dates Chanda Velasco CATALOGUE MAKER, CATALOGUE MAKER-C Primary Care Provider Acti ve Start: February 01, 2025 End: February 01, 2025 Dr. Sirena Padilla MD Attending Provider Active Start: February 01, 2025 End: February 01, 2025 Dr. Sirena Padilla MD Referring Provider Active Start: February 01, 2025 End: February 01, 2025 Team Status: Inactive Member Role/Relationship Status Dates Chanda Velasco CATALOGUE MAKER, CATALOGUE MAKER-C Primary Care Provider Acti ve Start: February 07, 2025 End: February 07, 2025 Chanda Velasco CATALOGUE MAKER, CATALOGUE MAKER-C Referring Provider Active Start: February 07, 2025 End: February 07, 2025 Dr. Sirena Padilla MD Attending Provider Active Start: February 07, 2025 End: February 07, 2025 Team Status: Inactive Member Role/Relationship Status Dates Chanda Velasco CATALOGUE MAKER, CATALOGUE MAKER-C Primary Care Provider Acti ve Start: March 02, 2025 End: March 02, 2025 Chanda Velasco CATALOGUE MAKER, CATALOGUE MAKER-C Referring Provider Active Start: March 02, 2025 End: March 02, 2025 Sophia Cho CNM Attending Provider Active S tart: March 02, 2025 End: March 02, 2025 Team Status: Inactive Member Role/Relationship Status Dates Chanda Velasco CATALOGUE MAKER, CATALOGUE MAKER-C Primary Care Provider Acti ve Start: March 02, 2025 End: March 02, 2025 Sophia Cho CNM Attending Provider Active S tart: March 02, 2025 End: March 02, 2025 Sophia Cho CNM Referring Provider Active S tart: March 02, 2025 End: March 02, 2025 Team Status: Inactive Member Role/Relationship Status Dates Chanda Velasco CATALOGUE MAKER, CATALOGUE MAKER-C Primary Care Provider Acti ve Start: April 05, 2025 End: April 05, 2025 Chanda Velasco CATALOGUE MAKER, CATALOGUE MAKER-C Referring Provider Active Start: April 05, 2025 End: April 05, 2025 Dr. Sirena Padilla MD Attending Provider Active Start: April 05, 2025 End: April 05, 2025 Team Status: Inactive Member Role/Relationship Status Dates Chanda Velasco CATALOGUE MAKER, CATALOGUE MAKER-C Primary Care Provider Acti ve Start: April 25, 2025 End: April 25, 2025 Chanda Velasco CATALOGUE MAKER, CATALOGUE MAKER-C Referring Provider Active Start: April 25, 2025 End: April 25, 2025 Lora Collins CATALOGUE MAKER, CATALOGUE MAKER-C Attending Provider Active Start: April 25, 2025 End: April 25, 2025 Team Status: Active Member Role/Relationship Status Dates Out [facility] Primary Care Provider Active Team Status: Active Member Role/Relationship Status Dates Dr. Sirena Padilla MD Attending Provider Active Start: May 18, 2025 Dr. Sirena Padilla MD Referring Provider Active Start: May 18, 2025 Out of [facility] Primary Care Provider Active Start: May 18, 2025 Team Status: Inactive Member Role/Relationship Status Dates Chanda Velasco CATALOGUE MAKER, CATALOGUE MAKER-C Referring Provider Active Start: May 24, 2025 End: May 24, 2025 Lora Collins CATALOGUE MAKER, CATALOGUE MAKER-C Attending Provider Active Start: May 24, 2025 End: May 24, 2025 Out of [facility] Primary Care Provider Active Start: May 24, 2025 End: May 24, 2025 Team Status: Inactive Member Role/Relationship Status Dates Dr. Sirena Padilla MD Attending Provider Active Start: May 18, 2025 End: May 18, 2025 Dr. Sriena Padilla MD Referring Provider Active Start: May 18, 2025 End: May 18, 2025 Out [facility] Primary Care Provider Active Start: May 18, 2025 End: May 18, 2025 Team Status: Inactive Member Role/Relationship Status Dates Chanda Velasco CATALOGUE MAKER, CATALOGUE MAKER-C Primary Care Provider Acti ve Start: March 02, 2025 End: March 02, 2025 Chanda Velasco NP, CATALOGUE MAKER-C Referring Provider Active Start: March 02, 2025 End: March 02, 2025 Sophia Cho CNM Attending Provider Active S tart: March 02, 2025 End: March 02, 2025 Team Status: Inactive Member Role/Relationship Status Dates Chanda Velasco NP, CATALOGUE MAKER-C Primary Care Provider Acti ve Start: March 02, 2025 End: March 02, 2025 Sophia Cho CNM Attending Provider Active S tart: March 02, 2025 End: March 02, 2025 Sophia Cho CNM Referring Provider Active S tart: March 02, 2025 End: March 02, 2025 Team Status: Inactive Member Role/Relationship Status Dates Chanda Velasco CATALOGUE MAKER, CATALOGUE MAKER-C Primary Care Provider Acti ve Start: April 05, 2025 End: April 05, 2025 Chanda Velasco CATALOGUE MAKER, CATALOGUE MAKER-C Referring Provider Active Start: April 05, 2025 End: April 05, 2025 Dr. Sirena Padilla MD Attending Provider Active Start: April 05, 2025 End: April 05, 2025 Team Status: Inactive Member Role/Relationship Status Dates Chanda Velasco CATALOGUE MAKER, CATALOGUE MAKER-C Primary Care Provider Acti ve Start: April 25, 2025 End: April 25, 2025 Chanda Velasco CATALOGUE MAKER, CATALOGUE MAKER-C Referring Provider Active Start: April 25, 2025 End: April 25, 2025 Lora Collins CATALOGUE MAKER, CATALOGUE MAKER-C Attending Provider Active Start: April 25, 2025 End: April 25, 2025 Team Status: Inactive Member Role/Relationship Status Dates Dr. Sirena Padilla MD Attending Provider Active Start: May 18, 2025 End: May 18, 2025 Dr. Sirena Padilla MD Referring Provider Active Start: May 18, 2025 End: May 18, 2025 [facility] Primary Care Provider Active Start: May 18, 2025 End: May 18, 2025 Team Status: Inactive Member Role/Relationship Status Dates Chanda Velasco NP, CATALOGUE MAKER-C Referring Provider Active Start: May 24, 2025 End: May 24, 2025 Lora Collins NP, CATALOGUE MAKER-C Attending Provider Active Start: May 24, 2025 End: May 24, 2025 Out of [facility] Doctor Primary Care Provider Active Start: May 24, 2025 End: May 24, 2025 Team Status: Inactive Member Role/Relationship Status Dates Chanda Velasco CATALOGUE MAKER, CATALOGUE MAKER-C Referring Provider Active Start: June 21, 2025 End: June 21, 2025 Dr. Lizbeth Cruz DO Attending Provider Activ e Start: June 21, 2025 End: June 21, 2025 Out of [facility] Doctor Primary Care Provider Active Start: June 21, 2025 End: June 21, 2025 Team Status: Active Member Role/Relationship Status Dates No Primary Care Physician Primary care physician Activ e Team Status: Inactive Member Role/Relationship Status Dates Chanda Velasco CATALOGUE MAKER, CATALOGUE MAKER-C Primary care physician Act jarod Start: April 05, 2025 End: April 05, 2025 Chanda Velasco CATALOGUE MAKER, CATALOGUE MAKER-C Referring Provider Active Start: April 05, 2025 End: April 05, 2025 Dr. Sirena Padilla MD Attending physician Active Start: April 05, 2025 End: April 05, 2025 Team Status: Inactive Member Role/Relationship Status Dates Chanda Velasco CATALOGUE MAKER, CATALOGUE MAKER-C Primary care physician Act jarod Start: April 25, 2025 End: April 25, 2025 Chanda Velasco NP, CATALOGUE MAKER-C Referring Provider Active Start: April 25, 2025 End: April 25, 2025 Lora Collins CATALOGUE MAKER, CATALOGUE MAKER-C Attending physician Active Start: April 25, 2025 End: April 25, 2025 Team Status: Inactive Member Role/Relationship Status Dates Dr. Sirena Padilla MD Attending physician Active Start: May 18, 2025 End: May 18, 2025 Dr. Sirena Padilla MD Referring Provider Active Start: May 18, 2025 End: May 18, [address] [facility] Doctor Primary care physician Active Start: May 18, 2025 End: May 18, 2025 Team Status: Inactive Member Role/Relationship Status Dates Chanda Velasco NP, CATALOGUE MAKER-C Referring Provider Active Start: May 24, 2025 End: May 24, 2025 Lora Collins NP, CATALOGUE MAKER-C Attending physician Active Start: May 24, 2025 End: May 24, 2025 Out of [facility] Doctor Primary care physician Active Start: May 24, 2025 End: May 24, 2025 Team Status: Inactive Member Role/Relationship Status Dates Chanda Velasco NP, CATALOGUE MAKER-C Referring Provider Active Start: June 21, 2025 [...] Member Role/Relationship Status Dates Chanda Velasco NP CATALOGUE MAKER-C Referring Provider Active Start: July 10, 2025 End: July 10, 2025 Dr. Sirena Padilla MD Attending physician Active Start: July 10, 2025 End: July 10, 2025 No Primary Care Physician Primary care physician Activ e Start: July 10, 2025 End: July 10, 2025 Team Status: Inactive Member Role/Relationship Status Dates Out of [facility] Doctor Referring Provider Active Sta rt: July 25, 2025 End: July 25, 2025 Lora Collins NP, CATALOGUE MAKER-C Attending physician Active Start: July 25, 2025 [...] BE BASED ON THE PRIMARY CLINICAL RECORDS. [employer] [facility]. provides no warranty or guarantee of the accuracy or completeness of information in this document.
[2025-10-10] MEDS: Lactated Ringers 1,000 ML 50 ML IV (08:00)
[2025-10-10] MEDS: Oxytocin 15 Units/NS 250ml 15 UNITS/250 ML IV.SOLN 2 UNITS IV (08:05)
[2025-10-10 08:16] LABS: Hematocrit 34.5 % (37-47); Hemoglobin 11.5 g/dL (12.0-15.0); Immature Granulocytes Count 0.120 X10^3/uL (0.0-0.0); Mean Corp Hgb Conc 33.3 g/dL (32-36); Mean Corpuscular Volume 91.5 fL (81-99); Mean Platelet Vol. 11.4 fl (6.2-12.0); NRBC Flagged by Analyzer 0 % (0-5); Platelet Count 189 K/mm3 (150-450); RBC Distribution Width CV 14.6 % (11.6-14.6); RBC Distribution Width SD 49.2 fl (35.1-43.9); Red Blood Count 3.77 M/mm3 (4.2-5.4); White Blood Count 9.3 K/mm3 (4.4-11.0)
[2025-10-10 08:45] LABS: Syphilis Antibodies Nonreactive (Nonreactive)
--- NOTE | 2025-10-10 10:02 | PN_ITS ---
Progress Note patient is sitting in bedside chair comfortably but monitor shows contractions every 2-3 minutes. She consents to AROM nd then epidural. current tracing: FHT: Moderate variability reactive no decelerations category I tracing [place]: Q2-3 min Contractions cx: 3/80/-2, posterior. membranes ruptured with clear fluid return reviewed tracing abnormalities since last note: none A/P: IOL, TOLAC. ok to proceed with epidural now. continue pitocin.
--- NOTE | 2025-10-10 17:02 | EX.PCM.OBVAG ---
Assessment & Plan (1) Anemia: QUALIFIERS: Anemia type: unspecified type Qualified Code(s): D64.9 - Anemia, unspecified (2) Palpitation: COMMENT: after eating. No SOB, chest pain. Declines further evaluation (3) Rubella non-immune status, antepartum: COMMENT: offer MMR PP (4) Supervision of high-risk : QUALIFIERS: Trimester: third trimester Qualified Code(s): O09.93 - Supervision of high risk , unspecified, third trimester COMMENT: GBS neg, PRR, , WILBER 10/05/25, PC Kady, Gopal (5) : QUALIFIERS: Weeks of gestation: 40 weeks Qualified Code(s): Z3A.40 - 40 weeks gestation of COMMENT: declined NIPT, Carrier testing in past- neg. (6) FH: genetic disorder: COMMENT: Robison's dystonia, nephrocerebellar syndrome, Carrier testing done-Pt is not a carrier of this syndrome (7) Desires (vaginal after ) trial: COMMENT: chance of success is 77%. baby was breech. consent given. (8) Varicose veins during : COMMENT: behind knees, inner thigh, vaginal left leg. Enc stockings etc (9) Anxiety: COMMENT: sertraline (10) History of miscarriage, currently : (11) Previous section: COMMENT: breech Maternal Data Information WILBER Calculator Estimated Delivery Date Method Current WG Current Estimate 10/05/25 LMP (Certain) 40w 5d Other Estimates 10/04/25 Ultrasound #1 40w 6d Gestational age: 40 weeks 5 days Vaginal Delivery Maternal Presentation Maternal Presentation: Elective Induction Type of Induction: Pitocin and Amniotomy Medical Reason for Induction: Post term and Other (history of section ) Vaginal Delivery Information Procedure Performed: Spontaneous Vaginal Delivery Surgeon/Practitioner: Lizbeth Cruz Date of Procedure: 10/10/25 Pre-Procedure Diagnosis: @ 40 weeks 5 days, history of section Post-Procedure Diagnosis: @ 40 weeks 5 days, history of section Type of anesthesia: Epidural Estimated Blood Loss: 100cc Time of Delivery: 16:42 Findings Description of procedure: Patient began pushing and delivered the head in the CUBA presentation. The head was delivered atraumatically. The anterior and posterior shoulders delivered without complication followed by the rest of the infant and the infant was placed on the maternal abdomen. Delayed cord clamping was employed for approximately 2 minutes. Cord was clamped and cut and gentle traction was applied to the cord and the placenta delivered spontaneously immediately following it was noted to be intact with three-vessel cord. The perineum and vagina were inspected and noted to have a 1st degree laceration. EBL was 100 cc. Patient and infant tolerated delivery well. Procedure findings: Viable male scores 8/9 Presentation: Vertex Amniotic Membrane Rupture Type: Artificial Amniotic Fluid Description: Clear Placental Delivery Description: Spontaneous Placenta Disposition: [facility] Specimen collected: Yes Description of specimen(s) removed: viable male [place] Cord Vessel Description: 3 Vessels Cord Entanglement: None A Gender: Male (1 minute): 8 (5 minute): 9 Delayed Cord Clamping: Yes Photoengraving Finisher brake linings coater: No Post Vaginal Deli Medications given after delivery: IV Pitocin Episiotomy Description: None Laceration: 1st degree Complication Complications: No Multi Select Codes Urinary/Genital Urinary/Genital CPT Codes: 50156 Vaginal Delivery [facility]
[2025-10-10] MEDS: Oxytocin 15 Units/NS 250ml 15 UNITS/250 ML IV.SOLN 83 UNITS IV (17:20)
--- NOTE | 2025-10-10 17:22 | DCINST_ITS ---
Discharge Instructions DC O2, CPAP, BIPAP needs Home O2 Discharge instructions: No Dressing / Incision Discharge Activity: Return to Normal Activity, May Not Drive (while taking narcotic pain medications.) and May Shower May resume sexual activity in: 4-6 weeks Dressing / Incision Call your doctor if your incision/area has: Continuous Slow Oozing, Sudden Increased Bleeding, Increased Pain/ Swelling, Increased Redness and Foul Smelling Discharge Follow Up Care Please Follow Up With: Lizbeth Cruz DO When: Call [phone] to make an appointment with your doctor in 6 weeks. If you had elevated blood pressure or 4th degree laceration, you will need to be seen in 2 weeks. Test Results: Test results from this visit will be discussed in further detail at your follow- up appointment, if applicable. Discharge Plan Admission Admit Date/Time: 10/10/25 07:14 Primary Reason for Your Visit: vaginal delivery Attending Provider: Lizbeth Cruz Primary Care Provider: Care Physician,Anabel Primary Discharge Orders/Prescriptions Prescriptions: Continued sertraline 25 mg tablet 25 mg PO DAILY PNV-[place] 28-1-300 mg capsule 1 cap PO DAILY magnesium 250 mg tablet 250 mg PO QDAY [place] 3-6-9 1,200 mg capsule 1 cap PO DAILY Rx Instructions: 1 orally daily; B-complex with vitamin C Capsule 1 cap PO QDAY ferrous sulfate [iron] 325 mg (65 mg iron) tablet 325 mg PO DAILY Referrals / Follow Up: Care Physician,No Primary [Primary Care Provider, Medical] Disposition Disposition (needs filled in before D/C Order can be placed): Home, Self Care
[2025-10-11 00:13] VITALS: PULSE 87; O2SAT 95
[2025-10-11 00:14] VITALS: BP 114/67; PULSE 85; PULSE 93; RESP 16; TEMP 36.7; O2SAT 97
[2025-10-11 04:20] VITALS: BP 115/62; PULSE 75; RESP 16; TEMP 36.4; O2SAT 97
--- NOTE | 2025-10-11 07:57 | PN.OBGYN_ITS ---
Subjective Subjective Patient doing well without complaints. Tolerating PO. Ambulating and voiding without difficulty. Feeding well. Denies chest pain, shortness of breath, calf pain/swelling, fevers, chills, lightheadedness. Objective Data Objective Data Vital Signs: Vital Signs Temp Pulse Resp BP Pulse Ox O2 Del Method 97.5 F L 75 16 115/62 97 Room Air 10/11/25 04:20 10/11/25 04:20 10/11/25 04:20 10/11/25 04:20 10/11/25 04:20 10/11/25 04:20 Oxygen Delivery Method Room Air Weight: 168 lb 8 oz Body Mass Index (BMI) 27.1 Intake & Output: Intake and Output for Last 24 Hours 10/09/25 10/10/25 10/11/25 23:59 23:59 23:59 Intake Total 940.00 / 940.00 Output Total 550 / 550 Balance 390.00 / 390.00 Lab / Micro Data Attestation: I reviewed the patient's lab results. 10/10/25 08:00 Labs: Laboratory Results - last 24 hr 10/10/25 08:00: WBC 9.3, RBC 3.77 L, Hgb 11.5 L, Hct 34.5 L, MCV 91.5, MCH 30.5, MCHC 33.3, RDW Std Deviation 49.2 H, RDW Coeff of Nyla 14.6, Plt Count 189, MPV 11.4, Immature Gran % (Auto) 1.300 H, Neut % (Auto) 73.0 H, Lymph % (Auto) 16.0 L, Clayton % (Auto) 8.1, Eos % (Auto) 1.2, Baso % (Auto) 0.4, Absolute Neuts (auto) 6.8, Absolute Lymphs (auto) 1.49, Nucleated RBC % 0, Syphilis Total Ab Nonreactive, Blood Type O POSITIVE, Antibody Screen NEGATIVE ROS Constitutional Constitutional: Reports systems reviewed and no addt'l complaints, except as documented; Denies anorexia or headache(s) Cardiovascular Cardiovascular: Reports systems reviewed and no addt'l complaints, except as documented; Denies dizziness, dyspnea, nausea or tachypnea Respiratory/Chest Respiratory/Chest: Reports systems reviewed and no addt'l complaints, except as documented; Denies cough, dyspnea, shortness of breath at rest or tachypnea Gastrointestinal Gastrointestinal: Reports systems reviewed and no addt'l complaints, except as documented; Denies abdominal pain, constipation or nausea Genitourinary Genitourinary: Reports systems reviewed and no addt'l complaints, except as documented; Denies burning urination, difficulty urinating, dysuria, urinary frequency or urinary incontinence Musculoskeletal Musculoskeletal: Reports systems reviewed and no addt'l complaints, except as documented Integumentary Integumentary: Reports systems reviewed and no addt'l complaints, except as documented Neurologic Neurologic: Reports systems reviewed and no addt'l complaints, except as documented; Denies abnormal speech, dizziness or headache(s) Psychiatric Psychiatric: Reports systems reviewed and no addt'l complaints, except as documented Endocrine Endocrinology: Reports systems reviewed and no addt'l complaints, except as documented Hematologic/Lymphatic Hematologic/Lymphatic: Reports systems reviewed and no addt'l complaints, except as documented Physical Exam Const alert, oriented x3 and no apparent distress Neck full ROM Resp normal respiratory effort, normal air movement and no retractions Effort and Inspection: able to speak in complete sentences and symmetric chest movement GI soft to palpation Bladder / Kidney Exam: bladder normal to palpation Uterus Palpation: uterus fundus firm Extremity normal to inspection and full ROM Psych mental status grossly normal, thought process normal and cooperative Assessment & Plan (1) Anemia: QUALIFIERS: Anemia type: unspecified type Qualified Code(s): D 64.9 - Anemia, unspecified (2) (vaginal after ): COMMENT: JV PLAN: s/p PPD # 1 1. routine post delivery care 2. breast feeding- support given 3. rh positive 4. rubella immune 5. discharge home (3) Rubella non-immune status, antepartum: COMMENT: offer MMR PP (4) Supervision of high-risk : QUALIFIERS: Trimester: third trimester Qualified Code(s): O09.93 - Supervision of high risk , unspecified, third trimester COMMENT: GBS neg, PRR, , WILBER 10/05/25, DIVYA Hillman, Gopal (5) : QUALIFIERS: Weeks of gestation: 40 weeks Qualified Code(s): Z 3A.40 - 40 weeks gestation of COMMENT: declined NIPT, Carrier testing in past- neg. (6) FH: genetic disorder: COMMENT: Orbison's dystonia, nephrocerebellar syndrome, Carrier testing done-Pt is not a carrier of this syndrome (7) Desires (vaginal after ) trial: COMMENT: chance of success is 77%. baby was breech. consent given. (8) Varicose veins during : COMMENT: behind knees, inner thigh, vaginal left leg. Enc stockings etc (9) Anxiety: COMMENT: sertraline (10) History of miscarriage, currently : (11) Previous section: COMMENT: breech Charges/Coding Multi Select Codes Urinary/Genital Urinary/Genital CPT Codes: No Charge
[2025-10-11 07:58] VITALS: BP 109/74; PULSE 104; TEMP 36.6
[2025-10-11 13:57] VITALS: BP 101/67; PULSE 99
[2025-10-11 13:58] VITALS: BP 101/67; PULSE 99; RESP 16
--- NOTE | 2025-10-11 15:50 | CASEMGMT ---
Social Work Assessment Labor and Delivery Unit Patient Address:[address] [address], [place] Phone number:? [phone] Date of Referral: ?10/10/2025 Time of Referral:? 19:15 Referred By: ?Theresa Chrissy Date of Intervention: 10/11/2025 Time of Intervention:? 11:30 am Reason for Referral:? ?Mental health SW completed chart review? and acknowledges social work consult due to maternal mental health.? SW presented to bedside and introduced self to mother of baby (SCOTT ? Christina).? SW completed psychosocial assessment.? MOB and FOB during assessment.? MOB gave permission for FOB to stay in room during assessment.? FOB participated respectfully in parts of conversation.? History obtained from: medical records, MOB, FOB Household composition:? SCOTT lives FOB and 3 year old daughter, Perla, to live with MOB and FOB at discharge.? Patient's parent/guardian status:? ?MOB reports that she and FOB have been for about 5 years.?? FOB and MOB have another child, 3 year old daughter.?? Both MOB and FOB reports having support from their parents and other family members.? Medical History: ?SCOTT is 25 year old female who is 3, para ? 1, now two following the labor and delivery of ? MOB received routine care during with Jaki. ?SCOTT presents to hospital for induction of labor.? MOB delivered baby on 10/10/2025 at 40 + weeks gestation.? Baby boy, Alex, was born weighing 8 lbs, 5 oz, with apgars of 8 and 9 at one and five minutes of life.? MOB plans to both breast and bottle feed.? Educational Status:? Both MOB and FOB went to school through 8th grade, as normal per cultural upbringing.? ?? Financial Status: ?MOB is a stay at home mom, FOB works for [email or web address] and has been employed there for 13 years.?? Infant Supplies: ?MOB has obtained all necessary baby supplies including car seat, safe sleep space, clothes, diapers, and wipes.? Childcare/Caregiver(s):? MOB will be primary care management assistant for baby.? MOB states her parents live next door and will be very helpful as well.? FOB states he helps with children when home from work and his family is also involved and helpful with children.? Transportation:?? Neither SCOTT or WESLEY have a drivers license as normal for their culture. Both report having siblings that drive and are able to take them where they need to go.? SCOTT and WESLEY reports no issues with transportation. Programs/Agencies Involved: ???MOB report no involvement with outside agencies Children Services/Legal Issues:??? No children service involvement, no issues or concerns warranting referral be made at this time.? Behavioral Health Issues: ??Mental Health History:? SCOTT reports that she has anxiety and has been on 25 mg of Zoloft for over 3 years. MOB reports that it does not take her anxiety away but she does find it to reduce her symptoms and finds the medication helpful.? Patient reports that her medication was ordered by her PCP, that she is not connected to a psychiatrist or counselor.?? MOB does report that she has thought about seeing a counselor and was open to a list of counselors in the area.? WESLEY denies any mental health diagnosis or concerns.? ?Family History:? SCOTT and WESLEY both deny any mental health or substance use issues with either side of their families.?Drug Screens: ?No drug screen noted in chart.? Family/Social Stressors:? SCOTT and WESLEY report no family stressors at this time. MOB reports having much support and feel that they have many people who are able to help as needed.? Support Systems: ?SCOTT and WESLEY report having a large support systems.? Depression/Shaken Baby/Safe Sleeping: SW educated MOB on signs and symptoms of baby blues and mood and anxiety disorders to be mindful of during period.? SW provided literature for MOB to review regarding these topics.? MOB was receptive to information provided. SW educated MOB on shaken baby prevention and ABCs of safe sleep.? MOB expressed understanding and reports being ?terrified of co-sleeping with baby?.? MOB again reports having a safe sleep space for baby.? ASSESSMENT:? MOB and baby were admitted following induction and labor and deliver of baby.? Upon entering room, baby was sleeping in bassinet that was positioned directly next to MOB in bed.? Mom appeared relaxed and engaged with baby by checking on baby while talking with SW, retucking blankets and getting babies pacifier.? ??MOB, FOB report to having everything needed for baby.? PLAN:?? No other services requested or indicated. MOB and baby to be discharged when medically ready. Parents were provided literature regarding: signs and symptoms of baby blues and mood and anxiety disorders, Help Me Grow, shaken baby prevention, ABCs of safe sleep and a list of critical access hospital resources that are available for them should any needs present themselves. Alisha Trevino, GAS LEAK INSPECTOR, MEDICAL ADMINISTRATOR
--- NOTE | 2025-10-11 17:13 | NURSING ---
pt declined MMR vaccine
== END 2025-10-11 17:30 | disposition home or self-care (01) | DRG 807 ==
PROVIDERS: Admitting Provider Obstetrics & Gynecology; Referring Provider Obstetrics & Gynecology; Visit Provider Obstetrics & Gynecology
DX: O48.0 Post-term pregnancy (principal); Z37.0 Single live birth; O99.344 Other mental disorders complicating childbirth; F41.9 Anxiety disorder, unspecified; O99.02 Anemia complicating childbirth; O34.211 Maternal care for low transverse scar from previous cesarean delivery; O87.4 Varicose veins of lower extremity in the puerperium; O70.0 First degree perineal laceration during delivery; Z3A.40 40 weeks gestation of pregnancy; Z79.899 Other long term (current) drug therapy; Z87.59 Personal history of other complications of pregnancy, childbirth and the puerperium
CPT/HCPCS: 59025; 59050; 85025; 86780; 86850; 86900; 86901; 99221; G0378